=== PATIENT | male | born 1970 | race Asian ===

== ENCOUNTER 2016-10-12 21:04 | Inpatient (IN) | payer MEDICARE, BC ==
[~2016-10-12] VITALS: Ht 177.8 cm; Wt 80.0 kg
[2016-10-12 21:06] VITALS: BP 146/76; PULSE 99; RESP 16; TEMP 98; O2SAT 98
[2016-10-12] MEDS ORDERED: LANTUS2P SQ (22:17)
[2016-10-12] MEDS ORDERED: TACR1 PO (22:17)
[2016-10-12] MEDS ORDERED: NOVORP2 SQ (22:17)
[2016-10-12] MEDS ORDERED: MYCO250 PO (22:17)
[2016-10-12] MEDS ORDERED: PRED5TAB PO (22:18)
[2016-10-12] MEDS ORDERED: SIMV40TA PO (22:18)
[2016-10-12] MEDS ORDERED: ASPI-110 PO (22:18)
[2016-10-12] MEDS ORDERED: METO100T PO (22:18)
--- NOTE | 2016-10-12 22:39 | PD ---
HPI Chief Complaint: Injury Time Seen by Provider: 22:21 Travel History International Travel<30 days: No Contact w/Intl Traveler<30days: No Traveled to known affect area: No History of Present Illness HPI 46-year-old male complains of pain swelling and infection the right foot. Patient has history of diabetes. Patient status post kidney transplant in 1998 and pancreas transplant in 1999 and 2005. Patient is on immunosuppressive medications. Patient states that he had a small cut to the right foot several months ago. Patient states that he performed a callus at the area. Patient started having increasing redness swelling to right foot 3 days ago. Patient was seen at [facility] in [place] 2 days ago and had x-ray and was admitted for right foot cellulitis. A reinforced steel placing supervisor was consulted. Patient had debridement to right foot. Patient was put on IV and vancomycin and another IV antibiotic was edited yesterday. Patient states that the reinforced steel placing supervisor went out of town and other physician has been taking care of him at the hospital. Patient is unhappy with the situation and left the hospital today and came to [place]. Patient state that last IV vancomycin was this morning. Patient denies any fever chills. PFSH Past Medical History Diabetes: Yes (iddm) Patient Takes Glucophage: No Past Surgical History Other Surgery: Yes (kidney trans ; pancreatic trans 1999 & 2005; abd hernia ) Social History Alcohol Use: No Tobacco Use: No Substance Use: No Allergies-Medications (Allergen,Severity, Reaction): Coded Allergies: No Known Allergies (Unverified , 10/12/16) Reported Meds & Prescriptions Reported Meds & Active Scripts Active Reported Metoprolol Tartrate 100 Mg Tab 100 Mg PO DAILY Aspirin 81 (Aspirin) 81 Mg Tabdr 81 Mg PO DAILY Simvastatin 40 Mg Tab 40 Mg PO HS Prednisone 5 Mg Tab 5 Mg PO DAILY Prograf (Tacrolimus) 1 Mg Cap 2 Mg PO BID Cellcept (Mycophenolate Mofetil) 250 Mg Cap 500 Mg PO BID Novolin R Inj (Insulin Human Regular) 1,000 Unit/10 Ml Vial 0 SQ DIRECTED Sliding Scale As Directed. Lantus Inj (Insulin Glargine) 1,000 Unit/10 Ml Vial 50 Units SQ HS Review of Systems General / Constitutional: No: Fever Eyes: No: Visual changes HENT: No: Headaches Cardiovascular: No: Chest Pain or Discomfort Respiratory: No: Shortness of Breath Gastrointestinal: No: Abdominal Pain Genitourinary: No: Dysuria Musculoskeletal: Positive: Pain Skin: No Rash Neurologic: No: Weakness Psychiatric: No: Depression Endocrine: No: Polydipsia Hematologic/Lymphatic: No: Easy Bruising Physical Exam Narrative GENERAL: Well-nourished, well-developed patient. SKIN: Warm and dry. HEAD: Normocephalic. EYES: No scleral icterus. No injection or drainage. NECK: Supple, trachea midline. No JVD or lymphadenopathy. CARDIOVASCULAR: Regular rate and rhythm without murmurs, gallops, or rubs. RESPIRATORY: Breath sounds equal bilaterally. No accessory muscle use. GASTROINTESTINAL: Abdomen soft, non-tender, nondistended. MUSCULOSKELETAL: No cyanosis, or edema. BACK: Nontender without obvious deformity. No CVA tenderness. Examination the right foot shows redness swelling tenderness involving the right big toe, distal aspect of the right foot. No induration. Large ulcer lesion medial aspect of the right big toe. No discharge noted.. Data Data Last Documented VS Vital Signs Date Time Temp Pulse Resp B/P Pulse Ox O2 Delivery O2 Flow Rate FiO2 10/12/16 22:13 Room Air 10/12/16 21:06 98.0 99 16 146/76 98 Orders Complete Blood Count With Diff (10/12/16 22:29) Comprehensive Metabolic Panel (10/12/16 22:29) Prothrombin Time / Inr (Pt) (10/12/16 22:29) Act Partial Throm Time (Ptt) (10/12/16 22:29) Blood Culture (10/12/16 22:29) Iv Access Insert/Monitor (10/12/16 22:29) Ecg Monitoring (10/12/16 22:29) Oximetry (10/12/16 22:29) Foot, Complete ([id number]) (10/12/16 22:29) Piperacil-Tazo 3.375 Gm Premix (Zosyn 3. (10/13/16 00:00) Vancomycin Inj (Vancomycin Inj) (10/13/16 00:00) Sodium Chlor 0.9% 1000 Ml Inj (Ns 1000 M (10/13/16 00:00) Labs Laboratory Tests Test 10/12/16 22:45 White Blood Count 8.2 TH/MM3 Red Blood Count 4.90 MIL/MM3 Hemoglobin 14.2 GM/DL Hematocrit 42.0 % Mean Corpuscular Volume 85.7 FL Mean Corpuscular Hemoglobin 29.0 PG Mean Corpuscular Hemoglobin 33.9 % Concent Red Cell Distribution Width 12.9 % Platelet Count 277 TH/MM3 Mean Platelet Volume 7.6 FL Neutrophils (%) (Auto) 66.6 % Lymphocytes (%) (Auto) 24.3 % Monocytes (%) (Auto) 7.2 % Eosinophils (%) (Auto) 1.5 % Basophils (%) (Auto) 0.4 % Neutrophils # (Auto) 5.5 TH/MM3 Lymphocytes # (Auto) 2.0 TH/MM3 Monocytes # (Auto) 0.6 TH/MM3 Eosinophils # (Auto) 0.1 TH/MM3 Basophils # (Auto) 0.0 TH/MM3 CBC Comment DIFF FINAL Differential Comment Prothrombin Time 10.6 SEC Prothromb Time International 1.0 RATIO Ratio Activated Partial 24.9 SEC Thromboplast Time Sodium Level 137 MEQ/L Potassium Level 4.7 MEQ/L Chloride Level 101 MEQ/L Carbon Dioxide Level 29.8 MEQ/L Anion Gap 6 MEQ/L Blood Urea Nitrogen 19 MG/DL Creatinine 1.05 MG/DL Estimat Glomerular Filtration 75 ML/MIN Rate Random Glucose 231 MG/DL Calcium Level 9.5 MG/DL Total Bilirubin 0.3 MG/DL Aspartate Amino Transf 20 U/L (AST/SGOT) Alanine Aminotransferase 25 U/L (ALT/SGPT) Alkaline Phosphatase 118 U/L Total Protein 6.9 GM/DL Albumin 2.9 GM/DL MDM Medical Decision Making Medical Screen Exam Complete: Yes Emergency Medical Condition: Yes Interpretation(s) Last Impressions Foot X-Ray 10/12/16 9316 Signed Impressions: Service Date/Time: Wednesday, October 12, 2016 22:52 - CONCLUSION: Unremarkable examination of the right foot. Rasheed Fink Jr., MD 23:46 PM. CBC within normal limit. 23:55 PM. BUN 19. Creatinine 1.05. Glucose 231. Alkaline phosphatase 118. Differential Diagnosis Differential diagnosis including cellulitis, abscess, osteomyelitis. Narrative Course 46-year-old male with redness swelling tenderness right foot including right big toe and distal aspect the right foot. Normal saline solution 70 cc an hour. Vancomycin 1 g IV. Zosyn 3.375 g IV given. Diagnosis Primary Impression: Cellulitis of right foot Additional Impression: Diabetic ulcer of right foot Qualified Code: E13.621 - Diabetic ulcer of toe of right foot associated with diabetes mellitus of other type, with fat layer exposed Jerrod Mackenzie MD Oct 12, 2016 22:39
[2016-10-12 22:59] LABS: AUTOMATED NEUTROPHIL # 5.5 TH/MM3 (1.8-7.7); BASOPHIL % 0.4 % (0.0-2.0); EOSINOPHIL # 0.1 TH/MM3 (0-0.4); EOSINOPHIL % 1.5 % (0.0-4.0); HEMO FLAGS DIFF FINAL; LYMPH % 24.3 % (9.0-44.0); MEAN CELL VOLUME 85.7 FL (80.0-100.0); MEAN CORPUSCULAR HGB CONC 33.9 % (32.0-36.0); MONO % 7.2 % (0.0-8.0); NEUT % 66.6 % (16.0-70.0); PLATELET COUNT 277 TH/MM3 (150-450); RED CELL DISTRIBUTION WIDTH 12.9 % (11.6-17.2); WHITE BLOOD COUNT 8.2 TH/MM3 (4.0-11.0)
--- NOTE | 2016-10-12 23:08 | RADRPT ---
EXAM DATE/TIME: 10/12/2016 22:52 [facility] COMPARISON: No previous studies available for comparison. INDICATIONS : Infection MEDICAL HISTORY : Diabetes mellitus type II. SURGICAL HISTORY : None. ENCOUNTER: Initial ACUITY: 1 week PAIN SCORE: 2/10 LOCATION: Right Foot FINDINGS: Three view examination of the right foot demonstrates no soft tissue swelling, dislocation, or fractu re. The tarsal bones appear intact. The interphalangeal and metatarsophalangeal joints are intact. The calcaneus is intact. Bony mineralization is normal. CONCLUSION: Unremarkable examination of the right foot. Rasheed Fink Jr., MD on October 12, 2016 at 23:06 Board Certified Radiologist. This report was verified electronically.
[2016-10-12 23:11] LABS: APTT (PATIENT) 24.9 SEC (24.3-30.1); PROTHROMBIN TIME - PATIENT 10.6 SEC (9.8-11.6)
[2016-10-12 23:35] LABS: ALKALINE PHOSPHATASE 118 U/L (45-117); TOTAL BILIRUBIN ADULT 0.3 MG/DL (0.2-1.0)
[2016-10-12 23:47] LABS: ALT (GPT) 25 U/L (12-78); ANION GAP 6 MEQ/L (5-15); AST (GOT) 20 U/L (15-37); BICARBONATE 29.8 MEQ/L (21.0-32.0); BLOOD UREA NITROGEN 19 MG/DL (7-18); CHLORIDE 101 MEQ/L (98-107); GLOMERULAR FILTRATION RATE 75 ML/MIN (>89); SODIUM (NA) 137 MEQ/L (136-145)
[2016-10-12 23:50] LABS: POTASSIUM 4.7 MEQ/L (3.5-5.1)
[2016-10-13] VITALS (7 sets, daily range): BP systolic 108–147; BP diastolic 69–88; PULSE 81–95; RESP 16–20; TEMP 96–98; O2SAT 94–98
[2016-10-13] MEDS ORDERED: PIPERACIL-TAZO 3.375 GM PREMIX 50 ML IV ONE
[2016-10-13] MEDS ORDERED: VANCOMYCIN INJ 1,000 MG in SODIUM CHLOR 0.9% 250 ML INJ 250 ML IV ONE ×2
[2016-10-13] MEDS: SODIUM CHLOR 0.9% 1000 ML INJ 1,000 ML IV SCH ×2 (00:09→18:16)
[2016-10-13] MEDS ORDERED: ACETAMINOPHEN/HYDROcodone 325 MG/5 MG TAB PO PRN (00:15)
[2016-10-13] MEDS ORDERED: Vancomycin Consult Pharmacy 1 EA OTHER SCH (00:15)
[2016-10-13] MEDS ORDERED: MORPHINE SULFATE 4 MG/ML INJ IV PRN (00:15)
[2016-10-13] MEDS ORDERED: DEXTROSE 50% IN WATER 50 ML VIAL(D50) IV PUSH PRN (00:15)
[2016-10-13] MEDS ORDERED: ACETAMINOPHEN 325 MG TAB PO PRN ×2 (00:15)
[2016-10-13] MEDS ORDERED: GLUCAGON 1 MG/ML VIAL OTHER PRN (00:15)
[2016-10-13] MEDS ORDERED: NALOXONE HCL 0.4 MG/ML AMP IV PRN (00:15)
[2016-10-13] MEDS ORDERED: SENNOSIDES 8.6 MG TAB PO PRN (00:15)
[2016-10-13] MEDS ORDERED: SODIUM CHLORIDE 0.9% FLUSH 10 ML FLUSH IVF PRN (00:15)
[2016-10-13] MEDS ORDERED: ONDANSETRON HCL 4 MG/2 ML VIAL IV PRN (00:15)
[2016-10-13] MEDS ORDERED: ACETAMINOPHEN/HYDROcodone 325 MG/7.5 MG TAB PO PRN (00:15)
[2016-10-13] MEDS: INSULIN DETEMIR 100 UNITS/ML VIAL SQ SCH ×2 (00:30→21:08)
[2016-10-13] MEDS ORDERED: ENALAPRILAT 1.25 MG/ML VIAL IV PRN (01:00)
[2016-10-13] MEDS ORDERED: INSULIN DETEMIR 100 UNITS/ML VIAL SQ ONE (01:00)
[2016-10-13] MEDS ORDERED: cloNIDine HCL 0.1 MG TAB PO PRN (01:00)
--- NOTE | 2016-10-13 01:10 | HHI.HP ---
HPI Service [facility] Hospitalists Primary Care Physician No Primary Care Physician Admission Diagnosis right foot cellulitis. Diabetic foot ulcer Diagnoses: Chief Complaint: Right foot cellulitis Travel History International Travel<30 Days: No Contact w/Intl Traveler <30 Da: No Traveled to Known Affected Are: No History of Present Illness This is a 46-year-old male who complains of pain swelling and infection the right foot. Patient has history of diabetes, kidney and pancreatic transplant on immunosuppressive's, hypertension and hyperlipidemia. Patient states that he had a small cut to the right foot several months ago developed a callus at the area. Patient started having increasing redness swelling to right foot with slight pain 4 days ago. Patient was seen at [facility] in [place] 3 days ago and had x-ray and was admitted for right foot cellulitis. A [employer] senior specialist was consulted and underwent bedside debridement to right foot including scraping of the bone. No MRI was done. Patient was put on IV vancomycin and Zosyn. Patient states that the [employer] senior specialist went out of town today and another physician has been taking care of him at the hospital. Patient is unhappy with the situation and left the hospital today AGAINST MEDICAL ADVICE and came to [place]. Patient denies any fever chills. Review of Systems Constitutional: DENIES: Diaphoretic episodes, Fatigue, Fever, Weight gain, Weight loss, Chills, Dizziness, Change in appetite, Night Sweats Endocrine: DENIES: Heat/cold intolerance, Polydipsia, Polyuria, Polyphagia Eyes: DENIES: Blurred vision, Diplopia, Vision loss, Photosensitivity Ears, nose, mouth, throat: DENIES: Tinnitus, Vertigo, Throat pain, Hoarseness, Epistaxis, Odynophagia Respiratory: DENIES: Cough, Wheezing, Hemoptysis, Sputum production, Shortness of breath Cardiovascular: DENIES: Chest pain, Palpitations, Syncope, Dyspnea on Exertion , PND, Lower Extremity Edema, Orthopnea, Claudication Gastrointestinal: DENIES: Abdominal pain, Black stools, Bloody stools, Constipation, Diarrhea, Nausea, Vomiting, Difficulty Swallowing, Anorexia Genitourinary: DENIES: Urinary frequency, Urinary incontinence, Urgency, Hematuria, Dysuria, Nocturia, Penile Discharge Musculoskeletal: COMPLAINS OF: Joint pain Integumentary: DENIES: Rash Neurologic: DENIES: Headache, Localized weakness, Seizures, Tremor, Poor Balance Psychiatric: DENIES: Anxiety, Confusion, Depression, Hallucinations, Agitation , Suicidal Ideation, Homicidal Ideation, Delusions Past Family Social History Past Medical History As previously mentioned Past Surgical History As previously mentioned. Bedside debridement of right foot Reported Medications Metoprolol Tartrate 100 Mg Tab 100 Mg PO DAILY Aspirin 81 (Aspirin) 81 Mg Tabdr 81 Mg PO DAILY Simvastatin 40 Mg Tab 40 Mg PO HS Prednisone 5 Mg Tab 5 Mg PO DAILY Prograf (Tacrolimus) 1 Mg Cap 2 Mg PO BID Cellcept (Mycophenolate Mofetil) 250 Mg Cap 500 Mg PO BID Novolin R Inj (Insulin Human Regular) 1,000 Unit/10 Ml Vial 0 SQ DIRECTED Sliding Scale As Directed. Lantus Inj (Insulin Glargine) 1,000 Unit/10 Ml Vial 50 Units SQ HS Allergies: Coded Allergies: No Known Allergies (Unverified , 10/12/16) Family History Diabetes mellitus Social History Does not smoke or drink Physical Exam Vital Signs Vital Signs Date Time Temp Pulse Resp B/P Pulse Ox O2 Delivery O2 Flow Rate FiO2 10/13/16 00:43 98 Room Air 10/13/16 00:33 98 10/12/16 22:13 Room Air 10/12/16 21:06 98.0 99 16 146/76 98 Physical Exam GENERAL: This is a well-nourished, well-developed patient, in no apparent distress. SKIN: No rashes, ecchymoses or lesions. Cool and dry. HEAD: Atraumatic. Normocephalic. No temporal or scalp tenderness. EYES: Pupils equal round and reactive. Extraocular motions intact. No scleral icterus. No injection or drainage. ENT: Nose without bleeding, purulent drainage or septal hematoma. Throat without erythema, tonsillar hypertrophy or exudate. Uvula midline. Airway patent. NECK: Trachea midline. No JVD or lymphadenopathy. Supple, nontender, no meningeal signs. CARDIOVASCULAR: Regular rate and rhythm without murmurs, gallops, or rubs. RESPIRATORY: Clear to auscultation. Breath sounds equal bilaterally. No wheezes , rales, or rhonchi. GASTROINTESTINAL: Abdomen soft, non-tender, nondistended. Well healed scar from transplant. No guarding. MUSCULOSKELETAL: Extremities without clubbing, cyanosis, or edema. No joint tenderness, effusion, or edema noted. No calf tenderness. Negative Homans sign bilaterally. Right foot shows redness ,swelling and tenderness involving the right big toe, distal aspect of the right foot. No induration. Ulcer lesion medial aspect of the right big toe. No discharge noted. NEUROLOGICAL: Awake and alert. Cranial nerves II through XII intact. Motor and sensory grossly within normal limits. Five out of 5 muscle strength in all muscle groups. Normal speech. Laboratory Laboratory Tests Test 10/12/16 22:45 White Blood Count 8.2 Red Blood Count 4.90 Hemoglobin 14.2 Hematocrit 42.0 Mean Corpuscular Volume 85.7 Mean Corpuscular Hemoglobin 29.0 Mean Corpuscular Hemoglobin 33.9 Concent Red Cell Distribution Width 12.9 Platelet Count 277 Mean Platelet Volume 7.6 Neutrophils (%) (Auto) 66.6 Lymphocytes (%) (Auto) 24.3 Monocytes (%) (Auto) 7.2 Eosinophils (%) (Auto) 1.5 Basophils (%) (Auto) 0.4 Neutrophils # (Auto) 5.5 Lymphocytes # (Auto) 2.0 Monocytes # (Auto) 0.6 Eosinophils # (Auto) 0.1 Basophils # (Auto) 0.0 CBC Comment DIFF FINAL Differential Comment Prothrombin Time 10.6 Prothromb Time International 1.0 Ratio Activated Partial 24.9 Thromboplast Time Sodium Level 137 Potassium Level 4.7 Chloride Level 101 Carbon Dioxide Level 29.8 Anion Gap 6 Blood Urea Nitrogen 19 Creatinine 1.05 Estimat Glomerular Filtration 75 Rate Random Glucose 231 Calcium Level 9.5 Total Bilirubin 0.3 Aspartate Amino Transf 20 (AST/SGOT) Alanine Aminotransferase 25 (ALT/SGPT) Alkaline Phosphatase 118 Total Protein 6.9 Albumin 2.9 Date/Time Procedure Status Source Growth 10/12/16 22:45 Aerobic Blood Culture Received Blood Peripheral Pending 10/12/16 22:45 Anaerobic Blood Culture Received Blood Peripheral Pending Result Diagram: 10/12/16224410/12/162244 Imaging X-ray of the foot with out evidence of osteo-myelitis Last Impressions Foot X-Ray 10/12/162228 Signed Impressions: Service Date/Time: Wednesday, October 12, 2016 22:52 - CONCLUSION: Unremarkable examination of the right foot. Rasheed Fink Jr., MD Assessment and Plan Problem List: (1) Diabetic ulcer of right foot ICD Code: E11.621 Status: Acute (2) Cellulitis of right foot ICD Code: L03.115 Status: Acute Assessment and Plan This is a 46-year-old male who complains of pain swelling and infection the right foot. Patient has history of diabetes, kidney and pancreatic transplant on immunosuppressives, hypertension and hyperlipidemia. Patient states that he had a small cut to the right foot several months ago developed a callus at the area. Patient started having increasing redness swelling to right foot with slight pain 4 days ago. Patient was seen at [facility] in [place] 3 days ago and had x-ray and was admitted for right foot cellulitis. A [employer] senior specialist was consulted and underwent bedside debridement to right foot including scraping of the bone. Patient was put on IV vancomycin and Zosyn. Patient states that the [employer] senior specialist went out of town today and another physician has been taking care of him at the hospital. Patient is unhappy with the situation and left the hospital today AGAINST MEDICAL ADVICE and came to [place]. Patient denies any fever chills. Diabetic foot infection with cellulitis and ulcer of the right great toe medial aspect suspect osteomyelitis. X-ray of the foot unremarkable. Patient will be admitted for IV antibiotics we'll continue vancomycin and Zosyn. Obtain MRI of the foot and consult podiatry. Wound care. Pain management with Lortab and IV morphine. Obtain records from the [facility] Diabetes mellitus. A1c 3 months ago 12. Continue Lantus and sliding scale coverage. Diabetic education Chronic medical conditions of kidney and pancreatic transplant on immunosuppressives, hypertension and hyperlipidemia. Continue outpatient medications as appropriate. Consult nephrology DVT prophylaxis with SCD and heparin Code Status Full Discussed Condition With Patient Physician Certification 2 Midnight Certification Type: Admission for Inpatient Services Order for Inpatient Services The services are ordered in accordance with Medicare regulations or non- Medicare payer requirements, as applicable. In the case of services not specified as inpatient-only, they are appropriately provided as inpatient services in accordance with the 2-midnight benchmark. Estimated LOS (days): 2 days is the estimated time the patient will need to remain in the hospital, assuming treatment plan goals are met and no additional complications. Post-Hospital Plan: Not yet determined Problem Qualifiers (1) Diabetic ulcer of right foot: Qualified Code: E13.621 - Diabetic ulcer of toe of right foot associated with diabetes mellitus of other type, with fat layer exposed Basil Snyder MD Oct 13, 2016 01:10
[2016-10-13] MEDS: PIPERACIL-TAZO 3.375 GM PREMIX 50 ML IV SCH ×3 (06:00→17:58)
[2016-10-13] MEDS ORDERED: MYCOPHENOLATE MOFETIL 250 MG CAP PO SCH ×2 (06:00→09:00)
[2016-10-13] MEDS ORDERED: TACROLIMUS 1 MG CAP PO SCH (06:00)
[2016-10-13] MEDS: INSULIN ASPART SUPPLEMENTAL SCALE SQ SCH ×4 (07:00→21:05)
[2016-10-13] MEDS ORDERED: GADODIAMIDE PF 287 MG/ML 20 ML VIAL (for RAD MRI) IV ONE (08:37)
[2016-10-13] MEDS: SODIUM CHLORIDE 0.9% FLUSH 10 ML FLUSH IV FLUSH SCH ×2 (09:00→21:00)
[2016-10-13] MEDS: DOCUSATE SODIUM 100 MG CAP PO SCH ×2 (09:00→21:00)
[2016-10-13] MEDS: ASPIRIN EC 81 MG TABEC PO SCH (09:13)
[2016-10-13] MEDS: predniSONE 5 MG TAB PO SCH (09:13)
[2016-10-13] MEDS: METOPROLOL TARTRATE 100 MG TAB PO SCH (09:13)
--- NOTE | 2016-10-13 09:40 | RADRPT ---
EXAM DATE/TIME: 10/13/2016 08:11 [facility] COMPARISON: FOOT RIGHT COMPLETE ([id number]), October 12, 2016, 22:52. INDICATIONS : Abscess. Pain, redness, and swelling right great toe. CONTRAST: 14 cc Omniscan (gadodiamide) IV MEDICAL HISTORY : Diabetes mellitus type 1. Hypertension. Hypercholesterolemia. SURGICAL HISTORY : Kidney and pancreas transplant. ENCOUNTER: Subsequent ACUITY: 4-6 days PAIN SCORE: 0/10 LOCATION: Right lower extremity. TECHNIQUE: Multiplanar, multisequence MRI examination was performed without contrast and after the intravenous a dministration of gadolinium. FINDINGS: BONE/CARTILAGE: There is normal marrow signal identified on the T1 weighted sequences with mild increased T2 signal i dentified within the first digit distal phalanx. The cortex is intact. There is edema identified with in the adjacent soft tissues.. Articular cartilage signal is within normal limits. TENDONS: All of the visualized tendons are intact. MISCELLANEOUS: Plantar aponeurosis is intact. Sinus tarsi is within normal limits. POST-CONTRAST: There is enhancement of the soft tissues adjacent to the skin discontinuity adjacent to the distal ph alanx of the first digit. CONCLUSION: Soft tissue infection and reactive marrow edema identified within the distal phalanx of the first dig it. No evidence of osteomyelitis.. Kristi Childress MD on October 13, 2016 at 9:34 Board Certified Radiologist. This report was verified electronically.
[2016-10-13] MEDS: HEPARIN SODIUM - SQ 10,000 UNITS/ML VIAL SQ SCH ×2 (09:59→21:05)
--- NOTE | 2016-10-13 10:02 | PD.POD.CON ---
Patient Intake Chief Complaint Infected right hallux with ulceration and diabetes Consult Requested by Dr. Snyder Reason for Consult Evaluation and treatment of right hallux ulceration. Primary Care Physician No Primary Care Physician History of Present Illness Patient is a 46-year-old diabetic male with peripheral neuropathy and history of pancreatic and kidney transplant. States in July he cut his toes of his right foot with a piece of sheet metal. The area healed up but he developed a wound on the plantar aspect of the right hallux. It is now spread to the dorsal aspect of the right hallux. Patient was in [facility] he was seen by a manager actuarial there who did a bedside debridement. Results are not available at this time. Patient smokes. He has been showering. Coded Allergies: No Known Allergies (Unverified , 10/12/16) Preferred Language to Discuss: Kazakh Barriers to Learning: None Teaching Method: Discussion Vital Signs Date Time Temp Pulse Resp B/P Pulse Ox O2 Delivery O2 Flow Rate FiO2 10/13/16 08:52 98.0 92 20 147/88 96 10/13/16 00:43 98 Room Air 10/13/16 00:33 98 10/12/16 22:13 Room Air 10/12/16 21:06 98.0 99 16 146/76 98 Pain scale used: 0-10 numeric scale Pain score: 0 Medications Current Medications Piperacillin Sod/ Tazobactam Sod 50 ml @ 100 mls/hr ONCE ONCE IV Last administered on 10/13/16 00:10; Start 10/13/16 at 00:00; Stop 10/13/16 at 00:29 ; Status DC Vancomycin HCl 1000 mg/Sodium Chloride 250 ml @ 250 mls/hr ONCE ONCE IV Last administered on 10/13/16 00:36; Start 10/13/16 at 00:00; Stop 10/13/16 at 00:59 ; Status DC Sodium Chloride 1,000 ml @ 70 mls/hr [id number] IV Last administered on 00:09; Start 10/13/16 at 00:00 Pharmacy Profile Note 0 ml @ 0 mls/hr UNSCH OTHER ; Start 10/13/16 at 00:15 Piperacillin Sod/ Tazobactam Sod (Zosyn 3.375 Gm Premix) 50 ml @ 100 mls/hr Q6HR IV Last administered on 10/13/16 06:00; Start 10/13/16 at 06:00 Dextrose (D50w (Vial) Inj) 25 ml UNSCH PRN IV PUSH HYPOGLYCEMIA-SEE COMMENTS; Start 10/13/16 at 00:15 Glucagon (Glucagon Inj) 1 mg UNSCH PRN OTHER HYPOGLYCEMIA-SEE COMMENTS; Start 10/13/16 at 00:15 Insulin Aspart (NovoLOG SUPPLEMENTAL SCALE) 1 ACHS SLIDING SCALE SQ ; Start at 07:00 Ondansetron HCl (Zofran Inj) 4 mg Q6H PRN IV NAUSEA OR VOMITING; Start at 00:15 Acetaminophen (Tylenol) 650 mg Q4H PRN PO Temp>101F, Headache; Start 10/13/16 at 00:15 Sodium Chloride (NS Flush) 2 ml BID IV FLUSH Last administered on 10/13/16 09: 00; Start 10/13/16 at 09:00 Sodium Chloride (NS Flush) 2 ml UNSCH PRN IVF FLUSH AFTER USING IV ACCESS; Start 10/13/16 at 00:15 Aspirin (Ecotrin Ec) 81 mg DAILY PO Last administered on 10/13/16 09:13; Start 10/13/16 at 09:00 Insulin Detemir (Levemir Inj) 50 units HS SQ ; Start 10/13/16 at 00:30 Metoprolol Tartrate (Lopressor) 100 mg DAILY PO Last administered on 10/13/16 09:13; Start 10/13/16 at 09:00 Mycophenolate Mofetil (Cellcept) 500 mg BID PO ; Start 10/13/16 at 09:00; Stop 10/13/16 at 09:00; Status DC Prednisone (Deltasone) 5 mg DAILY PO Last administered on 10/13/16 09:13; Start 10/13/16 at 09:00 Tacrolimus (Prograf) 2 mg Q12H PO ; Start 10/13/16 at 06:00 Pravastatin Sodium (Pravachol) 80 mg HS PO ; Start 10/13/16 at 21:00 Docusate Sodium (Colace) 100 mg Q12HR PO ; Start 10/13/16 at 09:00 Sennosides (Senokot) 17.2 mg Q12H PRN PO CONSTIPATION; Start 10/13/16 at 00:15 Heparin Sodium (Porcine) (Heparin Inj) 5,000 units Q12HR SQ ; Start 10/13/16 at 09:00 Acetaminophen (Tylenol) 650 mg Q6H PRN PO PAIN SCALE 1 TO 2; Start 10/13/16 at 00:15 Acetaminophen/ Hydrocodone Bitart ([place] 5-325 Mg) 1 tab Q4H PRN PO PAIN SCALE 3 TO 5; Start 10/13/16 at 00:15 Acetaminophen/ Hydrocodone Bitart ([place] 7.5-325 Mg) 1 tab Q4H PRN PO PAIN SCALE 6 TO 10; Start 10/13/16 at 00:15 Morphine Sulfate (Morphine Inj) 1 mg Q3H PRN IV BREAKTHROUGH PAIN; Start at 00:15 Naloxone HCl (Narcan Inj) 0.4 mg UNSCH PRN IV SEE LABEL COMMENTS; Start at 00:15 Mycophenolate Mofetil (Cellcept) 500 mg Q12H PO ; Start 10/13/16 at 06:00 Insulin Detemir (Levemir Inj) 30 units NOW ONCE SQ Last administered on 01:26; Start 10/13/16 at 01:00; Stop 10/13/16 at 01:16; Status DC Enalaprilat (Vasotec Inj) 1.25 mg Q6H PRN IV SBP> OR = 180, DBP> OR = 100; Start 10/13/16 at 01:00 Clonidine (Catapres) 0.1 mg Q6H PRN PO SBP> OR = 180, DBP> OR = 100; Start at 01:00 Gadodiamide 14 ml 14 ml STK-MED ONCE IV Last administered on 10/13/16 08:37; Start 10/13/16 at 08:37; Stop 10/13/16 at 08:38; Status DC Vancomycin HCl/ Sodium Chloride (Vancomycin Inj/ NS 250 ml Inj) 250 ml @ 250 mls/hr Q12H IV ; Start 10/13/16 at 12:00 Miscellaneous Information SPECIFIC LAB TO BE ... ONCE ONCE XX ; Start at 11:45; Stop 10/14/16 at 11:46 Past, Family & Social History Past Medical History Endocrine: REPORTS HX OF: Diabetes mellitus, Other endocrine history Genitourinary: REPORTS HX OF: Kidney failure Neurologic: REPORTS HX OF: Peripheral neuropathy Past Surgical History Endocrine: REPORTS HX OF: Other endocrine surgery (pancreatitic transplant with failure) Genitourinary: REPORTS HX OF: Other surgery (to need transplant) Review of Systems Musculoskeletal: COMPLAINS OF: Deformaties Exam-Podiatry Constitutional General appearance: comfortable Nutritional status: normal Orientation: alert and oriented x3 Dermatological Exam Skin Temp - Right: Within Normal Limits Skin Texture - Right: Within Normal Limits Skin Elasticity - Right: Within Normal Limits Skin Tugor - Right: Within Normal Limits Hair Growth - Right: Within Normal Limits Pigmentation - Right: Within Normal Limits Skin Temp - Left: Within Normal Limits Skin Texture - Left: Within Normal Limits Skin Elasticity - Left: Within Normal Limits Skin Tugor - Left: Within Normal Limits Hair Growth - Left: Within Normal Limits Pigmentation - Left: Within Normal Limits Ulcers: Location/Measurements right hallux with dorsal and plantar ulceration. The plantar ulceration probes to bone. It measures approximately 0.8 cm x 0.8 cm. Dorsal ulceration is necrotic eschar. The right hallux is swollen and erythematous. Vascular/Lymphatic Exam R Dorsails Pedis: Palpable L Dorsails Pedis: Palpable R Posterior Tibial: Palpable L Posterior Tibial: Palpable Neurologic Exam Present on right: Tingling, Paraesthesia Present on left: Tingling, Paraesthesia Sensation: Light touch: Dimished Pinprick: Dimished Proprioception: Dimished Vibratory: Dimished Monofilament exam: 1st metatarsal head: diminished 5th metatarsal head: diminished Great toe: diminished Muscle Strength Dorsiflexion (Right): Normal Plantarflexion (Right): Normal Inversion (Right): Normal Eversion (Right): Normal Digital (Right): Normal Dorsiflexion (Left): Normal Plantarflexion (Left): Normal Inversion (Left): Normal Eversion (Left): Normal Digital (Left): Normal Foot Range of Motion Dorsiflexion (Right): Normal Plantarflexion (Right): Normal Inversion (Right): Normal Eversion (Right): Normal Digital (Right): Normal Dorsiflexion (Left): Normal Plantarflexion (Left): Normal Inversion (Left): Normal Eversion (Left): Normal Digital (Left): Normal Lab and Radiology Results Laboratory Laboratory Tests Test 10/12/16 22:45 White Blood Count 8.2 TH/MM3 Red Blood Count 4.90 MIL/MM3 Hemoglobin 14.2 GM/DL Hematocrit 42.0 % Mean Corpuscular Volume 85.7 FL Mean Corpuscular Hemoglobin 29.0 PG Mean Corpuscular Hemoglobin 33.9 % Concent Red Cell Distribution Width 12.9 % Platelet Count 277 TH/MM3 Mean Platelet Volume 7.6 FL Neutrophils (%) (Auto) 66.6 % Lymphocytes (%) (Auto) 24.3 % Monocytes (%) (Auto) 7.2 % Eosinophils (%) (Auto) 1.5 % Basophils (%) (Auto) 0.4 % Neutrophils # (Auto) 5.5 TH/MM3 Lymphocytes # (Auto) 2.0 TH/MM3 Monocytes # (Auto) 0.6 TH/MM3 Eosinophils # (Auto) 0.1 TH/MM3 Basophils # (Auto) 0.0 TH/MM3 CBC Comment DIFF FINAL Differential Comment Laboratory Tests Test 10/12/16 22:45 Sodium Level 137 MEQ/L Potassium Level 4.7 MEQ/L Chloride Level 101 MEQ/L Carbon Dioxide Level 29.8 MEQ/L Anion Gap 6 MEQ/L Blood Urea Nitrogen 19 MG/DL Creatinine 1.05 MG/DL Estimat Glomerular Filtration 75 ML/MIN Rate Random Glucose 231 MG/DL Calcium Level 9.5 MG/DL Total Bilirubin 0.3 MG/DL Aspartate Amino Transf 20 U/L (AST/SGOT) Alanine Aminotransferase 25 U/L (ALT/SGPT) Alkaline Phosphatase 118 U/L Total Protein 6.9 GM/DL Albumin 2.9 GM/DL Microbiology Date/Time Procedure Status Source Growth 10/12/16 22:45 Aerobic Blood Culture Received Blood Peripheral Pending 10/12/16 22:45 Anaerobic Blood Culture Received Blood Peripheral Pending 10/12/16 22:45 Aerobic Blood Culture Received Blood Peripheral Pending 10/12/16 22:45 Anaerobic Blood Culture Received Blood Peripheral Pending Radiology Last Impressions Foot MRI 10/13/16 0000 Signed Impressions: Service Date/Time: Thursday, October 13, 2016 08:11 - CONCLUSION: Soft tissue infection and reactive marrow edema identified within the distal phalanx of the first digit. No evidence of osteomyelitis.. Kristi Childress MD Foot X-Ray 10/12/16 2229 Signed Impressions: Service Date/Time: Wednesday, October 12, 2016 22:52 - CONCLUSION: Unremarkable examination of the right foot. Rasheed Fink Jr., MD Assessment/Plan Problem List: (1) Cellulitis of right foot Status: Acute (2) Diabetic ulcer of right foot Status: Acute Additional Plans & Procedures PLAN: Culture and sensitivity of the plantar wound. Pack the wound with Maxorb extra AG. Ordered Ceretec labeled white blood cell scan as MRI is inconclusive. We' ll follow during the course of this admission. No baths or showers. Sponge bathe only. Problem Qualifiers (1) Diabetic ulcer of right foot: Qualified Code: E13.621 - Diabetic ulcer of toe of right foot associated with diabetes mellitus of other type, with necrosis of muscle Patrick Nichols DPM Oct 13, 2016 10:02
[2016-10-13] MEDS ORDERED: VANCOMYCIN 1,000 MG/NS 250 ML IV SCH ×2 (12:00)
[2016-10-13] MEDS: MYCOPHENOLATE MOFETIL 250 MG CAP PO SCH (12:20)
[2016-10-13] MEDS: TACROLIMUS 1 MG CAP PO SCH (12:21)
[2016-10-13] MEDS: INSULIN ASPART 1,000 UNITS/10 ML VIAL SQ SCH ×2 (13:11→18:34)
--- NOTE | 2016-10-13 18:45 | PD.CONS ---
HPI Service Nephrology Consult Requested By Dr. Snyder Reason for Consult kidney transplant Primary Care Physician No Primary Care Physician History of Present Illness 46 year old male with Type 1 diabetes, s/p Living Kidney transplant from 18 years ago maintained on Prograf, CellCept and Prednisone who has right big toe ulcer and was admitted with possible infection, he also has discoloration on left toe, he states he has drop something on his left toe and it is bruised. , he is making urine Creatinine baseline is 0.9 today 1.05 he is on Vancomycin Review of Systems Constitutional: COMPLAINS OF: Fatigue Musculoskeletal: COMPLAINS OF: Joint pain Integumentary: COMPLAINS OF: Rash Past Family Social History Allergies: Coded Allergies: No Known Allergies (Unverified , 10/12/16) Past Medical History Diabetes Hypertension PVD Hx of kidney transplant Pancreas Transplant x 2 failed Toe infection Past Surgical History kidney transplant Pancreas Transplant Reported Medications Reported Meds & Active Scripts Active Reported Metoprolol Tartrate 100 Mg Tab 100 Mg PO DAILY Aspirin 81 (Aspirin) 81 Mg Tabdr 81 Mg PO DAILY Simvastatin 40 Mg Tab 40 Mg PO HS Prednisone 5 Mg Tab 5 Mg PO DAILY Prograf (Tacrolimus) 1 Mg Cap 2 Mg PO BID Cellcept (Mycophenolate Mofetil) 250 Mg Cap 500 Mg PO BID Novolin R Inj (Insulin Human Regular) 1,000 Unit/10 Ml Vial 0 SQ DIRECTED Sliding Scale As Directed. Lantus Inj (Insulin Glargine) 1,000 Unit/10 Ml Vial 50 Units SQ HS Active Ordered Medications Current Medications Medications (Trade) Dose Ordered Sig/Diana Route Start Time Stop Time Status Last Admin Sodium Chloride 1,000 ml @ 70 mls/hr [id number] IV 10/13/16 00:00 10/13/16 18:16 Pharmacy Profile Note 0 ml @ 0 mls/hr UNSCH OTHER 10/13/16 00:15 (Zosyn 3.375 Gm Premix) 50 ml @ 100 mls/hr Q6HR IV 10/13/16 06:00 10/13/16 17:58 (D50w (Vial) Inj) 25 ml UNSCH PRN IV PUSH 10/13/16 00:15 (Glucagon Inj) 1 mg UNSCH PRN OTHER 10/13/16 00:15 (Zofran Inj) 4 mg Q6H PRN IV 10/13/16 00:15 (Tylenol) 650 mg Q4H PRN PO 10/13/16 00:15 (NS Flush) 2 ml BID IV FLUSH 10/13/16 09:00 10/13/16 09:00 (NS Flush) 2 ml UNSCH PRN IVF 10/13/16 00:15 (Ecotrin Ec) 81 mg DAILY PO 10/13/16 09:00 10/13/16 09:13 (Levemir Inj) 50 units HS SQ 10/13/16 00:30 (Lopressor) 100 mg DAILY PO 10/13/16 09:00 10/13/16 09:13 (Deltasone) 5 mg DAILY PO 10/13/16 09:00 10/13/16 09:13 (Pravachol) 80 mg HS PO 10/13/16 21:00 (Colace) 100 mg Q12HR PO 10/13/16 09:00 (Senokot) 17.2 mg Q12H PRN PO 10/13/16 00:15 (Heparin Inj) 5,000 units Q12HR SQ 10/13/16 09:00 10/13/16 09:59 (Tylenol) 650 mg Q6H PRN PO 10/13/16 00:15 ([place] 5-325 Mg) 1 tab Q4H PRN PO 10/13/16 00:15 ([place] 7.5-325 Mg) 1 tab Q4H PRN PO 10/13/16 00:15 (Morphine Inj) 1 mg Q3H PRN IV 10/13/16 00:15 (Narcan Inj) 0.4 mg UNSCH PRN IV 10/13/16 00:15 (Vasotec Inj) 1.25 mg Q6H PRN IV 10/13/16 01:00 Clonidine 0.1 mg 0.1 mg Q6H PRN PO 10/13/16 01:00 (Vancomycin Inj/ NS 250 ml Inj) 250 ml @ 250 mls/hr Q12H IV 10/13/16 12:00 10/13/16 12:25 Miscellaneous Information SPECIFIC LAB TO BE COLLIN... ONCE ONCE XX 10/14/16 11:45 10/14/16 11:46 (NovoLOG INJ) 5 units TIDAC SQ 10/13/16 13:00 10/13/16 13:11 (Prograf) 2 mg Q12H PO 10/13/16 12:00 10/13/16 12:21 (Cellcept) 500 mg Q12H PO 10/13/16 12:00 10/13/16 12:20 Family History noncontributory Social History denies smoking or ETOH Physical Exam Vital Signs Vital Signs Date Time Temp Pulse Resp B/P Pulse Ox O2 Delivery O2 Flow Rate FiO2 10/13/16 16:25 96.0 86 20 121/72 94 10/13/16 12:03 96.2 84 20 122/80 96 10/13/16 08:52 98.0 92 20 147/88 96 10/13/16 00:43 98 Room Air 10/13/16 00:33 98 10/12/16 22:13 Room Air 10/12/16 21:06 98.0 99 16 146/76 98 Physical Exam GENERAL: Well-nourished, well-developed patient. SKIN: Warm and dry. HEAD: Normocephalic. EYES: No scleral icterus. No injection or drainage. NECK: Supple, trachea midline. No JVD or lymphadenopathy. CARDIOVASCULAR: Regular rate and rhythm without murmurs, gallops, or rubs. RESPIRATORY: Breath sounds equal bilaterally. No accessory muscle use. GASTROINTESTINAL: Abdomen soft, non-tender, nondistended. EXTREMITIES: No cyanosis, or edema. toe ulcer rt foot left 2nd toe bruised NEUROLOGICAL: Awake, alert, and oriented x 3. Non-focal. Laboratory Laboratory Tests Test 10/12/16 22:45 White Blood Count 8.2 Red Blood Count 4.90 Hemoglobin 14.2 Hematocrit 42.0 Mean Corpuscular Volume 85.7 Mean Corpuscular Hemoglobin 29.0 Mean Corpuscular Hemoglobin 33.9 Concent Red Cell Distribution Width 12.9 Platelet Count 277 Mean Platelet Volume 7.6 Neutrophils (%) (Auto) 66.6 Lymphocytes (%) (Auto) 24.3 Monocytes (%) (Auto) 7.2 Eosinophils (%) (Auto) 1.5 Basophils (%) (Auto) 0.4 Neutrophils # (Auto) 5.5 Lymphocytes # (Auto) 2.0 Monocytes # (Auto) 0.6 Eosinophils # (Auto) 0.1 Basophils # (Auto) 0.0 CBC Comment DIFF FINAL Differential Comment Prothrombin Time 10.6 Prothromb Time International 1.0 Ratio Activated Partial 24.9 Thromboplast Time Sodium Level 137 Potassium Level 4.7 Chloride Level 101 Carbon Dioxide Level 29.8 Anion Gap 6 Blood Urea Nitrogen 19 Creatinine 1.05 Estimat Glomerular Filtration 75 Rate Random Glucose 231 Calcium Level 9.5 Total Bilirubin 0.3 Aspartate Amino Transf 20 (AST/SGOT) Alanine Aminotransferase 25 (ALT/SGPT) Alkaline Phosphatase 118 Total Protein 6.9 Albumin 2.9 Date/Time Procedure Status Source Growth 10/13/16 00:00 Gram Stain - Final Resulted Wound Toe 10/13/16 00:00 Wound Culture Resulted Wound Toe Pending 10/12/16 22:45 Aerobic Blood Culture - Preliminary Resulted Blood Peripheral NO GROWTH IN 1 DAY 10/12/16 22:45 Anaerobic Blood Culture - Preliminary Resulted Blood Peripheral NO GROWTH IN 1 DAY Result Diagram: 10/12/16 2245 10/12/16 2245 Imaging Last Impressions Foot MRI 10/13/16 0000 Signed Impressions: Service Date/Time: Thursday, October 13, 2016 08:11 - CONCLUSION: Soft tissue infection and reactive marrow edema identified within the distal phalanx of the first digit. No evidence of osteomyelitis.. Kristi Childress MD Foot X-Ray 10/12/16 2229 Signed Impressions: Service Date/Time: Wednesday, October 12, 2016 22:52 - CONCLUSION: Unremarkable examination of the right foot. Rasheed Fink Jr., MD Assessment and Plan Problem List: (1) Living-donor kidney transplant recipient Plan: his creatinine slightly up then baseline, avoid nephrotoxic medications strongly recommend to stop Vancomycin as no evidence of MRSA i will lower the dose of Vanco to once daily continue Prograf , cellcept follow BMP (2) Diabetic ulcer of right foot Plan: Powertrain Engineer following (3) Cellulitis of right foot Plan: continue supportive care and antibiotics avoid nephrotoxins Problem Qualifiers (1) Diabetic ulcer of right foot: Qualified Code: E13.621 - Diabetic ulcer of toe of right foot associated with diabetes mellitus of other type, with necrosis of muscle Mathew Vega MD Oct 13, 2016 18:45
[2016-10-13] MEDS ORDERED: PRAVASTATIN SOD 80 MG TAB PO SCH (21:00)
[2016-10-13 21:37] LABS: BICARBONATE 27.4 MEQ/L (21.0-32.0); MAGNESIUM 1.6 MG/DL (1.5-2.5); POTASSIUM 4.3 MEQ/L (3.5-5.1)
[2016-10-14] MEDS: TACROLIMUS 1 MG CAP PO SCH ×2 (00:28→12:07)
[2016-10-14] MEDS: MYCOPHENOLATE MOFETIL 250 MG CAP PO SCH ×2 (00:28→12:00)
[2016-10-14] MEDS: PIPERACIL-TAZO 3.375 GM PREMIX 50 ML IV SCH ×3 (00:28→12:10)
[2016-10-14 00:52] LABS: BLOOD, URINE NEG (NEG); COMMENT (UR) CULT NOT INDICATED; CULTURE IF INDICATED CULT NOT INDICATED; GLUCOSE,URINE 1000 mg/dL (NEG); KETONE, URINE NEG (NEG); MUCUS URINE FEW /lpf (OCC); NITRITE,URINE NEG (NEG); PH, URINE 6.5 (5.0-8.5); URINE COLOR COLORLESS (YELLW/STRAW)
[2016-10-14 03:30] VITALS: BP 108/70; PULSE 81; RESP 16; TEMP 98; O2SAT 81
[2016-10-14 04:54] VITALS: BP 132/77; PULSE 80; RESP 20; TEMP 98.2; O2SAT 95
[2016-10-14 05:29] LABS: AUTOMATED NEUTROPHIL # 3.3 TH/MM3 (1.8-7.7); BASOPHIL # 0.1 TH/MM3 (0-0.2); EOSINOPHIL # 0.2 TH/MM3 (0-0.4); EOSINOPHIL % 2.4 % (0.0-4.0); HEMATOCRIT 40.3 % (39.0-51.0); HEMO FLAGS DIFF FINAL; LYMPH % 37.5 % (9.0-44.0); LYMPHOCYTE # 2.5 TH/MM3 (1.0-4.8); MEAN CORPUSCULAR HEMOGLOBIN 29.3 PG (27.0-34.0); MEAN CORPUSCULAR HGB CONC 34.5 % (32.0-36.0); MONO % 9.6 % (0.0-8.0); NEUT % 49.5 % (16.0-70.0); PLATELET COUNT 283 TH/MM3 (150-450); RED BLOOD COUNT 4.74 MIL/MM3 (4.50-5.90); RED CELL DISTRIBUTION WIDTH 12.9 % (11.6-17.2); WHITE BLOOD COUNT 6.6 TH/MM3 (4.0-11.0)
[2016-10-14] MEDS: SODIUM CHLOR 0.9% 1000 ML INJ 1,000 ML IV SCH (06:12)
[2016-10-14] MEDS: INSULIN ASPART SUPPLEMENTAL SCALE SQ SCH ×2 (07:00→13:18)
[2016-10-14 07:14] VITALS: BP 110/64; PULSE 88; RESP 22; TEMP 97.6; O2SAT 98
[2016-10-14] MEDS: INSULIN ASPART 1,000 UNITS/10 ML VIAL SQ SCH ×2 (08:00→13:18)
[2016-10-14] MEDS: SODIUM CHLORIDE 0.9% FLUSH 10 ML FLUSH IV FLUSH SCH (09:00)
[2016-10-14] MEDS: DOCUSATE SODIUM 100 MG CAP PO SCH (09:00)
[2016-10-14] MEDS: METOPROLOL TARTRATE 100 MG TAB PO SCH (09:10)
[2016-10-14] MEDS: ASPIRIN EC 81 MG TABEC PO SCH (09:10)
[2016-10-14] MEDS: predniSONE 5 MG TAB PO SCH (09:10)
[2016-10-14] MEDS: HEPARIN SODIUM - SQ 10,000 UNITS/ML VIAL SQ SCH (09:11)
[2016-10-14 09:20] VITALS: O2SAT 97
--- NOTE | 2016-10-14 11:08 | RADRPT ---
EXAM DATE/TIME: 10/13/2016 14:27 [facility] COMPARISON: MRI FOOT RIGHT W & W/O CONTRAST, October 13, 2016, 8:11. FOOT RIGHT COMPLETE ([id number]), October 12, 2016 , 22:52. INDICATIONS : Abcess on right foot since July. DOSE: 20.1 mCi Tc99m Ceretec labeled white blood cells IV SPECT IMAGIN hrs, 20 hrs IMAGNG: SPECT/CT imaging with fusion was performed. RADIATION DOSE: 5.31 CTDIvol (mGy) ; Multiple Day Study MEDICAL HISTORY : Diabetes mellitus type 2. Hypertension. SURGICAL HISTORY : Kidney and pancrease transplant. ENCOUNTER: Initial ACUITY: 2 months PAIN SCALE: 4/10 LOCATION: Right Foot. TECHNIQUE: Following the in vitro labeling of autologous white cells and reinjection, whole body scan was perfor med at the specified times. SPECT imaging was performed at the specified time in sagittal, axial and coronal planes. Attenuation correction was performed with the computed tomography and both the atten uation correction and non-attenuation corrected data sets were reviewed. FINDINGS: There is localization of radiotracer within the soft tissues along the medial aspect of the right clarisa t at the level of the DIP joint. The adjacent osseous structures demonstrate no evidence of osseous d estruction or demineralization. No evidence of osteomyelitis. CONCLUSION: Radiotracer uptake identified within the soft tissues along the medial aspect of the first digit at t he PIP joint. No evidence of abnormal activity within the osseous structures. Kristi Childress MD on October 14, 2016 at 11:01 Board Certified Radiologist. This report was verified electronically.
[2016-10-14 11:09] VITALS: BP 122/79; PULSE 83; RESP 20; TEMP 95; O2SAT 98
[2016-10-14] MEDS ORDERED: PHARMACY ORDERED LAB XX ONE (11:45)
--- NOTE | 2016-10-14 11:56 | PD.POD ---
Subjective Podiatric Problems Diabetic patient with ulceration of right plantar hallux and right dorsal hallux. 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 He was at [facility] and signed out AMA to come to [place]. Ceretec labeled white blood cell scan was negative for bone infection. Gram stain has no organisms. Final culture not back yet. Past Med/Surg/Social History Past Medical History Endocrine: REPORTS HX OF: Diabetes mellitus, Other endocrine history Genitourinary: REPORTS HX OF: Kidney failure Neurologic: REPORTS HX OF: Peripheral neuropathy Past Surgical History Endocrine: REPORTS HX OF: Other endocrine surgery (pancreatitic transplant with failure) Genitourinary: REPORTS HX OF: Other surgery (to need transplant) Social History Smoking Status: Current Some Day Smoker Review of Systems Notes no changes in his 14 point review of systems exam since yesterday Neurological: COMPLAINS OF: Numbness/tingling, Changes in sensation Objective Vital Signs Vital Signs Date Time Temp Pulse Resp B/P Pulse Ox O2 Delivery O2 Flow Rate FiO2 10/14/16 11:09 95.0 83 20 122/79 98 10/14/16 07:14 97.6 88 22 110/64 98 10/14/16 04:54 98.2 80 20 132/77 95 10/14/16 03:30 98.0 81 16 108/70 81 10/13/16 19:47 98.0 95 18 120/69 95 10/13/16 16:25 96.0 86 20 121/72 94 10/13/16 12:03 96.2 84 20 122/80 96 10/13/16 12:01 98.0 81 16 108/70 95 Coded Allergies: No Known Allergies (Unverified , 10/12/16) Medications and IVs Current Medications Piperacillin Sod/ Tazobactam Sod 50 ml @ 100 mls/hr ONCE ONCE IV Last administered on 10/13/16 00:10; Start 10/13/16 at 00:00; Stop 10/13/16 at 00:29 ; Status DC Vancomycin HCl 1000 mg/Sodium Chloride 250 ml @ 250 mls/hr ONCE ONCE IV Last administered on 10/13/16 00:36; Start 10/13/16 at 00:00; Stop 10/13/16 at 00:59 ; Status DC Sodium Chloride 1,000 ml @ 70 mls/hr [id number] IV Last administered on 06:12; Start 10/13/16 at 00:00 Pharmacy Profile Note 0 ml @ 0 mls/hr UNSCH OTHER ; Start 10/13/16 at 00:15; Stop 10/13/16 at 18:44; Status DC Piperacillin Sod/ Tazobactam Sod (Zosyn 3.375 Gm Premix) 50 ml @ 100 mls/hr Q6HR IV Last administered on 10/14/16 06:09; Start 10/13/16 at 06:00 Dextrose (D50w (Vial) Inj) 25 ml UNSCH PRN IV PUSH HYPOGLYCEMIA-SEE COMMENTS; Start 10/13/16 at 00:15 Glucagon (Glucagon Inj) 1 mg UNSCH PRN OTHER HYPOGLYCEMIA-SEE COMMENTS; Start 10/13/16 at 00:15 Insulin Aspart (NovoLOG SUPPLEMENTAL SCALE) 1 ACHS SLIDING SCALE SQ Last administered on 10/13/16 21:05; Start 10/13/16 at 07:00 Ondansetron HCl (Zofran Inj) 4 mg Q6H PRN IV NAUSEA OR VOMITING; Start at 00:15 Acetaminophen (Tylenol) 650 mg Q4H PRN PO Temp>101F, Headache; Start 10/13/16 at 00:15 Sodium Chloride (NS Flush) 2 ml BID IV FLUSH Last administered on 10/14/16 09: 00; Start 10/13/16 at 09:00 Sodium Chloride (NS Flush) 2 ml UNSCH PRN IVF FLUSH AFTER USING IV ACCESS; Start 10/13/16 at 00:15 Aspirin (Ecotrin Ec) 81 mg DAILY PO Last administered on 10/14/16 09:10; Start 10/13/16 at 09:00 Insulin Detemir (Levemir Inj) 50 units HS SQ Last administered on 10/13/16 21: 08; Start 10/13/16 at 00:30 Metoprolol Tartrate (Lopressor) 100 mg DAILY PO Last administered on 10/14/16 09:10; Start 10/13/16 at 09:00 Mycophenolate Mofetil (Cellcept) 500 mg BID PO ; Start 10/13/16 at 09:00; Stop 10/13/16 at 09:00; Status DC Prednisone (Deltasone) 5 mg DAILY PO Last administered on 10/14/16 09:10; Start 10/13/16 at 09:00 Tacrolimus (Prograf) 2 mg Q12H PO ; Start 10/13/16 at 06:00; Stop 10/13/16 at 12 :13; Status DC Pravastatin Sodium (Pravachol) 80 mg HS PO Last administered on 10/13/16 21:05 ; Start 10/13/16 at 21:00 Docusate Sodium (Colace) 100 mg Q12HR PO ; Start 10/13/16 at 09:00 Sennosides (Senokot) 17.2 mg Q12H PRN PO CONSTIPATION; Start 10/13/16 at 00:15 Heparin Sodium (Porcine) (Heparin Inj) 5,000 units Q12HR SQ Last administered on 10/14/16 09:11; Start 10/13/16 at 09:00 Acetaminophen (Tylenol) 650 mg Q6H PRN PO PAIN SCALE 1 TO 2; Start 10/13/16 at 00:15 Acetaminophen/ Hydrocodone Bitart ([place] 5-325 Mg) 1 tab Q4H PRN PO PAIN SCALE 3 TO 5; Start 10/13/16 at 00:15 Acetaminophen/ Hydrocodone Bitart ([place] 7.5-325 Mg) 1 tab Q4H PRN PO PAIN SCALE 6 TO 10; Start 10/13/16 at 00:15 Morphine Sulfate (Morphine Inj) 1 mg Q3H PRN IV BREAKTHROUGH PAIN; Start at 00:15 Naloxone HCl (Narcan Inj) 0.4 mg UNSCH PRN IV SEE LABEL COMMENTS; Start at 00:15 Mycophenolate Mofetil (Cellcept) 500 mg Q12H PO ; Start 10/13/16 at 06:00; Stop 10/13/16 at 12:13; Status DC Insulin Detemir (Levemir Inj) 30 units NOW ONCE SQ Last administered on 01:26; Start 10/13/16 at 01:00; Stop 10/13/16 at 01:16; Status DC Enalaprilat (Vasotec Inj) 1.25 mg Q6H PRN IV SBP> OR = 180, DBP> OR = 100; Start 10/13/16 at 01:00 Clonidine (Catapres) 0.1 mg Q6H PRN PO SBP> OR = 180, DBP> OR = 100; Start at 01:00 Gadodiamide 14 ml 14 ml STK-MED ONCE IV Last administered on 10/13/16 08:37; Start 10/13/16 at 08:37; Stop 10/13/16 at 08:38; Status DC Vancomycin HCl/ Sodium Chloride (Vancomycin Inj/ NS 250 ml Inj) 250 ml @ 250 mls/hr Q12H IV Last administered on 10/13/16 12:25; Start 10/13/16 at 12:00; Stop 10/13/16 at 18:31; Status DC Miscellaneous Information SPECIFIC LAB TO BE COLILN... ONCE ONCE XX ; Start at 11:45; Stop 10/14/16 at 11:45; Status DC Insulin Aspart (NovoLOG INJ) 5 units TIDAC SQ Last administered on 10/13/16 18 :34; Start 10/13/16 at 13:00 Tacrolimus (Prograf) 2 mg Q12H PO Last administered on 10/14/16 00:28; Start 10/13/16 at 12:00 Mycophenolate Mofetil 500 mg 500 mg Q12H PO Last administered on 10/14/16 00: 28; Start 10/13/16 at 12:00 Vancomycin HCl/ Sodium Chloride (Vancomycin Inj/ NS 250 ml Inj) 250 ml @ 250 mls/hr DAILY IV ; Start 10/15/16 at 09:00 Other Results Laboratory Tests Test 10/12/16 10/14/16 22:45 05:09 White Blood Count 8.2 TH/MM3 6.6 TH/MM3 Red Blood Count 4.90 MIL/MM3 4.74 MIL/MM3 Hemoglobin 14.2 GM/DL 13.9 GM/DL Hematocrit 42.0 % 40.3 % Mean Corpuscular Volume 85.7 FL 85.0 FL Mean Corpuscular Hemoglobin 29.0 PG 29.3 PG Mean Corpuscular Hemoglobin 33.9 % 34.5 % Concent Red Cell Distribution Width 12.9 % 12.9 % Platelet Count 277 TH/MM3 283 TH/MM3 Mean Platelet Volume 7.6 FL 6.8 FL Neutrophils (%) (Auto) 66.6 % 49.5 % Lymphocytes (%) (Auto) 24.3 % 37.5 % Monocytes (%) (Auto) 7.2 % 9.6 % Eosinophils (%) (Auto) 1.5 % 2.4 % Basophils (%) (Auto) 0.4 % 1.0 % Neutrophils # (Auto) 5.5 TH/MM3 3.3 TH/MM3 Lymphocytes # (Auto) 2.0 TH/MM3 2.5 TH/MM3 Monocytes # (Auto) 0.6 TH/MM3 0.6 TH/MM3 Eosinophils # (Auto) 0.1 TH/MM3 0.2 TH/MM3 Basophils # (Auto) 0.0 TH/MM3 0.1 TH/MM3 CBC Comment DIFF FINAL DIFF FINAL Differential Comment Laboratory Tests Test 10/12/16 10/13/16 22:45 20:24 Sodium Level 137 MEQ/L 135 MEQ/L Potassium Level 4.7 MEQ/L 4.3 MEQ/L Chloride Level 101 MEQ/L 98 MEQ/L Carbon Dioxide Level 29.8 MEQ/L 27.4 MEQ/L Anion Gap 6 MEQ/L 10 MEQ/L Blood Urea Nitrogen 19 MG/DL 15 MG/DL Creatinine 1.05 MG/DL 1.18 MG/DL Estimat Glomerular Filtration 75 ML/MIN 66 ML/MIN Rate Random Glucose 231 MG/DL 300 MG/DL Calcium Level 9.5 MG/DL 9.4 MG/DL Total Bilirubin 0.3 MG/DL Aspartate Amino Transf 20 U/L (AST/SGOT) Alanine Aminotransferase 25 U/L (ALT/SGPT) Alkaline Phosphatase 118 U/L Total Protein 6.9 GM/DL Albumin 2.9 GM/DL 2.5 GM/DL Phosphorus Level 3.0 MG/DL Magnesium Level 1.6 MG/DL Microbiology Date/Time Procedure Status Source Growth 10/12/16 22:45 Aerobic Blood Culture - Preliminary Resulted Blood Peripheral NO GROWTH IN 2 DAYS 10/12/16 22:45 Anaerobic Blood Culture - Preliminary Resulted Blood Peripheral NO GROWTH IN 2 DAYS 10/12/16 22:45 Aerobic Blood Culture - Preliminary Resulted Blood Peripheral NO GROWTH IN 2 DAYS 10/12/16 22:45 Anaerobic Blood Culture - Preliminary Resulted Blood Peripheral NO GROWTH IN 2 DAYS 10/13/16 00:00 Gram Stain - Final Resulted Wound Toe 10/13/16 00:00 Wound Culture Resulted Wound Toe Pending Exam-Podiatry Constitutional General appearance: comfortable Nutritional status: normal Orientation: alert and oriented x3 Dermatological Exam Skin Temp - Right: Within Normal Limits Skin Texture - Right: Within Normal Limits Skin Elasticity - Right: Within Normal Limits Skin Tugor - Right: Within Normal Limits Hair Growth - Right: Within Normal Limits Pigmentation - Right: Within Normal Limits Skin Temp - Left: Within Normal Limits Skin Texture - Left: Within Normal Limits Skin Elasticity - Left: Within Normal Limits Skin Tugor - Left: Within Normal Limits Hair Growth - Left: Within Normal Limits Pigmentation - Left: Within Normal Limits Ulcers: Location/Measurements right hallux has 2 ulcerations dorsally and plantar over the interphalangeal joint. Decreased erythema from yesterday. Vascular/Lymphatic Exam R Dorsails Pedis: Palpable L Dorsails Pedis: Palpable R Posterior Tibial: Palpable L Posterior Tibial: Palpable Neurologic Exam Present on right: Tingling, Paraesthesia Present on left: Tingling, Paraesthesia Sensation: Light touch: Dimished Pinprick: Dimished Proprioception: Dimished Vibratory: Dimished Monofilament exam: 1st metatarsal head: diminished 5th metatarsal head: diminished Great toe: diminished Muscle Strength Dorsiflexion (Right): Normal Plantarflexion (Right): Normal Inversion (Right): Normal Eversion (Right): Normal Digital (Right): Normal Dorsiflexion (Left): Normal Plantarflexion (Left): Normal Inversion (Left): Normal Eversion (Left): Normal Digital (Left): Normal Foot Range of Motion Dorsiflexion (Right): Normal Plantarflexion (Right): Normal Inversion (Right): Normal Eversion (Right): Normal Digital (Right): Normal Dorsiflexion (Left): Normal Plantarflexion (Left): Normal Inversion (Left): Normal Eversion (Left): Normal Digital (Left): Normal Assessment & Plan Diagnosis: (1) Cellulitis of right foot Status: Acute (2) Diabetic ulcer of right foot Status: Acute A/P PLAN: Ordered postop shoe for the patient to wear at all times. Most likely the patient can be discharged home today or tomorrow on oral antibiotics. We'll follow the patient in the wound center on Saturday or . Podiatry discharge instructions written. We'll follow as scheduled Problem Qualifiers (1) Diabetic ulcer of right foot: Qualified Code: E13.621 - Diabetic ulcer of toe of right foot associated with diabetes mellitus of other type, with necrosis of muscle Patrick Nichols DPM Oct 14, 2016 11:56
[2016-10-14] MEDS ORDERED: BACT800T5 PO (13:48)
[2016-10-14] MEDS ORDERED: CEPH-460 PO (13:48)
--- NOTE | 2016-10-14 23:15 | HHI.PR ---
Subjective Remarks Follow up for diabetic foot infection. Mr. Weaver reports much improved right foot. No fever, chills. Wants to go home. Podiatry recommends outpatient follow up and oral abx. Objective Vitals Vital Signs Date Time Temp Pulse Resp B/P Pulse Ox O2 Delivery O2 Flow Rate FiO2 10/14/16 11:09 95.0 83 20 122/79 98 10/14/16 09:20 97 21 10/14/16 07:14 97.6 88 22 110/64 98 10/14/16 04:54 98.2 80 20 132/77 95 10/14/16 03:30 98.0 81 16 108/70 81 I/O 10/13/16 10/13/16 10/13/16 10/14/16 10/14/16 10/14/16 07:00 15:00 23:00 07:00 15:00 23:00 Output Total 700 ml 620 ml Balance -700 ml -620 ml Output Urine Total 700 ml 620 ml # Voids 1 2 # Bowel Movements 1 1 Result Diagram: 10/14/16 0509 10/13/162023 Imaging Last Impressions Tumor Localization 10/13/16 0000 Signed Impressions: Service Date/Time: Thursday, October 13, 2016 14:27 - CONCLUSION: Radiotracer uptake identified within the soft tissues along the medial aspect of the first digit at the PIP joint. No evidence of abnormal activity within the osseous structures. Kristi Childress MD Foot MRI 10/13/16 0000 Signed Impressions: Service Date/Time: Thursday, October 13, 2016 08:11 - CONCLUSION: Soft tissue infection and reactive marrow edema identified within the distal phalanx of the first digit. No evidence of osteomyelitis.. Kristi Childress MD Foot X-Ray 10/12/169 Signed Impressions: Service Date/Time: Wednesday, October 12, 2016 22:52 - CONCLUSION: Unremarkable examination of the right foot. Rasheed Fink Jr., MD Objective Remarks GENERAL: AOX3, NAD. SKIN: Warm and dry. HEAD: Normocephalic. EYES: No scleral icterus. No injection or drainage. NECK: Supple, trachea midline. No JVD or lymphadenopathy. CARDIOVASCULAR: Regular rate and rhythm without murmurs, gallops, or rubs. RESPIRATORY: Breath sounds equal bilaterally. No accessory muscle use. GASTROINTESTINAL: Abdomen soft, non-tender, nondistended. MUSCULOSKELETAL: No cyanosis, or edema. Right great toe shows some edema and erythema but much improved. BACK: Nontender without obvious deformity. No CVA tenderness. A/P Problem List: (1) Diabetic ulcer of right foot ICD Code: E11.621 Status: Acute (2) Cellulitis of right foot ICD Code: L03.115 Status: Acute Assessment and Plan Mr. Weaver is a 46 year old male with a history of diabetes, kidney and pancreatic transplant who presented to the ED with right foot diabetic ulcer and right foot cellulitis. Podiatry was consulted. Patient underwent imaging studies which did not indicate any evidence of osteomyelitis. Patient was started on broad spectrum abx and improved well. Podiatry recommended outpatient follow up and oral abx. - Diabetic ulcer of right foot - Right foot cellulitis - Clinically improved. - Will discharge patient on Bactrim and Keflex for 2 weeks. - Outpatient follow up with Podiatry. - Diabetes mellitus - Hx of Kidney and Pancreatic transplant - Continue home medications. Full code. Discharge patient to home Condition on discharge: Improved Diabetic Diet as tolerated Ad Chetna activity Rx written: Bactrim DS 1 tab Q12hrs X 14 days Keflex 500mg Q6hrs X 14 days. Follow-up with Podiatry within one week Problem Qualifiers (1) Diabetic ulcer of right foot: Qualified Code: E13.621 - Diabetic ulcer of toe of right foot associated with diabetes mellitus of other type, with necrosis of muscle Angelita Cleaning DO Oct 14, 2016 23:15
[2016-10-15] MEDS ORDERED: VANCOMYCIN INJ 1,000 MG in SODIUM CHLOR 0.9% 250 ML INJ 250 ML IV SCH (09:00)
[2016-11-13] MEDS ORDERED: AUGM500T7 PO (12:16)
[2016-11-20] MEDS ORDERED: LEVA500T PO (16:07)
[2016-12-18] MEDS ORDERED: DICL500 PO (15:54)
[2017-01-08] MEDS ORDERED: LEVA500T20 PO (10:51)
[2017-01-15] MEDS ORDERED: LEVA500T20 PO (11:11)
== END 2016-10-14 17:29 | disposition home or self-care (01) | DRG 638 ==
LOC: NEPE 21:04 → NEDA 10-13 00:03 → NEDH 10-13 03:27 → NEPFCDU 10-13 05:10
PROVIDERS: ADMIT Hospitalist; ATTEND Hospitalist
DX: E10.621 Type 1 diabetes mellitus with foot ulcer (principal); Z94.0 Kidney transplant status; L97.513 Non-pressure chronic ulcer of other part of right foot with necrosis of muscle; Z94.83 Pancreas transplant status; L03.115 Cellulitis of right lower limb; L03.031 Cellulitis of right toe; I10 Essential (primary) hypertension; E78.5 Hyperlipidemia, unspecified; Z79.4 Long term (current) use of insulin
CPT/HCPCS: 73630; 73720; 78807; 78999; 80053; 80069; 80197; 80202; 81001; 82948; 83735; 85025; 85610; 85730; 87040; 87070; 87205; 99285; A9569; A9579; J1644; J1815; J2543; J3370; J7030; J7050; J7507; J7512; J7517; L3260

== ENCOUNTER 2017-01-13 14:20 | Emergency (ER) | payer MEDICARE, BC ==
[~2017-01-13 14:20] MED LIST: ASPI-110 PO; LANTUS2P SQ; LEVA500T20 PO; METO100T PO; MYCO250 PO; NOVORP2 SQ; PRED5TAB PO; SIMV40TA PO; TACR1 PO
[2017-01-13 14:22] VITALS: BP 156/85; PULSE 98; RESP 18; TEMP 98.2; O2SAT 98
--- NOTE | 2017-01-13 15:11 | PD ---
HPI Chief Complaint: Skin Problem Time Seen by Provider: 14:55 Travel History International Travel<30 days: No Contact w/Intl Traveler<30days: No Traveled to known affect area: No History of Present Illness HPI Patient is a 46-year-old male here with complaint of ulcer. Patient is a diabetic status post pancreatic and renal transplant here with a chronic diabetic ulcer on the right dorsal great toe. He is followed by Dr. Nichols of our wound care clinic. He had a culture recently positive for Klebsiella and Enterobacter and has been on Levaquin. Patient states that he has been noticing some discoloration around the periphery of the wound and is concern for gangrene. PFSH Past Medical History Cardiovascular Problems: No Diabetes: Yes Genitourinary: Yes Musculoskeletal: No Neurologic: Yes Reproductive: No Respiratory: No Seizures: No Past Surgical History Endocrine Surgery: Yes (pancreas) Genitourinary Surgery: No Gynecologic Surgery: No Thoracic Surgery: No Other Surgery: Yes (kidney trans 99 ; pancreatic trans 1999 & 2006; abd hernia ) Social History Alcohol Use: No Tobacco Use: No Substance Use: No Allergies-Medications (Allergen,Severity, Reaction): Coded Allergies: No Known Allergies (Unverified , 01/08/17) Reported Meds & Prescriptions Reported Meds & Active Scripts Active Levaquin (Levofloxacin) 500 Mg Tablet 500 Mg PO DAILY Reported Metoprolol Tartrate 100 Mg Tab 100 Mg PO DAILY Aspirin 81 (Aspirin) 81 Mg Tabdr 81 Mg PO DAILY Simvastatin 40 Mg Tab 40 Mg PO HS Prednisone 5 Mg Tab 5 Mg PO DAILY Prograf (Tacrolimus) 1 Mg Cap 2 Mg PO BID Cellcept (Mycophenolate Mofetil) 250 Mg Cap 500 Mg PO BID Novolin R Inj (Insulin Human Regular) 1,000 Unit/10 Ml Vial 0 SQ DIRECTED Sliding Scale As Directed. Lantus Inj (Insulin Glargine) 1,000 Unit/10 Ml Vial 50 Units SQ HS Review of Systems Except as stated in HPI: all other systems reviewed are Neg Physical Exam Narrative GENERAL: Well-appearing male in no acute distress SKIN: Focused skin assessment warm/dry. HEAD: Normocephalic. EYES: No scleral icterus. No injection or drainage. ENT: Mucous membranes pink and moist. CARDIOVASCULAR: Regular rate and rhythm. RESPIRATORY: No accessory muscle use. MUSCULOSKELETAL: Right great toe with a 1.7 x 1.0 cm ulcer. This is approximately 0.3 cm deep. There is no evidence of any purulent discharge, serous sanguinous discharge with good granulation tissue. The wound edges have some chronic appearing granulation tissue, but no evidence of necrosis. Excellent capillary refill and good distal pulses. No erythema, fluctuance or streaking erythema NEUROLOGICAL: Awake and alert.Normal speech. PSYCHIATRIC: Appropriate mood and affect; insight and judgment normal. Data Data Last Documented VS Vital Signs Date Time Temp Pulse Resp B/P Pulse Ox O2 Delivery O2 Flow Rate FiO2 01/13/17 14:22 98.2 98 18 156/85 98 Orders Wound Care (01/13/17 15:10) MDM Medical Decision Making Medical Screen Exam Complete: Yes Emergency Medical Condition: Yes Medical Record Reviewed: Yes Differential Diagnosis 46-year-old male here with complaint of diabetic ulcer. The ulcer is chronic in nature and appears well healing on examination. There is no evidence of gangrene, cellulitis, abscess or osteomyelitis Narrative Course Patient was reassured and will be discharged home Diagnosis Primary Impression: Diabetic ulcer of right foot Additional Instructions: Continue home antibiotics as prescribed and follow-up with Magdalena as scheduled Med/Other Pt SpecificInfo: No Change to Meds Disposition: 01 DISCHARGE HOME Condition: Stable Laureen Victor MD Jan 13, 2017 15:11
[2017-01-15] MEDS ORDERED: LEVA500T20 PO (11:11)
== END 2017-01-13 17:18 | disposition home or self-care (01) ==
LOC: NEPD 14:20
DX: E11.621 Type 2 diabetes mellitus with foot ulcer (principal); L97.519 Non-pressure chronic ulcer of other part of right foot with unspecified severity; Z79.4 Long term (current) use of insulin
CPT/HCPCS: 99281

== ENCOUNTER 2017-04-16 13:25 | Inpatient (IN) | payer MEDICARE, BC ==
[~2017-04-16] VITALS: Ht 177.8 cm; Wt 83.5 kg
[2017-04-16] VITALS (7 sets, daily range): BP systolic 101–140; BP diastolic 60–80; PULSE 82–105; RESP 15–19; TEMP 98.6–99.9; O2SAT 96–98
[~2017-04-16 13:25] MED LIST changes: -LEVA500T20 PO
[2017-04-16] MEDS ORDERED: SODIUM CHLOR 0.9% 1000 ML INJ 1,000 ML IV ONE ×2 (13:58→14:28)
[2017-04-16] MEDS ORDERED: CLINDAMYCIN INJ 900 MG in SODIUM CHLORIDE 0.9% INJ 100 ML IV ONE (14:00)
[2017-04-16] MEDS ORDERED: SODIUM CHLORIDE 0.9% FLUSH 10 ML FLUSH IVF PRN (14:00)
[2017-04-16 14:16] LABS: AUTOMATED NEUTROPHIL # 13.5 TH/MM3 (1.8-7.7); BASOPHIL # 0.1 TH/MM3 (0-0.2); BASOPHIL % 0.6 % (0.0-2.0); EOSINOPHIL % 0.1 % (0.0-4.0); HEMATOCRIT 40.8 % (39.0-51.0); HEMO FLAGS DIFF FINAL; LYMPH % 7.3 % (9.0-44.0); LYMPHOCYTE # 1.2 TH/MM3 (1.0-4.8); MEAN CELL VOLUME 85.8 FL (80.0-100.0); MEAN CORPUSCULAR HGB CONC 34.9 % (32.0-36.0); MONO % 12.6 % (0.0-8.0); NEUT % 79.4 % (16.0-70.0); PLATELET COUNT 276 TH/MM3 (150-450); RED BLOOD COUNT 4.76 MIL/MM3 (4.50-5.90); RED CELL DISTRIBUTION WIDTH 12.7 % (11.6-17.2)
--- NOTE | 2017-04-16 14:19 | PD ---
HPI Chief Complaint: Skin Problem Time Seen by Provider: 13:35 Travel History International Travel<30 days: No Contact w/Intl Traveler<30days: No Traveled to known affect area: No History of Present Illness HPI Mr. Weaver is a 46-year-old male with a past medical history of type 1 diabetes and neuropathy presenting today with a left foot wound. He states that on Saturday , 4 days ago, he started having fever and chills, sweats, and body aches. He had a Tmax of 100.1 yesterday, but has been continuously taking Tylenol since Saturday. Today he noticed that his left foot was erythematous and had swelling. He also knows what a wound on the bottom of his foot. He states that he is having some bloody discharge coming from the wound. 6 months ago he was admitted for a right foot wound. He states that "the doctor had scraped his right great toe to the bone" and gave him vancomycin. He usually checks his feet daily, but has not since Saturday due to being ill. He also states that his sugars have been running very high. He is on NovoLog sliding scale and states that his sugars have been uncontrollable. His also noticed that his breath has a fruity smell. He states that he also thinks he may be spilling ketones. Of note, he has also lost 14 pounds over the weekend. He had vomited on Saturday and Saturday, nonbilious and nonbloody. Once per day. PFSH Past Medical History Cardiovascular Problems: No Diabetes: Yes Patient Takes Glucophage: No Genitourinary: Yes Headaches: No Musculoskeletal: No Neurologic: Yes Reproductive: No Respiratory: No Seizures: No Past Surgical History Abdominal Surgery: Yes (kidney transplant) Endocrine Surgery: Yes (pancreas transplant x2) Genitourinary Surgery: No Gynecologic Surgery: No Thoracic Surgery: No Other Surgery: Yes (kidney pancreas transplant patient) Social History Alcohol Use: No Tobacco Use: Yes Substance Use: No Allergies-Medications (Allergen,Severity, Reaction): Coded Allergies: No Known Allergies (Unverified , 04/16/17) Reported Meds & Prescriptions Reported Meds & Active Scripts Active Reported Metoprolol Tartrate 100 Mg Tab 100 Mg PO DAILY Aspirin 81 (Aspirin) 81 Mg Tabdr 81 Mg PO DAILY Simvastatin 40 Mg Tab 40 Mg PO HS Prednisone 5 Mg Tab 5 Mg PO DAILY Prograf (Tacrolimus) 1 Mg Cap 2 Mg PO BID Cellcept (Mycophenolate Mofetil) 250 Mg Cap 500 Mg PO BID Novolin R Inj (Insulin Human Regular) 1,000 Unit/10 Ml Vial 0 SQ DIRECTED Sliding Scale As Directed. Lantus Inj (Insulin Glargine) 1,000 Unit/10 Ml Vial 50 Units SQ HS Review of Systems General / Constitutional: Positive: Fever, Chills, Weight Loss Gastrointestinal: Positive: Nausea, Vomiting Genitourinary: Positive: Frequency Physical Exam Narrative GENERAL: Well-nourished, well-developed patient sitting in chair comfortably. SKIN: Warm and dry. HEAD: Normocephalic. EYES: No scleral icterus. No injection or drainage. NECK: Supple, trachea midline. No JVD or lymphadenopathy. CARDIOVASCULAR: Regular rate and rhythm without murmurs, gallops, or rubs. RESPIRATORY: Breath sounds equal bilaterally. No accessory muscle use. GASTROINTESTINAL: Abdomen soft, non-tender, nondistended. EXTREMITIES: No cyanosis. Left foot: Warmth. Erythematous on dorsal lateral surface. 0.2vyt3me wound 1mm deep on plantar surface with bloody discharge. NEUROLOGICAL: Awake, alert, and oriented x 3. Non-focal. Data Data Last Documented VS Vital Signs Date Time Temp Pulse Resp B/P (MAP) Pulse Ox O2 Delivery O2 Flow Rate FiO2 04/16/17 13:36 19 04/16/17 13:27 98.7 102 101/62 (75) 96 Orders Orders Foot, Limited (2vws) (04/16/17 13:52) Complete Blood Count With Diff (04/16/17 13:58) Comprehensive Metabolic Panel (04/16/17 13:58) Magnesium (Mg) (04/16/17 13:58) Beta Hydroxybutyrate (Acetone) (04/16/17 13:58) Arterial Blood Gas (Abg) (04/16/17 13:58) Ecg Monitoring (04/16/17 13:58) Iv Access Insert/Monitor (04/16/17 13:58) Oximetry (04/16/17 13:58) NPO (04/16/17 13:58) Sodium Chlor 0.9% 1000 Ml Inj (Ns 1000 M (04/16/17 13:58) Sodium Chlor 0.9% 1000 Ml Inj (Ns 1000 M (04/16/17 14:28) Sodium Chloride 0.9% Flush (Ns Flush) (04/16/17 14:00) Clindamycin Inj (Cleocin Inj) (04/16/17 14:00) Labs Laboratory Tests Test 04/16/17 13:58 04/16/17 14:00 White Blood Count 17.0 TH/MM3 Red Blood Count 4.76 MIL/MM3 Hemoglobin 14.3 GM/DL Hematocrit 40.8 % Mean Corpuscular Volume 85.8 FL Mean Corpuscular Hemoglobin 30.0 PG Mean Corpuscular Hemoglobin Concent 34.9 % Red Cell Distribution Width 12.7 % Platelet Count 276 TH/MM3 Mean Platelet Volume 7.1 FL Neutrophils (%) (Auto) 79.4 % Lymphocytes (%) (Auto) 7.3 % Monocytes (%) (Auto) 12.6 % Eosinophils (%) (Auto) 0.1 % Basophils (%) (Auto) 0.6 % Neutrophils # (Auto) 13.5 TH/MM3 Lymphocytes # (Auto) 1.2 TH/MM3 Monocytes # (Auto) 2.1 TH/MM3 Eosinophils # (Auto) 0.0 TH/MM3 Basophils # (Auto) 0.1 TH/MM3 CBC Comment DIFF FINAL Differential Comment MDM Medical Decision Making Medical Screen Exam Complete: Yes Emergency Medical Condition: Yes Differential Diagnosis cellulitis vs osteomyelitis Narrative Course Patient admits to uncontrollable sugars at home. Possible DKA. -CBC -CMP -Beta-Hydroxybutyrate -ABG -IVF bolus x2 in ED Cellulitis- Pt with fever/chills, sweats, body aches x4 days. Leukocytosis to 17. -left foot XR to rule out osteo -wound culture signed out to Gabi Ghosh MD R1 Apr 16, 2017 14:19
--- NOTE | 2017-04-16 14:36 | RADRPT ---
EXAM DATE/TIME: 04/16/2017 14:23 [facility] COMPARISON: No previous studies available for comparison. INDICATIONS : Inflammation. Patient states ulcer started and redness to top of foot, no known trauma. Patient state s he has little feeling in his feet. MEDICAL HISTORY : Diabetes mellitus type I. Neuropathy. SURGICAL HISTORY : None. ENCOUNTER: Initial ACUITY: 3 days PAIN SCORE: 4/10 LOCATION: Left Foot. FINDINGS: Two view examination of the left foot demonstrates no soft tissue swelling, dislocation, or fracture. The calcaneus is intact. Bony mineralization is normal. CONCLUSION: No acute disease. Anshu Charles MD on April 16, 2017 at 14:35 Board Certified Radiologist. This report was verified electronically.
[2017-04-16 14:38] LABS: ALT (GPT) 19 U/L (12-78); ANION GAP 12 MEQ/L (5-15); AST (GOT) 17 U/L (15-37); BICARBONATE 23.8 MEQ/L (21.0-32.0); BLOOD UREA NITROGEN 17 MG/DL (7-18); CHLORIDE 92 MEQ/L (98-107); GLOMERULAR FILTRATION RATE 54 ML/MIN (>89); MAGNESIUM 1.6 MG/DL (1.5-2.5); SODIUM (NA) 128 MEQ/L (136-145)
[2017-04-16 14:40] LABS: ALKALINE PHOSPHATASE 136 U/L (45-117); BETA-HYDROXYBUTYRATE 2.62 MMOL/L (0.00-0.39); TOTAL BILIRUBIN ADULT 0.5 MG/DL (0.2-1.0)
[2017-04-16 14:42] LABS: BLOOD GAS BASE EXCESS -0.4 mmol/L (-2-2); BLOOD GAS CARBOXYHEMOGLOBIN 1.6 % (0-4); BLOOD GAS HCO3 23 mmol/L (22-26); BLOOD GAS METHEMOGLOBIN 0.6 % (0-2); BLOOD GAS O2 HGB SATURATION 91 % (90-100); BLOOD GAS OXYGEN CONTENT 22.5 Vol % (12.0-20.0); BLOOD GAS PCO2 34 mmHg (38-42); BLOOD GAS PO2 70 mmHG (61-120); BLOOD GAS TOTAL HGB 17.5 G/DL (12.0-16.0); CRITICAL VALUE NO; TEMP CORR TO 98.6
[2017-04-16 14:43] LABS: DRAW SITE LT BRACHIAL; FIO2 21 %; NUMBER OF ARTERIAL PUNCTURES 1; OXYGEN DEVICE ROOM AIR; STAT YES
[2017-04-16] MEDS ORDERED: SENNOSIDES 8.6 MG TAB PO PRN (16:00)
[2017-04-16] MEDS ORDERED: MAGNESIUM HYDROXIDE SUSP 30 ML CUP PO PRN (16:00)
[2017-04-16] MEDS ORDERED: ONDANSETRON HCL 4 MG/2 ML VIAL IVP PRN (16:00)
[2017-04-16] MEDS ORDERED: DEXTROSE 50% IN WATER 50 ML VIAL(D50) IV PUSH PRN (16:00)
[2017-04-16] MEDS ORDERED: ZOLPIDEM TARTRATE 5 MG TAB PO PRN (16:00)
[2017-04-16] MEDS ORDERED: ACETAMINOPHEN 325 MG TAB PO PRN (16:00)
[2017-04-16] MEDS ORDERED: LACTULOSE SYRUP 20 GM/30 ML CUP PO PRN (16:00)
[2017-04-16] MEDS ORDERED: PROCHLORPERAZINE 25 MG SUPP RECTAL PRN (16:00)
[2017-04-16] MEDS ORDERED: NALOXONE HCL 0.4 MG/ML AMP IV PUSH PRN (16:00)
[2017-04-16] MEDS ORDERED: Vancomycin Consult Pharmacy 1 EA OTHER SCH (16:00)
[2017-04-16] MEDS ORDERED: BISACODYL 10 MG SUPP RECTAL PRN (16:00)
[2017-04-16] MEDS ORDERED: GLUCAGON 1 MG/ML VIAL OTHER PRN (16:00)
[2017-04-16] MEDS ORDERED: MORPHINE SULFATE 4 MG/ML INJ IV PUSH PRN ×2 (16:00)
[2017-04-16] MEDS ORDERED: SODIUM CHLORIDE 0.9% FLUSH 10 ML FLUSH IV FLUSH PRN (16:00)
--- NOTE | 2017-04-16 16:13 | HHI.HP ---
[facility] [place] [facility] Primary Care Physician No Primary Care Physician Admission Diagnosis Hyperglycemia; Lymphangitis/Cellulitis L Foot Diagnoses: (1) Diabetic ulcer of left foot Diagnosis: Principal (2) Cellulitis of left foot Diagnosis: Principal (3) Diabetic foot ulcer associated with type 1 diabetes mellitus Diagnosis: Principal (4) Immunosuppressed status Diagnosis: Secondary (5) Kidney transplant status Diagnosis: Secondary (6) Diabetes Diagnosis: Principal Chief Complaint: Skin problem of left foot with uncontrolled diabetes Travel History International Travel<30 Days: No Contact w/Intl Traveler <30 Da: No Traveled to Known Affected Are: No History of Present Illness Mr. eWaver is a 46-year-old male with a past medical history of type 1 diabetes and neuropathy presenting today with a left foot wound. He states that on Saturday , 4 days ago, he started having fever and chills, sweats, and body aches. He had a Tmax of 100.1 yesterday, but has been continuously taking Tylenol since Saturday. Today he noticed that his left foot was erythematous and had swelling. He also knows a wound on the bottom of his foot. He states that he is having some bloody discharge coming from the wound. 6 months ago he was admitted for a right foot wound. He states that "the doctor had scraped his right great toe to the bone" and gave him vancomycin. He usually checks his feet daily, but has not since Saturday due to being ill. He also states that his sugars have been running very high. He is on NovoLog sliding scale and states that his sugars have been uncontrollable. His also noticed that his breath has a fruity smell. He states that he also thinks he may be spilling ketones. Of note, he has also lost 14 pounds over the weekend. He had vomited on Saturday and Saturday, nonbilious and nonbloody. Once per day. Review of Systems Constitutional: COMPLAINS OF: Fatigue, Fever, Weight loss, Chills, Change in appetite, DENIES: Diaphoretic episodes, Weight gain, Dizziness, Night Sweats Endocrine: DENIES: Heat/cold intolerance, Polydipsia, Polyuria, Polyphagia Eyes: DENIES: Blurred vision, Diplopia, Eye inflammation, Eye pain Ears, nose, mouth, throat: DENIES: Tinnitus, Hearing loss, Vertigo, Nasal discharge Respiratory: DENIES: Apneas, Cough, Snoring, Wheezing, Hemoptysis, Sputum production Cardiovascular: DENIES: Chest pain, Palpitations, Syncope, Dyspnea on Exertion , PND Gastrointestinal: DENIES: Abdominal pain, Black stools, Bloody stools, Constipation Genitourinary: DENIES: Sexual dysfunction, Urinary frequency Musculoskeletal: DENIES: Joint pain, Muscle aches, Stiffness, Joint Swelling Integumentary: COMPLAINS OF: Rash (left foot diabetic foot with a wound on plantar aspect with streaking going up the leg), DENIES: Abnormal pigmentation, Nail changes, Pruritus Hematologic/lymphatic: DENIES: Bruising, Lymphadenopathy Immunologic/allergic: DENIES: Eczema, Urticaria Neurologic: DENIES: Abnormal gait, Headache, Localized weakness, Paresthesias, Seizures, Speech Problems Psychiatric: DENIES: Anxiety, Confusion, Mood changes, Depression, Hallucinations Past Family Social History Past Medical History Diabetes mellitus type 1 History of diabetic foot wound right foot 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 Severe diabetic neuropathy Hyperlipidemia Hypertension Past Surgical History Debridement of right foot in the past by podiatry history of kidney transplant History of pancreatic transplant 2 Reported Medications Reported Meds & Active Scripts Active Reported Metoprolol Tartrate 100 Mg Tab 100 Mg PO DAILY Aspirin 81 (Aspirin) 81 Mg Tabdr 81 Mg PO DAILY Simvastatin 40 Mg Tab 40 Mg PO HS Prednisone 5 Mg Tab 5 Mg PO DAILY Prograf (Tacrolimus) 1 Mg Cap 2 Mg PO BID Cellcept (Mycophenolate Mofetil) 250 Mg Cap 500 Mg PO BID Novolin R Inj (Insulin Human Regular) 1,000 Unit/10 Ml Vial 0 SQ DIRECTED Sliding Scale As Directed. Lantus Inj (Insulin Glargine) 1,000 Unit/10 Ml Vial 50 Units SQ HS Allergies: Coded Allergies: No Known Allergies (Unverified , 04/16/17) Active Ordered Medications Current Medications Sodium Chloride 1,000 ml @ 2,000 mls/hr Q30M ONCE IV Last administered on 04/16t 14:49; Start 04/16/17 at 13:58; Stop 04/16/17 at 14:27; Status DC Sodium Chloride 1,000 ml @ 2,000 mls/hr Q30M ONCE IV Last administered on 04/16 14:50; Start 04/16/17 at 14:28; Stop 04/16/17 at 14:57; Status DC Sodium Chloride (NS Flush) 2 ml UNSCH PRN IVF FLUSH AFTER USING IV ACCESS; Start 04/16/17 at 14:00 Clindamycin Phosphate 900 mg/ Sodium Chloride 106 ml @ 212 mls/hr ONCE ONCE IV Last administered on 04/16/17 14:49; Start 04/16/17 at 14:00; Stop at 14:29; Status DC Dextrose (D50w (Vial) Inj) 50 ml UNSCH PRN IV PUSH HYPOGLYCEMIA-SEE COMMENTS; Start 04/16/17 at 16:00; Status UNV Glucagon (Glucagon Inj) 1 mg UNSCH PRN OTHER HYPOGLYCEMIA-SEE COMMENTS; Start 04/16/17 at 16:00; Status UNV Insulin Aspart (NovoLOG SUPPLEMENTAL SCALE) 1 ACHS SLIDING SCALE SQ ; Start at 17:00; Status UNV Vancomycin HCl 1000 mg/Sodium Chloride 250 ml @ 250 mls/hr Q12H IV ; Start at 16:00; Status UNV Pharmacy Profile Note 0 ml @ 0 mls/hr UNSCH XX ; Start 04/16/17 at 16:00; Status UNV Piperacillin Sod/ Tazobactam Sod 100 ml @ 200 mls/hr Q6H IV ; Start 04/16/17 at 16:00; Status UNV Sodium Chloride 1,000 ml @ 200 mls/hr Q5H IV ; Start 04/16/17 at 15:46; Status UNV Sodium Chloride (NS Flush) 2 ml UNSCH PRN IV FLUSH FLUSH AFTER USING IV ACCESS ; Start 04/16/17 at 16:00; Status UNV Sodium Chloride (NS Flush) 2 ml BID IV FLUSH ; Start 04/16/17 at 21:00; Status UNV Acetaminophen (Tylenol) 650 mg Q4H PRN PO TEMP > 100.4; Start 04/16/17 at 16:00 ; Status UNV Ondansetron HCl (Zofran Inj) 4 mg Q6H PRN IVP NAUSEA OR VOMITING; Start at 16:00; Status UNV Prochlorperazine (Compazine Supp) 25 mg Q12H PRN NM NAUSEA OR VOMITING; Start 04/16/17 at 16:00; Status UNV Zolpidem Tartrate (Ambien) 5 mg HS PRN PO INSOMNIA; Start 04/16/17 at 16:00; Status UNV Enoxaparin Sodium (Lovenox Inj) 40 mg Q24H SQ ; Start 04/16/17 at 16:00; Status UNV Acetaminophen (Tylenol) 650 mg Q6H PRN PO PAIN SCALE 1 TO 2; Start 04/16/17 at 16:00; Status UNV Oxycodone/ Acetaminophen (Percocet 5-325 Mg) 1 tab Q6H PRN PO PAIN SCALE 3 TO 5; Start 04/16/17 at 16:00; Status UNV Oxycodone/ Acetaminophen (Percocet 10-325 Mg) 1 tab Q6H PRN PO PAIN SCALE 6 TO 10; Start 04/16/17 at 16:00; Status UNV Morphine Sulfate (Morphine Inj) 2 mg Q3H PRN IV PUSH Pain 3-5; if unable to take PO; Start 04/16/17 at 16:00; Status UNV Morphine Sulfate (Morphine Inj) 4 mg Q3H PRN IV PUSH Pain 6-10;if unable to take PO; Start 04/16/17 at 16:00; Status UNV Naloxone HCl (Narcan Inj) 0.4 mg UNSCH PRN IV PUSH SEE LABEL COMMENTS; Start at 16:00; Status UNV Senna/Docusate Sodium (Nancy-Colace) 1 tab BID PO ; Start 04/16/17 at 21:00; Status UNV Magnesium Hydroxide (Milk Of Magnesia Liq) 30 ml Q12H PRN PO MILD - MODERATE CONSTIPATION; Start 04/16/17 at 16:00; Status UNV Sennosides (Senokot) 17.2 mg Q12H PRN PO MODERATE - SEVERE CONSTIPATION; Start 04/16/17 at 16:00; Status UNV Bisacodyl (Dulcolax Supp) 10 mg DAILY PRN RECTAL SEVERE CONSITIPATION; Start at 16:00; Status UNV Lactulose (Lactulose Liq) 30 ml DAILY PRN PO SEVERE CONSITIPATION; Start at 16:00; Status UNV Aspirin (Ecotrin Ec) 81 mg DAILY PO ; Start 04/17/17 at 09:00; Status UNV Insulin Glargine (Lantus Inj) 65 units HS SQ ; Start 04/16/17 at 21:00; Status UNV Metoprolol Tartrate (Lopressor) 100 mg DAILY PO ; Start 04/17/17 at 09:00; Status UNV Mycophenolate Mofetil (Cellcept) 500 mg BID PO ; Start 04/16/17 at 21:00; Status UNV Prednisone (Deltasone) 5 mg DAILY PO ; Start 04/17/17 at 09:00; Status UNV Tacrolimus (Prograf) 2 mg BID PO ; Start 04/16/17 at 21:00; Status UNV Non-Formulary Medication 40 mg HS PO ; Start 04/16/17 at 21:00; Status UNV Family History Hypertension diabetes Hyperlipidemia Social History Smoke cigarettes Denies any alcohol denies any illicit drugs Physical Exam Vital Signs Vital Signs Date Time Temp Pulse Resp B/P (MAP) Pulse Ox O2 Delivery O2 Flow Rate FiO2 04/16/17 15:26 98.6 95 17 140/66 (90) 98 Room Air 04/16/17 14:32 105 19 106/60 (75) 97 Room Air 04/16/17 13:36 19 04/16/17 13:27 98.7 102 15 101/62 (75) 96 Physical Exam GENERAL: This is a well-nourished, well-developed patient, in no apparent distress. SKIN: Cool and dry. Rash going up the left foot to the ankle with lymphangitic spread with a wound on the plantar aspect of the foot half a centimeter in diameter HEAD: Atraumatic. Normocephalic. No temporal or scalp tenderness. EYES: Pupils equal round and reactive. Extraocular motions intact. No scleral icterus. No injection or drainage. ENT: Nose without bleeding, purulent drainage or septal hematoma. Throat without erythema, tonsillar hypertrophy or exudate. Uvula midline. Airway patent. Tongue is midline NECK: Trachea midline. No JVD or lymphadenopathy. Supple, nontender, no meningeal signs. CARDIOVASCULAR: Regular rate and rhythm without murmurs, gallops, or rubs. S1 and S2 no S3 or S4 no heave or thrill or rub or gallop RESPIRATORY: Clear to auscultation. Breath sounds equal bilaterally. No wheezes , rales, or rhonchi. GASTROINTESTINAL: Abdomen soft, non-tender, nondistended. No hepato-splenomegaly , or palpable masses. No guarding. MUSCULOSKELETAL: Extremities without clubbing, cyanosis, or edema. No joint tenderness, effusion, or edema noted. No calf tenderness. Negative Homans sign bilaterally. Wound on left plantar aspect of foot NEUROLOGICAL: Awake and alert. Cranial nerves II through XII intact. Motor and sensory grossly within normal limits. Five out of 5 muscle strength in all muscle groups. Normal speech. Insight and judgment is good Mood and behaviors appropriate Laboratory Laboratory Tests Test 04/16/17 14:00 04/16/17 14:30 White Blood Count 17.0 Red Blood Count 4.76 Hemoglobin 14.3 Hematocrit 40.8 Mean Corpuscular Volume 85.8 Mean Corpuscular Hemoglobin 30.0 Mean Corpuscular Hemoglobin Concent 34.9 Red Cell Distribution Width 12.7 Platelet Count 276 Mean Platelet Volume 7.1 Neutrophils (%) (Auto) 79.4 Lymphocytes (%) (Auto) 7.3 Monocytes (%) (Auto) 12.6 Eosinophils (%) (Auto) 0.1 Basophils (%) (Auto) 0.6 Neutrophils # (Auto) 13.5 Lymphocytes # (Auto) 1.2 Monocytes # (Auto) 2.1 Eosinophils # (Auto) 0.0 Basophils # (Auto) 0.1 CBC Comment DIFF FINAL Differential Comment Blood Urea Nitrogen 17 Creatinine 1.41 Random Glucose 239 Total Protein 7.1 Albumin 2.7 Calcium Level 9.5 Magnesium Level 1.6 Alkaline Phosphatase 136 Aspartate Amino Transf (AST/SGOT) 17 Alanine Aminotransferase (ALT/SGPT) 19 Total Bilirubin 0.5 Sodium Level 128 Potassium Level 4.0 Chloride Level 92 Carbon Dioxide Level 23.8 Anion Gap 12 Estimat Glomerular Filtration Rate 54 B-Hydroxybutyrate 2.62 Blood Gas Puncture Site LT BRACHIAL Blood Gas Patient Temperature 98.6 Blood Gas HCO3 23 Blood Gas Base Excess -0.4 Blood Gas Oxygen Saturation 91 Arterial Blood pH 7.45 Arterial Blood Partial Pressure CO2 34 Arterial Blood Partial Pressure O2 70 Arterial Blood Oxygen Content 22.5 Arterial Blood Carboxyhemoglobin 1.6 Arterial Blood Methemoglobin 0.6 Blood Gas Hemoglobin 17.5 Oxygen Delivery Device ROOM AIR Blood Gas Inspired Oxygen 21 Date/Time Source Procedure Growth Status 04/16/17 14:39 Wound Foot Gram Stain Pending Received 04/16/17 14:39 Wound Foot Wound Culture Pending Received Result Diagram: 04/16/17 1400 04/16/17 1400 Imaging Last Impressions Foot X-Ray 04/16/17 1352 Signed Impressions: Service Date/Time: Sunday, April 16, 2017 14:23 - CONCLUSION: No acute disease. MD Christina Kumar VTE Risk Assessment Christina VTE Risk Assessment: Mod/High Risk (score >= 2) Caprini Risk Assessment Model Point Value = 1 Point Value = 2 Point Value = 3 Point Value = 5 Age 41-60 Minor surgery BMI > 25 kg/m2 Swollen legs Varicose veins or History of unexplained or recurrent spontaneous Oral contraceptives or hormone replacement Sepsis (< 1 month) Serious lung disease, including pneumonia (< 1 month) Abnormal pulmonary function Acute myocardial infarction Congestive heart failure (< 1 month) History of inflammatory bowel disease Medical patient at bed rest Age 61-74 Arthroscopic surgery Major open surgery (> 45 min) Laparoscopic surgery (> 45 min) Malignancy Confined to bed (> 72 hours) Immobilizing plaster cast Central venous access Age >= 75 History of VTE Family history of VTE Factor V Leiden Prothrombin [id number] Lupus anticoagulant Anticardiolipin antibodies Elevated serum homocysteine Heparin-induced thrombocytopenia Other congenital or acquired thrombophilia Stroke (< 1 month) Elective arthroplasty Hip, pelvis, or leg fracture Acute spinal cord injury (< 1 month) Prophylaxis Regimen Total Risk Factor Score Risk Level Prophylaxis Regimen 0-1 Low Early ambulation 2 Moderate Order ONE of the following: *Sequential Compression Device (SCD) *Heparin 5000 units SQ BID 3-4 Higher Order ONE of the following medications: *Heparin 5000 units SQ TID *Enoxaparin/Lovenox 40 mg SQ daily (WT < 150 kg, CrCl > 30 mL/min) *Enoxaparin/Lovenox 30 mg SQ daily (WT < 150 kg, CrCl > 10-29 mL/min) *Enoxaparin/Lovenox 30 mg SQ BID (WT < 150 kg, CrCl > 30 mL/min) AND/OR *Sequential Compression Device (SCD) 5 or more Highest Order ONE of the following medications: *Heparin 5000 units SQ TID (Preferred with Epidurals) *Enoxaparin/Lovenox 40 mg SQ daily (WT < 150 kg, CrCl > 30 mL/min) *Enoxaparin/Lovenox 30 mg SQ daily (WT < 150 kg, CrCl > 10-29 mL/min) *Enoxaparin/Lovenox 30 mg SQ BID (WT < 150 kg, CrCl > 30 mL/min) AND *Sequential Compression Device (SCD) Assessment and Plan Problem List: (1) Kidney transplant status ICD Code: Z94.0 - Kidney transplant status (2) Diabetic foot ulcer associated with type 1 diabetes mellitus ICD Code: E10.621 - Type 1 diabetes mellitus with foot ulcer; L97.509 - Non- pressure chronic ulcer of other part of unspecified foot with unspecified severity (3) Diabetic ulcer of left foot ICD Code: E11.621 - Type 2 diabetes mellitus with foot ulcer; L97.529 - Non- pressure chronic ulcer of other part of left foot with unspecified severity (4) Immunosuppressed status ICD Code: D89.9 - Disorder involving the immune mechanism, unspecified (5) Cellulitis of left foot ICD Code: L03.116 - Cellulitis of left lower limb (6) Diabetes ICD Code: E11.9 - Type 2 diabetes mellitus without complications Assessment and Plan Diabetic foot wound of the left foot with uncontrolled diabetes Increase his Lantus to [address] on sliding scale high- dose with Accu-Cheks before meals and at bedtime Continue on vancomycin and Zosyn consult pharmacy regarding the vancomycin Continue on his home medications. Including immunosuppression with Prograf and CellCept for his chronic renal transplant continue on the chronic prednisone Hyperlipidemia continue on the simvastatin High blood pressure continue on metoprolol Consult infectious disease as well as podiatry Sirs continue on fluids and aggressive antibiotics and consult infectious disease and podiatry Continue on normal saline fluids at 200 ML's per hour Continue on high-dose sliding scale coverage get a.m. labs Continue on DVT and GI prophylaxis Code Status Full code Discussed Condition With Discussed with emergency room physician RN patient and family Physician Certification 2 Midnight Certification Type: Admission for Inpatient Services Order for Inpatient Services The services are ordered in accordance with Medicare regulations or non- Medicare payer requirements, as applicable. In the case of services not specified as inpatient-only, they are appropriately provided as inpatient services in accordance with the 2-midnight benchmark. Estimated LOS (days): 4 4 days is the estimated time the patient will need to remain in the hospital, assuming treatment plan goals are met and no additional complications. Post-Hospital Plan: Not yet determined Problem Qualifiers (1) Diabetes: Valdemar Henry DO Apr 16, 2017 16:13
--- NOTE | 2017-04-16 16:29 | PD ---
HPI Chief Complaint: Skin Problem Time Seen by Provider: 13:33 Travel History International Travel<30 days: No Contact w/Intl Traveler<30days: No Traveled to known affect area: No History of Present Illness HPI 46 yo M with cellulitis about the L foot worsening over past few days, now with generalized weakness, nausea and vomiting. positive suggestive fever at home. hx diabetes with elevated blood sugars at home. pt believe he may have suffered a cut to the foot after cleaning up after hurriane jeremi. pt has hx pancreas and kidney transplant. PFSH Past Medical History Cardiovascular Problems: No Diabetes: Yes Patient Takes Glucophage: No Genitourinary: Yes Headaches: No Musculoskeletal: No Neurologic: Yes Reproductive: No Respiratory: No Seizures: No Past Surgical History Abdominal Surgery: Yes (kidney transplant) Endocrine Surgery: Yes (pancreas transplant x2) Genitourinary Surgery: No Gynecologic Surgery: No Thoracic Surgery: No Other Surgery: Yes (kidney pancreas transplant patient) Social History Alcohol Use: No Tobacco Use: Yes Substance Use: No Allergies-Medications (Allergen,Severity, Reaction): Coded Allergies: No Known Allergies (Unverified , 04/16/17) Reported Meds & Prescriptions Reported Meds & Active Scripts Active Reported Metoprolol Tartrate 100 Mg Tab 100 Mg PO DAILY Aspirin 81 (Aspirin) 81 Mg Tabdr 81 Mg PO DAILY Simvastatin 40 Mg Tab 40 Mg PO HS Prednisone 5 Mg Tab 5 Mg PO DAILY Prograf (Tacrolimus) 1 Mg Cap 2 Mg PO BID Cellcept (Mycophenolate Mofetil) 250 Mg Cap 500 Mg PO BID Novolin R Inj (Insulin Human Regular) 1,000 Unit/10 Ml Vial 0 SQ DIRECTED Sliding Scale As Directed. Lantus Inj (Insulin Glargine) 1,000 Unit/10 Ml Vial 50 Units SQ HS Review of Systems Except as stated in HPI: all other systems reviewed are Neg Physical Exam Narrative GENERAL: wnwd, 46 yo male, mild distress SKIN: Warm and dry. HEAD: Atraumatic. Normocephalic. EYES: Pupils equal and round. No scleral icterus. No injection or drainage. ENT: No nasal bleeding or discharge. Mucous membranes pink and moist. NECK: Trachea midline. No JVD. CARDIOVASCULAR: Regular rate and rhythm. RESPIRATORY: No accessory muscle use. Clear to auscultation. Breath sounds equal bilaterally. GASTROINTESTINAL: Abdomen soft, non-tender, nondistended. Hepatic and splenic margins not palpable. MUSCULOSKELETAL: Mild erythema, warmth, induration and swelling about dorsum of L foot toward metatarsal's 4 and 5 with approx 1cm open wound. lymphamgitic erythema extending to about mid anterior lower leg. no crepitus NEUROLOGICAL: Awake and alert. No obvious cranial nerve deficits. Motor grossly within normal limits. Five out of 5 muscle strength in the arms and legs. Normal speech. PSYCHIATRIC: Appropriate mood and affect; insight and judgment normal. Data Data Last Documented VS Vital Signs Date Time Temp Pulse Resp B/P (MAP) Pulse Ox O2 Delivery O2 Flow Rate FiO2 04/16/17 15:26 98.6 95 17 140/66 (90) 98 Room Air 04/16/17 14:15 21 vs reviewed Orders Orders Foot, Limited (2vws) (04/16/17 13:52) Complete Blood Count With Diff (04/16/17 13:58) Comprehensive Metabolic Panel (04/16/17 13:58) Magnesium (Mg) (04/16/17 13:58) Beta Hydroxybutyrate (Acetone) (04/16/17 13:58) Arterial Blood Gas (Abg) (04/16/17 13:58) Ecg Monitoring (04/16/17 13:58) Iv Access Insert/Monitor (04/16/17 13:58) Oximetry (04/16/17 13:58) NPO (04/16/17 13:58) Sodium Chlor 0.9% 1000 Ml Inj (Ns 1000 M (04/16/17 13:58) Sodium Chlor 0.9% 1000 Ml Inj (Ns 1000 M (04/16/17 14:28) Sodium Chloride 0.9% Flush (Ns Flush) (04/16/17 14:00) Clindamycin Inj (Cleocin Inj) (04/16/17 14:00) Wound Culture And Gram Stain (04/16/17 14:28) Admit Order (Ed Use Only) (04/16/17 15:28) Labs Laboratory Tests Test 04/16/17 14:00 04/16/17 14:30 White Blood Count 17.0 TH/MM3 Red Blood Count 4.76 MIL/MM3 Hemoglobin 14.3 GM/DL Hematocrit 40.8 % Mean Corpuscular Volume 85.8 FL Mean Corpuscular Hemoglobin 30.0 PG Mean Corpuscular Hemoglobin Concent 34.9 % Red Cell Distribution Width 12.7 % Platelet Count 276 TH/MM3 Mean Platelet Volume 7.1 FL Neutrophils (%) (Auto) 79.4 % Lymphocytes (%) (Auto) 7.3 % Monocytes (%) (Auto) 12.6 % Eosinophils (%) (Auto) 0.1 % Basophils (%) (Auto) 0.6 % Neutrophils # (Auto) 13.5 TH/MM3 Lymphocytes # (Auto) 1.2 TH/MM3 Monocytes # (Auto) 2.1 TH/MM3 Eosinophils # (Auto) 0.0 TH/MM3 Basophils # (Auto) 0.1 TH/MM3 CBC Comment DIFF FINAL Differential Comment Erythrocyte Sedimentation Rate 76 mm/hr Blood Urea Nitrogen 17 MG/DL Creatinine 1.41 MG/DL Random Glucose 239 MG/DL Total Protein 7.1 GM/DL Albumin 2.7 GM/DL Calcium Level 9.5 MG/DL Magnesium Level 1.6 MG/DL Alkaline Phosphatase 136 U/L Aspartate Amino Transf (AST/SGOT) 17 U/L Alanine Aminotransferase (ALT/SGPT) 19 U/L Total Bilirubin 0.5 MG/DL Sodium Level 128 MEQ/L Potassium Level 4.0 MEQ/L Chloride Level 92 MEQ/L Carbon Dioxide Level 23.8 MEQ/L Anion Gap 12 MEQ/L Estimat Glomerular Filtration Rate 54 ML/MIN Total Creatine Kinase 47 U/L Troponin I LESS THAN 0.02 NG/ML B-Hydroxybutyrate 2.62 MMOL/L Blood Gas Puncture Site LT BRACHIAL Blood Gas Patient Temperature 98.6 Blood Gas HCO3 23 mmol/L Blood Gas Base Excess -0.4 mmol/L Blood Gas Oxygen Saturation 91 % Arterial Blood pH 7.45 Arterial Blood Partial Pressure CO2 34 mmHg Arterial Blood Partial Pressure O2 70 mmHG Arterial Blood Oxygen Content 22.5 Vol % Arterial Blood Carboxyhemoglobin 1.6 % Arterial Blood Methemoglobin 0.6 % Blood Gas Hemoglobin 17.5 G/DL Oxygen Delivery Device ROOM AIR Blood Gas Inspired Oxygen 21 % [facility] Medical Decision Making Medical Screen Exam Complete: Yes Emergency Medical Condition: Yes Medical Record Reviewed: Yes Differential Diagnosis dka, hyperglyemcia, cellulits Narrative Course CBC & BMP Diagram 04/16/17 14:00 Total Protein 7.1, Albumin 2.7 L, Calcium Level 9.5, Magnesium Level 1.6, Alkaline Phosphatase 136 H, Aspartate Amino Transf (AST/SGOT) 17, Alanine Aminotransferase (ALT/SGPT) 19, Total Bilirubin 0.5 beta hydoxybutyrate slightly elevated no dka admission for ivf, abx, antiemtics d/w dr estevez Diagnosis Primary Impression: Diabetic ulcer of right foot Additional Impression: Immunosuppressed status Paul Simms MD Apr 16, 2017 16:29
[2017-04-16] MEDS: INSULIN ASPART SUPPLEMENTAL SCALE SQ SCH ×2 (17:00→21:00)
[2017-04-16 17:31] LABS: CREATINE KINASE 47 U/L (39-308)
[2017-04-16] MEDS ORDERED: MYCOPHENOLATE MOFETIL 250 MG CAP PO SCH (18:00)
[2017-04-16] MEDS ORDERED: PIPERACIL-TAZO 4.5 GM PREMIX 100 ML IV SCH (18:00)
[2017-04-16] MEDS: VANCOMYCIN INJ 1,000 MG in SODIUM CHLOR 0.9% 250 ML INJ 250 ML IV SCH (18:17)
[2017-04-16] MEDS: SODIUM CHLOR 0.9% 1000 ML INJ 1,000 ML IV SCH ×2 (18:17→20:16)
[2017-04-16] MEDS: ENOXAPARIN SODIUM 40 MG/0.4 ML SYRINGE SQ SCH (18:27)
[2017-04-16] MEDS: PANTOPRAZOLE SOD 40 MG DELAYED RELEASE TAB PO SCH (20:13)
[2017-04-16] MEDS: ACETAMINOPHEN 325 MG TAB PO PRN (20:13)
[2017-04-16] MEDS: PRAVASTATIN SOD 80 MG TAB PO SCH (20:14)
[2017-04-16] MEDS: SODIUM CHLORIDE 0.9% FLUSH 10 ML FLUSH IV FLUSH SCH (20:15)
[2017-04-16] MEDS: DOCUSATE SODIUM 50 MG/SENNA 8.6 MG TAB PO SCH (20:15)
[2017-04-16] MEDS ORDERED: INSULIN DETEMIR 100 UNITS/ML VIAL SQ SCH (21:00)
[2017-04-16 22:13] LABS: CREATINE KINASE 30 U/L (39-308)
[2017-04-16] MEDS: MYCOPHENOLATE MOFETIL 500 MG TAB PO SCH (23:39)
[2017-04-16] MEDS: TACROLIMUS 1 MG CAP PO SCH (23:40)
[2017-04-17] VITALS (9 sets, daily range): BP systolic 97–133; BP diastolic 56–72; PULSE 64–93; RESP 16–18; TEMP 95.7–98.7; O2SAT 95–97
[2017-04-17] MEDS: SODIUM CHLOR 0.9% 1000 ML INJ 1,000 ML IV SCH ×4 (03:16→16:09)
[2017-04-17] MEDS: PIPERACIL-TAZO 4.5 GM PREMIX 100 ML IV SCH ×4 (04:00→20:55)
[2017-04-17] MEDS: VANCOMYCIN INJ 1,000 MG in SODIUM CHLOR 0.9% 250 ML INJ 250 ML IV SCH ×2 (05:11→16:50)
[2017-04-17] MEDS: TACROLIMUS 1 MG CAP PO SCH ×2 (05:11→13:36)
[2017-04-17 07:37] LABS: AUTOMATED NEUTROPHIL # 9.3 TH/MM3 (1.8-7.7); BASOPHIL # 0.1 TH/MM3 (0-0.2); BASOPHIL % 0.8 % (0.0-2.0); EOSINOPHIL % 0.3 % (0.0-4.0); HEMATOCRIT 39.2 % (39.0-51.0); LYMPH % 13.5 % (9.0-44.0); LYMPHOCYTE # 1.7 TH/MM3 (1.0-4.8); MEAN CELL VOLUME 86.7 FL (80.0-100.0); MEAN CORPUSCULAR HEMOGLOBIN 29.2 PG (27.0-34.0); MEAN CORPUSCULAR HGB CONC 33.7 % (32.0-36.0); MONO % 11.1 % (0.0-8.0); NEUT % 74.3 % (16.0-70.0); PLATELET COUNT 276 TH/MM3 (150-450); RED BLOOD COUNT 4.52 MIL/MM3 (4.50-5.90); RED CELL DISTRIBUTION WIDTH 12.7 % (11.6-17.2); WHITE BLOOD COUNT 12.5 TH/MM3 (4.0-11.0)
[2017-04-17 07:47] LABS: HEMO FLAGS DIFF FINAL
[2017-04-17] MEDS: INSULIN ASPART SUPPLEMENTAL SCALE SQ SCH ×4 (08:00→21:06)
[2017-04-17 08:18] LABS: ALKALINE PHOSPHATASE 117 U/L (45-117); ALT (GPT) 16 U/L (12-78); ANION GAP 7 MEQ/L (5-15); AST (GOT) 18 U/L (15-37); BICARBONATE 25.2 MEQ/L (21.0-32.0); CHLORIDE 101 MEQ/L (98-107); FREE T4 1.23 NG/DL (0.76-1.46); GLOMERULAR FILTRATION RATE 76 ML/MIN (>89); MAGNESIUM 1.6 MG/DL (1.5-2.5); POTASSIUM 4.4 MEQ/L (3.5-5.1); SODIUM (NA) 133 MEQ/L (136-145); TOTAL BILIRUBIN ADULT 0.6 MG/DL (0.2-1.0)
[2017-04-17 08:23] LABS: BLOOD UREA NITROGEN 13 MG/DL (7-18)
[2017-04-17] MEDS: DOCUSATE SODIUM 50 MG/SENNA 8.6 MG TAB PO SCH ×2 (09:00→20:53)
[2017-04-17] MEDS: SODIUM CHLORIDE 0.9% FLUSH 10 ML FLUSH IV FLUSH SCH ×2 (09:00→19:53)
[2017-04-17] MEDS: predniSONE 5 MG TAB PO SCH (09:09)
[2017-04-17] MEDS: ASPIRIN EC 81 MG TABEC PO SCH (09:09)
[2017-04-17] MEDS: METOPROLOL TARTRATE 100 MG TAB PO SCH (09:09)
[2017-04-17] MEDS: PANTOPRAZOLE SOD 40 MG DELAYED RELEASE TAB PO SCH ×2 (09:09→20:54)
[2017-04-17 09:25] LABS: HEMOGLOBIN A1a 1.3 %; HEMOGLOBIN A1b 1.1 %; HEMOGLOBIN Ao 75.4 %; HEMOGLOBIN F 2.1 %; HEMOGLOBIN LA1C 2.2 %; HEMOGLOBIN P3 5.2 %
--- NOTE | 2017-04-17 10:03 | HHI.PR ---
Subjective Remarks Mr. Weaver is a 46-year-old male with a past medical history of type 1 diabetes and neuropathy presenting today with a left foot wound. He states that on Saturday , 4 days ago, he started having fever and chills, sweats, and body aches. He had a Tmax of 100.1 yesterday, but has been continuously taking Tylenol since Saturday. Today he noticed that his left foot was erythematous and had swelling. He also knows a wound on the bottom of his foot. He states that he is having some bloody discharge coming from the wound. 6 months ago he was admitted for a right foot wound. He states that "the doctor had scraped his right great toe to the bone" and gave him vancomycin. He usually checks his feet daily, but has not since Saturday due to being ill. He also states that his sugars have been running very high. He is on NovoLog sliding scale and states that his sugars have been uncontrollable. His also noticed that his breath has a fruity smell. He states that he also thinks he may be spilling ketones. Of note, he has also lost 14 pounds over the weekend. He had vomited on Saturday and Saturday, nonbilious and nonbloody. Once per day. 04-17 BLOOD SUGARS BETTER WITH FLUIDS AND ANTIBIOTICS DW RN AND PT AM LABS AWAIT PODIATRY, ID AND FRAME BENDER CONTINUE ANTIBIOTICS Objective Vitals Vital Signs Date Time Temp Pulse Resp B/P (MAP) Pulse Ox O2 Delivery O2 Flow Rate FiO2 04/17/17 09:09 96 04/17/17 08:00 97.3 83 16 127/72 (90) 96 04/17/17 06:20 18 04/17/17 04:53 98.1 82 18 97/56 (70) 96 04/17/17 00:27 96.8 64 18 117/65 (82) 96 04/16/17 21:13 18 04/16/17 20:09 99.9 82 18 138/72 (94) 97 04/16/17 17:20 98.7 100 18 128/72 (90) 97 04/16/17 16:59 94 18 129/80 (96) 96 04/16/17 15:26 98.6 95 17 140/66 (90) 98 Room Air 04/16/17 14:32 105 19 106/60 (75) 97 Room Air 04/16/17 14:15 96 21 04/16/17 13:36 19 04/16/17 13:27 98.7 102 15 101/62 (75) 96 I/O 04/16/17 04/16/17 04/16/17 04/17/17 04/17/17 04/17/17 07:00 15:00 23:00 07:00 15:00 23:00 Intake Total 2100 ml 680 ml Output Total 1200 ml Balance 2100 ml -520 ml Intake Oral 680 ml IV Total 2100 ml Output Urine Total 1200 ml # Bowel Movements 0 Result Diagram: 04/17/17 0713 04/17/17 0713 Other Results Laboratory Tests Test 04/16/17 14:00 04/16/17 14:30 04/16/17 21:12 04/17/17 07:13 White Blood Count 17.0 TH/MM3 12.5 TH/MM3 Red Blood Count 4.76 MIL/MM3 4.52 MIL/MM3 Hemoglobin 14.3 GM/DL 13.2 GM/DL Hematocrit 40.8 % 39.2 % Mean Corpuscular Volume 85.8 FL 86.7 FL Mean Corpuscular Hemoglobin 30.0 PG 29.2 PG Mean Corpuscular Hemoglobin Concent 34.9 % 33.7 % Red Cell Distribution Width 12.7 % 12.7 % Platelet Count 276 TH/MM3 276 TH/MM3 Mean Platelet Volume 7.1 FL 7.0 FL Neutrophils (%) (Auto) 79.4 % 74.3 % Lymphocytes (%) (Auto) 7.3 % 13.5 % Monocytes (%) (Auto) 12.6 % 11.1 % Eosinophils (%) (Auto) 0.1 % 0.3 % Basophils (%) (Auto) 0.6 % 0.8 % Neutrophils # (Auto) 13.5 TH/MM3 9.3 TH/MM3 Lymphocytes # (Auto) 1.2 TH/MM3 1.7 TH/MM3 Monocytes # (Auto) 2.1 TH/MM3 1.4 TH/MM3 Eosinophils # (Auto) 0.0 TH/MM3 0.0 TH/MM3 Basophils # (Auto) 0.1 TH/MM3 0.1 TH/MM3 CBC Comment DIFF FINAL DIFF FINAL Differential Comment Erythrocyte Sedimentation Rate 76 mm/hr Blood Urea Nitrogen 17 MG/DL 13 MG/DL Creatinine 1.41 MG/DL 1.04 MG/DL Random Glucose 239 MG/DL 57 MG/DL Total Protein 7.1 GM/DL 6.6 GM/DL Albumin 2.7 GM/DL 2.2 GM/DL Calcium Level 9.5 MG/DL 8.9 MG/DL Magnesium Level 1.6 MG/DL 1.6 MG/DL Alkaline Phosphatase 136 U/L 117 U/L Aspartate Amino Transf (AST/SGOT) 17 U/L 18 U/L Alanine Aminotransferase (ALT/SGPT) 19 U/L 16 U/L Total Bilirubin 0.5 MG/DL 0.6 MG/DL Sodium Level 128 MEQ/L 133 MEQ/L Potassium Level 4.0 MEQ/L 4.4 MEQ/L Chloride Level 92 MEQ/L 101 MEQ/L Carbon Dioxide Level 23.8 MEQ/L 25.2 MEQ/L Anion Gap 12 MEQ/L 7 MEQ/L Estimat Glomerular Filtration Rate 54 ML/MIN 76 ML/MIN Total Creatine Kinase 47 U/L 30 U/L Troponin I LESS THAN 0.02 NG/ML LESS THAN 0.02 NG/ML B-Hydroxybutyrate 2.62 MMOL/L Blood Gas Puncture Site LT BRACHIAL Blood Gas Patient Temperature 98.6 Blood Gas HCO3 23 mmol/L Blood Gas Base Excess -0.4 mmol/L Blood Gas Oxygen Saturation 91 % Arterial Blood pH 7.45 Arterial Blood Partial Pressure CO2 34 mmHg Arterial Blood Partial Pressure O2 70 mmHG Arterial Blood Oxygen Content 22.5 Vol % Arterial Blood Carboxyhemoglobin 1.6 % Arterial Blood Methemoglobin 0.6 % Blood Gas Hemoglobin 17.5 G/DL Oxygen Delivery Device ROOM AIR Blood Gas Inspired Oxygen 21 % C-Reactive Protein 19.00 MG/DL Phosphorus Level 2.2 MG/DL Free Thyroxine 1.23 NG/DL Thyroid Stimulating Hormone 3rd Gen 0.616 uIU/ML Imaging Last Impressions Foot X-Ray 04/16/17 1352 Signed Impressions: Service Date/Time: Sunday, April 16, 2017 14:23 - CONCLUSION: No acute disease. Anshu Charles MD Objective Remarks GENERAL: This is a well-nourished, well-developed patient, in no apparent distress. SKIN: Cool and dry. Rash going up the left foot to the ankle with lymphangitic spread with a wound on the plantar aspect of the foot half a centimeter in diameter HEAD: Atraumatic. Normocephalic. No temporal or scalp tenderness. EYES: Pupils equal round and reactive. Extraocular motions intact. No scleral icterus. No injection or drainage. ENT: Nose without bleeding, purulent drainage or septal hematoma. Throat without erythema, tonsillar hypertrophy or exudate. Uvula midline. Airway patent. Tongue is midline NECK: Trachea midline. No JVD or lymphadenopathy. Supple, nontender, no meningeal signs. CARDIOVASCULAR: Regular rate and rhythm without murmurs, gallops, or rubs. S1 and S2 no S3 or S4 no heave or thrill or rub or gallop RESPIRATORY: Clear to auscultation. Breath sounds equal bilaterally. No wheezes , rales, or rhonchi. GASTROINTESTINAL: Abdomen soft, non-tender, nondistended. No hepato-splenomegaly , or palpable masses. No guarding. MUSCULOSKELETAL: Extremities without clubbing, cyanosis, or edema. No joint tenderness, effusion, or edema noted. No calf tenderness. Negative Homans sign bilaterally. Wound on left plantar aspect of foot NEUROLOGICAL: Awake and alert. Cranial nerves II through XII intact. Motor and sensory grossly within normal limits. Five out of 5 muscle strength in all muscle groups. Normal speech. Insight and judgment is good Mood and behaviors appropriate Medications and IVs Current Medications Sodium Chloride 1,000 ml @ 2,000 mls/hr Q30M ONCE IV Last administered on 04/16 14:49; Start 04/16/17 at 13:58; Stop 04/16/17 at 14:27; Status DC Sodium Chloride 1,000 ml @ 2,000 mls/hr Q30M ONCE IV Last administered on 04/16 14:50; Start 04/16/17 at 14:28; Stop 04/16/17 at 14:57; Status DC Sodium Chloride (NS Flush) 2 ml UNSCH PRN IVF FLUSH AFTER USING IV ACCESS; Start 04/16/17 at 14:00; Stop 04/16/17 at 16:39; Status DC Clindamycin Phosphate 900 mg/ Sodium Chloride 106 ml @ 212 mls/hr ONCE ONCE IV Last administered on 04/16/17 14:49; Start 04/16/17 at 14:00; Stop at 14:29; Status DC Dextrose (D50w (Vial) Inj) 50 ml UNSCH PRN IV PUSH HYPOGLYCEMIA-SEE COMMENTS; Start 04/16/17 at 16:00 Glucagon (Glucagon Inj) 1 mg UNSCH PRN OTHER HYPOGLYCEMIA-SEE COMMENTS; Start 04/16/17 at 16:00 Insulin Aspart (NovoLOG SUPPLEMENTAL SCALE) 1 ACHS SLIDING SCALE SQ Last administered on 04/16/17 21:00; Start 04/16/17 at 17:00 Vancomycin HCl 1000 mg/Sodium Chloride 250 ml @ 250 mls/hr Q12H IV Last administered on 04/17/17 05:11; Start 04/16/17 at 17:00 Pharmacy Profile Note 0 ml @ 0 mls/hr UNSCH OTHER ; Start 04/16/17 at 16:00 Piperacillin Sod/ Tazobactam Sod 100 ml @ 200 mls/hr Q6H IV Last administered on 04/16/17 22:04; Start 04/16/17 at 18:00; Stop 04/16/17 at 22:36; Status DC Sodium Chloride 1,000 ml @ 200 mls/hr Q5H IV Last administered on 04/17/17 03 :16; Start 04/16/17 at 15:46 Sodium Chloride (NS Flush) 2 ml UNSCH PRN IV FLUSH FLUSH AFTER USING IV ACCESS ; Start 04/16/17 at 16:00 Sodium Chloride (NS Flush) 2 ml BID IV FLUSH ; Start 04/16/17 at 21:00 Acetaminophen (Tylenol) 650 mg Q4H PRN PO TEMP > 100.4 Last administered on 20:13; Start 04/16/17 at 16:00 Ondansetron HCl (Zofran Inj) 4 mg Q6H PRN IVP NAUSEA OR VOMITING; Start at 16:00 Prochlorperazine (Compazine Supp) 25 mg Q12H PRN RECTAL NAUSEA OR VOMITING; Start 04/16/17 at 16:00 Zolpidem Tartrate (Ambien) 5 mg HS PRN PO INSOMNIA; Start 04/16/17 at 16:00 Enoxaparin Sodium (Lovenox Inj) 40 mg Q24H SQ Last administered on 04/16/17 18 :27; Start 04/16/17 at 18:00 Acetaminophen (Tylenol) 650 mg Q6H PRN PO PAIN SCALE 1 TO 2 Last administered on 04/17/17 05:16; Start 04/16/17 at 16:00 Oxycodone/ Acetaminophen (Percocet 5-325 Mg) 1 tab Q6H PRN PO PAIN SCALE 3 TO 5; Start 04/16/17 at 16:00 Oxycodone/ Acetaminophen (Percocet 10-325 Mg) 1 tab Q6H PRN PO PAIN SCALE 6 TO 10; Start 04/16/17 at 16:00 Morphine Sulfate (Morphine Inj) 2 mg Q3H PRN IV PUSH Pain 3-5; if unable to take PO; Start 04/16/17 at 16:00 Morphine Sulfate (Morphine Inj) 4 mg Q3H PRN IV PUSH Pain 6-10;if unable to take PO; Start 04/16/17 at 16:00 Naloxone HCl (Narcan Inj) 0.4 mg UNSCH PRN IV PUSH SEE LABEL COMMENTS; Start at 16:00 Senna/Docusate Sodium (Nancy-Colace) 1 tab BID PO ; Start 04/16/17 at 21:00 Magnesium Hydroxide (Milk Of Magnesia Liq) 30 ml Q12H PRN PO MILD - MODERATE CONSTIPATION; Start 04/16/17 at 16:00 Sennosides (Senokot) 17.2 mg Q12H PRN PO MODERATE - SEVERE CONSTIPATION; Start 04/16/17 at 16:00 Bisacodyl (Dulcolax Supp) 10 mg DAILY PRN RECTAL SEVERE CONSITIPATION; Start at 16:00 Lactulose (Lactulose Liq) 30 ml DAILY PRN PO SEVERE CONSITIPATION; Start at 16:00 Aspirin (Ecotrin Ec) 81 mg DAILY PO Last administered on 04/17/17 09:09; Start 04/17/17 at 09:00 Insulin Detemir (Levemir Inj) 65 units HS SQ Last administered on 04/16/17 21: 00; Start 04/16/17 at 21:00 Metoprolol Tartrate (Lopressor) 100 mg DAILY PO Last administered on 04/17/17 09:09; Start 04/17/17 at 09:00 Mycophenolate Mofetil (Cellcept) 500 mg BID@0600,1800 PO ; Start 04/16/17 at 18: 00; Stop 04/16/17 at 20:56; Status DC Prednisone (Deltasone) 5 mg DAILY PO Last administered on 04/17/17 09:09; Start 04/17/17 at 09:00 Tacrolimus (Prograf) 2 mg BID@0600,1800 PO Last administered on 04/16/17 23:40 ; Start 04/16/17 at 18:00 Pravastatin Sodium (Pravachol) 80 mg HS PO Last administered on 04/16/17 20:14 ; Start 04/16/17 at 21:00 Miscellaneous Information SPECIFIC LAB TO BE DRAWN:VANCOMYCIN TROUGH DATE TO... ONCE ONCE .XX ; Start 04/18/17 at 04:45; Stop 04/18/17 at 04:46 Pantoprazole Sodium (Protonix) 40 mg Q12HR PO Last administered on 04/17/17 09 :09; Start 04/16/17 at 21:00 Mycophenolate Mofetil (Cellcept) 500 mg BID@0000,1200 PO Last administered on 23:39; Start 04/17/17 at 00:00 Piperacillin Sod/ Tazobactam Sod 100 ml @ 200 mls/hr Q6H IV Last administered on 04/17/17 09:19; Start 04/17/17 at 04:00 Urinary Catheter: No Vascular Central Line Catheter: No A/P Problem List: (1) Kidney transplant status ICD Code: Z94.0 - Kidney transplant status (2) Diabetic foot ulcer associated with type 1 diabetes mellitus ICD Code: E10.621 - Type 1 diabetes mellitus with foot ulcer; L97.509 - Non- pressure chronic ulcer of other part of unspecified foot with unspecified severity (3) Diabetic ulcer of left foot ICD Code: E11.621 - Type 2 diabetes mellitus with foot ulcer; L97.529 - Non- pressure chronic ulcer of other part of left foot with unspecified severity (4) Immunosuppressed status ICD Code: D89.9 - Disorder involving the immune mechanism, unspecified (5) Cellulitis of left foot ICD Code: L03.116 - Cellulitis of left lower limb (6) Diabetes ICD Code: E11.9 - Type 2 diabetes mellitus without complications Assessment and Plan Diabetic foot wound of the left foot with uncontrolled diabetes Increase his Lantus to [address] on sliding scale high- dose with Accu-Cheks before meals and at bedtime Continue on vancomycin and Zosyn consult pharmacy regarding the vancomycin Continue on his home medications. Including immunosuppression with Prograf and CellCept for his chronic renal transplant continue on the chronic prednisone Hyperlipidemia continue on the simvastatin High blood pressure continue on metoprolol Consult infectious disease as well as podiatry Sirs continue on fluids and aggressive antibiotics and consult infectious disease and podiatry Continue on normal saline fluids at 200 ML's per hour Continue on high-dose sliding scale coverage get a.m. labs Continue on DVT and GI prophylaxis AWAIT ID, PODIATRY AND WOUND CARE AM LABS CONTINUE ANTIBIOTICS AND FLUIDS Problem Qualifiers (1) Diabetes: Valdemar Henry DO Apr 17, 2017 10:03
[2017-04-17] MEDS: ACETAMINOPHEN 325 MG TAB PO PRN (13:25)
[2017-04-17] MEDS: MYCOPHENOLATE MOFETIL 500 MG TAB PO SCH (13:36)
--- NOTE | 2017-04-17 13:51 | PD.WCN.NOT ---
Wound Consult Description: Consult received for wound management of left foot per Dr Henry. However, Podiatry was also consulted. Recommendation: Wound care will defer to Dr Burdick for dressing changes. Ashleigh Blanca [facility] Apr 17, 2017 13:51
--- NOTE | 2017-04-17 14:00 | PD.ID.CON ---
History of Present Illness Service ID Consult Requested By Reason for Consult Evaluation and mment of left foot osteomyelitis Primary Care Physician No Primary Care Physician Diagnoses: History of Present Illness Mr. Weaver is a 46 y/o CM with PMHx significant for DM with neuropathy, nephropathy s/p renal transplant who is on immune suppressant medications such as cellcept, tacrolimus and prednisone. He reports feeling of unwellness for last 1 week. He reports no symptoms in his foot. He did not examine his feet in last 1 week. He reports that when he was wearing his socks to come to hospital is when he noticed the foot findings. He had started having fever and chills, sweats, and body aches. He had a Tmax of 100.1 yesterday, but has been continuously taking Tylenol for a week. Today he noticed that his left foot was erythematous and had swelling. He also knows a wound on the bottom of his foot. He states that he is having some bloody discharge coming from the wound. 6 months ago he was admitted for a right foot wound. He states that "the doctor had scraped his right great toe to the bone" and gave him vancomycin in hospital and discharged him on oral antibiotics. He usually checks his feet daily, but has not since Saturday due to being ill. Sepsis workup initiated on admission. ID consulted for evaluation and mment of Sepsis, Left foot cellulitis possible osteomyelitis. Review of Systems Constitutional: COMPLAINS OF: Diaphoretic episodes, Fever, Chills, Night Sweats , DENIES: Fatigue, Weight gain, Weight loss, Dizziness, Change in appetite Endocrine: DENIES: Heat/cold intolerance, Polydipsia, Polyuria, Polyphagia Eyes: DENIES: Blurred vision, Diplopia, Eye inflammation, Eye pain, Vision loss , Photosensitivity, Double Vision Ears, nose, mouth, throat: DENIES: Tinnitus, Hearing loss, Vertigo, Nasal discharge, Oral lesions, Throat pain, Hoarseness, Ear Pain, Running Nose, Epistaxis, Sinus Pain, Toothache, Odynophagia Respiratory: DENIES: Apneas, Cough, Snoring, Wheezing, Hemoptysis, Sputum production, Shortness of breath Cardiovascular: DENIES: Chest pain, Palpitations, Syncope, Dyspnea on Exertion , PND, Lower Extremity Edema, Orthopnea, Claudication Gastrointestinal: COMPLAINS OF: Nausea, Vomiting, DENIES: Abdominal pain, Black stools, Bloody stools, Constipation, Diarrhea, Difficulty Swallowing, Anorexia Genitourinary: DENIES: Sexual dysfunction, Urinary frequency, Urinary incontinence, Urgency, Hematuria, Dysuria, Nocturia, Penile Discharge, Testicular Pain, Testicular Swelling Musculoskeletal: DENIES: Joint pain, Muscle aches, Stiffness, Joint Swelling, Back pain, Neck pain Integumentary: COMPLAINS OF: Abnormal pigmentation, DENIES: Nail changes, Pruritus, Rash Hematologic/lymphatic: DENIES: Bruising, Lymphadenopathy Immunologic/allergic: DENIES: Eczema, Urticaria Neurologic: DENIES: Abnormal gait, Headache, Localized weakness, Paresthesias, Seizures, Speech Problems, Tremor, Poor Balance Psychiatric: DENIES: Anxiety, Confusion, Mood changes, Depression, Hallucinations, Agitation, Suicidal Ideation, Homicidal Ideation, Delusions Except as stated in HPI: all other systems reviewed are Neg Past Family Social History Allergies: Coded Allergies: No Known Allergies (Unverified , 04/16/17) Past Medical History Diabetes mellitus type 1 History of diabetic foot wound right foot 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 Severe diabetic neuropathy Hyperlipidemia Hypertension Past Surgical History Debridement of right foot in the past by podiatry history of kidney transplant History of pancreatic transplant 2 Reported Medications Reported Meds & Active Scripts Active Reported Metoprolol Tartrate 100 Mg Tab 100 Mg PO DAILY Aspirin 81 (Aspirin) 81 Mg Tabdr 81 Mg PO DAILY Simvastatin 40 Mg Tab 40 Mg PO HS Prednisone 5 Mg Tab 5 Mg PO DAILY Prograf (Tacrolimus) 1 Mg Cap 2 Mg PO BID Cellcept (Mycophenolate Mofetil) 250 Mg Cap 500 Mg PO BID Novolin R Inj (Insulin Human Regular) 1,000 Unit/10 Ml Vial 0 SQ DIRECTED Sliding Scale As Directed. Lantus Inj (Insulin Glargine) 1,000 Unit/10 Ml Vial 50 Units SQ HS Active Ordered Medications Current Medications Medications (Trade) Dose Ordered Sig/Diana Route Start Time Stop Time Status Last Admin (D50w (Vial) Inj) 50 ml UNSCH PRN IV PUSH 04/16/17 16:00 (Glucagon Inj) 1 mg UNSCH PRN OTHER 04/16/17 16:00 (NovoLOG SUPPLEMENTAL SCALE) 1 ACHS SLIDING SCALE SQ 04/16/17 17:00 04/17/17 21:06 Vancomycin HCl 1000 mg/Sodium Chloride 250 ml @ 250 mls/hr Q12H IV 04/16/17 17:00 04/17/17 16:50 Pharmacy Profile Note 0 ml @ 0 mls/hr UNSCH OTHER 04/16/17 16:00 Sodium Chloride 1,000 ml @ 200 mls/hr Q5H IV 04/16/17 15:46 04/17/17 16:09 (NS Flush) 2 ml UNSCH PRN IV FLUSH 04/16/17 16:00 (NS Flush) 2 ml BID IV FLUSH 04/16/17 21:00 (Tylenol) 650 mg Q4H PRN PO 04/16/17 16:00 04/17/17 13:25 (Zofran Inj) 4 mg Q6H PRN IVP 04/16/17 16:00 (Compazine Supp) 25 mg Q12H PRN RECTAL 04/16/17 16:00 (Ambien) 5 mg HS PRN PO 04/16/17 16:00 (Lovenox Inj) 40 mg Q24H SQ 04/16/17 18:00 04/17/17 20:54 (Tylenol) 650 mg Q6H PRN PO 04/16/17 16:00 04/17/17 05:16 (Percocet 5-325 Mg) 1 tab Q6H PRN PO 04/16/17 16:00 (Percocet 10-325 Mg) 1 tab Q6H PRN PO 04/16/17 16:00 (Morphine Inj) 2 mg Q3H PRN IV PUSH 04/16/17 16:00 (Morphine Inj) 4 mg Q3H PRN IV PUSH 04/16/17 16:00 (Narcan Inj) 0.4 mg UNSCH PRN IV PUSH 04/16/17 16:00 (Nancy-Colace) 1 tab BID PO 04/16/17 21:00 (Milk Of Magnesia Liq) 30 ml Q12H PRN PO 04/16/17 16:00 (Senokot) 17.2 mg Q12H PRN PO 04/16/17 16:00 (Dulcolax Supp) 10 mg DAILY PRN RECTAL 04/16/17 16:00 (Lactulose Liq) 30 ml DAILY PRN PO 04/16/17 16:00 (Ecotrin Ec) 81 mg DAILY PO 9/27/17 09:00 04/17/17 09:09 (Lopressor) 100 mg DAILY PO 04/17/17 09:00 04/17/17 09:09 (Deltasone) 5 mg DAILY PO 04/17/17 09:00 04/17/17 09:09 (Prograf) 2 mg BID@0600,1800 PO 04/16/17 18:00 04/17/17 13:36 (Pravachol) 80 mg HS PO 04/16/17 21:00 04/17/17 20:54 Miscellaneous Information SPECIFIC LAB TO BE DRAWN:VANCOMYCIN TROUGH DATE TO... ONCE ONCE .XX 04/18/17 04:45 04/18/17 04:46 (Protonix) 40 mg Q12HR PO 04/16/17 21:00 04/17/17 20:54 (Cellcept) 500 mg BID@0000,1200 PO 04/17/17 00:00 04/17/17 13:36 Piperacillin Sod/ Tazobactam Sod 100 ml @ 200 mls/hr Q6H IV 04/17/17 04:00 04/17/17 20:55 (Levemir Inj) 50 units HS SQ 04/17/17 21:00 04/17/17 20:54 Family History reviewed and NC to current ID problem Social History Smokes cigarettes Denies any alcohol denies any illicit drugs Physical Exam Vital Signs Vital Signs Date Time Temp Pulse Resp B/P (MAP) Pulse Ox O2 Delivery O2 Flow Rate FiO2 04/17/17 12:00 95.7 93 17 133/67 (89) 95 04/17/17 09:09 96 04/17/17 08:00 97.3 83 16 127/72 (90) 96 04/17/17 06:20 18 04/17/17 04:53 98.1 82 18 97/56 (70) 96 04/17/17 00:27 96.8 64 18 117/65 (82) 96 04/16/17 21:13 18 04/16/17 20:09 99.9 82 18 138/72 (94) 97 04/16/17 17:20 98.7 100 18 128/72 (90) 97 04/16/17 16:59 94 18 129/80 (96) 96 04/16/17 15:26 98.6 95 17 140/66 (90) 98 Room Air 04/16/17 14:32 105 19 106/60 (75) 97 Room Air 04/16/17 14:15 96 21 Physical Exam GENERAL: This is a well-nourished, well-developed patient, in no apparent distress. SKIN: No rashes, ecchymoses or lesions. Cool and dry. HEAD: Atraumatic. Normocephalic. No temporal or scalp tenderness. EYES: Pupils equal round and reactive. Extraocular motions intact. No scleral icterus. No injection or drainage. ENT: Nose without bleeding, purulent drainage or septal hematoma. Throat without erythema, tonsillar hypertrophy or exudate. Uvula midline. Airway patent. NECK: Trachea midline. Supple, nontender, no meningeal signs. CARDIOVASCULAR: Regular rate and rhythm without murmurs, gallops, or rubs. RESPIRATORY: Clear to auscultation. Breath sounds equal bilaterally. No wheezes , rales, or rhonchi. GASTROINTESTINAL: Abdomen soft, non-tender, nondistended. MUSCULOSKELETAL: Left foot plantar aspect a black dime shaped area with tenderness and induration noted. Erythema from this area extends through the web space to the dorsal aspect of foot. There is a dusky skin change in the web space as well. NEUROLOGICAL: Awake and alert. Grossly nonfocal Psych cooperative IV line sites with no e.o infection Laboratory Laboratory Tests Test 04/16/17 14:30 04/16/17 21:12 04/17/17 07:13 Blood Gas Puncture Site LT BRACHIAL Blood Gas Patient Temperature 98.6 Blood Gas HCO3 23 Blood Gas Base Excess -0.4 Blood Gas Oxygen Saturation 91 Arterial Blood pH 7.45 Arterial Blood Partial Pressure CO2 34 Arterial Blood Partial Pressure O2 70 Arterial Blood Oxygen Content 22.5 Arterial Blood Carboxyhemoglobin 1.6 Arterial Blood Methemoglobin 0.6 Blood Gas Hemoglobin 17.5 Oxygen Delivery Device ROOM AIR Blood Gas Inspired Oxygen 21 Total Creatine Kinase 30 Troponin I LESS THAN 0.02 C-Reactive Protein 19.00 White Blood Count 12.5 Red Blood Count 4.52 Hemoglobin 13.2 Hematocrit 39.2 Mean Corpuscular Volume 86.7 Mean Corpuscular Hemoglobin 29.2 Mean Corpuscular Hemoglobin Concent 33.7 Red Cell Distribution Width 12.7 Platelet Count 276 Mean Platelet Volume 7.0 Neutrophils (%) (Auto) 74.3 Lymphocytes (%) (Auto) 13.5 Monocytes (%) (Auto) 11.1 Eosinophils (%) (Auto) 0.3 Basophils (%) (Auto) 0.8 Neutrophils # (Auto) 9.3 Lymphocytes # (Auto) 1.7 Monocytes # (Auto) 1.4 Eosinophils # (Auto) 0.0 Basophils # (Auto) 0.1 CBC Comment DIFF FINAL Differential Comment Blood Urea Nitrogen 13 Creatinine 1.04 Random Glucose 57 Total Protein 6.6 Albumin 2.2 Calcium Level 8.9 Phosphorus Level 2.2 Magnesium Level 1.6 Alkaline Phosphatase 117 Aspartate Amino Transf (AST/SGOT) 18 Alanine Aminotransferase (ALT/SGPT) 16 Total Bilirubin 0.6 Sodium Level 133 Potassium Level 4.4 Chloride Level 101 Carbon Dioxide Level 25.2 Anion Gap 7 Estimat Glomerular Filtration Rate 76 Hemoglobin A1c 12.5 Free Thyroxine 1.23 Thyroid Stimulating Hormone 3rd Gen 0.616 Date/Time Source Procedure Growth Status 04/16/17 16:50 Blood Peripheral Aerobic Blood Culture - Preliminary NO GROWTH IN 1 DAY Resulted 04/16/17 16:50 Blood Peripheral Anaerobic Blood Culture - Preliminary NO GROWTH IN 1 DAY Resulted 04/16/17 14:39 Wound Foot Gram Stain - Final Resulted 04/16/17 14:39 Wound Foot Wound Culture Pending Resulted Result Diagram: 04/17/17 0713 04/17/17 0713 Imaging Last Impressions Foot X-Ray 04/16/17 1352 Signed Impressions: Service Date/Time: Sunday, April 16, 2017 14:23 - CONCLUSION: No acute disease. Anshu Charles MD Assessment and Plan Assessment and Plan Sepsis present on admission (tachycardia, leucocytosis and source: left foot infection, possible bacteremia) Gram positive bacteremia (at time of dictation of note) Left foot cellulitis Left foot possible osteomyelitis of toe. DM with neuropathy DM nephropathy s/p transplant Immune compromised Recs Continue Zosyn IV Continue vanco IV (target 15-20) follow cultures Repeat blood cultures Follow clinically. MRI foot if ok with nephrology WBC scan to look for bone involvement in terms of infection: osteomyelitis. d/w about imaging plan d.w pt and mother in room dDaiana Garcia RN, MD Apr 17, 2017 14:00
[2017-04-17] MEDS: PRAVASTATIN SOD 80 MG TAB PO SCH (20:54)
[2017-04-17] MEDS: INSULIN DETEMIR 100 UNITS/ML VIAL SQ SCH (20:54)
[2017-04-17] MEDS: ENOXAPARIN SODIUM 40 MG/0.4 ML SYRINGE SQ SCH (20:54)
--- NOTE | 2017-04-17 22:34 | MB ---
cc: KIM BURDICK DPM DATE OF CONSULTATION 04/17/2017 TIME OF CONSULTATION 1900 hours DATE OF 1970 HISTORY OF PRESENT ILLNESS The patient is a 46-year-old male with type 1 history of diabetes neuropathy presented with a left foot wound that he noticed about 5-6 days ago. No history of injury. spiking fever, is seen at bedside with no nausea, vomiting, fever, diarrhea, chills. REVIEW OF SYSTEMS Six point review of systems unremarkable. PAST MEDICAL HISTORY 1. DM type 1 failed pancreatic transplant x2. 2. ESRD with kidney transplant. 3. Neuropathy. 4. Hypertension. 5. Hyperlipidemia. PAST SURGICAL HISTORY 1. Right foot incision and drainage. 2. Kidney transplant. 3. Pancreatic transplant x2. MEDICATIONS Per HPI. SOCIAL HISTORY Positive smoking. Denies alcohol or illicit drugs. PHYSICAL EXAMINATION EXTREMITIES: Left foot with dorsal midfoot erythema. There is no streaking. There is no active drainage. There is maceration within the fourth interspace. There is a plantar ulcer that contains a dried, hemorrhagic type tissue. There is some edema. DP and PT palpable. Protective sensation grossly absent. No crepitus with range of motion at the left fifth MP joint. Muscle strength intact. IMAGING Left foot x-rays completed 04/16/2017 within normal limits. LABORATORY DATA WBC 04/17/2017 of 12.5, RBC of 4.52. H&H 13.2 and 39.2. ASSESSMENT/PLAN 1. DM with neuropathy 2. Left foot cellulitis. 3. Left foot ulcer. PLAN This patient is to get a white blood cell labeled Ceretec scan as well as a left foot MRI with and without contrast. We will continue local wound care with Betadine. We will continue to follow the patient regarding his erythema and left foot presentation. Thank you for the kind consult. Kim Burdick DPM SR/JESSICA /9:00 PM /10:23 PM
[2017-04-18] MEDS: MYCOPHENOLATE MOFETIL 500 MG TAB PO SCH ×3 (00:06→23:56)
[2017-04-18] MEDS: SODIUM CHLOR 0.9% 1000 ML INJ 1,000 ML IV SCH ×3 (00:06→09:14)
[2017-04-18] MEDS: TACROLIMUS 1 MG CAP PO SCH ×3 (00:10→23:56)
[2017-04-18 00:44] VITALS: BP 128/70; PULSE 79; RESP 18; TEMP 98.5; O2SAT 97
[2017-04-18 04:00] VITALS: BP 160/70; PULSE 72; RESP 18; TEMP 99.9; O2SAT 96
[2017-04-18] MEDS: PIPERACIL-TAZO 4.5 GM PREMIX 100 ML IV SCH ×5 (04:21→21:16)
[2017-04-18] MEDS ORDERED: PHARMACY ORDERED LAB ONE (04:45)
[2017-04-18] MEDS: VANCOMYCIN INJ 1,000 MG in SODIUM CHLOR 0.9% 250 ML INJ 250 ML IV SCH (06:00)
[2017-04-18 08:00] VITALS: BP 140/76; PULSE 95; RESP 18; TEMP 98.5; O2SAT 95
[2017-04-18] MEDS: INSULIN ASPART SUPPLEMENTAL SCALE SQ SCH ×4 (08:00→21:00)
[2017-04-18] MEDS: DOCUSATE SODIUM 50 MG/SENNA 8.6 MG TAB PO SCH ×2 (09:00→21:00)
[2017-04-18] MEDS: SODIUM CHLORIDE 0.9% FLUSH 10 ML FLUSH IV FLUSH SCH ×2 (09:13→21:00)
[2017-04-18] MEDS: PANTOPRAZOLE SOD 40 MG DELAYED RELEASE TAB PO SCH ×2 (09:15→21:14)
[2017-04-18] MEDS: predniSONE 5 MG TAB PO SCH (09:15)
[2017-04-18] MEDS: ASPIRIN EC 81 MG TABEC PO SCH (09:15)
[2017-04-18] MEDS: oxyCODONE/ACETAMINOPHEN 5 MG/325 MG TAB PO PRN (09:16)
[2017-04-18] MEDS: METOPROLOL TARTRATE 100 MG TAB PO SCH (09:16)
--- NOTE | 2017-04-18 10:10 | HHI.PR ---
Subjective Remarks Mr. Weaver is a 46-year-old male with a past medical history of type 1 diabetes and neuropathy presenting today with a left foot wound. He states that on Saturday , 4 days ago, he started having fever and chills, sweats, and body aches. He had a Tmax of 100.1 yesterday, but has been continuously taking Tylenol since Saturday. Today he noticed that his left foot was erythematous and had swelling. He also knows a wound on the bottom of his foot. He states that he is having some bloody discharge coming from the wound. 6 months ago he was admitted for a right foot wound. He states that "the doctor had scraped his right great toe to the bone" and gave him vancomycin. He usually checks his feet daily, but has not since Saturday due to being ill. He also states that his sugars have been running very high. He is on NovoLog sliding scale and states that his sugars have been uncontrollable. His also noticed that his breath has a fruity smell. He states that he also thinks he may be spilling ketones. Of note, he has also lost 14 pounds over the weekend. He had vomited on Saturday and Saturday, nonbilious and nonbloody. Once per day. 04-17 BLOOD SUGARS BETTER WITH FLUIDS AND ANTIBIOTICS DW RN AND PT AM LABS AWAIT PODIATRY, ID AND AUTO TUNE UP MECHANIC CONTINUE ANTIBIOTICS 04-18 patient has been seen by podiatry as well as infectious disease Left foot MRI has been ordered as well as a Ceretec scan We'll consult nephrology due to chronic renal failure status post transplant Continue a.m. labs continue antibiotics with vancomycin and Zosyn Have discussed with patient and RN WANTS IV FLUIDS OFF AND WANTS TELE OFF WILL STOP BOTH AM LABS Objective Vitals Vital Signs Date Time Temp Pulse Resp B/P (MAP) Pulse Ox O2 Delivery O2 Flow Rate FiO2 04/18/17 08:00 98.5 95 18 140/76 (97) 95 04/18/17 04:00 99.9 72 18 160/70 (100) 96 04/18/17 00:44 98.5 79 18 128/70 (89) 97 04/17/17 20:00 97.8 79 18 121/64 (83) 97 04/17/17 18:52 97 04/17/17 16:00 98.7 92 16 127/67 (87) 97 04/17/17 12:00 95.7 93 17 133/67 (89) 95 I/O 04/17/17 04/17/17 04/17/17 04/18/17 04/18/17 04/18/17 07:00 15:00 23:00 07:00 15:00 23:00 Intake Total 680 ml 600 ml 2930 ml Output Total 1200 ml 750 ml Balance -520 ml -150 ml 2930 ml Intake Oral 680 ml 500 ml 580 ml IV Total 100 ml 2350 ml Output Urine Total 1200 ml 750 ml # Voids 1 3 # Bowel Movements 0 1 0 Result Diagram: 04/17/17 0713 04/17/17 0713 Other Results Laboratory Tests Test 04/16/17 14:00 04/16/17 14:30 04/16/17 21:12 04/17/17 07:13 White Blood Count 17.0 TH/MM3 12.5 TH/MM3 Red Blood Count 4.76 MIL/MM3 4.52 MIL/MM3 Hemoglobin 14.3 GM/DL 13.2 GM/DL Hematocrit 40.8 % 39.2 % Mean Corpuscular Volume 85.8 FL 86.7 FL Mean Corpuscular Hemoglobin 30.0 PG 29.2 PG Mean Corpuscular Hemoglobin Concent 34.9 % 33.7 % Red Cell Distribution Width 12.7 % 12.7 % Platelet Count 276 TH/MM3 276 TH/MM3 Mean Platelet Volume 7.1 FL 7.0 FL Neutrophils (%) (Auto) 79.4 % 74.3 % Lymphocytes (%) (Auto) 7.3 % 13.5 % Monocytes (%) (Auto) 12.6 % 11.1 % Eosinophils (%) (Auto) 0.1 % 0.3 % Basophils (%) (Auto) 0.6 % 0.8 % Neutrophils # (Auto) 13.5 TH/MM3 9.3 TH/MM3 Lymphocytes # (Auto) 1.2 TH/MM3 1.7 TH/MM3 Monocytes # (Auto) 2.1 TH/MM3 1.4 TH/MM3 Eosinophils # (Auto) 0.0 TH/MM3 0.0 TH/MM3 Basophils # (Auto) 0.1 TH/MM3 0.1 TH/MM3 CBC Comment DIFF FINAL DIFF FINAL Differential Comment Erythrocyte Sedimentation Rate 76 mm/hr Blood Urea Nitrogen 17 MG/DL 13 MG/DL Creatinine 1.41 MG/DL 1.04 MG/DL Random Glucose 239 MG/DL 57 MG/DL Total Protein 7.1 GM/DL 6.6 GM/DL Albumin 2.7 GM/DL 2.2 GM/DL Calcium Level 9.5 MG/DL 8.9 MG/DL Magnesium Level 1.6 MG/DL 1.6 MG/DL Alkaline Phosphatase 136 U/L 117 U/L Aspartate Amino Transf (AST/SGOT) 17 U/L 18 U/L Alanine Aminotransferase (ALT/SGPT) 19 U/L 16 U/L Total Bilirubin 0.5 MG/DL 0.6 MG/DL Sodium Level 128 MEQ/L 133 MEQ/L Potassium Level 4.0 MEQ/L 4.4 MEQ/L Chloride Level 92 MEQ/L 101 MEQ/L Carbon Dioxide Level 23.8 MEQ/L 25.2 MEQ/L Anion Gap 12 MEQ/L 7 MEQ/L Estimat Glomerular Filtration Rate 54 ML/MIN 76 ML/MIN Total Creatine Kinase 47 U/L 30 U/L Troponin I LESS THAN 0.02 NG/ML LESS THAN 0.02 NG/ML B-Hydroxybutyrate 2.62 MMOL/L Blood Gas Puncture Site LT BRACHIAL Blood Gas Patient Temperature 98.6 Blood Gas HCO3 23 mmol/L Blood Gas Base Excess -0.4 mmol/L Blood Gas Oxygen Saturation 91 % Arterial Blood pH 7.45 Arterial Blood Partial Pressure CO2 34 mmHg Arterial Blood Partial Pressure O2 70 mmHG Arterial Blood Oxygen Content 22.5 Vol % Arterial Blood Carboxyhemoglobin 1.6 % Arterial Blood Methemoglobin 0.6 % Blood Gas Hemoglobin 17.5 G/DL Oxygen Delivery Device ROOM AIR Blood Gas Inspired Oxygen 21 % C-Reactive Protein 19.00 MG/DL Phosphorus Level 2.2 MG/DL Hemoglobin A1c 12.5 % Free Thyroxine 1.23 NG/DL Thyroid Stimulating Hormone 3rd Gen 0.616 uIU/ML Test 04/18/17 04:28 Vancomycin Level Trough 12.0 MCG/ML Imaging Last Impressions Foot X-Ray 04/16/17 1352 Signed Impressions: Service Date/Time: Sunday, April 16, 2017 14:23 - CONCLUSION: No acute disease. Anshu Charles MD Objective Remarks GENERAL: This is a well-nourished, well-developed patient, in no apparent distress. SKIN: Cool and dry. Rash going up the left foot to the ankle with lymphangitic spread with a wound on the plantar aspect of the foot half a centimeter in diameter HEAD: Atraumatic. Normocephalic. No temporal or scalp tenderness. EYES: Pupils equal round and reactive. Extraocular motions intact. No scleral icterus. No injection or drainage. ENT: Nose without bleeding, purulent drainage or septal hematoma. Throat without erythema, tonsillar hypertrophy or exudate. Uvula midline. Airway patent. Tongue is midline NECK: Trachea midline. No JVD or lymphadenopathy. Supple, nontender, no meningeal signs. CARDIOVASCULAR: Regular rate and rhythm without murmurs, gallops, or rubs. S1 and S2 no S3 or S4 no heave or thrill or rub or gallop RESPIRATORY: Clear to auscultation. Breath sounds equal bilaterally. No wheezes , rales, or rhonchi. GASTROINTESTINAL: Abdomen soft, non-tender, nondistended. No hepato-splenomegaly , or palpable masses. No guarding. MUSCULOSKELETAL: Extremities without clubbing, cyanosis, or edema. No joint tenderness, effusion, or edema noted. No calf tenderness. Negative Homans sign bilaterally. Wound on left plantar aspect of foot NEUROLOGICAL: Awake and alert. Cranial nerves II through XII intact. Motor and sensory grossly within normal limits. Five out of 5 muscle strength in all muscle groups. Normal speech. Insight and judgment is good Mood and behaviors appropriate Medications and IVs Current Medications Sodium Chloride 1,000 ml @ 2,000 mls/hr Q30M ONCE IV Last administered on 04/16 14:49; Start 04/16/17 at 13:58; Stop 04/16/17 at 14:27; Status DC Sodium Chloride 1,000 ml @ 2,000 mls/hr Q30M ONCE IV Last administered on 04/16 14:50; Start 04/16/17 at 14:28; Stop 04/16/17 at 14:57; Status DC Sodium Chloride (NS Flush) 2 ml UNSCH PRN IVF FLUSH AFTER USING IV ACCESS; Start 04/16/17 at 14:00; Stop 04/16/17 at 16:39; Status DC Clindamycin Phosphate 900 mg/ Sodium Chloride 106 ml @ 212 mls/hr ONCE ONCE IV Last administered on 04/16/17 14:49; Start 04/16/17 at 14:00; Stop at 14:29; Status DC Dextrose (D50w (Vial) Inj) 50 ml UNSCH PRN IV PUSH HYPOGLYCEMIA-SEE COMMENTS; Start 04/16/17 at 16:00 Glucagon (Glucagon Inj) 1 mg UNSCH PRN OTHER HYPOGLYCEMIA-SEE COMMENTS; Start 04/16/17 at 16:00 Insulin Aspart (NovoLOG SUPPLEMENTAL SCALE) 1 ACHS SLIDING SCALE SQ Last administered on 04/17/17 21:06; Start 04/16/17 at 17:00 Vancomycin HCl 1000 mg/Sodium Chloride 250 ml @ 250 mls/hr Q12H IV Last administered on 04/18/17 06:00; Start 04/16/17 at 17:00; Stop 04/18/17 at 09:40 ; Status DC Pharmacy Profile Note 0 ml @ 0 mls/hr UNSCH OTHER ; Start 04/16/17 at 16:00 Piperacillin Sod/ Tazobactam Sod 100 ml @ 200 mls/hr Q6H IV Last administered on 04/16/17 22:04; Start 04/16/17 at 18:00; Stop 04/16/17 at 22:36; Status DC Sodium Chloride 1,000 ml @ 200 mls/hr Q5H IV Last administered on 04/18/17 09 :14; Start 04/16/17 at 15:46 Sodium Chloride (NS Flush) 2 ml UNSCH PRN IV FLUSH FLUSH AFTER USING IV ACCESS ; Start 04/16/17 at 16:00 Sodium Chloride (NS Flush) 2 ml BID IV FLUSH Last administered on 04/18/17 09: 13; Start 04/16/17 at 21:00 Acetaminophen (Tylenol) 650 mg Q4H PRN PO TEMP > 100.4 Last administered on 13:25; Start 04/16/17 at 16:00 Ondansetron HCl (Zofran Inj) 4 mg Q6H PRN IVP NAUSEA OR VOMITING; Start at 16:00 Prochlorperazine (Compazine Supp) 25 mg Q12H PRN RECTAL NAUSEA OR VOMITING; Start 04/16/17 at 16:00 Zolpidem Tartrate (Ambien) 5 mg HS PRN PO INSOMNIA; Start 04/16/17 at 16:00 Enoxaparin Sodium (Lovenox Inj) 40 mg Q24H SQ Last administered on 04/17/17 20 :54; Start 04/16/17 at 18:00 Acetaminophen (Tylenol) 650 mg Q6H PRN PO PAIN SCALE 1 TO 2 Last administered on 04/17/17 05:16; Start 04/16/17 at 16:00 Oxycodone/ Acetaminophen (Percocet 5-325 Mg) 1 tab Q6H PRN PO PAIN SCALE 3 TO 5 Last administered on 04/18/17 09:16; Start 04/16/17 at 16:00 Oxycodone/ Acetaminophen (Percocet 10-325 Mg) 1 tab Q6H PRN PO PAIN SCALE 6 TO 10; Start 04/16/17 at 16:00 Morphine Sulfate (Morphine Inj) 2 mg Q3H PRN IV PUSH Pain 3-5; if unable to take PO; Start 04/16/17 at 16:00 Morphine Sulfate (Morphine Inj) 4 mg Q3H PRN IV PUSH Pain 6-10;if unable to take PO; Start 04/16/17 at 16:00 Naloxone HCl (Narcan Inj) 0.4 mg UNSCH PRN IV PUSH SEE LABEL COMMENTS; Start at 16:00 Senna/Docusate Sodium (Nancy-Colace) 1 tab BID PO ; Start 04/16/17 at 21:00 Magnesium Hydroxide (Milk Of Magnesia Liq) 30 ml Q12H PRN PO MILD - MODERATE CONSTIPATION; Start 04/16/17 at 16:00 Sennosides (Senokot) 17.2 mg Q12H PRN PO MODERATE - SEVERE CONSTIPATION; Start 04/16/17 at 16:00 Bisacodyl (Dulcolax Supp) 10 mg DAILY PRN RECTAL SEVERE CONSITIPATION; Start at 16:00 Lactulose (Lactulose Liq) 30 ml DAILY PRN PO SEVERE CONSITIPATION; Start at 16:00 Aspirin (Ecotrin Ec) 81 mg DAILY PO Last administered on 04/18/17 09:15; Start 04/17/17 at 09:00 Insulin Detemir (Levemir Inj) 65 units HS SQ Last administered on 04/16/17 21: 00; Start 04/16/17 at 21:00; Stop 04/17/17 at 09:42; Status DC Metoprolol Tartrate (Lopressor) 100 mg DAILY PO Last administered on 04/18/17 09:16; Start 04/17/17 at 09:00 Mycophenolate Mofetil (Cellcept) 500 mg BID@0600,1800 PO ; Start 04/16/17 at 18: 00; Stop 04/16/17 at 20:56; Status DC Prednisone (Deltasone) 5 mg DAILY PO Last administered on 04/18/17 09:15; Start 04/17/17 at 09:00 Tacrolimus (Prograf) 2 mg BID@0600,1800 PO Last administered on 04/18/17 00:10 ; Start 04/16/17 at 18:00 Pravastatin Sodium (Pravachol) 80 mg HS PO Last administered on 04/17/17 20:54 ; Start 04/16/17 at 21:00 Miscellaneous Information SPECIFIC LAB TO BE DRAWN:VANCOMYCIN TROUGH DATE TO... ONCE ONCE .XX Last administered on 04/18/17 04:22; Start 04/18/17 at 04:45; Stop 04/18/17 at 04:46; Status DC Pantoprazole Sodium (Protonix) 40 mg Q12HR PO Last administered on 04/18/17 09 :15; Start 04/16/17 at 21:00 Mycophenolate Mofetil (Cellcept) 500 mg BID@0000,1200 PO Last administered on 00:06; Start 04/17/17 at 00:00 Piperacillin Sod/ Tazobactam Sod 100 ml @ 200 mls/hr Q6H IV Last administered on 04/18/17 04:21; Start 04/17/17 at 04:00 Insulin Detemir (Levemir Inj) 50 units HS SQ Last administered on 04/17/17 20: 54; Start 04/17/17 at 21:00 Vancomycin HCl 1250 mg/Sodium Chloride 262.5 ml @ 250 mls/hr Q12H IV ; Start at 17:00 Miscellaneous Information SPECIFIC LAB TO BE COLLIN... ONCE ONCE .XX ; Start 04/20 at 04:45; Stop 04/20/17 at 04:46 Urinary Catheter: No Vascular Central Line Catheter: No A/P Problem List: (1) Kidney transplant status ICD Code: Z94.0 - Kidney transplant status (2) Diabetic foot ulcer associated with type 1 diabetes mellitus ICD Code: E10.621 - Type 1 diabetes mellitus with foot ulcer; L97.509 - Non- pressure chronic ulcer of other part of unspecified foot with unspecified severity (3) Diabetic ulcer of left foot ICD Code: E11.621 - Type 2 diabetes mellitus with foot ulcer; L97.529 - Non- pressure chronic ulcer of other part of left foot with unspecified severity (4) Immunosuppressed status ICD Code: D89.9 - Disorder involving the immune mechanism, unspecified (5) Cellulitis of left foot ICD Code: L03.116 - Cellulitis of left lower limb (6) Diabetes ICD Code: E11.9 - Type 2 diabetes mellitus without complications Assessment and Plan Diabetic foot wound of the left foot with uncontrolled diabetes Lantus to [address] on sliding scale high-dose with Accu-Cheks before meals and at bedtime Continue on vancomycin and Zosyn consult pharmacy regarding the vancomycin Continue on his home medications. Including immunosuppression with Prograf and CellCept for his chronic renal transplant continue on the chronic prednisone Hyperlipidemia continue on the simvastatin High blood pressure continue on metoprolol Consult infectious disease as well as podiatry Sirs continue on fluids and aggressive antibiotics and consult infectious disease and podiatry Continue on normal saline fluids at 200 ML's per hour Continue on high-dose sliding scale coverage get a.m. labs Continue on DVT and GI prophylaxis AWAIT ID, PODIATRY AND WOUND CARE AM LABS CONTINUE ANTIBIOTICS DC TELE, DC FLUIDS AM LABS NEPHROLOGY CONSULT Problem Qualifiers (1) Diabetes: Valdemar Henry DO Apr 18, 2017 10:10
[2017-04-18] MEDS ORDERED: WALKER WHEELS/F1 MIS (10:38)
[2017-04-18 12:00] VITALS: BP 106/67; PULSE 83; RESP 18; TEMP 96; O2SAT 97
--- NOTE | 2017-04-18 16:55 | RADRPT ---
EXAM DATE/TIME: 04/18/2017 16:07 [facility] COMPARISON: No previous studies available for comparison. INDICATIONS : Osteomyelitis. Wound on plantar aspect of left forefoot. MEDICAL HISTORY : None. SURGICAL HISTORY : Pancreas and kidney transplant. ENCOUNTER: Initial ACUITY: 1 day PAIN SCORE: 0/10 LOCATION: Left foot. TECHNIQUE: Multiplanar, multisequence MRI examination was performed without contrast. FINDINGS: Focal cutaneous ulceration on plantar aspect of forefoot overlying the fourth metatarsophalangeal bell nt. Ill-defined bony edema is seen in the fourth toe phalanges and plantar aspect of the fourth toe m etatarsal head. No corresponding abnormality on the T1-weighted images. Ill-defined bony edema is als o seen in the phalanges of the fifth toe on the STIR images with no correlate on the T1-weighted imag es. Prominent diffuse dorsal superficial soft tissue edema. Diffuse fatty atrophy of the intrinsic foot m uscles. Ill-defined fluid signal surrounds the distal fourth and fifth extensor digitorum tendons C-s haped area of fluid signal is also seen at the plantar aspect of the fifth toe. All of the visualized tendons are intact. Plantar neurosis is intact. Sinus Tarsi unremarkable. CONCLUSION: Extensive soft tissue edema of the left foot. Cutaneous ulceration at the plantar aspect of the foref oot adjacent to the fourth MTP joint. Mild bony edema in the fourth and fifth toes indicating reactiv e change from adjacent soft tissue infection versus early osteomyelitis. No T1-weighted bony signal a bnormality to confirm osteomyelitis. Several elongated areas of fluid signal adjacent to the fourth a nd fifth extensor tendons and plantar aspect of fifth toe indicating possible early abscess formation . Contrast-enhanced study would be helpful for further evaluation of these areas. Behzad Metzger MD on April 18, 2017 at 16:47 Board Certified Radiologist. This report was verified electronically.
[2017-04-18 17:02] VITALS: BP 131/78; PULSE 99; RESP 18; TEMP 97.4; O2SAT 97
[2017-04-18] MEDS: ENOXAPARIN SODIUM 40 MG/0.4 ML SYRINGE SQ SCH (17:28)
[2017-04-18] MEDS: VANCOMYCIN INJ 1,250 MG in SODIUM CHLOR 0.9% 250 ML INJ 250 ML IV SCH (19:02)
[2017-04-18 20:00] VITALS: BP 130/70; PULSE 107; RESP 17; TEMP 99.6; O2SAT 95
--- NOTE | 2017-04-18 20:30 | HHI.IDPN ---
Subjective Subjective Remarks Mr. Weaver is a 46 y/o CM with PMHx significant for DM with neuropathy, nephropathy s/p renal transplant who is on immune suppressant medications such as cellcept, tacrolimus and prednisone. He reports feeling of unwellness for last 1 week. He reports no symptoms in his foot. He did not examine his feet in last 1 week. He reports that when he was wearing his socks to come to hospital is when he noticed the foot findings. He had started having fever and chills, sweats, and body aches. He had a Tmax of 100.1 yesterday, but has been continuously taking Tylenol for a week. Today he noticed that his left foot was erythematous and had swelling. He also knows a wound on the bottom of his foot. He states that he is having some bloody discharge coming from the wound. 6 months ago he was admitted for a right foot wound. He states that "the doctor had scraped his right great toe to the bone" and gave him vancomycin in hospital and discharged him on oral antibiotics. He usually checks his feet daily, but has not since Saturday due to being ill. Sepsis workup initiated on admission. ID consulted for evaluation and mment of Sepsis, Left foot cellulitis possible osteomyelitis. Overnight events reviewed Complains of chills and night sweats No rash No diarrhea Antibiotics Zosyn IV Vanco IV Lines Line sites with no e.o infection Past Medical History Diabetes mellitus type 1 History of diabetic foot wound right foot 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 Severe diabetic neuropathy Hyperlipidemia Hypertension Debridement of right foot in the past by podiatry history of kidney transplant History of pancreatic transplant 2 Allergies: Coded Allergies: No Known Allergies (Unverified , 04/16/17) Objective . Vital Signs Date Time Temp Pulse Resp B/P (MAP) Pulse Ox O2 Delivery O2 Flow Rate FiO2 04/18/17 17:02 97.4 99 18 131/78 (95) 97 04/18/17 12:00 96.0 83 18 106/67 (80) 97 04/18/17 08:00 98.5 95 18 140/76 (97) 95 04/18/17 04:00 99.9 72 18 160/70 (100) 96 04/18/17 00:44 98.5 79 18 128/70 (89) 97 04/18/17 04/18/1704/19/17 15:00 23:00 07:00 Intake Total 100 ml Balance 100 ml IV Total 100 ml . Laboratory Tests Test 04/17/17 07:13 White Blood Count 12.5 TH/MM3 Red Blood Count 4.52 MIL/MM3 Hemoglobin 13.2 GM/DL Hematocrit 39.2 % Mean Corpuscular Volume 86.7 FL Mean Corpuscular Hemoglobin 29.2 PG Mean Corpuscular Hemoglobin Concent 33.7 % Red Cell Distribution Width 12.7 % Platelet Count 276 TH/MM3 Mean Platelet Volume 7.0 FL Neutrophils (%) (Auto) 74.3 % Lymphocytes (%) (Auto) 13.5 % Monocytes (%) (Auto) 11.1 % Eosinophils (%) (Auto) 0.3 % Basophils (%) (Auto) 0.8 % Neutrophils # (Auto) 9.3 TH/MM3 Lymphocytes # (Auto) 1.7 TH/MM3 Monocytes # (Auto) 1.4 TH/MM3 Eosinophils # (Auto) 0.0 TH/MM3 Basophils # (Auto) 0.1 TH/MM3 CBC Comment DIFF FINAL Differential Comment Laboratory Tests Test 04/16/17 21:12 04/17/17 07:13 Total Creatine Kinase 30 U/L Troponin I LESS THAN 0.02 NG/ML C-Reactive Protein 19.00 MG/DL Blood Urea Nitrogen 13 MG/DL Creatinine 1.04 MG/DL Random Glucose 57 MG/DL Total Protein 6.6 GM/DL Albumin 2.2 GM/DL Calcium Level 8.9 MG/DL Phosphorus Level 2.2 MG/DL Magnesium Level 1.6 MG/DL Alkaline Phosphatase 117 U/L Aspartate Amino Transf (AST/SGOT) 18 U/L Alanine Aminotransferase (ALT/SGPT) 16 U/L Total Bilirubin 0.6 MG/DL Sodium Level 133 MEQ/L Potassium Level 4.4 MEQ/L Chloride Level 101 MEQ/L Carbon Dioxide Level 25.2 MEQ/L Anion Gap 7 MEQ/L Estimat Glomerular Filtration Rate 76 ML/MIN Hemoglobin A1c 12.5 % Free Thyroxine 1.23 NG/DL Thyroid Stimulating Hormone 3rd Gen 0.616 uIU/ML Microbiology Date/Time Source Procedure Growth Status 04/18/17 12:45 Blood Peripheral Aerobic Blood Culture Pending Received 04/18/17 12:45 Blood Peripheral Anaerobic Blood Culture Pending Received 04/18/17 12:40 Blood Peripheral Aerobic Blood Culture Pending Received 04/18/17 12:40 Blood Peripheral Anaerobic Blood Culture Pending Received 04/16/17 16:50 Blood Peripheral Aerobic Blood Culture - Preliminary NO GROWTH IN 2 DAYS Resulted 04/16/17 16:50 Blood Peripheral Anaerobic Blood Culture - Preliminary NO GROWTH IN 2 DAYS Resulted 04/16/17 16:45 Blood Peripheral Aerobic Blood Culture - Preliminary NO GROWTH IN 2 DAYS Resulted 04/16/17 16:45 Anaerobic Blood Culture - Preliminary Staphylococcus Aureus Resulted 04/16/17 14:39 Wound Foot Gram Stain - Final Resulted 04/16/17 14:39 Wound Culture - Preliminary Staphylococcus Aureus Group D Enterococcus Staph Sp Coagulase Positive Resulted Imaging Last Impressions Foot MRI 04/18/17 0000 Signed Impressions: Service Date/Time: March 16:07 - CONCLUSION: Extensive soft tissue edema of the left foot. Cutaneous ulceration at the plantar aspect of the forefoot adjacent to the fourth MTP joint. Mild bony edema in the fourth and fifth toes indicating reactive change from adjacent soft tissue infection versus early osteomyelitis. No T1-weighted bony signal abnormality to confirm osteomyelitis. Several elongated areas of fluid signal adjacent to the fourth and fifth extensor tendons and plantar aspect of fifth toe indicating possible early abscess formation. Contrast-enhanced study would be helpful for further evaluation of these areas. Behzad Metzger MD Foot X-Ray 04/16/17 1352 Signed Impressions: Service Date/Time: Sunday, April 16, 2017 14:23 - CONCLUSION: No acute disease. Anshu Charles MD Physical Exam GENERAL: This is a well-nourished, well-developed patient, in no apparent distress. SKIN: No rashes, ecchymoses or lesions. Cool and dry. HEAD: Atraumatic. Normocephalic. No temporal or scalp tenderness. EYES: Pupils equal round and reactive. Extraocular motions intact. No scleral icterus. No injection or drainage. ENT: Nose without bleeding, purulent drainage or septal hematoma. Throat without erythema, tonsillar hypertrophy or exudate. Uvula midline. Airway patent. NECK: Trachea midline. Supple, nontender, no meningeal signs. CARDIOVASCULAR: Regular rate and rhythm without murmurs, gallops, or rubs. RESPIRATORY: Clear to auscultation. Breath sounds equal bilaterally. No wheezes , rales, or rhonchi. GASTROINTESTINAL: Abdomen soft, non-tender, nondistended. MUSCULOSKELETAL: Left foot plantar aspect a black dime shaped area with tenderness and induration noted. Erythema from this area extends through the web space to the dorsal aspect of foot. There is a dusky skin change in the web space as well. Slight worsening in erythema and induration compared to yday. NEUROLOGICAL: Awake and alert. Grossly nonfocal Psych cooperative IV line sites with no e.o infection Assessment & Plan Remarks Assessment and Plan Sepsis present on admission (tachycardia, leucocytosis and source: left foot infection, possible bacteremia) Gram positive bacteremia (at time of dictation of note) Left foot cellulitis Left foot possible osteomyelitis of toe. DM with neuropathy DM nephropathy s/p transplant Immune compromised Recs Continue Zosyn IV Continue vanco IV (target 15-20) follow cultures Follow clinically. MRI foot changed to non contrast. WBC scan to look for bone involvement in terms of infection: osteomyelitis. d/w about clinical picture today and slight worsening compared to yday. He will see pt later today and consider bedside debridement. He also would like to wait for Imaging studies before taking him for definitive surgery in OR. d.w pt informed him about my conversation with and also ID update. Daiana Donis RN, MD Apr 18, 2017 20:30
[2017-04-18] MEDS: PRAVASTATIN SOD 80 MG TAB PO SCH (21:14)
[2017-04-18] MEDS: INSULIN DETEMIR 100 UNITS/ML VIAL SQ SCH (21:15)
--- NOTE | 2017-04-18 23:01 | PD.POD ---
Subjective Podiatric Problems Left foot DM ulcer, with cellulitis. Pain scale used: 0-10 numeric scale Pain score: 0 Past Med/Surg/Social History Past Medical History Endocrine: REPORTS HX OF: Diabetes mellitus, Other endocrine history Genitourinary: REPORTS HX OF: Kidney failure Neurologic: REPORTS HX OF: Peripheral neuropathy Past Surgical History Endocrine: REPORTS HX OF: Other endocrine surgery (pancreatitic transplant with failure) Genitourinary: REPORTS HX OF: Other surgery (to need transplant) Social History Smoking Status: Never Smoker Objective Vital Signs Vital Signs Date Time Temp Pulse Resp B/P (MAP) Pulse Ox O2 Delivery O2 Flow Rate FiO2 04/18/17 20:00 99.6 107 17 130/70 (90) 95 04/18/17 17:02 97.4 99 18 131/78 (95) 97 04/18/17 12:00 96.0 83 18 106/67 (80) 97 04/18/17 08:00 98.5 95 18 140/76 (97) 95 04/18/17 04:00 99.9 72 18 160/70 (100) 96 04/18/17 00:44 98.5 79 18 128/70 (89) 97 Coded Allergies: No Known Allergies (Unverified , 04/16/17) Other Results Last Impressions Foot MRI 04/18/17 0000 Signed Impressions: Service Date/Time: March 16:07 - CONCLUSION: Extensive soft tissue edema of the left foot. Cutaneous ulceration at the plantar aspect of the forefoot adjacent to the fourth MTP joint. Mild bony edema in the fourth and fifth toes indicating reactive change from adjacent soft tissue infection versus early osteomyelitis. No T1-weighted bony signal abnormality to confirm osteomyelitis. Several elongated areas of fluid signal adjacent to the fourth and fifth extensor tendons and plantar aspect of fifth toe indicating possible early abscess formation. Contrast-enhanced study would be helpful for further evaluation of these areas. Behzad Metzger MD Foot X-Ray 04/16/17 1352 Signed Impressions: Service Date/Time: Sunday, April 16, 2017 14:23 - CONCLUSION: No acute disease. Anshu Charles MD Laboratory Tests Test 04/17/17 07:13 04/18/17 04:28 White Blood Count 12.5 TH/MM3 Red Blood Count 4.52 MIL/MM3 Hemoglobin 13.2 GM/DL Hematocrit 39.2 % Mean Corpuscular Volume 86.7 FL Mean Corpuscular Hemoglobin 29.2 PG Mean Corpuscular Hemoglobin Concent 33.7 % Red Cell Distribution Width 12.7 % Platelet Count 276 TH/MM3 Mean Platelet Volume 7.0 FL Neutrophils (%) (Auto) 74.3 % Lymphocytes (%) (Auto) 13.5 % Monocytes (%) (Auto) 11.1 % Eosinophils (%) (Auto) 0.3 % Basophils (%) (Auto) 0.8 % Neutrophils # (Auto) 9.3 TH/MM3 Lymphocytes # (Auto) 1.7 TH/MM3 Monocytes # (Auto) 1.4 TH/MM3 Eosinophils # (Auto) 0.0 TH/MM3 Basophils # (Auto) 0.1 TH/MM3 CBC Comment DIFF FINAL Differential Comment Blood Urea Nitrogen 13 MG/DL Creatinine 1.04 MG/DL Random Glucose 57 MG/DL Total Protein 6.6 GM/DL Albumin 2.2 GM/DL Calcium Level 8.9 MG/DL Phosphorus Level 2.2 MG/DL Magnesium Level 1.6 MG/DL Alkaline Phosphatase 117 U/L Aspartate Amino Transf (AST/SGOT) 18 U/L Alanine Aminotransferase (ALT/SGPT) 16 U/L Total Bilirubin 0.6 MG/DL Sodium Level 133 MEQ/L Potassium Level 4.4 MEQ/L Chloride Level 101 MEQ/L Carbon Dioxide Level 25.2 MEQ/L Anion Gap 7 MEQ/L Estimat Glomerular Filtration Rate 76 ML/MIN Hemoglobin A1c 12.5 % Free Thyroxine 1.23 NG/DL Thyroid Stimulating Hormone 3rd Gen 0.616 uIU/ML Vancomycin Level Trough 12.0 MCG/ML Exam-Podiatry Dermatological Exam Ulcers: Location/Measurements LLE Left foot dorsal swelling, + erythema, no streaking, + necrotic ulcer plantar sub 5th and 4th IS with macerated ulceration. NVS unchanged. Assessment & Plan Diagnosis: (1) Cellulitis of right foot ICD Codes: L03.115 - Cellulitis of right lower limb; L97.519 - Non-pressure chronic ulcer of other part of right foot with unspecified severity Status: Acute (2) Non-compliance ICD Codes: Z91.19 - Patient's noncompliance with other medical treatment and regimen Status: Acute (3) Diabetic ulcer of right foot ICD Codes: E11.621 - Type 2 diabetes mellitus with foot ulcer; L97.519 - Non- pressure chronic ulcer of other part of right foot with unspecified severity Status: Acute A/P pending ceretec MRI completed and reviewed with patient. Will continue to f/u erythema and edema daily. Procedures Bedside I and D left foot on 04/18/17 Consent signed and in the chart. Nursing staff assisting. Prep and with # 15 blade I and D at the 4th IS and plantar sub 4th metatarsal. C and D at the 4th IS. Excisional debridement with # 15 blade of necrotic and non viable tissue. Betadine dressing applied Kmi Burdick DPM Apr 18, 2017 23:01
[2017-04-19] VITALS: PULSE 86; RESP 17; TEMP 98.7; O2SAT 95
[2017-04-19] MEDS: oxyCODONE/ACETAMINOPHEN 5 MG/325 MG TAB PO PRN ×3 (00:06→23:53)
[2017-04-19] MEDS: PIPERACIL-TAZO 4.5 GM PREMIX 100 ML IV SCH ×4 (03:44→22:10)
[2017-04-19] MEDS: TACROLIMUS 1 MG CAP PO SCH ×3 (05:36→23:52)
[2017-04-19] MEDS: VANCOMYCIN INJ 1,250 MG in SODIUM CHLOR 0.9% 250 ML INJ 250 ML IV SCH ×2 (05:36→17:25)
[2017-04-19 06:10] LABS: AUTOMATED NEUTROPHIL # 8.1 TH/MM3 (1.8-7.7); BASOPHIL % 0.5 % (0.0-2.0); EOSINOPHIL # 0.1 TH/MM3 (0-0.4); EOSINOPHIL % 0.7 % (0.0-4.0); HEMATOCRIT 34.8 % (39.0-51.0); HEMO FLAGS DIFF FINAL; LYMPH % 14.1 % (9.0-44.0); LYMPHOCYTE # 1.5 TH/MM3 (1.0-4.8); MEAN CELL VOLUME 86.3 FL (80.0-100.0); MEAN CORPUSCULAR HEMOGLOBIN 29.4 PG (27.0-34.0); MEAN CORPUSCULAR HGB CONC 34.1 % (32.0-36.0); MONO % 7.7 % (0.0-8.0); PLATELET COUNT 287 TH/MM3 (150-450); RED BLOOD COUNT 4.03 MIL/MM3 (4.50-5.90); WHITE BLOOD COUNT 10.5 TH/MM3 (4.0-11.0)
[2017-04-19 06:49] LABS: ALKALINE PHOSPHATASE 109 U/L (45-117); ALT (GPT) 11 U/L (12-78); ANION GAP 6 MEQ/L (5-15); AST (GOT) 10 U/L (15-37); BLOOD UREA NITROGEN 8 MG/DL (7-18); CHLORIDE 101 MEQ/L (98-107); GLOMERULAR FILTRATION RATE 102 ML/MIN (>89); MAGNESIUM 1.3 MG/DL (1.5-2.5); SODIUM (NA) 137 MEQ/L (136-145); TOTAL BILIRUBIN ADULT 0.3 MG/DL (0.2-1.0)
[2017-04-19 08:00] VITALS: BP 129/74; PULSE 106; RESP 16; TEMP 98; O2SAT 94
[2017-04-19] MEDS: INSULIN ASPART SUPPLEMENTAL SCALE SQ SCH ×4 (08:00→21:00)
[2017-04-19] MEDS: DOCUSATE SODIUM 50 MG/SENNA 8.6 MG TAB PO SCH ×2 (09:00→21:00)
[2017-04-19] MEDS ORDERED: POTASSIUM PHOSPHATE INJ 30 MMOL in SODIUM CHLOR 0.9% 250 ML INJ 250 ML IV ONE (09:30)
[2017-04-19] MEDS: SODIUM CHLORIDE 0.9% FLUSH 10 ML FLUSH IV FLUSH SCH ×2 (09:57→22:09)
[2017-04-19] MEDS: predniSONE 5 MG TAB PO SCH (09:58)
[2017-04-19] MEDS: METOPROLOL TARTRATE 100 MG TAB PO SCH (09:59)
[2017-04-19] MEDS: ASPIRIN EC 81 MG TABEC PO SCH (09:59)
[2017-04-19] MEDS: PANTOPRAZOLE SOD 40 MG DELAYED RELEASE TAB PO SCH ×2 (10:00→22:09)
[2017-04-19] MEDS ORDERED: POTASSIUM CHLORIDE 20 MEQ CONTROLLED RELEASE TAB PO ONE ×2 (10:15→11:30)
--- NOTE | 2017-04-19 10:34 | RADRPT ---
EXAM DATE/TIME: 04/18/2017 11:57 [facility] COMPARISON: WBC SPECT CERETEC, October 13, 2016, 14:27. INDICATIONS : Left foot abscess. DOSE: 20.2 mCi Tc99m Ceretec labeled white blood cells IV SPECT IMAGIN hrs, 20 hrs IMAGNG: SPECT/CT imaging with fusion was performed. RADIATION DOSE: 5.95 CTDIvol (mGy) MEDICAL HISTORY : Diabetes mellitus type 2. SURGICAL HISTORY : Pancreas and kidney transplant. ENCOUNTER: Initial ACUITY: 1 week PAIN SCALE: 3/10 LOCATION: Left Foot. TECHNIQUE: Following the in vitro labeling of autologous white cells and reinjection, whole body scan was perfor med at the specified times. SPECT imaging was performed at the specified time in sagittal, axial and coronal planes. Attenuation correction was performed with the computed tomography and both the atten uation correction and non-attenuation corrected data sets were reviewed. FINDINGS: There is increased activity corresponding to the soft tissues at the plantar aspect of the foot at th e level of the fourth and fifth web space and the fourth metatarsal head on the left. There is no loc alization to the bone. CONCLUSION: 1. Cellulitis without evidence of osteomyelitis. Keny Chaney MD on April 19, 2017 at 10:29 Board Certified Radiologist. This report was verified electronically.
--- NOTE | 2017-04-19 10:35 | HHI.PR ---
Subjective Remarks Mr. Weaver is a 46-year-old male with a past medical history of type 1 diabetes and neuropathy presenting today with a left foot wound. He states that on Saturday , 4 days ago, he started having fever and chills, sweats, and body aches. He had a Tmax of 100.1 yesterday, but has been continuously taking Tylenol since Saturday. Today he noticed that his left foot was erythematous and had swelling. He also knows a wound on the bottom of his foot. He states that he is having some bloody discharge coming from the wound. 6 months ago he was admitted for a right foot wound. He states that "the doctor had scraped his right great toe to the bone" and gave him vancomycin. He usually checks his feet daily, but has not since Saturday due to being ill. He also states that his sugars have been running very high. He is on NovoLog sliding scale and states that his sugars have been uncontrollable. His also noticed that his breath has a fruity smell. He states that he also thinks he may be spilling ketones. Of note, he has also lost 14 pounds over the weekend. He had vomited on Saturday and Saturday, nonbilious and nonbloody. Once per day. 04-17 BLOOD SUGARS BETTER WITH FLUIDS AND ANTIBIOTICS DW RN AND PT AM LABS AWAIT PODIATRY, ID AND WELDING MANAGER CONTINUE ANTIBIOTICS 04-18 patient has been seen by podiatry as well as infectious disease Left foot MRI has been ordered as well as a Ceretec scan We'll consult nephrology due to chronic renal failure status post transplant Continue a.m. labs continue antibiotics with vancomycin and Zosyn Have discussed with patient and RN WANTS IV FLUIDS OFF AND WANTS TELE OFF WILL STOP BOTH AM LABS 04-19 had MRI OF LEFT FOOT HAVING CERTEC SCAN TODAY SUSPECTED OSTEOMYELITIS OF LEFT FOOT DW RN AND PT AM LABS Objective Vitals Vital Signs Date Time Temp Pulse Resp B/P (MAP) Pulse Ox O2 Delivery O2 Flow Rate FiO2 04/19/17 08:00 98.0 106 16 129/74 (92) 94 04/19/17 00:00 98.7 86 17 95 04/18/17 20:00 99.6 107 17 130/70 (90) 95 04/18/17 17:02 97.4 99 18 131/78 (95) 97 04/18/17 12:00 96.0 83 18 106/67 (80) 97 I/O 04/18/17 04/18/17 04/18/17 04/19/17 04/19/17 04/19/17 07:00 15:00 23:00 07:00 15:00 23:00 Intake Total 2930 ml 200 ml 2099 ml Balance 2930 ml 200 ml 2099 ml Intake Oral 580 ml 240 ml IV Total 2350 ml 200 ml 1859 ml # Voids 3 3 # Bowel Movements 0 Result Diagram: 04/19/17 0535 04/19/17 0535 Other Results Laboratory Tests Test 04/16/17 14:00 04/16/17 14:30 04/16/17 21:12 04/17/17 07:13 White Blood Count 17.0 TH/MM3 12.5 TH/MM3 Red Blood Count 4.76 MIL/MM3 4.52 MIL/MM3 Hemoglobin 14.3 GM/DL 13.2 GM/DL Hematocrit 40.8 % 39.2 % Mean Corpuscular Volume 85.8 FL 86.7 FL Mean Corpuscular Hemoglobin 30.0 PG 29.2 PG Mean Corpuscular Hemoglobin Concent 34.9 % 33.7 % Red Cell Distribution Width 12.7 % 12.7 % Platelet Count 276 TH/MM3 276 TH/MM3 Mean Platelet Volume 7.1 FL 7.0 FL Neutrophils (%) (Auto) 79.4 % 74.3 % Lymphocytes (%) (Auto) 7.3 % 13.5 % Monocytes (%) (Auto) 12.6 % 11.1 % Eosinophils (%) (Auto) 0.1 % 0.3 % Basophils (%) (Auto) 0.6 % 0.8 % Neutrophils # (Auto) 13.5 TH/MM3 9.3 TH/MM3 Lymphocytes # (Auto) 1.2 TH/MM3 1.7 TH/MM3 Monocytes # (Auto) 2.1 TH/MM3 1.4 TH/MM3 Eosinophils # (Auto) 0.0 TH/MM3 0.0 TH/MM3 Basophils # (Auto) 0.1 TH/MM3 0.1 TH/MM3 CBC Comment DIFF FINAL DIFF FINAL Differential Comment Erythrocyte Sedimentation Rate 76 mm/hr Blood Urea Nitrogen 17 MG/DL 13 MG/DL Creatinine 1.41 MG/DL 1.04 MG/DL Random Glucose 239 MG/DL 57 MG/DL Total Protein 7.1 GM/DL 6.6 GM/DL Albumin 2.7 GM/DL 2.2 GM/DL Calcium Level 9.5 MG/DL 8.9 MG/DL Magnesium Level 1.6 MG/DL 1.6 MG/DL Alkaline Phosphatase 136 U/L 117 U/L Aspartate Amino Transf (AST/SGOT) 17 U/L 18 U/L Alanine Aminotransferase (ALT/SGPT) 19 U/L 16 U/L Total Bilirubin 0.5 MG/DL 0.6 MG/DL Sodium Level 128 MEQ/L 133 MEQ/L Potassium Level 4.0 MEQ/L 4.4 MEQ/L Chloride Level 92 MEQ/L 101 MEQ/L Carbon Dioxide Level 23.8 MEQ/L 25.2 MEQ/L Anion Gap 12 MEQ/L 7 MEQ/L Estimat Glomerular Filtration Rate 54 ML/MIN 76 ML/MIN Total Creatine Kinase 47 U/L 30 U/L Troponin I LESS THAN 0.02 NG/ML LESS THAN 0.02 NG/ML B-Hydroxybutyrate 2.62 MMOL/L Blood Gas Puncture Site LT BRACHIAL Blood Gas Patient Temperature 98.6 Blood Gas HCO3 23 mmol/L Blood Gas Base Excess -0.4 mmol/L Blood Gas Oxygen Saturation 91 % Arterial Blood pH 7.45 Arterial Blood Partial Pressure CO2 34 mmHg Arterial Blood Partial Pressure O2 70 mmHG Arterial Blood Oxygen Content 22.5 Vol % Arterial Blood Carboxyhemoglobin 1.6 % Arterial Blood Methemoglobin 0.6 % Blood Gas Hemoglobin 17.5 G/DL Oxygen Delivery Device ROOM AIR Blood Gas Inspired Oxygen 21 % C-Reactive Protein 19.00 MG/DL Phosphorus Level 2.2 MG/DL Hemoglobin A1c 12.5 % Free Thyroxine 1.23 NG/DL Thyroid Stimulating Hormone 3rd Gen 0.616 uIU/ML Test 04/18/17 04:28 04/19/17 05:35 Vancomycin Level Trough 12.0 MCG/ML White Blood Count 10.5 TH/MM3 Red Blood Count 4.03 MIL/MM3 Hemoglobin 11.8 GM/DL Hematocrit 34.8 % Mean Corpuscular Volume 86.3 FL Mean Corpuscular Hemoglobin 29.4 PG Mean Corpuscular Hemoglobin Concent 34.1 % Red Cell Distribution Width 13.0 % Platelet Count 287 TH/MM3 Mean Platelet Volume 6.6 FL Neutrophils (%) (Auto) 77.0 % Lymphocytes (%) (Auto) 14.1 % Monocytes (%) (Auto) 7.7 % Eosinophils (%) (Auto) 0.7 % Basophils (%) (Auto) 0.5 % Neutrophils # (Auto) 8.1 TH/MM3 Lymphocytes # (Auto) 1.5 TH/MM3 Monocytes # (Auto) 0.8 TH/MM3 Eosinophils # (Auto) 0.1 TH/MM3 Basophils # (Auto) 0.0 TH/MM3 CBC Comment DIFF FINAL Differential Comment Blood Urea Nitrogen 8 MG/DL Creatinine 0.81 MG/DL Random Glucose 83 MG/DL Total Protein 5.9 GM/DL Albumin 1.9 GM/DL Calcium Level 8.7 MG/DL Phosphorus Level 2.4 MG/DL Magnesium Level 1.3 MG/DL Alkaline Phosphatase 109 U/L Aspartate Amino Transf (AST/SGOT) 10 U/L Alanine Aminotransferase (ALT/SGPT) 11 U/L Total Bilirubin 0.3 MG/DL Sodium Level 137 MEQ/L Potassium Level 3.0 MEQ/L Chloride Level 101 MEQ/L Carbon Dioxide Level 30.0 MEQ/L Anion Gap 6 MEQ/L Estimat Glomerular Filtration Rate 102 ML/MIN Imaging Last Impressions Foot MRI 04/18/17 0000 Signed Impressions: Service Date/Time: March 16:07 - CONCLUSION: Extensive soft tissue edema of the left foot. Cutaneous ulceration at the plantar aspect of the forefoot adjacent to the fourth MTP joint. Mild bony edema in the fourth and fifth toes indicating reactive change from adjacent soft tissue infection versus early osteomyelitis. No T1-weighted bony signal abnormality to confirm osteomyelitis. Several elongated areas of fluid signal adjacent to the fourth and fifth extensor tendons and plantar aspect of fifth toe indicating possible early abscess formation. Contrast-enhanced study would be helpful for further evaluation of these areas. Behzad Metzger MD Foot X-Ray 04/16/17 1352 Signed Impressions: Service Date/Time: Sunday, April 16, 2017 14:23 - CONCLUSION: No acute disease. Anshu Charles MD Objective Remarks GENERAL: This is a well-nourished, well-developed patient, in no apparent distress. SKIN: Cool and dry. Rash going up the left foot to the ankle with lymphangitic spread with a wound on the plantar aspect of the foot half a centimeter in diameter HEAD: Atraumatic. Normocephalic. No temporal or scalp tenderness. EYES: Pupils equal round and reactive. Extraocular motions intact. No scleral icterus. No injection or drainage. ENT: Nose without bleeding, purulent drainage or septal hematoma. Throat without erythema, tonsillar hypertrophy or exudate. Uvula midline. Airway patent. Tongue is midline NECK: Trachea midline. No JVD or lymphadenopathy. Supple, nontender, no meningeal signs. CARDIOVASCULAR: Regular rate and rhythm without murmurs, gallops, or rubs. S1 and S2 no S3 or S4 no heave or thrill or rub or gallop RESPIRATORY: Clear to auscultation. Breath sounds equal bilaterally. No wheezes , rales, or rhonchi. GASTROINTESTINAL: Abdomen soft, non-tender, nondistended. No hepato-splenomegaly , or palpable masses. No guarding. MUSCULOSKELETAL: Extremities without clubbing, cyanosis, or edema. No joint tenderness, effusion, or edema noted. No calf tenderness. Negative Homans sign bilaterally. Wound on left plantar aspect of foot NEUROLOGICAL: Awake and alert. Cranial nerves II through XII intact. Motor and sensory grossly within normal limits. Five out of 5 muscle strength in all muscle groups. Normal speech. Insight and judgment is good Mood and behaviors appropriate Procedures Bedside I and D left foot on 04/18/17 Consent signed and in the chart. Nursing staff assisting. Prep and with # 15 blade I and D at the 4th IS and plantar sub 4th metatarsal. C and D at the 4th IS. Excisional debridement with # 15 blade of necrotic and non viable tissue. Betadine dressing applied Kim Burdick DPYovanny Medications and IVs Current Medications Sodium Chloride 1,000 ml @ 2,000 mls/hr Q30M ONCE IV Last administered on 04/16 14:49; Start 04/16/17 at 13:58; Stop 04/16/17 at 14:27; Status DC Sodium Chloride 1,000 ml @ 2,000 mls/hr Q30M ONCE IV Last administered on 04/16t 14:50; Start 04/16/17 at 14:28; Stop 04/16/17 at 14:57; Status DC Sodium Chloride (NS Flush) 2 ml UNSCH PRN IVF FLUSH AFTER USING IV ACCESS; Start 04/16/17 at 14:00; Stop 04/16/17 at 16:39; Status DC Clindamycin Phosphate 900 mg/ Sodium Chloride 106 ml @ 212 mls/hr ONCE ONCE IV Last administered on 04/16/17 14:49; Start 04/16/17 at 14:00; Stop at 14:29; Status DC Dextrose (D50w (Vial) Inj) 50 ml UNSCH PRN IV PUSH HYPOGLYCEMIA-SEE COMMENTS; Start 04/16/17 at 16:00 Glucagon (Glucagon Inj) 1 mg UNSCH PRN OTHER HYPOGLYCEMIA-SEE COMMENTS; Start 04/16/17 at 16:00 Insulin Aspart (NovoLOG SUPPLEMENTAL SCALE) 1 ACHS SLIDING SCALE SQ Last administered on 04/18/17 17:28; Start 04/16/17 at 17:00 Vancomycin HCl 1000 mg/Sodium Chloride 250 ml @ 250 mls/hr Q12H IV Last administered on 04/18/17 06:00; Start 04/16/17 at 17:00; Stop 04/18/17 at 09:40 ; Status DC Pharmacy Profile Note 0 ml @ 0 mls/hr UNSCH OTHER ; Start 04/16/17 at 16:00 Piperacillin Sod/ Tazobactam Sod 100 ml @ 200 mls/hr Q6H IV Last administered on 04/16/17 22:04; Start 04/16/17 at 18:00; Stop 04/16/17 at 22:36; Status DC Sodium Chloride 1,000 ml @ 200 mls/hr Q5H IV Last administered on 04/18/17 09 :14; Start 04/16/17 at 15:46; Status Future Hold Sodium Chloride (NS Flush) 2 ml UNSCH PRN IV FLUSH FLUSH AFTER USING IV ACCESS ; Start 04/16/17 at 16:00 Sodium Chloride (NS Flush) 2 ml BID IV FLUSH Last administered on 04/19/17 09: 57; Start 04/16/17 at 21:00 Acetaminophen (Tylenol) 650 mg Q4H PRN PO TEMP > 100.4 Last administered on 13:25; Start 04/16/17 at 16:00 Ondansetron HCl (Zofran Inj) 4 mg Q6H PRN IVP NAUSEA OR VOMITING; Start at 16:00 Prochlorperazine (Compazine Supp) 25 mg Q12H PRN RECTAL NAUSEA OR VOMITING; Start 04/16/17 at 16:00 Zolpidem Tartrate (Ambien) 5 mg HS PRN PO INSOMNIA; Start 04/16/17 at 16:00 Enoxaparin Sodium (Lovenox Inj) 40 mg Q24H SQ Last administered on 04/18/17 17 :28; Start 04/16/17 at 18:00 Acetaminophen (Tylenol) 650 mg Q6H PRN PO PAIN SCALE 1 TO 2 Last administered on 04/17/17 05:16; Start 04/16/17 at 16:00 Oxycodone/ Acetaminophen (Percocet 5-325 Mg) 1 tab Q6H PRN PO PAIN SCALE 3 TO 5 Last administered on 04/19/17 00:06; Start 04/16/17 at 16:00 Oxycodone/ Acetaminophen (Percocet 10-325 Mg) 1 tab Q6H PRN PO PAIN SCALE 6 TO 10; Start 04/16/17 at 16:00 Morphine Sulfate (Morphine Inj) 2 mg Q3H PRN IV PUSH Pain 3-5; if unable to take PO; Start 04/16/17 at 16:00 Morphine Sulfate (Morphine Inj) 4 mg Q3H PRN IV PUSH Pain 6-10;if unable to take PO; Start 04/16/17 at 16:00 Naloxone HCl (Narcan Inj) 0.4 mg UNSCH PRN IV PUSH SEE LABEL COMMENTS; Start at 16:00 Senna/Docusate Sodium (Nancy-Colace) 1 tab BID PO ; Start 04/16/17 at 21:00 Magnesium Hydroxide (Milk Of Magnesia Liq) 30 ml Q12H PRN PO MILD - MODERATE CONSTIPATION; Start 04/16/17 at 16:00 Sennosides (Senokot) 17.2 mg Q12H PRN PO MODERATE - SEVERE CONSTIPATION; Start 04/16/17 at 16:00 Bisacodyl (Dulcolax Supp) 10 mg DAILY PRN RECTAL SEVERE CONSITIPATION; Start at 16:00 Lactulose (Lactulose Liq) 30 ml DAILY PRN PO SEVERE CONSITIPATION; Start at 16:00 Aspirin (Ecotrin Ec) 81 mg DAILY PO Last administered on 04/19/17 09:59; Start 04/17/17 at 09:00 Insulin Detemir (Levemir Inj) 65 units HS SQ Last administered on 04/16/17 21: 00; Start 04/16/17 at 21:00; Stop 04/17/17 at 09:42; Status DC Metoprolol Tartrate (Lopressor) 100 mg DAILY PO Last administered on 04/19/17 09:59; Start 04/17/17 at 09:00 Mycophenolate Mofetil (Cellcept) 500 mg BID@0600,1800 PO ; Start 04/16/17 at 18: 00; Stop 04/16/17 at 20:56; Status DC Prednisone (Deltasone) 5 mg DAILY PO Last administered on 04/19/17 09:58; Start 04/17/17 at 09:00 Tacrolimus (Prograf) 2 mg BID@0600,1800 PO Last administered on 04/18/17 23:56 ; Start 04/16/17 at 18:00 Pravastatin Sodium (Pravachol) 80 mg HS PO Last administered on 04/18/17 21:14 ; Start 04/16/17 at 21:00 Miscellaneous Information SPECIFIC LAB TO BE DRAWN:VANCOMYCIN TROUGH DATE TO... ONCE ONCE .XX Last administered on 04/18/17 04:22; Start 04/18/17 at 04:45; Stop 04/18/17 at 04:46; Status DC Pantoprazole Sodium (Protonix) 40 mg Q12HR PO Last administered on 04/19/17 10 :00; Start 04/16/17 at 21:00 Mycophenolate Mofetil (Cellcept) 500 mg BID@0000,1200 PO Last administered on 23:56; Start 04/17/17 at 00:00 Piperacillin Sod/ Tazobactam Sod 100 ml @ 200 mls/hr Q6H IV Last administered on 04/19/17 09:57; Start 04/17/17 at 04:00 Insulin Detemir (Levemir Inj) 50 units HS SQ Last administered on 04/18/17 21: 15; Start 04/17/17 at 21:00 Vancomycin HCl 1250 mg/Sodium Chloride 262.5 ml @ 250 mls/hr Q12H IV Last administered on 9/29/17at 05:36; Start 04/18/17 at 17:00 Miscellaneous Information SPECIFIC LAB TO BE ... ONCE ONCE .XX ; Start 04/20 at 04:45; Stop 04/20/17 at 04:46 Potassium Chloride (KCl) 40 meq ONCE ONCE PO ; Start 04/19/17 at 10:15; Stop at 10:16; Status DC Potassium Chloride (KCl) 40 meq ONCE ONCE PO ; Start 04/19/17 at 11:30; Stop at 11:31 Magnesium Sulfate/ Dextrose 100 ml @ 100 mls/hr Q1H IV ; Start 04/19/17 at 10: 00; Stop 04/19/17 at 11:59 Potassium Phosphate 30 mmol/ Sodium Chloride 260 ml @ 43.333 mls/ hr ONCE ONCE IV ; Start 04/19/17 at 09:30; Stop 04/19/17 at 15:29 Urinary Catheter: No Vascular Central Line Catheter: No A/P Problem List: (1) Kidney transplant status ICD Code: Z94.0 - Kidney transplant status (2) Diabetic foot ulcer associated with type 1 diabetes mellitus ICD Code: E10.621 - Type 1 diabetes mellitus with foot ulcer; L97.509 - Non- pressure chronic ulcer of other part of unspecified foot with unspecified severity (3) Diabetic ulcer of left foot ICD Code: E11.621 - Type 2 diabetes mellitus with foot ulcer; L97.529 - Non- pressure chronic ulcer of other part of left foot with unspecified severity (4) Immunosuppressed status ICD Code: D89.9 - Disorder involving the immune mechanism, unspecified (5) Cellulitis of left foot ICD Code: L03.116 - Cellulitis of left lower limb (6) Diabetes ICD Code: E11.9 - Type 2 diabetes mellitus without complications Assessment and Plan Diabetic foot wound of the left foot with uncontrolled diabetes Lantus to [address] on sliding scale high-dose with Accu-Cheks before meals and at bedtime Continue on vancomycin and Zosyn consult pharmacy regarding the vancomycin Continue on his home medications. Including immunosuppression with Prograf and CellCept for his chronic renal transplant continue on the chronic prednisone Hyperlipidemia continue on the simvastatin High blood pressure continue on metoprolol Consult infectious disease as well as podiatry Sirs RESOLVED Continue on high-dose sliding scale coverage get a.m. labs Continue on DVT and GI prophylaxis AWAIT ID, PODIATRY AND WOUND CARE AM LABS CONTINUE ANTIBIOTICS DC TELE, DC FLUIDS AM LABS NEPHROLOGY CONSULT DW RN AND PT Discharge Planning NEEDS ID AND PODIATRY CLEARANCE Problem Qualifiers (1) Diabetic foot ulcer associated with type 1 diabetes mellitus: Qualified Codes: E10.621 - Type 1 diabetes mellitus with foot ulcer; L97.529 - Non-pressure chronic ulcer of other part of left foot with unspecified severity (2) Diabetes: Valdemar Henry DO Apr 19, 2017 10:35
[2017-04-19] MEDS: MAGNESIUM SULFATE 1 GM PREMIX 100 ML IV SCH ×3 (11:09→13:29)
[2017-04-19] MEDS: MYCOPHENOLATE MOFETIL 500 MG TAB PO SCH ×2 (11:47→23:52)
[2017-04-19 12:00] VITALS: BP 154/84; PULSE 106; RESP 18; TEMP 98.3; O2SAT 95
[2017-04-19 16:00] VITALS: BP 131/75; PULSE 91; RESP 18; TEMP 98.8; O2SAT 93
--- NOTE | 2017-04-19 17:10 | PD.POD ---
Subjective Podiatric Problems Left foot DM ulcer, with cellulitis. s/p left foot I and D at bedside on 04/18/17 Pain scale used: 0-10 numeric scale Pain score: 3 Past Med/Surg/Social History Past Medical History Endocrine: REPORTS HX OF: Diabetes mellitus, Other endocrine history Genitourinary: REPORTS HX OF: Kidney failure Neurologic: REPORTS HX OF: Peripheral neuropathy Past Surgical History Endocrine: REPORTS HX OF: Other endocrine surgery (pancreatitic transplant with failure) Genitourinary: REPORTS HX OF: Other surgery (to need transplant) Social History Smoking Status: Never Smoker Objective Vital Signs Vital Signs Date Time Temp Pulse Resp B/P (MAP) Pulse Ox O2 Delivery O2 Flow Rate FiO2 04/19/17 12:00 98.3 106 18 154/84 (107) 95 04/19/17 08:00 98.0 106 16 129/74 (92) 94 04/19/17 00:00 98.7 86 17 95 04/18/17 20:00 99.6 107 17 130/70 (90) 95 Coded Allergies: No Known Allergies (Unverified , 04/16/17) Medications and IVs Laboratory Tests Test 04/18/17 04:28 04/19/17 05:35 Vancomycin Level Trough 12.0 MCG/ML White Blood Count 10.5 TH/MM3 Red Blood Count 4.03 MIL/MM3 Hemoglobin 11.8 GM/DL Hematocrit 34.8 % Mean Corpuscular Volume 86.3 FL Mean Corpuscular Hemoglobin 29.4 PG Mean Corpuscular Hemoglobin Concent 34.1 % Red Cell Distribution Width 13.0 % Platelet Count 287 TH/MM3 Mean Platelet Volume 6.6 FL Neutrophils (%) (Auto) 77.0 % Lymphocytes (%) (Auto) 14.1 % Monocytes (%) (Auto) 7.7 % Eosinophils (%) (Auto) 0.7 % Basophils (%) (Auto) 0.5 % Neutrophils # (Auto) 8.1 TH/MM3 Lymphocytes # (Auto) 1.5 TH/MM3 Monocytes # (Auto) 0.8 TH/MM3 Eosinophils # (Auto) 0.1 TH/MM3 Basophils # (Auto) 0.0 TH/MM3 CBC Comment DIFF FINAL Differential Comment Blood Urea Nitrogen 8 MG/DL Creatinine 0.81 MG/DL Random Glucose 83 MG/DL Total Protein 5.9 GM/DL Albumin 1.9 GM/DL Calcium Level 8.7 MG/DL Phosphorus Level 2.4 MG/DL Magnesium Level 1.3 MG/DL Alkaline Phosphatase 109 U/L Aspartate Amino Transf (AST/SGOT) 10 U/L Alanine Aminotransferase (ALT/SGPT) 11 U/L Total Bilirubin 0.3 MG/DL Sodium Level 137 MEQ/L Potassium Level 3.0 MEQ/L Chloride Level 101 MEQ/L Carbon Dioxide Level 30.0 MEQ/L Anion Gap 6 MEQ/L Estimat Glomerular Filtration Rate 102 ML/MIN Exam-Podiatry Dermatological Exam Ulcers: Location/Measurements Left foot opening x 2 from I and D. No active drainage. Still red and swollen. Protective sensation is absent. Assessment & Plan Diagnosis: (1) Cellulitis of right foot ICD Codes: L03.115 - Cellulitis of right lower limb; L97.519 - Non-pressure chronic ulcer of other part of right foot with unspecified severity Status: Acute (2) Non-compliance ICD Codes: Z91.19 - Patient's noncompliance with other medical treatment and regimen Status: Acute (3) Diabetic ulcer of right foot ICD Codes: E11.621 - Type 2 diabetes mellitus with foot ulcer; L97.519 - Non- pressure chronic ulcer of other part of right foot with unspecified severity Status: Acute A/P Ceretec: with cellulitis and no OM MRI completed and reviewed with patient. WBC is trending down, but still red and swollen. Plan to OR on 04/21/17 if no significant changes on 04/20/17 Discussed with ID. Procedures Bedside I and D left foot on 04/18/17 Consent signed and in the chart. Nursing staff assisting. Prep and with # 15 blade I and D at the 4th IS and plantar sub 4th metatarsal. C and D at the 4th IS. Excisional debridement with # 15 blade of necrotic and non viable tissue. Betadine dressing applied Kim Burdick DPM Apr 19, 2017 17:10
[2017-04-19] MEDS: ENOXAPARIN SODIUM 40 MG/0.4 ML SYRINGE SQ SCH (17:25)
[2017-04-19 20:00] VITALS: BP 115/68; PULSE 87; RESP 18; TEMP 97.9; O2SAT 97
--- NOTE | 2017-04-19 20:37 | HHI.IDPN ---
Subjective Subjective Remarks Mr. Weaver is a 46 y/o CM with PMHx significant for DM with neuropathy, nephropathy s/p renal transplant who is on immune suppressant medications such as cellcept, tacrolimus and prednisone. He reports feeling of unwellness for last 1 week. He reports no symptoms in his foot. He did not examine his feet in last 1 week. He reports that when he was wearing his socks to come to hospital is when he noticed the foot findings. He had started having fever and chills, sweats, and body aches. He had a Tmax of 100.1 yesterday, but has been continuously taking Tylenol for a week. Today he noticed that his left foot was erythematous and had swelling. He also knows a wound on the bottom of his foot. He states that he is having some bloody discharge coming from the wound. 6 months ago he was admitted for a right foot wound. He states that "the doctor had scraped his right great toe to the bone" and gave him vancomycin in hospital and discharged him on oral antibiotics. He usually checks his feet daily, but has not since Saturday due to being ill. Sepsis workup initiated on admission. ID consulted for evaluation and mment of Sepsis, Left foot cellulitis possible osteomyelitis. Overnight events reviewed Complains of chills and night sweats No rash No diarrhea Antibiotics Zosyn IV Vanco IV Lines Line sites with no e.o infection Past Medical History Diabetes mellitus type 1 History of diabetic foot wound right foot 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 Severe diabetic neuropathy Hyperlipidemia Hypertension Debridement of right foot in the past by podiatry history of kidney transplant History of pancreatic transplant 2 Allergies: Coded Allergies: No Known Allergies (Unverified , 04/16/17) Objective . Vital Signs Date Time Temp Pulse Resp B/P (MAP) Pulse Ox O2 Delivery O2 Flow Rate FiO2 04/19/17 16:00 98.8 91 18 131/75 (93) 93 04/19/17 12:00 98.3 106 18 154/84 (107) 95 04/19/17 08:00 98.0 106 16 129/74 (92) 94 04/19/17 00:00 98.7 86 17 95 04/19/17 04/19/17 04/20/17 15:00 23:00 07:00 Intake Total 200 ml 1160 ml Balance 200 ml 1160 ml Intake Oral 960 ml IV Total 200 ml 200 ml # Voids 3 # Bowel Movements 1 . Laboratory Tests Test 04/19/17 05:35 White Blood Count 10.5 TH/MM3 Red Blood Count 4.03 MIL/MM3 Hemoglobin 11.8 GM/DL Hematocrit 34.8 % Mean Corpuscular Volume 86.3 FL Mean Corpuscular Hemoglobin 29.4 PG Mean Corpuscular Hemoglobin Concent 34.1 % Red Cell Distribution Width 13.0 % Platelet Count 287 TH/MM3 Mean Platelet Volume 6.6 FL Neutrophils (%) (Auto) 77.0 % Lymphocytes (%) (Auto) 14.1 % Monocytes (%) (Auto) 7.7 % Eosinophils (%) (Auto) 0.7 % Basophils (%) (Auto) 0.5 % Neutrophils # (Auto) 8.1 TH/MM3 Lymphocytes # (Auto) 1.5 TH/MM3 Monocytes # (Auto) 0.8 TH/MM3 Eosinophils # (Auto) 0.1 TH/MM3 Basophils # (Auto) 0.0 TH/MM3 CBC Comment DIFF FINAL Differential Comment Laboratory Tests Test 04/19/17 05:35 Blood Urea Nitrogen 8 MG/DL Creatinine 0.81 MG/DL Random Glucose 83 MG/DL Total Protein 5.9 GM/DL Albumin 1.9 GM/DL Calcium Level 8.7 MG/DL Phosphorus Level 2.4 MG/DL Magnesium Level 1.3 MG/DL Alkaline Phosphatase 109 U/L Aspartate Amino Transf (AST/SGOT) 10 U/L Alanine Aminotransferase (ALT/SGPT) 11 U/L Total Bilirubin 0.3 MG/DL Sodium Level 137 MEQ/L Potassium Level 3.0 MEQ/L Chloride Level 101 MEQ/L Carbon Dioxide Level 30.0 MEQ/L Anion Gap 6 MEQ/L Estimat Glomerular Filtration Rate 102 ML/MIN Microbiology Date/Time Source Procedure Growth Status 04/18/17 12:45 Blood Peripheral Aerobic Blood Culture - Preliminary NO GROWTH IN 1 DAY Resulted 04/18/17 12:45 Blood Peripheral Anaerobic Blood Culture - Preliminary NO GROWTH IN 1 DAY Resulted 04/18/17 12:40 Blood Peripheral Aerobic Blood Culture - Preliminary NO GROWTH IN 1 DAY Resulted 04/18/17 12:40 Blood Peripheral Anaerobic Blood Culture - Preliminary NO GROWTH IN 1 DAY Resulted 04/18/17 19:30 Wound Foot Gram Stain Pending Received 04/18/17 19:30 Wound Foot Wound Culture Pending Received Imaging Last Impressions Foot MRI 04/18/17 0000 Signed Impressions: Service Date/Time: March 16:07 - CONCLUSION: Extensive soft tissue edema of the left foot. Cutaneous ulceration at the plantar aspect of the forefoot adjacent to the fourth MTP joint. Mild bony edema in the fourth and fifth toes indicating reactive change from adjacent soft tissue infection versus early osteomyelitis. No T1-weighted bony signal abnormality to confirm osteomyelitis. Several elongated areas of fluid signal adjacent to the fourth and fifth extensor tendons and plantar aspect of fifth toe indicating possible early abscess formation. Contrast-enhanced study would be helpful for further evaluation of these areas. Behzad Metzger MD Foot X-Ray 04/16/17 1352 Signed Impressions: Service Date/Time: Sunday, April 16, 2017 14:23 - CONCLUSION: No acute disease. Anshu Charles MD Physical Exam GENERAL: This is a well-nourished, well-developed patient, in no apparent distress. SKIN: No rashes, ecchymoses or lesions. Cool and dry. HEAD: Atraumatic. Normocephalic. No temporal or scalp tenderness. EYES: Pupils equal round and reactive. Extraocular motions intact. No scleral icterus. No injection or drainage. ENT: Nose without bleeding, purulent drainage or septal hematoma. Throat without erythema, tonsillar hypertrophy or exudate. Uvula midline. Airway patent. NECK: Trachea midline. Supple, nontender, no meningeal signs. CARDIOVASCULAR: Regular rate and rhythm without murmurs, gallops, or rubs. RESPIRATORY: Clear to auscultation. Breath sounds equal bilaterally. No wheezes , rales, or rhonchi. GASTROINTESTINAL: Abdomen soft, non-tender, nondistended. MUSCULOSKELETAL: Left foot plantar aspect a black dime shaped area with tenderness and induration noted. Erythema from this area extends through the web space to the dorsal aspect of foot. There is a dusky skin change in the web space as well. Slight worsening in erythema and induration compared to yday. NEUROLOGICAL: Awake and alert. Grossly nonfocal Psych cooperative IV line sites with no e.o infection Assessment & Plan Remarks Assessment and Plan Sepsis present on admission (tachycardia, leucocytosis and source: left foot infection, possible bacteremia) MSSA bacteremia (at time of dictation of note) Left foot cellulitis/abscess Left foot possible osteomyelitis of toe. MSSA and E.faecalis from foot wound. DM with neuropathy DM nephropathy s/p transplant Immune compromised Recs Continue Zosyn IV Continue vanco IV (target 15-20) follow intra op cultures. Plan for surgery this weekend. Follow clinically. d/w : discussed findings of MRI. covering for me this weekend. Daiana Morales MD Apr 19, 2017 20:37
[2017-04-19] MEDS: PRAVASTATIN SOD 80 MG TAB PO SCH (22:09)
[2017-04-19] MEDS: INSULIN DETEMIR 100 UNITS/ML VIAL SQ SCH (22:15)
[2017-04-20] VITALS: BP 164/92; PULSE 85; RESP 17; TEMP 97.6; O2SAT 95
[2017-04-20] MEDS ORDERED: PHARMACY ORDERED LAB ONE (04:45)
[2017-04-20] MEDS: PIPERACIL-TAZO 4.5 GM PREMIX 100 ML IV SCH ×4 (04:48→22:38)
[2017-04-20] MEDS: VANCOMYCIN INJ 1,250 MG in SODIUM CHLOR 0.9% 250 ML INJ 250 ML IV SCH (04:49)
[2017-04-20 07:59] LABS: AUTOMATED NEUTROPHIL # 8.1 TH/MM3 (1.8-7.7); BASOPHIL # 0.1 TH/MM3 (0-0.2); BASOPHIL % 0.7 % (0.0-2.0); EOSINOPHIL # 0.1 TH/MM3 (0-0.4); EOSINOPHIL % 1.4 % (0.0-4.0); HEMATOCRIT 36.7 % (39.0-51.0); HEMO FLAGS DIFF FINAL; LYMPH % 12.2 % (9.0-44.0); LYMPHOCYTE # 1.2 TH/MM3 (1.0-4.8); MEAN CELL VOLUME 88.1 FL (80.0-100.0); MONO % 7.2 % (0.0-8.0); NEUT % 78.5 % (16.0-70.0); PLATELET COUNT 326 TH/MM3 (150-450); RED BLOOD COUNT 4.16 MIL/MM3 (4.50-5.90); RED CELL DISTRIBUTION WIDTH 12.9 % (11.6-17.2); WHITE BLOOD COUNT 10.3 TH/MM3 (4.0-11.0)
[2017-04-20 08:00] VITALS: BP 115/73; PULSE 100; RESP 17; TEMP 98.1; O2SAT 94
[2017-04-20] MEDS: INSULIN ASPART SUPPLEMENTAL SCALE SQ SCH ×4 (08:00→21:00)
[2017-04-20] MEDS: ASPIRIN EC 81 MG TABEC PO SCH (08:14)
[2017-04-20] MEDS: SODIUM CHLORIDE 0.9% FLUSH 10 ML FLUSH IV FLUSH SCH ×2 (08:15→22:37)
[2017-04-20] MEDS: predniSONE 5 MG TAB PO SCH (08:15)
[2017-04-20] MEDS: PANTOPRAZOLE SOD 40 MG DELAYED RELEASE TAB PO SCH ×2 (08:15→22:35)
[2017-04-20] MEDS: METOPROLOL TARTRATE 100 MG TAB PO SCH (08:15)
[2017-04-20] MEDS: DOCUSATE SODIUM 50 MG/SENNA 8.6 MG TAB PO SCH ×2 (08:15→21:00)
[2017-04-20 08:30] LABS: ALKALINE PHOSPHATASE 140 U/L (45-117); ALT (GPT) 17 U/L (12-78); ANION GAP 8 MEQ/L (5-15); AST (GOT) 19 U/L (15-37); BICARBONATE 28.8 MEQ/L (21.0-32.0); BLOOD UREA NITROGEN 9 MG/DL (7-18); CHLORIDE 96 MEQ/L (98-107); GLOMERULAR FILTRATION RATE 84 ML/MIN (>89); MAGNESIUM 1.5 MG/DL (1.5-2.5); POTASSIUM 4.1 MEQ/L (3.5-5.1); SODIUM (NA) 133 MEQ/L (136-145); TOTAL BILIRUBIN ADULT 0.4 MG/DL (0.2-1.0)
--- NOTE | 2017-04-20 09:38 | HHI.PR ---
Subjective Remarks Patient seen this morning around 10 AM. Says that left foot does not appear to be getting better. Reports pain is under control. Denies any chest pain or shortness of breath. Patient denies any history of NC. Denies any history of exertional chest pain. Says he can go up 2 flights of stairs, walk 4 blocks without difficulty. Objective Vital Signs Date Time Temp Pulse Resp B/P (MAP) Pulse Ox O2 Delivery O2 Flow Rate FiO2 04/20/17 08:00 98.1 100 17 115/73 (87) 94 04/20/17 00:00 97.6 85 17 164/92 (116) 95 04/19/17 20:00 97.9 87 18 115/68 (84) 97 04/19/17 16:00 98.8 91 18 131/75 (93) 93 04/19/17 12:00 98.3 106 18 154/84 (107) 95 I/O 04/19/17 04/19/17 04/19/17 04/20/17 04/20/17 04/20/17 07:00 15:00 23:00 07:00 15:00 23:00 Intake Total 2099 ml 200 ml 1160 ml 200 ml 500 ml Balance 2099 ml 200 ml 1160 ml 200 ml 500 ml Intake Oral 240 ml 960 ml IV Total 1859 ml 200 ml 200 ml 200 ml 500 ml # Voids 3 3 2 # Bowel Movements 1 Result Diagram: 04/20/17 0741 04/20/17 0741 Objective Remarks GENERAL: patient sitting up in bed. Appears comfortable. Alert and oriented 3. SKIN: Warm and dry. HEAD: Normocephalic. EYES: No scleral icterus. No injection or drainage. NECK: Supple, trachea midline. No JVD. CARDIOVASCULAR: Regular rate and rhythm without murmurs, gallops, or rubs. RESPIRATORY: Breath sounds equal bilaterally. No accessory muscle use. GASTROINTESTINAL: Abdomen soft, non-tender, nondistended. MUSCULOSKELETAL: No cyanosis, or edema. BACK: Nontender without obvious deformity. No CVA tenderness. A/P Assessment and Plan ==== 04/20/17 Vitals, labs reviewed and acceptable. Await surgery on 04/21. -Glucose reviewed and acceptable. Patient has not been getting mealtime coverage due to glucose less than 150. Decrease nighttime Levemir to 40 units at night. Continue insulin sliding scale, diabetic diet. -Planned surgery 04/21 by podiatry. Patient is medically optimized for surgery. //Diabetic foot wound of the left foot with uncontrolled type 1 diabetes -Staph aureus on I and D cultures from admission. -Plan for surgery on 04/21 by podiatry. Infectious disease following. Appreciate assistance. Continue broad-spectrum IV antibiotics. -Planned surgery 04/21 by podiatry. Patient is medically optimized for surgery. //ESRD status post kidney transplant Continue on his home medications. Including immunosuppression with Prograf and CellCept for his chronic renal transplant continue on the chronic prednisone //Hyperlipidemia- continue on the simvastatin //High blood pressure -Pressure acceptable -continue on metoprolol /Status post kidney transplant Nephrology consult pending. //Type 1 diabetes mellitus -04/20-Glucose reviewed and acceptable. Patient has not been getting mealtime coverage due to glucose less than 150. Decrease nighttime Levemir to 40 units at night. Continue insulin sliding scale, diabetic diet. //Sirs RESOLVED // Prophylaxis. Continue Lovenox daily. Otherwise As per surgical service. Discharge Planning plan surgical intervention by podiatry. Giovany Cruz MD Apr 20, 2017 09:38
[2017-04-20] MEDS: MYCOPHENOLATE MOFETIL 500 MG TAB PO SCH ×2 (11:58→22:53)
[2017-04-20] MEDS: TACROLIMUS 1 MG CAP PO SCH ×2 (11:58→22:53)
[2017-04-20 12:00] VITALS: BP 115/71; PULSE 93; RESP 17; TEMP 97.6; O2SAT 94
--- NOTE | 2017-04-20 14:17 | PD.POD ---
Subjective Podiatric Problems Left foot DM ulcer, with cellulitis. s/p left foot I and D at bedside on 04/18/17 Pain scale used: 0-10 numeric scale Pain score: 3 Past Med/Surg/Social History Past Medical History Endocrine: REPORTS HX OF: Diabetes mellitus, Other endocrine history Genitourinary: REPORTS HX OF: Kidney failure Neurologic: REPORTS HX OF: Peripheral neuropathy Past Surgical History Endocrine: REPORTS HX OF: Other endocrine surgery (pancreatitic transplant with failure) Genitourinary: REPORTS HX OF: Other surgery (to need transplant) Social History Smoking Status: Never Smoker Objective Vital Signs Vital Signs Date Time Temp Pulse Resp B/P (MAP) Pulse Ox O2 Delivery O2 Flow Rate FiO2 04/20/17 12:00 97.6 93 17 115/71 (86) 94 04/20/17 08:00 98.1 100 17 115/73 (87) 94 04/20/17 00:00 97.6 85 17 164/92 (116) 95 04/19/17 20:00 97.9 87 18 115/68 (84) 97 04/19/17 16:00 98.8 91 18 131/75 (93) 93 Coded Allergies: No Known Allergies (Unverified , 04/16/17) Other Results Last Impressions Tumor Localization 04/18/17 0000 Signed Impressions: Service Date/Time: March 11:57 - CONCLUSION: 1. Cellulitis without evidence of osteomyelitis. Keny Chaney MD Foot MRI 04/18/17 0000 Signed Impressions: Service Date/Time: March 16:07 - CONCLUSION: Extensive soft tissue edema of the left foot. Cutaneous ulceration at the plantar aspect of the forefoot adjacent to the fourth MTP joint. Mild bony edema in the fourth and fifth toes indicating reactive change from adjacent soft tissue infection versus early osteomyelitis. No T1-weighted bony signal abnormality to confirm osteomyelitis. Several elongated areas of fluid signal adjacent to the fourth and fifth extensor tendons and plantar aspect of fifth toe indicating possible early abscess formation. Contrast-enhanced study would be helpful for further evaluation of these areas. Behzad Metzger MD Foot X-Ray 04/16/17 1352 Signed Impressions: Service Date/Time: Sunday, April 16, 2017 14:23 - CONCLUSION: No acute disease. Anshu Charles MD Laboratory Tests Test 04/19/17 05:35 04/20/17 05:00 04/20/17 07:41 White Blood Count 10.5 TH/MM3 10.3 TH/MM3 Red Blood Count 4.03 MIL/MM3 4.16 MIL/MM3 Hemoglobin 11.8 GM/DL 12.5 GM/DL Hematocrit 34.8 % 36.7 % Mean Corpuscular Volume 86.3 FL 88.1 FL Mean Corpuscular Hemoglobin 29.4 PG 30.0 PG Mean Corpuscular Hemoglobin Concent 34.1 % 34.0 % Red Cell Distribution Width 13.0 % 12.9 % Platelet Count 287 TH/MM3 326 TH/MM3 Mean Platelet Volume 6.6 FL 6.6 FL Neutrophils (%) (Auto) 77.0 % 78.5 % Lymphocytes (%) (Auto) 14.1 % 12.2 % Monocytes (%) (Auto) 7.7 % 7.2 % Eosinophils (%) (Auto) 0.7 % 1.4 % Basophils (%) (Auto) 0.5 % 0.7 % Neutrophils # (Auto) 8.1 TH/MM3 8.1 TH/MM3 Lymphocytes # (Auto) 1.5 TH/MM3 1.2 TH/MM3 Monocytes # (Auto) 0.8 TH/MM3 0.7 TH/MM3 Eosinophils # (Auto) 0.1 TH/MM3 0.1 TH/MM3 Basophils # (Auto) 0.0 TH/MM3 0.1 TH/MM3 CBC Comment DIFF FINAL DIFF FINAL Differential Comment Blood Urea Nitrogen 8 MG/DL 9 MG/DL Creatinine 0.81 MG/DL 0.96 MG/DL Random Glucose 83 MG/DL 172 MG/DL Total Protein 5.9 GM/DL 6.8 GM/DL Albumin 1.9 GM/DL 2.1 GM/DL Calcium Level 8.7 MG/DL 9.6 MG/DL Phosphorus Level 2.4 MG/DL 2.4 MG/DL Magnesium Level 1.3 MG/DL 1.5 MG/DL Alkaline Phosphatase 109 U/L 140 U/L Aspartate Amino Transf (AST/SGOT) 10 U/L 19 U/L Alanine Aminotransferase (ALT/SGPT) 11 U/L 17 U/L Total Bilirubin 0.3 MG/DL 0.4 MG/DL Sodium Level 137 MEQ/L 133 MEQ/L Potassium Level 3.0 MEQ/L 4.1 MEQ/L Chloride Level 101 MEQ/L 96 MEQ/L Carbon Dioxide Level 30.0 MEQ/L 28.8 MEQ/L Anion Gap 6 MEQ/L 8 MEQ/L Estimat Glomerular Filtration Rate 102 ML/MIN 84 ML/MIN Vancomycin Level Trough 12.5 MCG/ML Tacrolimus (Prograf) Level 12.6 NG/ML Exam-Podiatry Dermatological Exam Ulcers: Location/Measurements LLE Worsening erythema and edema. No streaking. NVS unchanged. Assessment & Plan Diagnosis: (1) Cellulitis of right foot ICD Codes: L03.115 - Cellulitis of right lower limb; L97.519 - Non-pressure chronic ulcer of other part of right foot with unspecified severity Status: Acute (2) Non-compliance ICD Codes: Z91.19 - Patient's noncompliance with other medical treatment and regimen Status: Acute (3) Diabetic ulcer of right foot ICD Codes: E11.621 - Type 2 diabetes mellitus with foot ulcer; L97.519 - Non- pressure chronic ulcer of other part of right foot with unspecified severity Status: Acute A/P Ceretec: with cellulitis and no OM MRI completed and reviewed with patient. WBC is trending down, but still red and swollen. Plan to OR on 04/21/17 for left foot I and D at 0900 Discussed with Kim Bejarano DPM Apr 20, 2017 14:17
[2017-04-20] MEDS ORDERED: POVIDONE IODINE 5% (ANTISEPSIS KIT) 4 APPLICATIONS EACH NARE PRN (15:00)
[2017-04-20] MEDS ORDERED: LACTATED RINGER'S 1000 ML IV PRN (15:00)
[2017-04-20] MEDS ORDERED: SODIUM CHLORID 0.9% 500 ML IV PRN (15:00)
[2017-04-20] MEDS ORDERED: METOPROLOL TARTRATE 25 MG TAB PO PRN (15:00)
[2017-04-20] MEDS ORDERED: INSULIN HUMAN REGULAR 1,000 UNITS/10 ML VIAL SQ PRN (15:00)
[2017-04-20] MEDS ORDERED: CHLORHEXIDINE GLUCONATE 2 % 1 PACK (2 CLOTHS) TOPICAL PRN (15:00)
[2017-04-20] MEDS: oxyCODONE/ACETAMINOPHEN 5 MG/325 MG TAB PO PRN (15:03)
[2017-04-20 16:00] VITALS: BP 110/64; PULSE 85; RESP 17; TEMP 97.4; O2SAT 93
[2017-04-20] MEDS: VANCOMYCIN INJ 1,500 MG in SODIUM CHLORID 0.9% 500 ML INJ 500 ML IV SCH (16:22)
[2017-04-20] MEDS: ENOXAPARIN SODIUM 40 MG/0.4 ML SYRINGE SQ SCH (17:23)
[2017-04-20 20:00] VITALS: BP 116/71; PULSE 88; RESP 20; TEMP 96.3; O2SAT 95
[2017-04-20] MEDS: PRAVASTATIN SOD 80 MG TAB PO SCH (22:34)
[2017-04-20] MEDS: INSULIN DETEMIR 100 UNITS/ML VIAL SQ SCH (22:51)
[2017-04-21] VITALS: BP 147/86; PULSE 94; RESP 18; TEMP 97.7; O2SAT 94
--- NOTE | 2017-04-21 01:19 | EKG ---
Date Performed: 04/20/2017 Time Performed: 16:12:05 PTAGE: 46 years EKG: Sinus rhythm POSSIBLE LEFT ATRIAL ENLARGEMENT BORDERLINE ECG NO PREVIOUS TRACING DOCTOR: Cristiano Max Interpretating Date/Time 04/21/2017 01:17:54
[2017-04-21 04:00] VITALS: BP 131/82; PULSE 91; RESP 18; TEMP 96.5; O2SAT 95
[2017-04-21] MEDS: VANCOMYCIN INJ 1,500 MG in SODIUM CHLORID 0.9% 500 ML INJ 500 ML IV SCH ×2 (05:38→16:35)
[2017-04-21] MEDS: PIPERACIL-TAZO 4.5 GM PREMIX 100 ML IV SCH ×4 (05:38→20:42)
[2017-04-21 08:00] VITALS: BP 136/82; PULSE 93; RESP 17; TEMP 97.6; O2SAT 93
[2017-04-21] MEDS: INSULIN ASPART SUPPLEMENTAL SCALE SQ SCH ×4 (08:00→19:00)
[2017-04-21] MEDS: DOCUSATE SODIUM 50 MG/SENNA 8.6 MG TAB PO SCH ×2 (09:00→20:35)
[2017-04-21] MEDS: PANTOPRAZOLE SOD 40 MG DELAYED RELEASE TAB PO SCH ×2 (09:35→20:35)
[2017-04-21] MEDS: predniSONE 5 MG TAB PO SCH (09:35)
[2017-04-21] MEDS: ASPIRIN EC 81 MG TABEC PO SCH (09:35)
[2017-04-21] MEDS: SODIUM CHLORIDE 0.9% FLUSH 10 ML FLUSH IV FLUSH SCH ×2 (09:36→20:42)
[2017-04-21] MEDS: METOPROLOL TARTRATE 100 MG TAB PO SCH (09:41)
[2017-04-21] MEDS: oxyCODONE/ACETAMINOPHEN 10 MG/325 MG TAB PO PRN ×2 (09:46→23:14)
[2017-04-21 12:00] VITALS: BP 96/56; PULSE 84; RESP 17; TEMP 97.3; O2SAT 98
[2017-04-21] MEDS ORDERED: ONDANSETRON HCL 4 MG/2 ML VIAL IV PUSH ONE (12:00)
[2017-04-21] MEDS ORDERED: PROPOFOL 200 MG/20 ML AMP IV ONE (12:00)
[2017-04-21] MEDS ORDERED: NEOMYCIN/POLYMYXIN 1 ML G.U. IRRIGANT IRRIGATION ONE (12:00)
[2017-04-21] MEDS ORDERED: LIDOCAINE HCL 1% PF 5 ML AMPULE OTHER ONE (12:00)
[2017-04-21] MEDS ORDERED: MIDAZOLAM HCL 2 MG/2 ML VIAL IV ONE (12:00)
[2017-04-21] MEDS: TACROLIMUS 1 MG CAP PO SCH ×2 (13:03→23:13)
[2017-04-21] MEDS: MYCOPHENOLATE MOFETIL 500 MG TAB PO SCH ×2 (13:03→23:13)
[2017-04-21] MEDS ORDERED: LIDOCAINE HCL 2% 50 ML VIAL ONE (14:27)
[2017-04-21] MEDS ORDERED: BUPIVACAINE HCL PF 0.5% 30 ML VIAL ONE (14:27)
[2017-04-21] MEDS ORDERED: GENTAMICIN SULFATE 80 MG/2 ML VIAL ONE (14:27)
--- NOTE | 2017-04-21 15:28 | HHI.PR ---
Subjective Remarks Patient seen this morning around 11 AM. Says he is feeling all right. Denies any chest pain or shortness of breath. He does report loose bowel movements since starting antibiotics. Denies any abdominal pain. Denies nausea or vomiting. Objective Vital Signs Date Time Temp Pulse Resp B/P (MAP) Pulse Ox O2 Delivery O2 Flow Rate FiO2 04/21/17 12:00 97.3 84 17 96/56 (69) 98 04/21/17 08:00 97.6 93 17 136/82 (100) 93 04/21/17 04:00 96.5 91 18 131/82 (98) 95 04/21/17 00:00 97.7 94 18 147/86 (106) 94 04/20/17 20:00 96.3 88 20 116/71 (86) 95 04/20/17 16:00 97.4 85 17 110/64 (79) 93 I/O 04/20/17 04/20/17 04/20/17 04/21/17 04/21/17 04/21/17 07:00 15:00 23:00 07:00 15:00 23:00 Intake Total 200 ml 500 ml 1660 ml 240 ml 615 ml Output Total 600 ml 1300 ml 2000 ml Balance 200 ml -100 ml 360 ml -1760 ml 615 ml Intake Oral 1560 ml 240 ml IV Total 200 ml 500 ml 100 ml 615 ml Output Urine Total 600 ml 1300 ml 2000 ml # Voids 2 # Bowel Movements 1 1 Result Diagram: 04/20/17 0741 04/20/17 0741 Objective Remarks GENERAL: patient sitting up in bed. Appears comfortable. Alert and oriented 3. no change on exam SKIN: Warm and dry. HEAD: Normocephalic. EYES: No scleral icterus. No injection or drainage. NECK: Supple, trachea midline. No JVD. CARDIOVASCULAR: Regular rate and rhythm without murmurs, gallops, or rubs. RESPIRATORY: Breath sounds equal bilaterally. No accessory muscle use. GASTROINTESTINAL: Abdomen soft, non-tender, nondistended. MUSCULOSKELETAL: No cyanosis, or edema. BACK: Nontender without obvious deformity. No CVA tenderness. A/P Assessment and Plan ==== 04/21/17 Vitals, labs reviewed again and acceptable. Await surgery on 04/21. -Glucose reviewed and acceptable when awake 108 morning. -Planned surgery today by podiatry. -Continue IV antibiotics for osteomyelitis. Follow-up cultures Diarrhea. Likely antibiotic associated. Monitor. //Diabetic foot wound of the left foot with uncontrolled type 1 diabetes -Staph aureus on I and D cultures from admission. -Plan for surgery on 04/21 by podiatry. Infectious disease following. Appreciate assistance. Continue broad-spectrum IV antibiotics. -Planned surgery 04/21 by podiatry. Patient is medically optimized for surgery. //ESRD status post kidney transplant Continue on his home medications. Including immunosuppression with Prograf and CellCept for his chronic renal transplant continue on the chronic prednisone //Hyperlipidemia- continue on the simvastatin //High blood pressure -Pressure acceptable -continue on metoprolol /Status post kidney transplant Nephrology consult pending. //Type 1 diabetes mellitus -04/20-Glucose reviewed and acceptable. Patient has not been getting mealtime coverage due to glucose less than 150. Decrease nighttime Levemir to 40 units at night. Continue insulin sliding scale, diabetic diet. //Sirs RESOLVED // Prophylaxis. Continue Lovenox daily. Otherwise As per surgical service. Discharge Planning plan surgical intervention by podiatry today. cont on iv abx. Giovany Cruz MD Apr 21, 2017 15:28
[2017-04-21] MEDS ORDERED: DO NOT ADM ANY ANTICOAGULANT DRUGS PRN (15:35)
[2017-04-21 16:00] VITALS: BP 137/83; PULSE 80; RESP 17; TEMP 96.8; O2SAT 90
[2017-04-21] MEDS: ENOXAPARIN SODIUM 40 MG/0.4 ML SYRINGE SQ SCH (16:35)
[2017-04-21 20:00] VITALS: BP 132/78; PULSE 87; RESP 20; TEMP 96.1; O2SAT 95
[2017-04-21] MEDS: PRAVASTATIN SOD 80 MG TAB PO SCH (20:35)
[2017-04-21] MEDS: INSULIN DETEMIR 100 UNITS/ML VIAL SQ SCH (20:40)
--- NOTE | 2017-04-21 21:19 | MP ---
cc: GABY BURDICK DPM DATE OF SURGERY 04/21/2017 DATE OF 1970 PREOPERATIVE DIAGNOSIS Left foot abscess, left foot cellulitis, left foot infection. POSTOPERATIVE DIAGNOSIS Left foot abscess, left foot cellulitis, left foot infection. PROCEDURE Left foot I&D ANESTHESIOLOGIST Dr. Mckeon ANESTHESIA General HEMOSTASIS Left ankle tourniquet at 250 mmHg for 29 minutes. ESTIMATED BLOOD LOSS Less than 2 cc. MATERIALS Nylon. INJECTABLES Postoperatively 10 mL 0.5% Marcaine plain. BRIEF HISTORY The patient is a 46-year-old male with a longstanding history of diabetes with pancreatic transplant x2. He presented to the ED with left foot red, hot and swollen. A ceretec bone scan was completed without any osteomyelitis. Left foot MRI completed without contrast given his kidney limitations. Risks, benefits, pros and cons were discussed with the patient and he freely consents to surgical intervention. No guarantees were given or implied. PROCEDURE IN DETAIL The patient is brought into the operating room and placed on the operating table in supine position. After general anesthesia was administered the left foot was prepped, scrubbed and draped in the usual sterile aseptic manner. Left ankle block was carried out prior to prep with 10 mL of a 1:1 mixture of 2% lidocaine plain along with 0.5% Marcaine plain. The foot was exsanguinated, tourniquet inflated up to 2500 mmHg on the left ankle. Attention was then directed to the left foot where incision was made dorsal fourth interspace and carried into the plantar aspect. There was significant purulent drainage on the dorsal aspect of the left foot onto the fourth and fifth rays. The incision was carried and extended proximally along the left fifth ray almost to the base of the fifth metatarsal. Culture was taken of the dorsal purulent drainage of the fourth interspace as well as the plantar fourth interspace. This was sent off for both aerobic, anaerobic Gram stain culture and sensitivity. All necrotic nonviable tissue was excisionally debrided with a #15 blade. Attention was then directed to the left fourth interspace where the incision was flushed copiously with normal sterile saline impregnated with 2 units of . The fourth interspace was then packed with 1/4 inch Iodoform soaked with Betadine. The incision was then closed with retention sutures from 3-0 nylon. Dry sterile dressings were applied using Adaptic, 4x4s, Davida and a light Deon wrap. The patient tolerated the procedure to completion. The patient will be transferred to the PACU for brief period of postop monitoring after which he will be discharged to the floor per PACU protocol. Tourniquet was deflated in the OR with a prompt hyperemic response to digits 1-5 on the left. The patient will be non-weightbearing on the left side and assistive devices dispensed. A consult for physical therapy was placed to assist with these recommendations. Gaby Burdick DPM SR/JESSICA /3:48 PM /8:59 PM ZACHARY
[2017-04-22] VITALS: BP 128/78; PULSE 84; RESP 20; TEMP 98.9; O2SAT 94
[2017-04-22 04:00] VITALS: BP 132/72; PULSE 89; RESP 20; TEMP 98.8; O2SAT 94
[2017-04-22] MEDS ORDERED: PHARMACY ORDERED LAB ONE (04:45)
[2017-04-22] MEDS: PIPERACIL-TAZO 4.5 GM PREMIX 100 ML IV SCH ×3 (05:22→15:36)
[2017-04-22] MEDS: VANCOMYCIN INJ 1,500 MG in SODIUM CHLORID 0.9% 500 ML INJ 500 ML IV SCH (05:22)
[2017-04-22 06:14] LABS: VANCOMYCIN TROUGH 21.5 MCG/ML (5.0-10.0)
[2017-04-22 06:25] LABS: C. DIFF EPI 027 PRESUMPTIVE NEGATIVE (NEGATIVE)
[2017-04-22 08:00] VITALS: BP 140/79; PULSE 90; RESP 18; TEMP 97.8; O2SAT 93
[2017-04-22] MEDS: INSULIN ASPART SUPPLEMENTAL SCALE SQ SCH ×4 (08:00→21:00)
[2017-04-22] MEDS: predniSONE 5 MG TAB PO SCH (08:40)
[2017-04-22] MEDS: oxyCODONE/ACETAMINOPHEN 10 MG/325 MG TAB PO PRN ×2 (08:40→19:54)
[2017-04-22] MEDS: PANTOPRAZOLE SOD 40 MG DELAYED RELEASE TAB PO SCH ×2 (08:40→19:53)
[2017-04-22] MEDS: METOPROLOL TARTRATE 100 MG TAB PO SCH (08:40)
[2017-04-22] MEDS: ASPIRIN EC 81 MG TABEC PO SCH (08:41)
[2017-04-22] MEDS: SODIUM CHLORIDE 0.9% FLUSH 10 ML FLUSH IV FLUSH SCH ×2 (08:42→21:35)
[2017-04-22] MEDS: DOCUSATE SODIUM 50 MG/SENNA 8.6 MG TAB PO SCH ×2 (08:42→19:54)
--- NOTE | 2017-04-22 09:40 | HHI.IDPN ---
Subjective Subjective Remarks Mr. Weaver is a 46 y/o CM with PMHx significant for DM with neuropathy, nephropathy s/p renal transplant who is on immune suppressant medications such as cellcept, tacrolimus and prednisone. He reports feeling of unwellness for last 1 week. He reports no symptoms in his foot. He did not examine his feet in last 1 week. He reports that when he was wearing his socks to come to hospital is when he noticed the foot findings. He had started having fever and chills, sweats, and body aches. He had a Tmax of 100.1 yesterday, but has been continuously taking Tylenol for a week. Today he noticed that his left foot was erythematous and had swelling. He also knows a wound on the bottom of his foot. He states that he is having some bloody discharge coming from the wound. 6 months ago he was admitted for a right foot wound. He states that "the doctor had scraped his right great toe to the bone" and gave him vancomycin in hospital and discharged him on oral antibiotics. He usually checks his feet daily, but has not since Saturday due to being ill. Sepsis workup initiated on admission. ID consulted for evaluation and mment of Sepsis, Left foot cellulitis possible osteomyelitis. Overnight events reviewed POD1 s/p I&D of abscess. No chills and night sweats No rash No diarrhea Antibiotics Zosyn IV Vanco IV Lines Line sites with no e.o infection Past Medical History Diabetes mellitus type 1 History of diabetic foot wound right foot 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 Severe diabetic neuropathy Hyperlipidemia Hypertension Debridement of right foot in the past by podiatry history of kidney transplant History of pancreatic transplant 2 Allergies: Coded Allergies: No Known Allergies (Unverified , 04/16/17) Objective . Vital Signs Date Time Temp Pulse Resp B/P (MAP) Pulse Ox O2 Delivery O2 Flow Rate FiO2 04/22/17 08:00 97.8 90 18 140/79 (99) 93 04/22/17 04:00 98.8 89 20 132/72 (92) 94 04/22/17 00:00 98.9 84 20 128/78 (95) 94 04/21/17 20:00 96.1 87 20 132/78 (96) 95 04/21/17 16:00 79 12 135/79 (97) 97 Room Air 04/21/17 16:00 96.8 80 17 137/83 (101) 90 04/21/17 15:45 78 14 121/75 (90) 94 Room Air 04/21/17 15:36 98.1 79 16 123/77 (92) 96 Nasal Cannula 4 04/21/17 12:00 97.3 84 17 96/56 (69) 98 04/22/17 04/22/17 04/23/17 15:00 23:00 07:00 Intake Total 515 ml Balance 515 ml IV Total 515 ml . Laboratory Tests Test 04/22/17 05:30 Creatinine 1.01 MG/DL Estimat Glomerular Filtration Rate 79 ML/MIN Microbiology Date/Time Source Procedure Growth Status 04/21/17 15:20 Wound Foot Fungal Smear Pending Received 04/21/17 15:20 Wound Foot Fungal Culture Pending Received 04/21/17 15:20 Wound Foot Acid Fast Stain Pending Received 04/21/17 15:20 Wound Foot Mycobacterial Culture Pending Received 04/21/17 15:20 Wound Foot Gram Stain Pending Received 04/21/17 15:20 Wound Foot Wound Culture Pending Received 04/21/17 15:00 Wound Foot Fungal Smear Pending Received 04/21/17 15:00 Wound Foot Fungal Culture Pending Received 04/21/17 15:00 Wound Foot Acid Fast Stain Pending Received 04/21/17 15:00 Wound Foot Mycobacterial Culture Pending Received 04/21/17 15:00 Wound Foot Gram Stain Pending Received 04/21/17 15:00 Wound Foot Wound Culture Pending Received Imaging Last Impressions Foot MRI 04/18/17 0000 Signed Impressions: Service Date/Time: March 16:07 - CONCLUSION: Extensive soft tissue edema of the left foot. Cutaneous ulceration at the plantar aspect of the forefoot adjacent to the fourth MTP joint. Mild bony edema in the fourth and fifth toes indicating reactive change from adjacent soft tissue infection versus early osteomyelitis. No T1-weighted bony signal abnormality to confirm osteomyelitis. Several elongated areas of fluid signal adjacent to the fourth and fifth extensor tendons and plantar aspect of fifth toe indicating possible early abscess formation. Contrast-enhanced study would be helpful for further evaluation of these areas. Behzad Metzger MD Foot X-Ray 04/16/17 1352 Signed Impressions: Service Date/Time: Sunday, April 16, 2017 14:23 - CONCLUSION: No acute disease. Anshu Charles MD Physical Exam GENERAL: This is a well-nourished, well-developed patient, in no apparent distress. SKIN: No rashes, ecchymoses or lesions. Cool and dry. HEAD: Atraumatic. Normocephalic. No temporal or scalp tenderness. EYES: Pupils equal round and reactive. Extraocular motions intact. No scleral icterus. No injection or drainage. ENT: Nose without bleeding, purulent drainage or septal hematoma. Throat without erythema, tonsillar hypertrophy or exudate. Uvula midline. Airway patent. NECK: Trachea midline. Supple, nontender, no meningeal signs. CARDIOVASCULAR: Regular rate and rhythm without murmurs, gallops, or rubs. RESPIRATORY: Clear to auscultation. Breath sounds equal bilaterally. No wheezes , rales, or rhonchi. GASTROINTESTINAL: Abdomen soft, non-tender, nondistended. MUSCULOSKELETAL: Left foot plantar aspect a black dime shaped area with tenderness and induration noted. Erythema from this area extends through the web space to the dorsal aspect of foot. There is a dusky skin change in the web space as well. Slight worsening in erythema and induration compared to . NEUROLOGICAL: Awake and alert. Grossly nonfocal Psych cooperative IV line sites with no e.o infection Assessment & Plan Remarks Assessment and Plan Sepsis present on admission (tachycardia, leucocytosis and source: left foot infection, possible bacteremia) MSSA bacteremia (at time of dictation of note) Left foot cellulitis/abscess Left foot possible osteomyelitis of toe. MSSA and E.faecalis from foot wound. DM with neuropathy DM nephropathy s/p transplant Immune compromised Recs Continue Zosyn IV Continue vanco IV (target 15-20) follow intra op cultures. Plan for surgery repeat I&D of abscess this Saturday per d/w . will take over care. MRI with abscess and marrow edema. WBC scan with no e.o osteomyelitis. Follow clinically. Will follow clinically, discuss intraop findings with after 2nd surgery to formulate a discharge plan. For now continue IV antibiotics. Addendum cultures reviewed at 8:53 pm. DC Zosyn IV DC Vanco IV Start Ancef IV (for MSSA bacteremia and MSSA foot infection). Will follow intraop cultures further. Daiana Morales MD Apr 22, 2017 09:40
[2017-04-22 12:00] VITALS: BP 128/81; PULSE 83; RESP 20; TEMP 96.6; O2SAT 94
[2017-04-22] MEDS: TACROLIMUS 1 MG CAP PO SCH (12:35)
[2017-04-22] MEDS: MYCOPHENOLATE MOFETIL 500 MG TAB PO SCH (12:35)
[2017-04-22 16:00] VITALS: BP 130/76; PULSE 84; RESP 18; TEMP 97.4; O2SAT 95
[2017-04-22] MEDS ORDERED: VANCOMYCIN INJ 1,250 MG in SODIUM CHLOR 0.9% 250 ML INJ 250 ML IV SCH (17:00)
--- NOTE | 2017-04-22 17:49 | HHI.PR ---
Subjective Remarks Patient seen today around noon. Says he is feeling all right. Denies any chest pain or shortness breath. Denies any pain. Objective Vital Signs Date Time Temp Pulse Resp B/P (MAP) Pulse Ox O2 Delivery O2 Flow Rate FiO2 04/22/17 16:00 97.4 84 18 130/76 (94) 95 04/22/17 12:00 96.6 83 20 128/81 (97) 94 04/22/17 08:00 97.8 90 18 140/79 (99) 93 04/22/17 04:00 98.8 89 20 132/72 (92) 94 04/22/17 00:00 98.9 84 20 128/78 (95) 94 04/21/17 20:00 96.1 87 20 132/78 (96) 95 I/O 04/21/17 04/21/17 04/21/17 04/22/17 04/22/17 04/22/17 07:00 15:00 23:00 07:00 15:00 23:00 Intake Total 240 ml 615 ml 1085 ml 340 ml 615 ml 100 ml Output Total 2000 ml 5 ml Balance -1760 ml 615 ml 1080 ml 340 ml 615 ml 100 ml Intake Oral 240 ml 120 ml 240 ml IV Total 615 ml 665 ml 100 ml 615 ml 100 ml Other 300 ml Output Urine Total 2000 ml Estimated Blood Loss 5 ml # Voids 1 1 # Bowel Movements 1 1 1 Result Diagram: 04/20/17 0741 04/22/17 0530 Objective Remarks GENERAL: patient sitting up in bed. Appears comfortable. Alert and oriented 3. no change on exam SKIN: Warm and dry. HEAD: Normocephalic. EYES: No scleral icterus. No injection or drainage. NECK: Supple, trachea midline. No JVD. CARDIOVASCULAR: Regular rate and rhythm without murmurs, gallops, or rubs. RESPIRATORY: Breath sounds equal bilaterally. No accessory muscle use. GASTROINTESTINAL: Abdomen soft, non-tender, nondistended. MUSCULOSKELETAL: No cyanosis, or edema. postoperative left foot BACK: Nontender without obvious deformity. No CVA tenderness. A/P Assessment and Plan ==== 04/22/17 //Hypoglycemia. Nursing reports glucose level in the 60s this morning likely secondary to nighttime insulin. Switch to moderate sliding scale. //Continue IV antibiotics for osteomyelitis. Follow-up cultures //Diarrhea. Likely antibiotic associated. Negative C. difficile. Monitor. //Diabetic foot wound of the left foot with uncontrolled type 1 diabetes -Staph aureus on I and D cultures from admission. -Plan for surgery on 04/21 by podiatry. Infectious disease following. Appreciate assistance. Continue broad-spectrum IV antibiotics. -Planned surgery 04/21 by podiatry. Patient is medically optimized for surgery. //ESRD status post kidney transplant Continue on his home medications. Including immunosuppression with Prograf and CellCept for his chronic renal transplant continue on the chronic prednisone //Hyperlipidemia- continue on the simvastatin //High blood pressure -Pressure acceptable -continue on metoprolol /Status post kidney transplant Nephrology consult pending. //Type 1 diabetes mellitus -04/20-Glucose reviewed and acceptable. Patient has not been getting mealtime coverage due to glucose less than 150. Decrease nighttime Levemir to 40 units at night. Continue insulin sliding scale, diabetic diet. //Sirs RESOLVED // Prophylaxis. Continue Lovenox daily. Otherwise As per surgical service. Discharge Planning cont on iv abx. Giovany Cruz MD Apr 22, 2017 17:49
[2017-04-22] MEDS: ENOXAPARIN SODIUM 40 MG/0.4 ML SYRINGE SQ SCH (17:52)
[2017-04-22] MEDS: PRAVASTATIN SOD 80 MG TAB PO SCH (19:53)
[2017-04-22 20:00] VITALS: BP 150/85; PULSE 97; RESP 20; TEMP 97.2; O2SAT 95
[2017-04-22] MEDS: INSULIN DETEMIR 100 UNITS/ML VIAL SQ SCH ×2 (21:00→21:34)
[2017-04-22] MEDS: ceFAZolin 2 GM PREMIX 50 ML IV SCH (21:34)
[2017-04-23] VITALS: BP 130/80; PULSE 88; RESP 18; TEMP 97; O2SAT 95
[2017-04-23] MEDS: MYCOPHENOLATE MOFETIL 500 MG TAB PO SCH ×3 (00:08→23:12)
[2017-04-23] MEDS: TACROLIMUS 1 MG CAP PO SCH ×3 (00:08→23:12)
[2017-04-23] MEDS: ceFAZolin 2 GM PREMIX 50 ML IV SCH ×3 (05:07→20:27)
[2017-04-23 08:00] VITALS: BP 123/70; PULSE 99; RESP 16; TEMP 98.9; O2SAT 93
[2017-04-23] MEDS: METOPROLOL TARTRATE 100 MG TAB PO SCH (08:12)
[2017-04-23] MEDS: INSULIN ASPART SUPPLEMENTAL SCALE SQ SCH ×4 (08:12→21:12)
[2017-04-23] MEDS: predniSONE 5 MG TAB PO SCH (08:12)
[2017-04-23] MEDS: PANTOPRAZOLE SOD 40 MG DELAYED RELEASE TAB PO SCH ×2 (08:12→20:27)
[2017-04-23] MEDS: SODIUM CHLORIDE 0.9% FLUSH 10 ML FLUSH IV FLUSH SCH ×2 (08:13→20:27)
[2017-04-23] MEDS: ASPIRIN EC 81 MG TABEC PO SCH (08:13)
[2017-04-23 08:15] LABS: INTERNATIONAL NORMALIZED RATIO 1.1 RATIO
[2017-04-23] MEDS: DOCUSATE SODIUM 50 MG/SENNA 8.6 MG TAB PO SCH ×2 (08:19→20:27)
[2017-04-23 12:00] VITALS: BP 117/65; PULSE 87; RESP 14; TEMP 98.6; O2SAT 95
[2017-04-23] MEDS ORDERED: ePHEDrine/NS 25 MG/5 ML SYR IV ONE (12:00)
[2017-04-23] MEDS ORDERED: LIDOCAINE HCL 1% PF 5 ML AMPULE OTHER ONE (12:00)
[2017-04-23] MEDS ORDERED: NEOMYCIN/POLYMYXIN 1 ML G.U. IRRIGANT IRRIGATION ONE ×2 (12:00→19:00)
[2017-04-23] MEDS ORDERED: MIDAZOLAM HCL 2 MG/2 ML VIAL IV ONE (12:00)
[2017-04-23] MEDS ORDERED: PROPOFOL 200 MG/20 ML AMP IV ONE (12:00)
[2017-04-23] MEDS ORDERED: PHENYLEPH/NS 1000 MCG/10 ML SYR IV ONE (12:00)
[2017-04-23] MEDS ORDERED: ONDANSETRON HCL 4 MG/2 ML VIAL IV PUSH ONE (12:00)
[2017-04-23] MEDS ORDERED: ROCURONIUM INJ 50 MG/5 ML SYRINGE IV PUSH ONE (12:00)
[2017-04-23 16:00] VITALS: BP 127/80; PULSE 86; RESP 16; TEMP 99.1; O2SAT 96
[2017-04-23] MEDS ORDERED: BUPIVACAINE HCL PF 0.5% 30 ML VIAL ONE (16:38)
[2017-04-23] MEDS: ENOXAPARIN SODIUM 40 MG/0.4 ML SYRINGE SQ SCH (17:45)
--- NOTE | 2017-04-23 18:05 | HHI.IDPN ---
Subjective Subjective Remarks Mr. Weaver is a 46 y/o CM with PMHx significant for DM with neuropathy, nephropathy s/p renal transplant who is on immune suppressant medications such as cellcept, tacrolimus and prednisone. He reports feeling of unwellness for last 1 week. He reports no symptoms in his foot. He did not examine his feet in last 1 week. He reports that when he was wearing his socks to come to hospital is when he noticed the foot findings. He had started having fever and chills, sweats, and body aches. He had a Tmax of 100.1 yesterday, but has been continuously taking Tylenol for a week. Today he noticed that his left foot was erythematous and had swelling. He also knows a wound on the bottom of his foot. He states that he is having some bloody discharge coming from the wound. 6 months ago he was admitted for a right foot wound. He states that "the doctor had scraped his right great toe to the bone" and gave him vancomycin in hospital and discharged him on oral antibiotics. He usually checks his feet daily, but has not since Saturday due to being ill. Sepsis workup initiated on admission. ID consulted for evaluation and mment of Sepsis, Left foot cellulitis possible osteomyelitis. Overnight events reviewed POD1 s/p I&D of abscess. No chills and night sweats No rash No diarrhea Antibiotics Zosyn IV Vanco IV Lines Line sites with no e.o infection Past Medical History Diabetes mellitus type 1 History of diabetic foot wound right foot 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 Severe diabetic neuropathy Hyperlipidemia Hypertension Debridement of right foot in the past by podiatry history of kidney transplant History of pancreatic transplant 2 Allergies: Coded Allergies: No Known Allergies (Unverified , 04/16/17) Objective . Vital Signs Date Time Temp Pulse Resp B/P (MAP) Pulse Ox O2 Delivery O2 Flow Rate FiO2 04/23/17 16:00 99.1 86 16 127/80 (96) 96 04/23/17 12:00 98.6 87 14 117/65 (82) 95 04/23/17 08:00 98.9 99 16 123/70 (87) 93 04/23/17 00:00 97.0 88 18 130/80 (97) 95 04/22/17 20:00 97.2 97 20 150/85 (106) 95 04/23/17 04/23/17 04/24/17 15:00 23:00 07:00 Intake Total 480 ml Balance 480 ml Intake Oral 480 ml # Voids 2 # Bowel Movements 1 . Laboratory Tests Test 04/22/17 05:30 Creatinine 1.01 MG/DL Estimat Glomerular Filtration Rate 79 ML/MIN Microbiology Date/Time Source Procedure Growth Status 04/21/17 15:20 Wound Foot Fungal Smear - Final NO FUNGAL ELEMENTS SEEN. Resulted 04/21/17 15:20 Wound Foot Fungal Culture Pending Resulted 04/21/17 15:20 Wound Foot Acid Fast Stain - Final NO ACID FAST BACILLI SEEN Resulted 04/21/17 15:20 Wound Foot Mycobacterial Culture Pending Resulted 04/21/17 15:20 Wound Foot Gram Stain - Final Complete 04/21/17 15:20 Wound Culture - Final Staphylococcus Aureus Complete 04/21/17 15:00 Wound Foot Fungal Smear - Final NO FUNGAL ELEMENTS SEEN. Resulted 04/21/17 15:00 Wound Foot Fungal Culture Pending Resulted 04/21/17 15:00 Wound Foot Acid Fast Stain - Final NO ACID FAST BACILLI SEEN Resulted 04/21/17 15:00 Wound Foot Mycobacterial Culture Pending Resulted 04/21/17 15:00 Wound Foot Gram Stain - Final Complete 04/21/17 15:00 Wound Culture - Final Staphylococcus Aureus Complete Imaging Last Impressions Foot MRI 04/18/17 0000 Signed Impressions: Service Date/Time: March 16:07 - CONCLUSION: Extensive soft tissue edema of the left foot. Cutaneous ulceration at the plantar aspect of the forefoot adjacent to the fourth MTP joint. Mild bony edema in the fourth and fifth toes indicating reactive change from adjacent soft tissue infection versus early osteomyelitis. No T1-weighted bony signal abnormality to confirm osteomyelitis. Several elongated areas of fluid signal adjacent to the fourth and fifth extensor tendons and plantar aspect of fifth toe indicating possible early abscess formation. Contrast-enhanced study would be helpful for further evaluation of these areas. Behzad Metzger MD Foot X-Ray 04/16/17 1352 Signed Impressions: Service Date/Time: Sunday, April 16, 2017 14:23 - CONCLUSION: No acute disease. Anshu Charles MD Physical Exam GENERAL: This is a well-nourished, well-developed patient, in no apparent distress. SKIN: No rashes, ecchymoses or lesions. Cool and dry. HEAD: Atraumatic. Normocephalic. No temporal or scalp tenderness. EYES: Pupils equal round and reactive. Extraocular motions intact. No scleral icterus. No injection or drainage. ENT: Nose without bleeding, purulent drainage or septal hematoma. Throat without erythema, tonsillar hypertrophy or exudate. Uvula midline. Airway patent. NECK: Trachea midline. Supple, nontender, no meningeal signs. CARDIOVASCULAR: Regular rate and rhythm without murmurs, gallops, or rubs. RESPIRATORY: Clear to auscultation. Breath sounds equal bilaterally. No wheezes , rales, or rhonchi. GASTROINTESTINAL: Abdomen soft, non-tender, nondistended. MUSCULOSKELETAL: Left foot plantar aspect a black dime shaped area with tenderness and induration noted. Erythema from this area extends through the web space to the dorsal aspect of foot. There is a dusky skin change in the web space as well. Slight worsening in erythema and induration compared to yday. NEUROLOGICAL: Awake and alert. Grossly nonfocal Psych cooperative IV line sites with no e.o infection Assessment & Plan Remarks Assessment and Plan Sepsis present on admission (tachycardia, leucocytosis and source: left foot infection, possible bacteremia) MSSA bacteremia Left foot cellulitis/abscess: MSSA Left foot possible osteomyelitis of toe. MSSA and E.faecalis from foot wound from intial preop culture. E.faecalis likely contaminant. DM with neuropathy DM nephropathy s/p transplant Immune compromised Recs DC Zosyn IV DC vanco IV (target 15-20) Start Ancef IV (MSSA bacteremia, MSSA foot abscess) for repeat I&D today. MRI with abscess and ? reactive marrow edema. WBC scan with no e.o osteomyelitis. Follow clinically. d/w and pt, Mom in room. Will follow clinically, discuss intraop findings with after 2nd surgery to formulate a discharge plan. For now continue IV antibiotics. Addendum cultures reviewed at 8:53 pm. DC Zosyn IV DC Vanco IV Start Ancef IV (for MSSA bacteremia and MSSA foot infection). Will follow intraop cultures further. Daiana Morales MD Apr 23, 2017 18:05
[2017-04-23] MEDS ORDERED: DO NOT ADM ANY ANTICOAGULANT DRUGS PRN (18:43)
--- NOTE | 2017-04-23 19:14 | HHI.PR ---
Subjective Remarks Patient seen this morning. Says he is feeling all right. Reports pain is controlled. Denies any chest pain or shortness of breath. Denies any nausea or vomiting. Objective Vital Signs Date Time Temp Pulse Resp B/P (MAP) Pulse Ox O2 Delivery O2 Flow Rate FiO2 04/23/17 16:00 99.1 86 16 127/80 (96) 96 04/23/17 12:00 98.6 87 14 117/65 (82) 95 04/23/17 08:00 98.9 99 16 123/70 (87) 93 04/23/17 00:00 97.0 88 18 130/80 (97) 95 04/22/17 20:00 97.2 97 20 150/85 (106) 95 I/O 04/22/17 04/22/17 04/22/17 04/23/17 04/23/17 04/23/17 07:00 15:00 23:00 07:00 15:00 23:00 Intake Total 340 ml 615 ml 2150 ml 50 ml 1080 ml Output Total 400 ml 800 ml 10 ml Balance 340 ml 615 ml 1750 ml -750 ml 1070 ml Intake Oral 240 ml 2000 ml 480 ml IV Total 100 ml 615 ml 150 ml 50 ml Other 600 ml Output Urine Total 400 ml 800 ml Estimated Blood Loss 10 ml # Voids 1 5 2 # Bowel Movements 1 0 1 Result Diagram: 04/20/17 0741 04/22/17 0530 Objective Remarks GENERAL: patient sitting up in bed. Appears comfortable. Alert and oriented 3. again,no change on exam SKIN: Warm and dry. HEAD: Normocephalic. EYES: No scleral icterus. No injection or drainage. NECK: Supple, trachea midline. No JVD. CARDIOVASCULAR: Regular rate and rhythm without murmurs, gallops, or rubs. RESPIRATORY: Breath sounds equal bilaterally. No accessory muscle use. GASTROINTESTINAL: Abdomen soft, non-tender, nondistended. MUSCULOSKELETAL: No cyanosis, or edema. postoperative left foot BACK: Nontender without obvious deformity. No CVA tenderness. A/P Assessment and Plan ==== 04/23/17 //Diabetes mellitus. Blood sugars controlled this morning in the 100s. Currently nothing by mouth. Continue to monitor. //Continue IV antibiotics for osteomyelitis. Discussed with Dr. Morales. Podiatry to reexamine wound intraoperatively today. Follow-up cultures //Diabetic foot wound of the left foot with uncontrolled type 1 diabetes -Staph aureus on I and D cultures from admission. -Plan for surgery on 04/21 by podiatry. Infectious disease following. Appreciate assistance. Continue broad-spectrum IV antibiotics. -Planned surgery 04/21 by podiatry. Patient is medically optimized for surgery. //ESRD status post kidney transplant Continue on his home medications. Including immunosuppression with Prograf and CellCept for his chronic renal transplant continue on the chronic prednisone //Hyperlipidemia- continue on the simvastatin //High blood pressure -Pressure acceptable -continue on metoprolol /Status post kidney transplant Nephrology consult pending. //Type 1 diabetes mellitus -04/20-Glucose reviewed and acceptable. Patient has not been getting mealtime coverage due to glucose less than 150. Decrease nighttime Levemir to 40 units at night. Continue insulin sliding scale, diabetic diet. //Diarrhea. With loose bowel movements. C. difficile negative. //Sirs RESOLVED // Prophylaxis. Continue Lovenox daily. Otherwise As per surgical service. Discharge Planning cont on iv abx. Giovany Cruz MD Apr 23, 2017 19:13
--- NOTE | 2017-04-23 19:39 | HHI.PR ---
Immediate Post Op Note Procedure Date: Apr 23, 2017 Pre Op Diagnosis: Infection L foot Post Op Diagnosis: Infection L foot Surgeon: Magalys Rg DPM Director Of Maternity Services(s): Staff Procedure: I&D L foot with delayed primary closure Findings: Consistent with diagnosis. L foot with previous incision made between 4th/5th toes extending dorsally to proximal 4th/5th metatarsal base area and in interspace, and extending plantarly to metatarsal head area between 4th/5th. L 5th toe with dark red color and questionable viability, but still warm to touch. Irrigation with 6L NS + gu irrigant, followed by delayed primary closure with 2-0 nylon. Dressing with xeroform, 4x4, abd, cast padding, balbir Additional Information: n/a Complications: none Specimen(s) removed: culture L foot Estimated blood loss: minimal Anesthesia: General Drains: None IVF Tourniquet time (min at mmHg) n/a Patient to: PACU Patient Condition: Good Date/Time of Procedure: SEE SURGICAL CARE RECORD Magalys Rg DPM Apr 23, 2017 19:39
[2017-04-23 20:00] VITALS: BP 129/81; PULSE 80; RESP 16; TEMP 97.6; O2SAT 95
[2017-04-23] MEDS: PRAVASTATIN SOD 80 MG TAB PO SCH (20:27)
[2017-04-23] MEDS: KETOCONAZOLE 2% CREAM 15 GM TOPICAL SCH (20:27)
[2017-04-23] MEDS ORDERED: TOLNAFTATE 1% CREAM 15 GM TOPICAL SCH (21:00)
[2017-04-23] MEDS: INSULIN DETEMIR 100 UNITS/ML VIAL SQ SCH (21:12)
[2017-04-23] MEDS ORDERED: INSULIN ASPART 1,000 UNITS/10 ML VIAL SQ ONE (23:00)
[2017-04-24] VITALS: BP 110/63; PULSE 79; RESP 18; TEMP 97.1; O2SAT 94
[2017-04-24 04:00] VITALS: BP 99/63; PULSE 85; RESP 18; TEMP 96.8; O2SAT 95
[2017-04-24] MEDS: oxyCODONE/ACETAMINOPHEN 5 MG/325 MG TAB PO PRN (04:12)
[2017-04-24] MEDS: ceFAZolin 2 GM PREMIX 50 ML IV SCH ×3 (04:12→20:11)
[2017-04-24] MEDS ORDERED: PHARMACY ORDERED LAB ONE (04:45)
[2017-04-24 08:00] VITALS: BP 96/59; PULSE 74; RESP 16; TEMP 97.4; O2SAT 95
[2017-04-24] MEDS: INSULIN ASPART SUPPLEMENTAL SCALE SQ SCH ×4 (08:00→20:10)
[2017-04-24] MEDS: DOCUSATE SODIUM 50 MG/SENNA 8.6 MG TAB PO SCH ×2 (09:00→20:16)
[2017-04-24] MEDS: SODIUM CHLORIDE 0.9% FLUSH 10 ML FLUSH IV FLUSH SCH ×2 (09:00→20:17)
[2017-04-24] MEDS: METOPROLOL TARTRATE 100 MG TAB PO SCH (09:00)
[2017-04-24] MEDS: PANTOPRAZOLE SOD 40 MG DELAYED RELEASE TAB PO SCH ×2 (09:13→20:11)
[2017-04-24] MEDS: ASPIRIN EC 81 MG TABEC PO SCH (09:13)
[2017-04-24] MEDS: predniSONE 5 MG TAB PO SCH (09:13)
[2017-04-24] MEDS: KETOCONAZOLE 2% CREAM 15 GM TOPICAL SCH ×2 (09:16→20:18)
--- NOTE | 2017-04-24 09:32 | HHI.FF ---
Face to Face Verification Diagnosis: (1) Diabetic ulcer of right foot (2) Diabetic foot ulcer associated with type 1 diabetes mellitus (3) Cellulitis of right foot Physical Therapy Order: Evaluate and Treat Home Health Nursing Order: Diabetic education Wound care and dressing changes Nursing assessment with vital signs IV medication administration Instructions: patient may need Iv antibiotics for osteomyelitis I have seen patient Shaka Weaver on 04/24/17. My clinical findings support the need for the requested home health care services because: Deconditioned w/ increased weakness I certify that my clinical findings support that this patient is homebound because: Unsafe to leave home unassisted Giovany Cruz MD Apr 24, 2017 09:32
[2017-04-24 12:00] VITALS: BP 106/61; PULSE 80; RESP 17; TEMP 96.8; O2SAT 95
[2017-04-24] MEDS: TACROLIMUS 1 MG CAP PO SCH (12:36)
[2017-04-24] MEDS: MYCOPHENOLATE MOFETIL 500 MG TAB PO SCH (12:36)
--- NOTE | 2017-04-24 15:55 | PD.POD ---
Subjective Podiatric Problems s/p I&D L foot with delayed primary closure, Dr Rg 04/23/17 Discussed viability of L 5th toe is no longer questionable and toe will need amputation in near future. Ordered vascular consultation prior to any more foot surgery. Pain scale used: 0-10 numeric scale Pain score: 3 Past Med/Surg/Social History Past Medical History Endocrine: REPORTS HX OF: Diabetes mellitus, Other endocrine history Genitourinary: REPORTS HX OF: Kidney failure Neurologic: REPORTS HX OF: Peripheral neuropathy Past Surgical History Endocrine: REPORTS HX OF: Other endocrine surgery (pancreatitic transplant with failure) Genitourinary: REPORTS HX OF: Other surgery (to need transplant) Social History Smoking Status: Never Smoker Objective Vital Signs Vital Signs Date Time Temp Pulse Resp B/P (MAP) Pulse Ox O2 Delivery O2 Flow Rate FiO2 04/24/17 12:00 96.8 80 17 106/61 (76) 95 04/24/17 08:00 97.4 74 16 96/59 (71) 95 04/24/17 04:00 96.8 85 18 99/63 (75) 95 04/24/17 00:00 97.1 79 18 110/63 (79) 94 04/23/17 20:00 97.6 80 16 129/81 (97) 95 04/23/17 19:15 80 15 124/79 (94) 93 Room Air 04/23/17 19:00 83 10 121/78 (92) 93 Room Air 04/23/17 18:45 98.0 86 10 135/87 (103) 95 Nasal Cannula 2 04/23/17 16:00 99.1 86 16 127/80 (96) 96 Coded Allergies: No Known Allergies (Unverified , 04/16/17) Physical Exam Remarks bandage clean, dry, intact L foot. L 5th toe black now. Magalys Rg DPM Apr 24, 2017 15:55
[2017-04-24 16:00] VITALS: BP 129/75; PULSE 86; RESP 17; TEMP 98.8; O2SAT 96
--- NOTE | 2017-04-24 17:24 | HHI.PR ---
Subjective Remarks pt seen this morning around 11 AM. Says he is feeling all right. Denies any chest pain or shortness of breath. Reports pain is controlled. Objective Vital Signs Date Time Temp Pulse Resp B/P (MAP) Pulse Ox O2 Delivery O2 Flow Rate FiO2 04/24/17 16:00 98.8 86 17 129/75 (93) 96 04/24/17 12:00 96.8 80 17 106/61 (76) 95 04/24/17 08:00 97.4 74 16 96/59 (71) 95 04/24/17 04:00 96.8 85 18 99/63 (75) 95 04/24/17 00:00 97.1 79 18 110/63 (79) 94 04/23/17 20:00 97.6 80 16 129/81 (97) 95 04/23/17 19:15 80 15 124/79 (94) 93 Room Air 04/23/17 19:00 83 10 121/78 (92) 93 Room Air 04/23/17 18:45 98.0 86 10 135/87 (103) 95 Nasal Cannula 2 I/O 04/23/17 04/23/17 04/23/17 04/24/17 04/24/17 04/24/17 07:00 15:00 23:00 07:00 15:00 23:00 Intake Total 50 ml 1130 ml 50 ml Output Total 800 ml 10 ml Balance -750 ml 1120 ml 50 ml Intake Oral 480 ml IV Total 50 ml 50 ml 50 ml Other 600 ml Output Urine Total 800 ml Estimated Blood Loss 10 ml # Voids 2 1 # Bowel Movements 1 Result Diagram: 04/20/17 0741 04/22/17 0530 Objective Remarks GENERAL: patient sitting up in recliner. Appears comfortable. Alert and oriented 3. no change on exam SKIN: Warm and dry. HEAD: Normocephalic. EYES: No scleral icterus. No injection or drainage. NECK: Supple, trachea midline. No JVD. CARDIOVASCULAR: Regular rate and rhythm without murmurs, gallops, or rubs. RESPIRATORY: Breath sounds equal bilaterally. No accessory muscle use. GASTROINTESTINAL: Abdomen soft, non-tender, nondistended. MUSCULOSKELETAL: No cyanosis, or edema. postoperative left foot BACK: Nontender without obvious deformity. No CVA tenderness. A/P Assessment and Plan ==== 04/24/17 //Diabetes mellitus. Blood sugars low this morning in the 80s. Did not receive coverage. Later called by nurse report glucoses in the 200s. Patient has been hyperglycemic in the afternoon, likely secondary to not receiving coverage with breakfast. Will add NovoLog 2 units with every meal in addition to sliding scale. //Continue IV antibiotics for osteomyelitis. Repeat culture 04/23 with no growth in 24 hours. Appreciate infectious disease assistance. //Diabetic foot wound of the left foot with uncontrolled type 1 diabetes -Staph aureus on I and D cultures from admission. -Plan for surgery on 04/21 by podiatry. Infectious disease following. Appreciate assistance. Continue broad-spectrum IV antibiotics. -Planned surgery 04/21 by podiatry. Patient is medically optimized for surgery. //ESRD status post kidney transplant Continue on his home medications. Including immunosuppression with Prograf and CellCept for his chronic renal transplant continue on the chronic prednisone //Hyperlipidemia- continue on the simvastatin //High blood pressure -Pressure acceptable -continue on metoprolol /Status post kidney transplant Nephrology consult pending. //Type 1 diabetes mellitus -04/20-Glucose reviewed and acceptable. Patient has not been getting mealtime coverage due to glucose less than 150. Decrease nighttime Levemir to 40 units at night. Continue insulin sliding scale, diabetic diet. //Diarrhea. With loose bowel movements. C. difficile negative. //Sirs RESOLVED // Prophylaxis. Continue Lovenox daily. Otherwise As per surgical service. Discharge Planning infectious disease, podiatry, vascular surgery following. cont on iv abx. Giovany Cruz MD Apr 24, 2017 17:24
[2017-04-24] MEDS: ENOXAPARIN SODIUM 40 MG/0.4 ML SYRINGE SQ SCH (17:46)
[2017-04-24] MEDS: INSULIN ASPART 1,000 UNITS/10 ML VIAL SQ SCH (18:02)
[2017-04-24] MEDS: PRAVASTATIN SOD 80 MG TAB PO SCH (20:18)
[2017-04-24 20:28] VITALS: BP 117/69; PULSE 91; RESP 18; TEMP 97.2; O2SAT 95
--- NOTE | 2017-04-24 21:11 | MB ---
cc: BOBO GIL DATE OF CONSULTATION: 04/24/2017 REASON FOR CONSULTATION: Abscess of the left foot. Diabetes mellitus. Question about peripheral vascular disease and hypoperfusion. HISTORY OF PRESENT DISEASE: This 46 year-old male with type 1 diabetes mellitus presents with left foot abscess cellulitis and gangrene of the toe. The patient underwent drainage of the abscess and resection of the tissue. There was not much bleeding noted. Question arises about his blood supply. PAST MEDICAL HISTORY: 1. Type 1 diabetes mellitus. 2. Neuropathy. 3. Hypertension. PAST SURGICAL HISTORY: 1. Successful renal transplant in 1998. 2. Unsuccessful pancreatic transplant x2. SOCIAL HISTORY: The patient smokes about a pack per day, sometimes more. PHYSICAL EXAMINATION: The physical examination reveals a pleasant 46 year-old male in no acute distress. HEENT: Normocephalic. No trauma to head. Pupils equally reactive. Extraocular muscles intact. Neck: Neck is supple, bilateral carotid pulses. No bruits. Chest: Chest is clear, bilateral breath sounds. Heart: Regular rhythm. Abdomen: Soft. Active bowel sounds. Incisions noted from previous surgery including left groin incision from the renal transplant. Extremities: The patient has bilateral brachial, radial, ulnar pulses. The patient has bilateral palpable femoral, popliteal, pulses, on the right side he has palpable dorsalis pedis, posterior tibial. On the left side, the patient has his foot wrapped up since he had recent podiatric surgery, however, capillary refill appears to be normal. IMPRESSION AND RECOMMENDATION: I reviewed the laboratory and diagnostic procedures. The gentleman has excellent palpable pulses in both legs. Doppler done at the bedside reveals brisk pulses in both legs. The gentleman does not have any appreciable inflow disease that would be flow limiting. In the face of his renal failure and renal transplant, at this point, I do not believe that CTA with a runoff or angiogram is indicated because of the risk/benefit ratio. Based on the clinical exam, the patient does not have significant peripheral vascular disease and with palpable pulses, we cannot make this better, so CTA will be a futile study and would only potentially endanger the transplanted kidney by administering the dye. As far as the natural history of the patient's disease is concerned, he has typical pattern of diabetic disease which starts in the small vessel of the feet and progressive neuropathy and then progresses proximally rather than the classic pattern of arteriosclerotic disease that is proximal with progressing distally. In addition, the patient is a lifetime smoker which is not helping the issue. At this point, there is no appreciable disease that would require further workup with intervention. Nonetheless, obviously with small vessel disease of the feet, this patient is at high-risk of losing part of the foot or even may need below-knee amputation in the future. I have discussed this with the patient and his family in very detail, and repeated at least 3-4 times to make sure they understand that peripheral vascular disease in diabetics looks different and on one hand he should stop smoking, and on the other hand it puts him at high-risk to high level amputation in the future. I thank you very much for the referral. Bobo VARGAS /6:26 PM /8:53 PM
[2017-04-24] MEDS: INSULIN DETEMIR 100 UNITS/ML VIAL SQ SCH (21:34)
[2017-04-25] MEDS: MYCOPHENOLATE MOFETIL 500 MG TAB PO SCH ×3 (00:17→23:45)
[2017-04-25] MEDS: TACROLIMUS 1 MG CAP PO SCH ×3 (00:17→23:45)
[2017-04-25 00:43] VITALS: BP 134/77; PULSE 93; RESP 20; TEMP 98.2; O2SAT 95
[2017-04-25] MEDS: ceFAZolin 2 GM PREMIX 50 ML IV SCH ×3 (04:55→20:12)
--- NOTE | 2017-04-25 06:10 | MP ---
cc: MAGALYS CASTANEDA DPM DATE OF 1970 DATE OF SURGERY April 23, 2017 HISTORY OF PRESENT ILLNESS The patient presented to the emergency department with infection to the left foot. He stated that it was of insidious onset. He did not know he had a wound secondary to neuropathy due to uncontrolled diabetes. He had a wound to the left plantar lateral foot that began communicating, turning red and having increased swelling to the area. He was found to have an abscess between fourth and fifth toes in the fourth interspace. He underwent an aggressive incision and drainage of the left foot and it was packed open by Dr. Burdick. He was then evaluated and found to have continue purulent drainage in the area and was consented for I&D left foot with attempt at delayed primary closure. At the time of the procedure the patient was noted to have some beginning color change to the left fifth toe. I discussed with him that there is a chance that the toe will not survive, that it appears as though there is extensive necrotic tissue and the infection has destroyed the medial blood vessels and possibly the dorsal and lateral blood vessel that goes to the toe to supply it with blood. I discussed with him that we will await and see what happens with the toe and will attempt an I&D with delayed primary closure of the current soft tissue defect at this time and then monitor the toe for further procedures. The patient consented to I&D left foot with delayed primary closure. OPERATIVE PROCEDURE He was seen in preop holding by myself, nursing staff and Anesthesia where the correct patient, side and site were all confirmed be correct to be the left foot. He was taken to the surgical suite, placed in supine position and the left foot was prepped and draped in normal sterile fashion. After timeouts were performed as per hospital protocol, attention was directed to the left foot. The previous incision was opened that had been made between the fourth and fifth toes that extended dorsally to the proximal fourth and fifth metatarsal base area as well as into the interspace and extending plantarly to the metatarsal head area between the fourth and fifth metatarsal heads. The left fifth toe was dark red in color and has questionable viability but was still warm to the touch at that time. The area was debrided excisionally of all necrotic tissue and all purulent material using rongeur, a #15 blade and curettes, followed by irrigation with 6 liters normal sterile saline plus irrigant, followed by delayed primary closure with 2-0 nylon to the area dorsally and plantarly. Culture was taken of the wound prior to closure of the left foot, followed by dressing consisting of Xeroform, 4x4s, ABD, cast padding and Deon bandage to the left lower extremity. He tolerated the procedure and anesthesia well without complications and was taken to PACU with vital signs stable and vascular status intact to the remainder of the left foot with a questionable viability of the fifth toe which I discussed with the patient postoperatively as well. SHORT OPERATIVE NOTE SURGEON Magalys Castaneda DPM NURSES ASSISTANT Staff. PREOPERATIVE DIAGNOSIS Infection left foot. POSTOPERATIVE DIAGNOSIS Infection left foot. PROCEDURE I&D left foot with delayed primary closure. ANESTHESIA General endotracheal anesthesia. ESTIMATED BLOOD LOSS Minimal and I discussed with the patient he has minimal bleeding intraoperatively as well. PATHOLOGY Culture left foot. COMPLICATIONS None. TOURNIQUET TIME Tourniquet not utilized. CONDITION Stable to PACU. DISPOSITION Non-weightbearing left foot and will monitor left fifth toe to determine if the toe will be viable. Vascular consult will be put in due to minimal bleeding intraoperatively as well as decreased viability of left fifth toe and will evaluate in the coming days for further surgery. Magalys WOODARD /5:59 PM /5:52 AM
[2017-04-25] MEDS: INSULIN ASPART 1,000 UNITS/10 ML VIAL SQ SCH ×3 (07:46→17:54)
[2017-04-25] MEDS: INSULIN ASPART SUPPLEMENTAL SCALE SQ SCH ×4 (07:46→21:00)
[2017-04-25 08:00] VITALS: BP 134/80; PULSE 88; RESP 18; TEMP 97.2; O2SAT 94
[2017-04-25 08:07] LABS: AUTOMATED NEUTROPHIL # 5.9 TH/MM3 (1.8-7.7); BASOPHIL # 0.1 TH/MM3 (0-0.2); BASOPHIL % 0.7 % (0.0-2.0); EOSINOPHIL # 0.1 TH/MM3 (0-0.4); HEMATOCRIT 36.2 % (39.0-51.0); HEMO FLAGS DIFF FINAL; LYMPH % 19.1 % (9.0-44.0); LYMPHOCYTE # 1.7 TH/MM3 (1.0-4.8); MEAN CELL VOLUME 86.8 FL (80.0-100.0); MEAN CORPUSCULAR HGB CONC 34.5 % (32.0-36.0); MONO % 11.7 % (0.0-8.0); NEUT % 67.5 % (16.0-70.0); PLATELET COUNT 446 TH/MM3 (150-450); RED BLOOD COUNT 4.17 MIL/MM3 (4.50-5.90); RED CELL DISTRIBUTION WIDTH 12.7 % (11.6-17.2); WHITE BLOOD COUNT 8.8 TH/MM3 (4.0-11.0)
[2017-04-25 08:30] LABS: BICARBONATE 27.3 MEQ/L (21.0-32.0); MAGNESIUM 1.8 MG/DL (1.5-2.5); POTASSIUM 3.9 MEQ/L (3.5-5.1)
[2017-04-25] MEDS: METOPROLOL TARTRATE 100 MG TAB PO SCH (08:41)
[2017-04-25] MEDS: predniSONE 5 MG TAB PO SCH (08:41)
[2017-04-25] MEDS: ASPIRIN EC 81 MG TABEC PO SCH (08:41)
[2017-04-25] MEDS: PANTOPRAZOLE SOD 40 MG DELAYED RELEASE TAB PO SCH ×2 (08:42→20:12)
[2017-04-25] MEDS: SODIUM CHLORIDE 0.9% FLUSH 10 ML FLUSH IV FLUSH SCH ×2 (08:48→20:12)
[2017-04-25] MEDS: DOCUSATE SODIUM 50 MG/SENNA 8.6 MG TAB PO SCH ×2 (08:48→20:12)
[2017-04-25] MEDS: KETOCONAZOLE 2% CREAM 15 GM TOPICAL SCH ×2 (08:50→20:13)
[2017-04-25 12:00] VITALS: BP 129/77; PULSE 84; RESP 18; TEMP 96.4; O2SAT 99
[2017-04-25 14:00] VITALS: BP 112/73; PULSE 83; RESP 18; TEMP 96.7; O2SAT 95
[2017-04-25 16:00] VITALS: BP 112/73; PULSE 83; RESP 18; TEMP 96.7; O2SAT 95
[2017-04-25] MEDS: ENOXAPARIN SODIUM 40 MG/0.4 ML SYRINGE SQ SCH (17:54)
--- NOTE | 2017-04-25 19:57 | PD.POD ---
Subjective Podiatric Problems s/p I&D L foot with delayed primary closure, Dr Rg 04/23/17 Pain scale used: 0-10 numeric scale Pain score: 3 Past Med/Surg/Social History Past Medical History Endocrine: REPORTS HX OF: Diabetes mellitus, Other endocrine history Genitourinary: REPORTS HX OF: Kidney failure Neurologic: REPORTS HX OF: Peripheral neuropathy Past Surgical History Endocrine: REPORTS HX OF: Other endocrine surgery (pancreatitic transplant with failure) Genitourinary: REPORTS HX OF: Other surgery (to need transplant) Social History Smoking Status: Never Smoker Objective Vital Signs Vital Signs Date Time Temp Pulse Resp B/P (MAP) Pulse Ox O2 Delivery O2 Flow Rate FiO2 04/25/17 16:00 96.7 83 18 112/73 (86) 95 04/25/17 14:00 96.7 83 18 112/73 (86) 95 04/25/17 12:00 96.4 84 18 129/77 (94) 99 04/25/17 08:00 97.2 88 18 134/80 (98) 94 04/25/17 00:43 98.2 93 20 134/77 (96) 95 04/24/17 20:28 97.2 91 18 117/69 (85) 95 Coded Allergies: No Known Allergies (Unverified , 04/16/17) Assessment & Plan A/P s/p I&D L foot with delayed primary closure, Dr Rg 04/23/17 Discussed with patient he still has infection and his blood sugars have been very out of control and his body is not fighting it very efficiently and he may still need further surgery after tomorrow's surgery if tissue continues to demarcate and infection is not resolving quickly. I discussed that I do not feel that he had any delay in care that led to this issue requiring further surgery, and that this predicament he is in is a combination of lack of blood sugar control, noncompliance, neglect, and not taking proper precautions as a diabetic transplant patient, as well as history of smoking all contributing to these problems today. I explained that it certainly pays more dividends for him to be more proactive than reactive in the future and take control of his own body and health. Discussed L 5th toe is no longer viable and toe will need amputation. Discussed I may have to take bone of 5th metatarsal to have enough tissue to close over. Discussed I will have to remove tissue until it appears viable and the current dorsal incision line is necrotic, as well at 5th toe and some tissue at MTP joint level. Plan for L partial 5th ray amputation with wound vac L foot tomorrow 4pm NPO after breakfast Magalys Rg DPM Apr 25, 2017 19:57
[2017-04-25] MEDS: SODIUM CHLOR 0.9% 1000 ML INJ 1,000 ML IV SCH (20:12)
[2017-04-25] MEDS: PRAVASTATIN SOD 80 MG TAB PO SCH (20:12)
[2017-04-25 20:18] VITALS: BP 123/70; PULSE 72; RESP 18; TEMP 97.3; O2SAT 98
[2017-04-25] MEDS: INSULIN DETEMIR 100 UNITS/ML VIAL SQ SCH (21:00)
--- NOTE | 2017-04-25 23:50 | HHI.PR ---
Subjective Remarks Patient seen around 1:30 PM today. Patient says he is feeling all right. Family at bedside. 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 Have discussed with nurse, who will contact. Family brought in lunch today Objective Vital Signs Date Time Temp Pulse Resp B/P (MAP) Pulse Ox O2 Delivery O2 Flow Rate FiO2 04/25/17 20:18 97.3 72 18 123/70 (87) 98 04/25/17 16:00 96.7 83 18 112/73 (86) 95 04/25/17 14:00 96.7 83 18 112/73 (86) 95 04/25/17 12:00 96.4 84 18 129/77 (94) 99 04/25/17 08:00 97.2 88 18 134/80 (98) 94 04/25/17 00:43 98.2 93 20 134/77 (96) 95 I/O 04/25/17 04/25/17 04/25/17 04/26/17 04/26/17 04/26/17 07:00 15:00 23:00 07:00 15:00 23:00 Intake Total 580 ml 100 ml 920 ml Balance 580 ml 100 ml 920 ml Intake Oral 580 ml 920 ml IV Total 100 ml # Voids 3 4 Result Diagram: 04/25/1762904/25/17 0630 Objective Remarks GENERAL: patient sitting up in recliner. Appears comfortable. Alert and oriented 3. SKIN: Warm and dry. HEAD: Normocephalic. EYES: No scleral icterus. No injection or drainage. NECK: Supple, trachea midline. No JVD. CARDIOVASCULAR: Regular rate and rhythm without murmurs, gallops, or rubs. RESPIRATORY: Breath sounds equal bilaterally. No accessory muscle use. GASTROINTESTINAL: Abdomen soft, non-tender, nondistended. MUSCULOSKELETAL: No cyanosis, or edema. necrotic left fifth toe BACK: Nontender without obvious deformity. No CVA tenderness. A/P Assessment and Plan ==== 04/25/17 //Diabetes mellitus. -Blood sugar was in 80s this morning, and scheduled to units of insulin was held prior to breakfast. Discussed with nurse. Adjusted parameters. //Continue IV antibiotics for osteomyelitis. Repeat culture 04/23 with no growth. Appreciate infectious disease assistance. Podiatry to plan for fifth toe resection tomorrow //Diabetic foot wound of the left foot with uncontrolled type 1 diabetes -Staph aureus on I and D cultures from admission. -Plan for surgery on 04/21 by podiatry. Infectious disease following. Appreciate assistance. Continue broad-spectrum IV antibiotics. -Planned surgery 04/21 by podiatry. Patient is medically optimized for surgery. //ESRD status post kidney transplant Continue on his home medications. Including immunosuppression with Prograf and CellCept for his chronic renal transplant continue on the chronic prednisone //Hyperlipidemia- continue on the simvastatin //High blood pressure -Pressure acceptable -continue on metoprolol /Status post kidney transplant Nephrology consult pending. //Type 1 diabetes mellitus -04/20-Glucose reviewed and acceptable. Patient has not been getting mealtime coverage due to glucose less than 150. Decrease nighttime Levemir to 40 units at night. Continue insulin sliding scale, diabetic diet. //Diarrhea. With loose bowel movements. C. difficile negative. //Sirs RESOLVED // Prophylaxis. Continue Lovenox daily. Otherwise As per surgical service. Discharge Planning infectious disease, podiatry, vascular surgery following. cont on iv abx. Giovany Cruz MD Apr 25, 2017 23:50
[2017-04-26 00:21] VITALS: BP 141/82; PULSE 74; RESP 20; TEMP 97.5; O2SAT 94
[2017-04-26] MEDS: ceFAZolin 2 GM PREMIX 50 ML IV SCH ×3 (04:49→20:44)
[2017-04-26] MEDS: INSULIN ASPART 1,000 UNITS/10 ML VIAL SQ SCH ×4 (07:27→16:30)
[2017-04-26] MEDS: INSULIN ASPART SUPPLEMENTAL SCALE SQ SCH ×5 (07:28→20:50)
[2017-04-26 08:00] VITALS: BP 126/74; PULSE 95; RESP 17; TEMP 96.8; O2SAT 96
[2017-04-26] MEDS: predniSONE 5 MG TAB PO SCH (08:08)
[2017-04-26] MEDS: PANTOPRAZOLE SOD 40 MG DELAYED RELEASE TAB PO SCH ×2 (08:08→20:43)
[2017-04-26] MEDS: METOPROLOL TARTRATE 100 MG TAB PO SCH (08:08)
[2017-04-26] MEDS: ASPIRIN EC 81 MG TABEC PO SCH (08:12)
[2017-04-26] MEDS: SODIUM CHLORIDE 0.9% FLUSH 10 ML FLUSH IV FLUSH SCH ×2 (08:16→20:44)
[2017-04-26] MEDS: KETOCONAZOLE 2% CREAM 15 GM TOPICAL SCH ×2 (08:18→20:44)
[2017-04-26] MEDS: DOCUSATE SODIUM 50 MG/SENNA 8.6 MG TAB PO SCH ×2 (08:19→20:44)
[2017-04-26 11:18] LABS: BICARBONATE 25.3 MEQ/L (21.0-32.0); POTASSIUM 4.2 MEQ/L (3.5-5.1)
[2017-04-26] MEDS ORDERED: INSULIN DETEMIR 100 UNITS/ML VIAL SQ SCH (11:45)
[2017-04-26 12:00] VITALS: BP 128/79; PULSE 83; RESP 17; TEMP 97.4; O2SAT 94
[2017-04-26] MEDS ORDERED: ONDANSETRON HCL 4 MG/2 ML VIAL IV PUSH ONE (12:00)
[2017-04-26] MEDS ORDERED: PROPOFOL 200 MG/20 ML AMP IV ONE (12:00)
[2017-04-26] MEDS ORDERED: SODIUM CHLOR 0.9% 1000 ML INJ 1,000 ML IV ONE (12:00)
[2017-04-26] MEDS ORDERED: ePHEDrine/NS 25 MG/5 ML SYR IV ONE (12:00)
[2017-04-26] MEDS ORDERED: PHENYLEPH/NS 1000 MCG/10 ML SYR IV ONE (12:00)
[2017-04-26] MEDS ORDERED: LIDOCAINE HCL 1% PF 5 ML AMPULE OTHER ONE (12:00)
[2017-04-26] MEDS: MYCOPHENOLATE MOFETIL 500 MG TAB PO SCH ×2 (13:03→23:22)
[2017-04-26] MEDS: TACROLIMUS 1 MG CAP PO SCH ×2 (13:04→23:22)
[2017-04-26] MEDS: SODIUM CHLOR 0.9% 1000 ML INJ 1,000 ML IV SCH (13:05)
--- NOTE | 2017-04-26 13:05 | HHI.IDPN ---
Subjective Subjective Remarks Mr. Weaver is a 46 y/o CM with PMHx significant for DM with neuropathy, nephropathy s/p renal transplant who is on immune suppressant medications such as cellcept, tacrolimus and prednisone. He reports feeling of unwellness for last 1 week. He reports no symptoms in his foot. He did not examine his feet in last 1 week. He reports that when he was wearing his socks to come to hospital is when he noticed the foot findings. He had started having fever and chills, sweats, and body aches. He had a Tmax of 100.1 yesterday, but has been continuously taking Tylenol for a week. Today he noticed that his left foot was erythematous and had swelling. He also knows a wound on the bottom of his foot. He states that he is having some bloody discharge coming from the wound. 6 months ago he was admitted for a right foot wound. He states that "the doctor had scraped his right great toe to the bone" and gave him vancomycin in hospital and discharged him on oral antibiotics. He usually checks his feet daily, but has not since Saturday due to being ill. Sepsis workup initiated on admission. ID consulted for evaluation and mment of Sepsis, Left foot cellulitis possible osteomyelitis. Overnight events reviewed Blood sugar in 400s this am. Most recent one in 200s. Plan for repeat I&D and amputation of 5th digit per podiatry notes. No chills and night sweats No rash No diarrhea Antibiotics Ancef IV Lines Line sites with no e.o infection Past Medical History Diabetes mellitus type 1 History of diabetic foot wound right foot 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 Severe diabetic neuropathy Hyperlipidemia Hypertension Debridement of right foot in the past by podiatry history of kidney transplant History of pancreatic transplant 2 Allergies: Coded Allergies: No Known Allergies (Unverified , 04/16/17) Objective . Vital Signs Date Time Temp Pulse Resp B/P (MAP) Pulse Ox O2 Delivery O2 Flow Rate FiO2 04/26/17 08:00 96.8 95 17 126/74 (91) 96 04/26/17 00:21 97.5 74 20 141/82 (101) 94 04/25/17 20:18 97.3 72 18 123/70 (87) 98 04/25/17 16:00 96.7 83 18 112/73 (86) 95 04/25/17 14:00 96.7 83 18 112/73 (86) 95 . Laboratory Tests Test 04/25/17 06:30 White Blood Count 8.8 TH/MM3 Red Blood Count 4.17 MIL/MM3 Hemoglobin 12.5 GM/DL Hematocrit 36.2 % Mean Corpuscular Volume 86.8 FL Mean Corpuscular Hemoglobin 30.0 PG Mean Corpuscular Hemoglobin Concent 34.5 % Red Cell Distribution Width 12.7 % Platelet Count 446 TH/MM3 Mean Platelet Volume 6.3 FL Neutrophils (%) (Auto) 67.5 % Lymphocytes (%) (Auto) 19.1 % Monocytes (%) (Auto) 11.7 % Eosinophils (%) (Auto) 1.0 % Basophils (%) (Auto) 0.7 % Neutrophils # (Auto) 5.9 TH/MM3 Lymphocytes # (Auto) 1.7 TH/MM3 Monocytes # (Auto) 1.0 TH/MM3 Eosinophils # (Auto) 0.1 TH/MM3 Basophils # (Auto) 0.1 TH/MM3 CBC Comment DIFF FINAL Differential Comment Laboratory Tests Test 04/25/17 06:30 04/26/17 10:40 Blood Urea Nitrogen 23 MG/DL 32 MG/DL Creatinine 1.16 MG/DL 1.11 MG/DL Random Glucose 85 MG/DL 336 MG/DL Albumin 2.1 GM/DL Calcium Level 9.7 MG/DL 9.4 MG/DL Phosphorus Level 2.6 MG/DL Magnesium Level 1.8 MG/DL Sodium Level 136 MEQ/L 131 MEQ/L Potassium Level 3.9 MEQ/L 4.2 MEQ/L Chloride Level 100 MEQ/L 98 MEQ/L Carbon Dioxide Level 27.3 MEQ/L 25.3 MEQ/L Anion Gap 9 MEQ/L 8 MEQ/L Estimat Glomerular Filtration Rate 67 ML/MIN 71 ML/MIN Microbiology Date/Time Source Procedure Growth Status 04/23/17 17:47 Wound Foot Fungal Smear - Final NO FUNGAL ELEMENTS SEEN. Resulted 04/23/17 17:47 Wound Foot Fungal Culture Pending Resulted 04/23/17 17:47 Wound Foot Acid Fast Stain - Final NO ACID FAST BACILLI SEEN Resulted 04/23/17 17:47 Wound Foot Mycobacterial Culture Pending Resulted 04/23/17 17:47 Wound Foot Gram Stain - Final Complete 04/23/17 17:47 Wound Foot Wound Culture - Final NO GROWTH IN 72 HRS.--AEROBICALLY OR ... Complete Imaging Last Impressions Foot MRI 04/18/17 0000 Signed Impressions: Service Date/Time: March 16:07 - CONCLUSION: Extensive soft tissue edema of the left foot. Cutaneous ulceration at the plantar aspect of the forefoot adjacent to the fourth MTP joint. Mild bony edema in the fourth and fifth toes indicating reactive change from adjacent soft tissue infection versus early osteomyelitis. No T1-weighted bony signal abnormality to confirm osteomyelitis. Several elongated areas of fluid signal adjacent to the fourth and fifth extensor tendons and plantar aspect of fifth toe indicating possible early abscess formation. Contrast-enhanced study would be helpful for further evaluation of these areas. Behzad Metzger MD Foot X-Ray 04/16/17 1352 Signed Impressions: Service Date/Time: Sunday, April 16, 2017 14:23 - CONCLUSION: No acute disease. Anshu Charles MD Physical Exam GENERAL: This is a well-nourished, well-developed patient, in no apparent distress. SKIN: No rashes, ecchymoses or lesions. Cool and dry. HEAD: Atraumatic. Normocephalic. No temporal or scalp tenderness. EYES: Pupils equal round and reactive. Extraocular motions intact. No scleral icterus. No injection or drainage. ENT: Nose without bleeding, purulent drainage or septal hematoma. Throat without erythema, tonsillar hypertrophy or exudate. Uvula midline. Airway patent. NECK: Trachea midline. Supple, nontender, no meningeal signs. CARDIOVASCULAR: Regular rate and rhythm without murmurs, gallops, or rubs. RESPIRATORY: Clear to auscultation. Breath sounds equal bilaterally. No wheezes , rales, or rhonchi. GASTROINTESTINAL: Abdomen soft, non-tender, nondistended. MUSCULOSKELETAL: Left foot in dressing. Pt headed to OR. NEUROLOGICAL: Awake and alert. Grossly nonfocal Psych cooperative IV line sites with no e.o infection Assessment & Plan Remarks Assessment and Plan Sepsis present on admission (tachycardia, leucocytosis and source: left foot infection, possible bacteremia) MSSA bacteremia Left foot cellulitis/abscess: MSSA Left foot possible osteomyelitis of toe. MSSA and E.faecalis from foot wound from intial preop culture. E.faecalis likely contaminant. DM with neuropathy DM nephropathy s/p transplant Immune compromised Recs Continue Ancef IV (MSSA bacteremia, MSSA foot abscess) To OR today. MRI with abscess and ? marrow edema. WBC scan with no e.o osteomyelitis. Follow clinically. d/w and pt, Mom in room. Will follow clinically, discuss intraop findings with after repeat surgery to formulate a discharge plan. For now continue IV antibiotics. Daiana Morales MD Apr 26, 2017 13:05
[2017-04-26] MEDS ORDERED: BUPIVACAINE HCL PF 0.5% 30 ML VIAL ONE (15:54)
[2017-04-26 16:00] VITALS: BP 119/78; PULSE 79; RESP 17; TEMP 97.8; O2SAT 95
[2017-04-26] MEDS ORDERED: GENTAMICIN SULFATE 80 MG/2 ML VIAL ONE (16:09)
--- NOTE | 2017-04-26 16:12 | HHI.PR ---
Immediate Post Op Note Procedure Date: Apr 26, 2017 Pre Op Diagnosis: Infection L lateral foot with gangrene L 5th digit Post Op Diagnosis: same Surgeon: Magalys Rg DPM Clinical Lab Clerk(s): Staff Procedure: L partial 5th ray amputation Findings: Consistent with diagnosis. L 5th digit and some of soft tissue to dorsal and lateral 5th MTP joint area necrotic with mild serous drainage coming from previous attempt at delayed primary closure. Incision line necrotic, as well. 5th digit amputated at MTP joint and necrotic soft tissue debrided excisionally with #15 and rongeur. 5th metatarsal transected at proximal/mid 1/3 juncture and sent with 5th toe as partial 5th ray. Another small amount of residual 5th metatarsal removed with saw and sent for bone biopsy to guide further treatment. Wound able to be primarily closed after irrigation with 3L NS with gentamicin. More bleeding tissue noted intraoperatively this time. No necrotic tissue remains after irrigation and examination of wound bed. Dry sterile dressing applied. NWB LLE. Additional Information: n/a Complications: none Specimen(s) removed: 1. Left partial 5th ray 2. L residual 5th metatarsal bone biopsy 3. culture L foot Estimated blood loss: 10mL Anesthesia: General Drains: None Tourniquet time (min at mmHg) no tourniquet utilized Patient to: PACU Patient Condition: Good Date/Time of Procedure: SEE SURGICAL CARE RECORD Magalys Rg DPM Apr 26, 2017 16:12
--- NOTE | 2017-04-26 17:12 | HHI.PR ---
Subjective Remarks seen today around noon. Says he is feeling all right. His nothing by mouth for left fifth toe resection by podiatry today. Objective Vital Signs Date Time Temp Pulse Resp B/P (MAP) Pulse Ox O2 Delivery O2 Flow Rate FiO2 04/26/17 16:00 97.8 79 17 119/78 (92) 95 04/26/17 12:00 97.4 83 17 128/79 (95) 94 04/26/17 08:00 96.8 95 17 126/74 (91) 96 04/26/17 00:21 97.5 74 20 141/82 (101) 94 04/25/17 20:18 97.3 72 18 123/70 (87) 98 I/O 04/25/17 04/25/17 04/25/17 04/26/17 04/26/17 04/26/17 07:00 15:00 23:00 07:00 15:00 23:00 Intake Total 580 ml 100 ml 920 ml 580 ml Balance 580 ml 100 ml 920 ml 580 ml Intake Oral 580 ml 920 ml 580 ml IV Total 100 ml # Voids 3 4 3 Result Diagram: 04/25/17 0630 04/26/17 1040 Objective Remarks GENERAL: patient sitting up in recliner. Appears comfortable. Alert and oriented 3. exam again unchanged. SKIN: Warm and dry. HEAD: Normocephalic. EYES: No scleral icterus. No injection or drainage. NECK: Supple, trachea midline. No JVD. CARDIOVASCULAR: Regular rate and rhythm without murmurs, gallops, or rubs. RESPIRATORY: Breath sounds equal bilaterally. No accessory muscle use. GASTROINTESTINAL: Abdomen soft, non-tender, nondistended. MUSCULOSKELETAL: No cyanosis, or edema. necrotic left fifth toe BACK: Nontender without obvious deformity. No CVA tenderness. A/P Assessment and Plan 46-year-old male with uncontrolled type 1 diabetes mellitus who presented with left lower extremity cellulitis found to be osteomyelitis. Growing only staph aureus. On antibiotics as per infectious disease. Status post wound biopsy, subsequently referred subsequent resection of left fifth necrotic toe on 04/26. ==== 04/26/17 //Diabetes mellitus. Patient's blood sugar was in the 400s this morning. Nurse last night held basal insulin due to blood sugar in the 70s. Does not appear to have called hospitalist service. Discussed with the nurse. We'll give 40 units Levemir this morning, 15 tonight, and resume 40 units at bedtime tomorrow. Have filed an incident report. //Continue IV antibiotics for osteomyelitis. Repeat culture 04/23 with no growth. Left fifth toe resection again 04/26. Appreciate infectious disease assistance. //Diabetic foot wound of the left foot with uncontrolled type 1 diabetes -Staph aureus on I and D cultures from admission. -Plan for surgery on 04/21 by podiatry. Infectious disease following. Appreciate assistance. Continue broad-spectrum IV antibiotics. -Planned surgery 04/21 by podiatry. Patient is medically optimized for surgery. //ESRD status post kidney transplant Continue on his home medications. Including immunosuppression with Prograf and CellCept for his chronic renal transplant continue on the chronic prednisone //Hyperlipidemia- continue on the simvastatin //High blood pressure -Pressure acceptable -continue on metoprolol /Status post kidney transplant Tacrolimus therapeutic 12.6 on 04/20. //Type 1 diabetes mellitus -Management as above. Continue on diabetic diet, insulin sliding scale. //Diarrhea. With loose bowel movements. C. difficile negative. //Sirs RESOLVED // Prophylaxis. Continue Lovenox daily. Otherwise As per surgical service. Discharge Planning infectious disease, podiatry, vascular surgery following. cont on iv abx. Giovany Cruz MD Apr 26, 2017 17:12
--- NOTE | 2017-04-26 18:34 | RADRPT ---
EXAM DATE/TIME: 04/26/2017 18:04 [facility] COMPARISON: No previous studies available for comparison. INDICATIONS : Post op left foot surgery. MEDICAL HISTORY : None. SURGICAL HISTORY : Pancreas and kidney transplant. ENCOUNTER: Initial ACUITY: 1 day PAIN SCORE: 0/10 LOCATION: Left Foot. FINDINGS: There are postoperative changes of resection of the fifth digit and most of the fifth metatarsal. No complications identified. Vascular calcifications noted. There is air in the soft tissues. CONCLUSION: 1. Postoperative resection of the fifth toe and distal metatarsal. Deepak Muñoz MD on April 26, 2017 at 18:28 Board Certified Radiologist. This report was verified electronically.
[2017-04-26 20:05] VITALS: BP 120/70; PULSE 72; RESP 18; TEMP 96.4; O2SAT 98
[2017-04-26] MEDS: PRAVASTATIN SOD 80 MG TAB PO SCH (20:43)
[2017-04-26] MEDS ORDERED: INSULIN DETEMIR 100 UNITS/ML VIAL SQ ONE (21:00)
[2017-04-27 00:37] VITALS: BP_SYST 121; BP_SYST 138; BP_DIAS 75; BP_DIAS 84; PULSE 76; RESP 18; TEMP 96.4; O2SAT 98
[2017-04-27] MEDS: ceFAZolin 2 GM PREMIX 50 ML IV SCH ×3 (06:11→20:54)
[2017-04-27 08:00] VITALS: BP 133/75; PULSE 82; RESP 14; TEMP 97.1; O2SAT 97
[2017-04-27] MEDS: DOCUSATE SODIUM 50 MG/SENNA 8.6 MG TAB PO SCH ×2 (09:00→20:54)
[2017-04-27 10:05] VITALS: O2SAT 93
[2017-04-27] MEDS: ASPIRIN EC 81 MG TABEC PO SCH (10:18)
[2017-04-27] MEDS: INSULIN ASPART 1,000 UNITS/10 ML VIAL SQ SCH ×3 (10:19→18:38)
[2017-04-27] MEDS: INSULIN ASPART SUPPLEMENTAL SCALE SQ SCH ×4 (10:20→21:00)
[2017-04-27] MEDS: PANTOPRAZOLE SOD 40 MG DELAYED RELEASE TAB PO SCH ×2 (10:20→20:53)
[2017-04-27] MEDS: predniSONE 5 MG TAB PO SCH (10:20)
[2017-04-27] MEDS: METOPROLOL TARTRATE 100 MG TAB PO SCH (10:20)
[2017-04-27] MEDS: SODIUM CHLORIDE 0.9% FLUSH 10 ML FLUSH IV FLUSH SCH ×2 (10:21→20:54)
[2017-04-27] MEDS: KETOCONAZOLE 2% CREAM 15 GM TOPICAL SCH ×2 (11:18→20:57)
[2017-04-27] MEDS: SODIUM CHLOR 0.9% 1000 ML INJ 1,000 ML IV SCH (11:45)
[2017-04-27 12:00] VITALS: BP 104/67; PULSE 76; RESP 16; TEMP 97.6; O2SAT 95
[2017-04-27] MEDS: TACROLIMUS 1 MG CAP PO SCH ×2 (12:09→23:50)
[2017-04-27] MEDS: MYCOPHENOLATE MOFETIL 500 MG TAB PO SCH ×2 (12:10→23:50)
--- NOTE | 2017-04-27 14:29 | HHI.PR ---
Subjective Remarks Follow-up for diabetic foot Status post partial amputation yesterday, pain is controlled, no nausea or vomiting, good oral intake. Afebrile. Objective Vitals Vital Signs Date Time Temp Pulse Resp B/P (MAP) Pulse Ox O2 Delivery O2 Flow Rate FiO2 04/27/17 12:00 97.6 76 16 104/67 (79) 95 04/27/17 10:05 93 21 04/27/17 08:00 97.1 82 14 133/75 (94) 97 04/27/17 00:37 96.4 76 18 121/84 (96) 98 04/26/17 20:05 96.4 72 18 120/70 (87) 98 04/26/17 18:24 74 17 122/68 (86) 99 Nasal Cannula 2 04/26/17 18:15 79 17 136/81 (99) 99 Nasal Cannula 2 04/26/17 18:00 81 17 134/79 (97) 99 Nasal Cannula 2 04/26/17 17:55 97.9 79 17 152/87 (108) 99 Nasal Cannula 2 04/26/17 16:00 97.8 79 17 119/78 (92) 95 I/O 04/26/17 04/26/17 04/26/17 04/27/17 04/27/17 04/27/17 06:59 14:59 22:59 06:59 14:59 22:59 Intake Total 580 ml 250 ml 1123 ml 50 ml Output Total 320 ml Balance 580 ml -70 ml 1123 ml 50 ml Intake Oral 580 ml 0 ml 680 ml IV Total 50 ml 443 ml 50 ml Other 200 ml Output Urine Total 300 ml Estimated Blood Loss 20 ml # Voids 3 2 3 # Bowel Movements 1 Result Diagram: 04/25/17 0630 04/26/17 1040 Objective Remarks GENERAL: Not in distress CARDIOVASCULAR: Regular rate and rhythm without murmurs, gallops, or rubs. RESPIRATORY: Breath sounds equal bilaterally. No accessory muscle use. GASTROINTESTINAL: Abdomen soft, non-tender, nondistended. MUSCULOSKELETAL: No cyanosis, or edema. Left dressings in place Alert awake and oriented, no focal deficits. Procedures Bedside I and D left foot on 04/18/17 Consent signed and in the chart. Nursing staff assisting. Prep and with # 15 blade I and D at the 4th IS and plantar sub 4th metatarsal. C and D at the 4th IS. Excisional debridement with # 15 blade of necrotic and non viable tissue. Betadine dressing applied Kim Burdick DPM A/P Problem List: (1) Kidney transplant status ICD Code: Z94.0 - Kidney transplant status (2) Diabetic foot ulcer associated with type 1 diabetes mellitus ICD Code: E10.621 - Type 1 diabetes mellitus with foot ulcer; L97.509 - Non- pressure chronic ulcer of other part of unspecified foot with unspecified severity (3) Diabetic ulcer of left foot ICD Code: E11.621 - Type 2 diabetes mellitus with foot ulcer; L97.529 - Non- pressure chronic ulcer of other part of left foot with unspecified severity (4) Immunosuppressed status ICD Code: D89.9 - Disorder involving the immune mechanism, unspecified (5) Cellulitis of left foot ICD Code: L03.116 - Cellulitis of left lower limb (6) Diabetes ICD Code: E11.9 - Type 2 diabetes mellitus without complications Assessment and Plan 46-year-old male with uncontrolled type 1 diabetes mellitus who presented with left lower extremity cellulitis found to be osteomyelitis. Growing only staph aureus. On antibiotics as per infectious disease. Status post wound biopsy, subsequently referred subsequent resection of left fifth necrotic toe on 04/26. Left foot osteomyelitis-status post partial section 04/26/17, infectious disease following, continue Ancef per infectious disease. Follow-up biopsy results. Initial cultures grew Staphylococcus aureus. Podiatry following. ESRD status post kidney transplant - Continue on home medications Including immunosuppression with Prograf, prednisone and CellCept , monitor kidney function. Tacrolimus levels 12.6 on 04/20. Hyperlipidemia- continue simvastatin High blood pressure --continue on metoprolol Type 1 diabetes mellitus-continue basal insulin per home dose with sliding scale insulin. Diarrhea. With loose bowel movements. C. difficile negative. Likely antibiotic related Mild hyponatremia-recheck BMP tomorrow Prophylaxis. Continue Lovenox daily. Otherwise As per surgical service. Discharge Planning Discharge once cleared by infectious disease and podiatry Problem Qualifiers (1) Diabetic foot ulcer associated with type 1 diabetes mellitus: Qualified Codes: E10.621 - Type 1 diabetes mellitus with foot ulcer; L97.529 - Non-pressure chronic ulcer of other part of left foot with unspecified severity (2) Diabetes: Sofie Mcfarland MD Apr 27, 2017 14:29
[2017-04-27 16:00] VITALS: BP 104/62; PULSE 87; RESP 18; TEMP 97.9; O2SAT 95
--- NOTE | 2017-04-27 17:58 | PD.POD ---
Subjective Podiatric Problems s/p I&D L foot with delayed primary closure, Dr Rg 04/23/17 s/p partial L 5th ray amputation Dr Rg 04/26/17 Pain scale used: 0-10 numeric scale Pain score: 3 Past Med/Surg/Social History Past Medical History Endocrine: REPORTS HX OF: Diabetes mellitus, Other endocrine history Genitourinary: REPORTS HX OF: Kidney failure Neurologic: REPORTS HX OF: Peripheral neuropathy Past Surgical History Endocrine: REPORTS HX OF: Other endocrine surgery (pancreatitic transplant with failure) Genitourinary: REPORTS HX OF: Other surgery (to need transplant) Social History Smoking Status: Never Smoker Objective Vital Signs Vital Signs Date Time Temp Pulse Resp B/P (MAP) Pulse Ox O2 Delivery O2 Flow Rate FiO2 04/27/17 16:00 97.9 87 18 104/62 (76) 95 04/27/17 12:00 97.6 76 16 104/67 (79) 95 04/27/17 10:05 93 21 04/27/17 08:00 97.1 82 14 133/75 (94) 97 04/27/17 00:37 96.4 76 18 121/84 (96) 98 04/26/17 20:05 96.4 72 18 120/70 (87) 98 04/26/17 18:24 74 17 122/68 (86) 99 Nasal Cannula 2 04/26/17 18:15 79 17 136/81 (99) 99 Nasal Cannula 2 04/26/17 18:00 81 17 134/79 (97) 99 Nasal Cannula 2 Coded Allergies: No Known Allergies (Unverified , 04/16/17) Physical Exam Remarks L foot bandage clean, dry, intact. L 4th digit appears viable. Assessment & Plan A/P s/p I&D L foot with delayed primary closure, Dr Rg 04/23/17 s/p partial L 5th ray amputation Dr Rg 04/26/17 Keep bandage clean, dry, intact Plan to change bandage tomorrow NWB L foot Magalys Rg DPM Apr 27, 2017 17:58
[2017-04-27 20:00] VITALS: BP 119/79; PULSE 86; RESP 18; TEMP 97.7; O2SAT 95
[2017-04-27] MEDS: PRAVASTATIN SOD 80 MG TAB PO SCH (20:54)
[2017-04-27] MEDS ORDERED: INSULIN DETEMIR 100 UNITS/ML VIAL SQ SCH (21:00)
[2017-04-28] VITALS: BP 136/84; PULSE 85; RESP 18; TEMP 97; O2SAT 95
[2017-04-28] MEDS: ceFAZolin 2 GM PREMIX 50 ML IV SCH ×3 (05:20→20:54)
[2017-04-28 05:59] LABS: BICARBONATE 26.2 MEQ/L (21.0-32.0)
[2017-04-28] MEDS: INSULIN ASPART SUPPLEMENTAL SCALE SQ SCH ×4 (07:38→20:59)
[2017-04-28 08:00] VITALS: BP 114/67; PULSE 87; RESP 18; TEMP 97.4; O2SAT 95
[2017-04-28] MEDS: predniSONE 5 MG TAB PO SCH (08:42)
[2017-04-28] MEDS: ASPIRIN EC 81 MG TABEC PO SCH (08:42)
[2017-04-28] MEDS: INSULIN ASPART 1,000 UNITS/10 ML VIAL SQ SCH ×3 (08:43→17:00)
[2017-04-28] MEDS: PANTOPRAZOLE SOD 40 MG DELAYED RELEASE TAB PO SCH ×2 (08:43→20:54)
[2017-04-28] MEDS: METOPROLOL TARTRATE 100 MG TAB PO SCH (08:43)
[2017-04-28] MEDS: DOCUSATE SODIUM 50 MG/SENNA 8.6 MG TAB PO SCH ×2 (08:44→20:55)
[2017-04-28] MEDS: SODIUM CHLORIDE 0.9% FLUSH 10 ML FLUSH IV FLUSH SCH ×2 (08:45→20:55)
[2017-04-28] MEDS: KETOCONAZOLE 2% CREAM 15 GM TOPICAL SCH ×2 (08:46→21:00)
[2017-04-28] MEDS: SODIUM CHLOR 0.9% 1000 ML INJ 1,000 ML IV SCH (10:02)
[2017-04-28 12:00] VITALS: BP 119/73; PULSE 81; RESP 16; TEMP 97.2; O2SAT 97
[2017-04-28] MEDS: TACROLIMUS 1 MG CAP PO SCH (12:08)
[2017-04-28] MEDS: MYCOPHENOLATE MOFETIL 500 MG TAB PO SCH (12:08)
--- NOTE | 2017-04-28 12:48 | HHI.PR ---
Subjective Remarks Follow-up for osteomyelitis next No overnight events, no fever or chills. Pain is controlled. Patient however is concerned about his blood sugar and insulin dosing. Objective Vitals Vital Signs Date Time Temp Pulse Resp B/P (MAP) Pulse Ox O2 Delivery O2 Flow Rate FiO2 04/28/17 12:00 97.2 81 16 119/73 (88) 97 04/28/17 08:00 97.4 87 18 114/67 (83) 95 04/28/17 00:00 97.0 85 18 136/84 (101) 95 04/27/17 20:00 97.7 86 18 119/79 (92) 95 04/27/17 16:00 97.9 87 18 104/62 (76) 95 I/O 04/27/17 04/27/17 04/27/17 04/28/17 04/28/17 04/28/17 07:00 15:00 23:00 07:00 15:00 23:00 Intake Total 1123 ml 50 ml 2796 ml 860 ml Output Total 1100 ml Balance 1123 ml 50 ml 2796 ml -240 ml Intake Oral 680 ml 2200 ml IV Total 443 ml 50 ml 596 ml 860 ml Output Urine Total 1100 ml # Voids 3 4 # Bowel Movements 0 1 Result Diagram: 04/25/17 0630 04/28/17 0515 Objective Remarks GENERAL: Not in distress CARDIOVASCULAR: Regular rate and rhythm without murmurs, gallops, or rubs. RESPIRATORY: Breath sounds equal bilaterally. No accessory muscle use. GASTROINTESTINAL: Abdomen soft, non-tender, nondistended. MUSCULOSKELETAL: No cyanosis, or edema. Left foot dressings in place Alert awake and oriented, no focal deficits. Procedures Bedside I and D left foot on 04/18/17 Consent signed and in the chart. Nursing staff assisting. Prep and with # 15 blade I and D at the 4th IS and plantar sub 4th metatarsal. C and D at the 4th IS. Excisional debridement with # 15 blade of necrotic and non viable tissue. Betadine dressing applied Kim Burdick DPM A/P Problem List: (1) Kidney transplant status ICD Code: Z94.0 - Kidney transplant status (2) Diabetic foot ulcer associated with type 1 diabetes mellitus ICD Code: E10.621 - Type 1 diabetes mellitus with foot ulcer; L97.509 - Non- pressure chronic ulcer of other part of unspecified foot with unspecified severity (3) Diabetic ulcer of left foot ICD Code: E11.621 - Type 2 diabetes mellitus with foot ulcer; L97.529 - Non- pressure chronic ulcer of other part of left foot with unspecified severity (4) Immunosuppressed status ICD Code: D89.9 - Disorder involving the immune mechanism, unspecified (5) Cellulitis of left foot ICD Code: L03.116 - Cellulitis of left lower limb (6) Diabetes ICD Code: E11.9 - Type 2 diabetes mellitus without complications Assessment and Plan 46-year-old male with uncontrolled type 1 diabetes mellitus who presented with left lower extremity cellulitis found to be osteomyelitis. Growing only staph aureus. On antibiotics as per infectious disease. Status post wound biopsy, subsequently referred subsequent resection of left fifth necrotic toe on 04/26. Left foot osteomyelitis-status post partial section 04/26/17, infectious disease following, continue Ancef per infectious disease. Follow-up biopsy results. Initial cultures grew Staphylococcus aureus. Podiatry following. ESRD status post kidney transplant - Continue on home medications Including immunosuppression with Prograf, prednisone and CellCept , monitor kidney function. Tacrolimus levels 12.6 on 04/20. Hyperlipidemia- continue simvastatin High blood pressure --continue on metoprolol Type 1 diabetes mellitus- adjust basal insulin to home dose, 50 units of Levemir , continue medium dose sliding scale insulin. Diarrhea. With loose bowel movements. C. difficile negative. Likely antibiotic related Mild hyponatremia- sodium is stable. Prophylaxis. Continue Lovenox daily. Otherwise As per surgical service. Discharge Planning Discharge once cleared by infectious disease and podiatry Problem Qualifiers (1) Diabetic foot ulcer associated with type 1 diabetes mellitus: Qualified Codes: E10.621 - Type 1 diabetes mellitus with foot ulcer; L97.529 - Non-pressure chronic ulcer of other part of left foot with unspecified severity (2) Diabetes: Sofie Mcfarland MD Apr 28, 2017 12:48
[2017-04-28 16:00] VITALS: BP 115/73; PULSE 82; RESP 16; TEMP 98.3; O2SAT 96
--- NOTE | 2017-04-28 17:31 | PD.POD ---
Subjective Podiatric Problems s/p I&D L foot with delayed primary closure, Dr Rg 04/23/17 s/p partial L 5th ray amputation Dr Rg 04/26/17 Pain scale used: 0-10 numeric scale Pain score: 3 Past Med/Surg/Social History Past Medical History Endocrine: REPORTS HX OF: Diabetes mellitus, Other endocrine history Genitourinary: REPORTS HX OF: Kidney failure Neurologic: REPORTS HX OF: Peripheral neuropathy Past Surgical History Endocrine: REPORTS HX OF: Other endocrine surgery (pancreatitic transplant with failure) Genitourinary: REPORTS HX OF: Other surgery (to need transplant) Social History Smoking Status: Never Smoker Objective Vital Signs Vital Signs Date Time Temp Pulse Resp B/P (MAP) Pulse Ox O2 Delivery O2 Flow Rate FiO2 04/28/17 16:00 98.3 82 16 115/73 (87) 96 04/28/17 12:00 97.2 81 16 119/73 (88) 97 04/28/17 08:00 97.4 87 18 114/67 (83) 95 04/28/17 00:00 97.0 85 18 136/84 (101) 95 04/27/17 20:00 97.7 86 18 119/79 (92) 95 Coded Allergies: No Known Allergies (Unverified , 04/16/17) Physical Exam Remarks L foot incision line approximated with mild bloody drainage from incision area plantarly. Dry dorsally. There is reduced erythema to L lateral foot. No foul odor. No purulence noted. Assessment & Plan A/P s/p I&D L foot with delayed primary closure, Dr Rg 04/23/17 s/p partial L 5th ray amputation Dr Rg 04/26/17 Keep bandage clean, dry, intact Changed bandage and ordered dressing change Saturday and prior to d/c home. Discussed that if wound deteriorates, he will need wound vac applied to help heal the area. NWB L foot Magalys Rg DPM Apr 28, 2017 17:31
[2017-04-28 20:00] VITALS: BP 112/71; PULSE 84; RESP 16; TEMP 97.6; O2SAT 96
[2017-04-28] MEDS: PRAVASTATIN SOD 80 MG TAB PO SCH (20:54)
[2017-04-28] MEDS ORDERED: INSULIN DETEMIR 100 UNITS/ML VIAL SQ SCH (21:00)
[2017-04-29] MEDS: MYCOPHENOLATE MOFETIL 500 MG TAB PO SCH ×3 (00:09→23:28)
[2017-04-29] MEDS: TACROLIMUS 1 MG CAP PO SCH ×3 (00:09→23:28)
[2017-04-29 00:34] VITALS: BP 104/58; PULSE 81; RESP 16; TEMP 96.2; O2SAT 96
[2017-04-29] MEDS: ceFAZolin 2 GM PREMIX 50 ML IV SCH ×3 (05:46→22:38)
[2017-04-29] MEDS: ASPIRIN EC 81 MG TABEC PO SCH (07:56)
[2017-04-29] MEDS: METOPROLOL TARTRATE 100 MG TAB PO SCH (07:56)
[2017-04-29] MEDS: PANTOPRAZOLE SOD 40 MG DELAYED RELEASE TAB PO SCH ×2 (07:57→22:49)
[2017-04-29] MEDS: predniSONE 5 MG TAB PO SCH (07:57)
[2017-04-29] MEDS: INSULIN ASPART SUPPLEMENTAL SCALE SQ SCH ×4 (07:57→22:48)
[2017-04-29] MEDS: INSULIN ASPART 1,000 UNITS/10 ML VIAL SQ SCH ×3 (07:59→16:57)
[2017-04-29] MEDS: SODIUM CHLORIDE 0.9% FLUSH 10 ML FLUSH IV FLUSH SCH ×2 (07:59→22:39)
[2017-04-29] MEDS: DOCUSATE SODIUM 50 MG/SENNA 8.6 MG TAB PO SCH ×2 (07:59→21:00)
[2017-04-29] MEDS: KETOCONAZOLE 2% CREAM 15 GM TOPICAL SCH ×2 (07:59→21:00)
[2017-04-29 08:00] VITALS: BP 164/89; PULSE 86; RESP 16; TEMP 96.4; O2SAT 97
--- NOTE | 2017-04-29 10:33 | HHI.IDPN ---
Subjective Subjective Remarks Mr. Weaver is a 46 y/o CM with PMHx significant for DM with neuropathy, nephropathy s/p renal transplant who is on immune suppressant medications such as cellcept, tacrolimus and prednisone. He reports feeling of unwellness for last 1 week. He reports no symptoms in his foot. He did not examine his feet in last 1 week. He reports that when he was wearing his socks to come to hospital is when he noticed the foot findings. He had started having fever and chills, sweats, and body aches. He had a Tmax of 100.1 yesterday, but has been continuously taking Tylenol for a week. Today he noticed that his left foot was erythematous and had swelling. He also knows a wound on the bottom of his foot. He states that he is having some bloody discharge coming from the wound. 6 months ago he was admitted for a right foot wound. He states that "the doctor had scraped his right great toe to the bone" and gave him vancomycin in hospital and discharged him on oral antibiotics. He usually checks his feet daily, but has not since Saturday due to being ill. Sepsis workup initiated on admission. ID consulted for evaluation and mment of Sepsis, Left foot cellulitis possible osteomyelitis. Overnight events reviewed s/p I&D L foot with delayed primary closure, Dr Rg 04/23/17 s/p partial L 5th ray amputation Dr Rg 04/26/17 No fevers, chills and night sweats No rash No diarrhea Antibiotics Ancef IV Lines Line sites with no e.o infection Past Medical History Diabetes mellitus type 1 History of diabetic foot wound right foot 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 Severe diabetic neuropathy Hyperlipidemia Hypertension Debridement of right foot in the past by podiatry history of kidney transplant History of pancreatic transplant 2 Allergies: Coded Allergies: No Known Allergies (Unverified , 04/16/17) Objective . Vital Signs Date Time Temp Pulse Resp B/P (MAP) Pulse Ox O2 Delivery O2 Flow Rate FiO2 04/29/17 08:00 96.4 86 16 164/89 (114) 97 04/29/17 00:34 96.2 81 16 104/58 (73) 96 04/28/17 20:00 97.6 84 16 112/71 (85) 96 04/28/17 16:00 98.3 82 16 115/73 (87) 96 04/28/17 12:00 97.2 81 16 119/73 (88) 97 . Laboratory Tests Test 04/28/17 05:15 Blood Urea Nitrogen 20 MG/DL Creatinine 1.10 MG/DL Random Glucose 137 MG/DL Calcium Level 9.2 MG/DL Sodium Level 136 MEQ/L Potassium Level 4.0 MEQ/L Chloride Level 103 MEQ/L Carbon Dioxide Level 26.2 MEQ/L Anion Gap 7 MEQ/L Estimat Glomerular Filtration Rate 71 ML/MIN Microbiology Date/Time Source Procedure Growth Status 04/26/17 17:45 Wound Foot Fungal Smear - Final NO FUNGAL ELEMENTS SEEN. Resulted 04/26/17 17:45 Wound Foot Fungal Culture Pending Resulted 04/26/17 17:45 Wound Foot Acid Fast Stain - Final NO ACID FAST BACILLI SEEN Resulted 04/26/17 17:45 Wound Foot Mycobacterial Culture Pending Resulted 04/26/17 17:45 Wound Foot Gram Stain - Final Complete 04/26/17 17:45 Wound Foot Wound Culture - Final NO GROWTH IN 72 HRS.--AEROBICALLY OR ... Complete Imaging Last Impressions Foot MRI 04/18/17 0000 Signed Impressions: Service Date/Time: March 16:07 - CONCLUSION: Extensive soft tissue edema of the left foot. Cutaneous ulceration at the plantar aspect of the forefoot adjacent to the fourth MTP joint. Mild bony edema in the fourth and fifth toes indicating reactive change from adjacent soft tissue infection versus early osteomyelitis. No T1-weighted bony signal abnormality to confirm osteomyelitis. Several elongated areas of fluid signal adjacent to the fourth and fifth extensor tendons and plantar aspect of fifth toe indicating possible early abscess formation. Contrast-enhanced study would be helpful for further evaluation of these areas. Behzad Metzger MD Foot X-Ray 04/16/17 1352 Signed Impressions: Service Date/Time: Sunday, April 16, 2017 14:23 - CONCLUSION: No acute disease. Anshu Charles MD Physical Exam GENERAL: This is a well-nourished, well-developed patient, in no apparent distress. SKIN: No rashes, ecchymoses or lesions. Cool and dry. HEAD: Atraumatic. Normocephalic. No temporal or scalp tenderness. EYES: Pupils equal round and reactive. Extraocular motions intact. No scleral icterus. No injection or drainage. ENT: Nose without bleeding, purulent drainage or septal hematoma. Throat without erythema, tonsillar hypertrophy or exudate. Uvula midline. Airway patent. NECK: Trachea midline. Supple, nontender, no meningeal signs. CARDIOVASCULAR: Regular rate and rhythm without murmurs, gallops, or rubs. RESPIRATORY: Clear to auscultation. Breath sounds equal bilaterally. No wheezes , rales, or rhonchi. GASTROINTESTINAL: Abdomen soft, non-tender, nondistended. MUSCULOSKELETAL: Left foot in dressing. Pt headed to OR. NEUROLOGICAL: Awake and alert. Grossly nonfocal Psych cooperative IV line sites with no e.o infection Assessment & Plan Remarks Assessment and Plan Sepsis present on admission (tachycardia, leucocytosis and source: left foot infection, possible bacteremia) MSSA bacteremia transient Left foot cellulitis/abscess: MSSA Left foot possible osteomyelitis of toe. s/p I&D L foot with delayed primary closure, Dr Rg 04/23/17 s/p partial L 5th ray amputation Dr Rg 04/26/17 MSSA and E.faecalis from foot wound from intial preop culture. E.faecalis likely contaminant. DM with neuropathy DM nephropathy s/p transplant Immune compromised Recs Continue Ancef IV (MSSA bacteremia, MSSA foot abscess) MSSA bacteremia 2 weeks IV will be completed tomorrow but foot path will help decide final regimen (IV vs oral) await final micro results, pathology results and d.w to provide final recs. Called pathology (specimen will be processed today as a priority for discharge) . Likely path results will be available on 04/30/17. Follow clinically. d/w pt above plan. Daiana Morales MD Apr 29, 2017 10:33
[2017-04-29 12:00] VITALS: BP 126/71; PULSE 80; RESP 17; TEMP 95.2; O2SAT 97
--- NOTE | 2017-04-29 14:41 | HHI.PR ---
Subjective Remarks Follow-up for osteomyelitis Pain is controlled, no overnight events other than mild hypoglycemia this morning. No fever, no nausea or vomiting. Objective Vitals Vital Signs Date Time Temp Pulse Resp B/P (MAP) Pulse Ox O2 Delivery O2 Flow Rate FiO2 04/29/17 12:00 95.2 80 17 126/71 (89) 97 04/29/17 08:00 96.4 86 16 164/89 (114) 97 04/29/17 00:34 96.2 81 16 104/58 (73) 96 04/28/17 20:00 97.6 84 16 112/71 (85) 96 04/28/17 16:00 98.3 82 16 115/73 (87) 96 I/O 04/28/17 04/28/17 04/28/17 04/29/17 04/29/17 04/29/17 06:59 14:59 22:59 06:59 14:59 22:59 Intake Total 860 ml 1700 ml 50 ml Output Total 1100 ml Balance -240 ml 1700 ml 50 ml Intake Oral 1600 ml IV Total 860 ml 100 ml 50 ml Output Urine Total 1100 ml # Voids 5 3 # Bowel Movements 1 1 Result Diagram: 04/25/17 0630 04/28/17 0515 Objective Remarks GENERAL: Not in distress CARDIOVASCULAR: Regular rate and rhythm without murmurs, gallops, or rubs. RESPIRATORY: Breath sounds equal bilaterally. No accessory muscle use. GASTROINTESTINAL: Abdomen soft, non-tender, nondistended. MUSCULOSKELETAL: No cyanosis, or edema. Left foot dressings in place Alert awake and oriented, no focal deficits. Procedures Bedside I and D left foot on 04/18/17 Consent signed and in the chart. Nursing staff assisting. Prep and with # 15 blade I and D at the 4th IS and plantar sub 4th metatarsal. C and D at the 4th IS. Excisional debridement with # 15 blade of necrotic and non viable tissue. Betadine dressing applied Kim Burdick DPM A/P Problem List: (1) Kidney transplant status ICD Code: Z94.0 - Kidney transplant status (2) Diabetic foot ulcer associated with type 1 diabetes mellitus ICD Code: E10.621 - Type 1 diabetes mellitus with foot ulcer; L97.509 - Non- pressure chronic ulcer of other part of unspecified foot with unspecified severity (3) Diabetic ulcer of left foot ICD Code: E11.621 - Type 2 diabetes mellitus with foot ulcer; L97.529 - Non- pressure chronic ulcer of other part of left foot with unspecified severity (4) Immunosuppressed status ICD Code: D89.9 - Disorder involving the immune mechanism, unspecified (5) Cellulitis of left foot ICD Code: L03.116 - Cellulitis of left lower limb (6) Diabetes ICD Code: E11.9 - Type 2 diabetes mellitus without complications Assessment and Plan 46-year-old male with uncontrolled type 1 diabetes mellitus who presented with left lower extremity cellulitis found to be osteomyelitis. Growing only staph aureus. On antibiotics as per infectious disease. Status post wound biopsy, subsequently referred subsequent resection of left fifth necrotic toe on 04/26. Left foot osteomyelitis-status post partial section 04/26/17, infectious disease following, continue Ancef per infectious disease. Follow-up biopsy results, should be out tomorrow 04/30/17. Cultures grew Staphylococcus aureus, MSSA. Discussed with podiatry today, cleared from podiatry standpoint. Discharge dependent on biopsy results and final ID recommendations. ESRD status post kidney transplant - Continue on home medications Including immunosuppression with Prograf, prednisone and CellCept , monitor kidney function. Tacrolimus levels 12.6 on 04/20. Hyperlipidemia- continue simvastatin High blood pressure --continue on metoprolol Type 1 diabetes mellitus- adjust basal insulin to home dose, had hypoglycemia this morning, decrease Levemir to 40 units with sliding scale insulin medium dose. Diarrhea. With loose bowel movements. C. difficile negative. Likely antibiotic related Mild hyponatremia- sodium is stable. Prophylaxis. Continue Lovenox daily. Otherwise As per surgical service. Discharge Planning Cleared by podiatry. Discharge once final recommendations for antibiotics are in, this is contingent on bone biopsy results that will be out 04/30/17. Problem Qualifiers (1) Diabetic foot ulcer associated with type 1 diabetes mellitus: Qualified Codes: E10.621 - Type 1 diabetes mellitus with foot ulcer; L97.529 - Non-pressure chronic ulcer of other part of left foot with unspecified severity (2) Diabetes: Sofie Mcfarland MD Apr 29, 2017 14:41
[2017-04-29 16:00] VITALS: BP 143/81; PULSE 84; RESP 16; TEMP 97; O2SAT 97
[2017-04-29 20:28] VITALS: BP 124/68; PULSE 82; RESP 20; TEMP 97.5; O2SAT 97
[2017-04-29] MEDS ORDERED: INSULIN DETEMIR 100 UNITS/ML VIAL SQ SCH (21:00)
[2017-04-29] MEDS: PRAVASTATIN SOD 80 MG TAB PO SCH (22:49)
[2017-04-30 00:37] VITALS: BP 116/63; PULSE 84; RESP 20; TEMP 97.5; O2SAT 97
[2017-04-30] MEDS: ceFAZolin 2 GM PREMIX 50 ML IV SCH ×3 (04:50→21:00)
[2017-04-30] MEDS: INSULIN ASPART SUPPLEMENTAL SCALE SQ SCH ×4 (07:51→21:00)
[2017-04-30] MEDS: INSULIN ASPART 1,000 UNITS/10 ML VIAL SQ SCH ×3 (07:51→16:31)
[2017-04-30 08:00] VITALS: BP 123/72; PULSE 78; RESP 18; TEMP 96.4; O2SAT 95
[2017-04-30] MEDS: KETOCONAZOLE 2% CREAM 15 GM TOPICAL SCH ×2 (09:00→21:00)
[2017-04-30] MEDS: DOCUSATE SODIUM 50 MG/SENNA 8.6 MG TAB PO SCH ×2 (09:00→21:00)
[2017-04-30] MEDS: predniSONE 5 MG TAB PO SCH (09:14)
[2017-04-30] MEDS: PANTOPRAZOLE SOD 40 MG DELAYED RELEASE TAB PO SCH ×2 (09:14→20:57)
[2017-04-30] MEDS: METOPROLOL TARTRATE 100 MG TAB PO SCH (09:14)
[2017-04-30] MEDS: ASPIRIN EC 81 MG TABEC PO SCH (09:14)
[2017-04-30] MEDS: SODIUM CHLORIDE 0.9% FLUSH 10 ML FLUSH IV FLUSH SCH ×2 (09:16→21:05)
--- NOTE | 2017-04-30 11:46 | HHI.PR ---
Subjective Remarks The patient was upset that his biopsy results would not be ready today. He said that he might be going AMA. He said that he wants to take his own pills. Discussed with nurse and his mother. Objective Vitals Vital Signs Date Time Temp Pulse Resp B/P (MAP) Pulse Ox O2 Delivery O2 Flow Rate FiO2 04/30/17 08:00 96.4 78 18 123/72 (89) 95 04/30/17 00:37 97.5 84 20 116/63 (80) 97 04/29/17 20:28 97.5 82 20 124/68 (86) 97 04/29/17 16:00 97.0 84 16 143/81 (101) 97 04/29/17 12:00 95.2 80 17 126/71 (89) 97 I/O 04/29/17 04/29/17 04/29/17 04/30/17 04/30/17 04/30/17 07:00 15:00 23:00 07:00 15:00 23:00 Intake Total 50 ml 2050 ml 880 ml Balance 50 ml 2050 ml 880 ml Intake Oral 2000 ml 780 ml IV Total 50 ml 50 ml 100 ml # Voids 3 3 3 # Bowel Movements 3 Result Diagram: 04/28/17 0515 Imaging Last Impressions Foot X-Ray 04/26/17 0000 Signed Impressions: Service Date/Time: Wednesday, April 26, 2017 18:04 - CONCLUSION: 1. Postoperative resection of the fifth toe and distal metatarsal. Deepak Muñoz MD Tumor Localization 04/18/17 0000 Signed Impressions: Service Date/Time: March 11:57 - CONCLUSION: 1. Cellulitis without evidence of osteomyelitis. Keny Chaney MD Foot MRI 04/18/17 0000 Signed Impressions: Service Date/Time: March 16:07 - CONCLUSION: Extensive soft tissue edema of the left foot. Cutaneous ulceration at the plantar aspect of the forefoot adjacent to the fourth MTP joint. Mild bony edema in the fourth and fifth toes indicating reactive change from adjacent soft tissue infection versus early osteomyelitis. No T1-weighted bony signal abnormality to confirm osteomyelitis. Several elongated areas of fluid signal adjacent to the fourth and fifth extensor tendons and plantar aspect of fifth toe indicating possible early abscess formation. Contrast-enhanced study would be helpful for further evaluation of these areas. Behzad Metzger MD Objective Remarks GENERAL: Not in distress, impatient. HEENT: NC, AT. CARDIOVASCULAR: Regular rate and rhythm without murmurs, gallops, or rubs. RESPIRATORY: Breath sounds equal bilaterally. No accessory muscle use. GASTROINTESTINAL: Abdomen soft, non-tender. MUSCULOSKELETAL: No cyanosis, or edema. Left foot dressings in place. NEURO: Alert awake and oriented, no focal deficits. Procedures Bedside I and D left foot on 04/18/17 Consent signed and in the chart. Nursing staff assisting. Prep and with # 15 blade I and D at the 4th IS and plantar sub 4th metatarsal. C and D at the 4th IS. Excisional debridement with # 15 blade of necrotic and non viable tissue. Betadine dressing applied Medications and IVs Current Medications Medications (Trade) Dose Ordered Sig/Diana Route Start Time Stop Time Status Last Admin (D50w (Vial) Inj) 50 ml UNSCH PRN IV PUSH 04/16/17 16:00 (Glucagon Inj) 1 mg UNSCH PRN OTHER 04/16/17 16:00 (NS Flush) 2 ml UNSCH PRN IV FLUSH 04/16/17 16:00 (NS Flush) 2 ml BID IV FLUSH 04/16/17 21:00 04/30/17 09:16 (Tylenol) 650 mg Q4H PRN PO 04/16/17 16:00 04/17/17 13:25 (Zofran Inj) 4 mg Q6H PRN IVP 04/16/17 16:00 (Compazine Supp) 25 mg Q12H PRN RECTAL 04/16/17 16:00 (Ambien) 5 mg HS PRN PO 04/16/17 16:00 04/26/17 23:24 (Tylenol) 650 mg Q6H PRN PO 04/16/17 16:00 04/17/17 05:16 (Percocet 5-325 Mg) 1 tab Q6H PRN PO 04/16/17 16:00 04/24/17 04:12 (Percocet 10-325 Mg) 1 tab Q6H PRN PO 04/16/17 16:00 04/22/17 19:54 (Morphine Inj) 2 mg Q3H PRN IV PUSH 04/16/17 16:00 (Morphine Inj) 4 mg Q3H PRN IV PUSH 04/16/17 16:00 (Narcan Inj) 0.4 mg UNSCH PRN IV PUSH 04/16/17 16:00 (Nancy-Colace) 1 tab BID PO 04/16/17 21:00 (Milk Of Magnesia Liq) 30 ml Q12H PRN PO 04/16/17 16:00 (Senokot) 17.2 mg Q12H PRN PO 04/16/17 16:00 (Dulcolax Supp) 10 mg DAILY PRN RECTAL 04/16/17 16:00 (Lactulose Liq) 30 ml DAILY PRN PO 04/16/17 16:00 (Ecotrin Ec) 81 mg DAILY PO 04/17/17 09:00 04/30/17 09:14 (Lopressor) 100 mg DAILY PO 04/17/17 09:00 04/30/17 09:14 (Deltasone) 5 mg DAILY PO 04/17/17 09:00 04/30/17 09:14 (Pravachol) 80 mg HS PO 04/16/17 21:00 04/29/17 22:49 (Protonix) 40 mg Q12HR PO 04/16/17 21:00 04/30/17 09:14 (Cellcept) 500 mg BID@0000,1200 PO 04/17/17 00:00 04/29/17 23:28 (Prograf) 2 mg BID@0000,1200 PO 04/19/17 12:00 04/29/17 23:28 (NovoLOG SUPPLEMENTAL SCALE) 1 ACHS SLIDING SCALE SQ 04/22/17 21:00 04/29/17 22:48 Cefazolin Sodium/ Dextrose 50 ml @ 100 mls/hr Q8H IV 04/22/17 21:00 04/30/17 04:50 (Nizoral 2% Cream) 1 applic Q12HR TOPICAL 04/23/17 21:00 04/30/17 09:00 (NovoLOG INJ) 2 units TIDAC SQ 04/24/17 17:30 04/29/17 16:57 (Levemir Inj) 40 units HS SQ 04/29/17 21:00 04/29/17 22:49 A/P Problem List: (1) Kidney transplant status ICD Code: Z94.0 - Kidney transplant status (2) Diabetic foot ulcer associated with type 1 diabetes mellitus ICD Code: E10.621 - Type 1 diabetes mellitus with foot ulcer; L97.509 - Non- pressure chronic ulcer of other part of unspecified foot with unspecified severity (3) Diabetic ulcer of left foot ICD Code: E11.621 - Type 2 diabetes mellitus with foot ulcer; L97.529 - Non- pressure chronic ulcer of other part of left foot with unspecified severity (4) Immunosuppressed status ICD Code: D89.9 - Disorder involving the immune mechanism, unspecified (5) Cellulitis of left foot ICD Code: L03.116 - Cellulitis of left lower limb (6) Diabetes ICD Code: E11.9 - Type 2 diabetes mellitus without complications Assessment and Plan 46-year-old male with uncontrolled type 1 diabetes mellitus who presented with left lower extremity cellulitis found to be osteomyelitis. Growing only staph aureus. On antibiotics as per infectious disease. Status post wound biopsy, subsequently referred subsequent resection of left fifth necrotic toe on 04/26. Left foot osteomyelitis-status post partial section 04/26/17, infectious disease following, continue Ancef per infectious disease. Follow-up biopsy results, should be out tomorrow 04/30/17. Cultures grew Staphylococcus aureus, MSSA. Discussed with podiatry today, cleared from podiatry standpoint. Discharge dependent on biopsy results and final ID recommendations. Follow with podiatry as an outpt. ESRD status post kidney transplant - Continue on home medications Including immunosuppression with Prograf, prednisone and CellCept , monitor kidney function. Tacrolimus levels 12.6 on 04/20. Hyperlipidemia- continue simvastatin High blood pressure --continue on metoprolol Type 1 diabetes mellitus- adjust basal insulin to home dose, had hypoglycemia this morning, decrease Levemir to 30 units with sliding scale insulin medium dose. Diarrhea. With loose bowel movements. C. difficile negative. Likely antibiotic related Mild hyponatremia- sodium is stable. Prophylaxis. Continue Lovenox daily. Otherwise As per surgical service. Discharge Planning Cleared by podiatry. Discharge once final recommendations for antibiotics are in, this is contingent on bone biopsy results that will be out 05/01/17. Problem Qualifiers (1) Diabetic foot ulcer associated with type 1 diabetes mellitus: Qualified Codes: E10.621 - Type 1 diabetes mellitus with foot ulcer; L97.529 - Non-pressure chronic ulcer of other part of left foot with unspecified severity (2) Diabetes: Corby Roy DO Apr 30, 2017 11:46
[2017-04-30 12:00] VITALS: BP 114/71; PULSE 83; RESP 16; TEMP 96.7; O2SAT 96
[2017-04-30] MEDS: TACROLIMUS 1 MG CAP PO SCH ×2 (12:00→23:30)
[2017-04-30] MEDS: MYCOPHENOLATE MOFETIL 500 MG TAB PO SCH ×2 (12:25→23:30)
[2017-04-30 16:00] VITALS: BP 117/76; PULSE 80; RESP 17; TEMP 97.2; O2SAT 97
--- NOTE | 2017-04-30 17:26 | PD.POD ---
Subjective Pain scale used: 0-10 numeric scale Pain score: 3 Remarks Doing well wants to go home, seen with bedside Past Med/Surg/Social History Past Medical History Endocrine: REPORTS HX OF: Diabetes mellitus, Other endocrine history Genitourinary: REPORTS HX OF: Kidney failure Neurologic: REPORTS HX OF: Peripheral neuropathy Past Surgical History Endocrine: REPORTS HX OF: Other endocrine surgery (pancreatitic transplant with failure) Genitourinary: REPORTS HX OF: Other surgery (to need transplant) Social History Smoking Status: Never Smoker Objective Vital Signs Vital Signs Date Time Temp Pulse Resp B/P (MAP) Pulse Ox O2 Delivery O2 Flow Rate FiO2 04/30/17 16:00 97.2 80 17 117/76 (90) 97 04/30/17 12:00 96.7 83 16 114/71 (85) 96 04/30/17 08:00 96.4 78 18 123/72 (89) 95 04/30/17 00:37 97.5 84 20 116/63 (80) 97 04/29/17 20:28 97.5 82 20 124/68 (86) 97 Coded Allergies: No Known Allergies (Unverified , 04/16/17) Medications and IVs Administered Medications Medications (Trade) Dose Ordered Sig/Diana Route PRN Reason Start Time Stop Time Status Last Admin Dose Admin Sodium Chloride (NS Flush) 2 ml BID IV FLUSH 04/16/17 21:00 04/30/17 09:16 Acetaminophen (Tylenol) 650 mg Q4H PRN PO TEMP > 100.4 04/16/17 16:00 04/17/17 13:25 Zolpidem Tartrate (Ambien) 5 mg HS PRN PO INSOMNIA 04/16/17 16:00 04/26/17 23:24 Acetaminophen (Tylenol) 650 mg Q6H PRN PO PAIN SCALE 1 TO 2 04/16/17 16:00 04/17/17 05:16 Oxycodone/ Acetaminophen (Percocet 5-325 Mg) 1 tab Q6H PRN PO PAIN SCALE 3 TO 5 04/16/17 16:00 04/24/17 04:12 Oxycodone/ Acetaminophen (Percocet 10-325 Mg) 1 tab Q6H PRN PO PAIN SCALE 6 TO 10 04/16/17 16:00 04/22/17 19:54 Aspirin (Ecotrin Ec) 81 mg DAILY PO 04/17/17 09:00 04/30/17 09:14 Metoprolol Tartrate (Lopressor) 100 mg DAILY PO 04/17/17 09:00 04/30/17 09:14 Prednisone (Deltasone) 5 mg DAILY PO 04/17/17 09:00 04/30/17 09:14 Pravastatin Sodium (Pravachol) 80 mg HS PO 04/16/17 21:00 04/29/17 22:49 Pantoprazole Sodium (Protonix) 40 mg Q12HR PO 04/16/17 21:00 04/30/17 09:14 Mycophenolate Mofetil (Cellcept) 500 mg BID@0000,1200 PO 04/17/17 00:00 04/30/17 12:25 Tacrolimus (Prograf) 2 mg BID@0000,1200 PO 04/19/17 12:00 04/29/17 23:28 Insulin Aspart (NovoLOG SUPPLEMENTAL SCALE) 1 ACHS SLIDING SCALE SQ 04/22/17 21:00 04/30/17 12:26 Cefazolin Sodium/ Dextrose 50 ml @ 100 mls/hr Q8H IV 04/22/17 21:00 04/30/17 12:25 Ketoconazole (Nizoral 2% Cream) 1 applic Q12HR TOPICAL 04/23/17 21:00 04/30/17 09:00 Insulin Aspart (NovoLOG INJ) 2 units TIDAC SQ 04/24/17 17:30 04/30/17 12:25 Other Results Path from surgery is still pending Physical Exam Remarks Left foot- dorsal 5th ray amp incision with linear necrosis, dry scab no fluctuance, minimal swelling and minimal redness Assessment & Plan Diagnosis: (1) Osteomyelitis of ankle or foot ICD Codes: M86.9 - Osteomyelitis, unspecified (2) Cellulitis of left foot ICD Codes: L03.116 - Cellulitis of left lower limb (3) Diabetic ulcer of left foot ICD Codes: E11.621 - Type 2 diabetes mellitus with foot ulcer; L97.529 - Non- pressure chronic ulcer of other part of left foot with unspecified severity A/P SP 5th ray digit amp Amanuel 10-6. Bandage changed, added Santly, pt to FU [address] Rg, reviewed with , understands bandage change daily with 4x4 and kvng wrap, ID awaiting path. Ok to FU outpt. Pt has knee scooter. Que Saab DPM Apr 30, 2017 17:26
[2017-04-30 20:12] VITALS: BP 120/65; PULSE 85; RESP 20; TEMP 97.3; O2SAT 96
[2017-04-30] MEDS: PRAVASTATIN SOD 80 MG TAB PO SCH (20:57)
[2017-04-30] MEDS ORDERED: INSULIN DETEMIR 100 UNITS/ML VIAL SQ SCH (21:00)
[2017-05-01 00:02] VITALS: BP 124/71; PULSE 90; RESP 18; TEMP 97.9; O2SAT 98
[2017-05-01] MEDS: ceFAZolin 2 GM PREMIX 50 ML IV SCH (06:10)
[2017-05-01 08:00] VITALS: BP 109/70; PULSE 82; RESP 16; TEMP 96; O2SAT 98
[2017-05-01] MEDS: INSULIN ASPART 1,000 UNITS/10 ML VIAL SQ SCH ×2 (08:49→13:10)
[2017-05-01] MEDS: INSULIN ASPART SUPPLEMENTAL SCALE SQ SCH ×2 (08:49→13:10)
[2017-05-01] MEDS: ASPIRIN EC 81 MG TABEC PO SCH (08:52)
[2017-05-01] MEDS: PANTOPRAZOLE SOD 40 MG DELAYED RELEASE TAB PO SCH (08:52)
[2017-05-01] MEDS: predniSONE 5 MG TAB PO SCH (08:52)
[2017-05-01] MEDS: METOPROLOL TARTRATE 100 MG TAB PO SCH (08:54)
[2017-05-01] MEDS: DOCUSATE SODIUM 50 MG/SENNA 8.6 MG TAB PO SCH (08:54)
[2017-05-01] MEDS: KETOCONAZOLE 2% CREAM 15 GM TOPICAL SCH (09:00)
[2017-05-01] MEDS: SODIUM CHLORIDE 0.9% FLUSH 10 ML FLUSH IV FLUSH SCH (09:00)
[2017-05-01] MEDS ORDERED: COLLAGENASE OINT 30 GM TUBE TOPICAL SCH (09:00)
[2017-05-01] MEDS ORDERED: COLL30T TOPICAL (11:05)
[2017-05-01] MEDS ORDERED: DICL500 PO (11:20)
--- NOTE | 2017-05-01 11:20 | HHI.DS ---
Discharge Summary Admission Date Apr 16, 2017 at 15:31 Discharge Date: May 01, 2017 Admitting Diagnosis Hyperglycemia; Lymphangitis/Cellulitis L Foot (1) Kidney transplant status ICD Code: Z94.0 - Kidney transplant status (2) Diabetic foot ulcer associated with type 1 diabetes mellitus ICD Code: E10.621 - Type 1 diabetes mellitus with foot ulcer; L97.509 - Non- pressure chronic ulcer of other part of unspecified foot with unspecified severity Diagnosis: Principal (3) Diabetic ulcer of left foot ICD Code: E11.621 - Type 2 diabetes mellitus with foot ulcer; L97.529 - Non- pressure chronic ulcer of other part of left foot with unspecified severity (4) Immunosuppressed status ICD Code: D89.9 - Disorder involving the immune mechanism, unspecified Diagnosis: Principal (5) Cellulitis of left foot ICD Code: L03.116 - Cellulitis of left lower limb (6) Diabetes ICD Code: E11.9 - Type 2 diabetes mellitus without complications Procedures Bedside I and D left foot on 04/18/17 Consent signed and in the chart. Nursing staff assisting. Prep and with # 15 blade I and D at the 4th IS and plantar sub 4th metatarsal. C and D at the 4th IS. Excisional debridement with # 15 blade of necrotic and non viable tissue. Betadine dressing applied Brief History - From Admission Mr. Weaver is a 46-year-old male with a past medical history of type 1 diabetes and neuropathy presenting today with a left foot wound. He states that on Saturday , 4 days ago, he started having fever and chills, sweats, and body aches. He had a Tmax of 100.1 yesterday, but has been continuously taking Tylenol since Saturday. Today he noticed that his left foot was erythematous and had swelling. He also knows a wound on the bottom of his foot. He states that he is having some bloody discharge coming from the wound. 6 months ago he was admitted for a right foot wound. He states that "the doctor had scraped his right great toe to the bone" and gave him vancomycin. He usually checks his feet daily, but has not since Saturday due to being ill. He also states that his sugars have been running very high. He is on NovoLog sliding scale and states that his sugars have been uncontrollable. His also noticed that his breath has a fruity smell. He states that he also thinks he may be spilling ketones. Of note, he has also lost 14 pounds over the weekend. He had vomited on Saturday and Saturday, nonbilious and nonbloody. Once per day. CBC/BMP: 04/28/17 0515 Imaging Last Impressions Foot X-Ray 04/26/17 0000 Signed Impressions: Service Date/Time: Wednesday, April 26, 2017 18:04 - CONCLUSION: 1. Postoperative resection of the fifth toe and distal metatarsal. Deepak Muñoz MD Tumor Localization 04/18/17 0000 Signed Impressions: Service Date/Time: March 11:57 - CONCLUSION: 1. Cellulitis without evidence of osteomyelitis. Keny Chaney MD Foot MRI 04/18/17 0000 Signed Impressions: Service Date/Time: March 16:07 - CONCLUSION: Extensive soft tissue edema of the left foot. Cutaneous ulceration at the plantar aspect of the forefoot adjacent to the fourth MTP joint. Mild bony edema in the fourth and fifth toes indicating reactive change from adjacent soft tissue infection versus early osteomyelitis. No T1-weighted bony signal abnormality to confirm osteomyelitis. Several elongated areas of fluid signal adjacent to the fourth and fifth extensor tendons and plantar aspect of fifth toe indicating possible early abscess formation. Contrast-enhanced study would be helpful for further evaluation of these areas. Behzad Metzger MD PE at Discharge GENERAL: Not in distress, impatient. HEENT: NC, AT. CARDIOVASCULAR: Regular rate and rhythm without murmurs, gallops, or rubs. RESPIRATORY: Breath sounds equal bilaterally. No accessory muscle use. GASTROINTESTINAL: Abdomen soft, non-tender. MUSCULOSKELETAL: No cyanosis, or edema. Left foot dressings in place. NEURO: Alert awake and oriented, no focal deficits. Pt update on day of discharge The patient wanted to be discharged home. He said he understood dressing instructions as described by podiatry. Family was at the bedside. No acute concerns. Hospital Course Left foot osteomyelitis 46-year-old male with uncontrolled type 1 diabetes mellitus who presented with left lower extremity cellulitis found to be osteomyelitis. Infectious disease and podiatry were consulted. Antibiotics were initiated. MRI showed: Extensive soft tissue edema of the left foot; Cutaneous ulceration at the plantar aspect of the forefoot adjacent to the fourth MTP joint; Mild bony edema in the fourth and fifth toes indicating reactive change from adjacent soft tissue infection versus early osteomyelitis; No T1-weighted bony signal abnormality to confirm osteomyelitis; Several elongated areas of fluid signal adjacent to the fourth and fifth extensor tendons and plantar aspect of fifth toe indicating possible early abscess formation. Status post wound biopsy and subsequent resection of left fifth necrotic toe on 04/26. Seen by vascular surgery who did not recommend any further evaluation. Cultures grew staphylococcus aureus, MSSA. Dressing changes were ordered as per podiatry. He will complete a course of antibiotics per ID and will follow up with podiatry as an outpt. ESRD Status post kidney transplant. He was continued on his home medications including immunosuppression with Prograf, prednisone and CellCept. Tacrolimus levels was 12.6. Type 1 diabetes mellitus We reduced the pt's insulin as he had some episodes of hypoglycemia in the AM. He will resume his home regimen on discharge and will monitor his blood glucose closely. He wanted his Lantus switched to Levemir. He also requested NovoLog FlexPen dosing to be adjusted to up to 30 units TID as needed. His pharmacy was contacted with the medication changes as per pt request. 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 Diarrhea C. difficile negative. Resolved. Pt Condition on Discharge: Stable Discharge Disposition: Disch w/ Home Health Serv Discharge Time: > 30 minutes Discharge Instructions Follow up Referrals: Nephrology - 1 Week PCP Follow-up - 1 Week Podiatry - 1 Week with Magalys Rg DPM New Medications: Dicloxacillin (Dicloxacillin) 500 Mg Cap 500 MG PO QID for Infection for 14 Days, CAP 0 Refills Walker with Front Wheels (Walker with Front Wheels) 1 Mis Mis EA .ROUTE DIRECTED for WOUND, #1 0 Refills Collagenase (Santyl) 250 Unit/Gram Oin 1 APPLIC TOPICAL DAILY for Wound, #1 TUBE Insulin Aspart Inj (Novolog Inj) 1,000 Unit/10 Ml Vial 2 UNITS SQ TIDAC for Blood Sugar Management, #60 INJECTION Insulin Detemir Inj (Levemir Inj) 1,000 unit/ 10 ML Vial 30 UNITS SQ HS for Blood Sugar Management, #30 INJECTION Do not mix with any other Insulin. Continued Medications: Aspirin DR (Aspirin 81) 81 Mg Tabdr 81 MG PO DAILY, TAB 0 Refills Insulin Human Regular Inj (Novolin R Inj) 1,000 Unit/10 Ml Vial 0 SQ DIRECTED for Blood Sugar Management, #10 ML 0 Refills Sliding Scale As Directed. Metoprolol Tartrate (Metoprolol Tartrate) 100 Mg Tab 100 MG PO DAILY, #30 TAB 0 Refills Mycophenolate (Cellcept) 250 Mg Cap 500 MG PO BID for Immunosuppression, #180 CAP 0 Refills Prednisone (Prednisone) 5 Mg Tab 5 MG PO DAILY, TAB 0 Refills Simvastatin (Simvastatin) 40 Mg Tab 40 MG PO HS for Cholesterol Management, #30 TAB 0 Refills Tacrolimus (Prograf) 1 Mg Cap 2 MG PO BID for Prevent Transplant Reject, #60 CAP 0 Refills Discontinued Medications: Insulin Glargine Inj (Lantus Inj) 1,000 Unit/10 Ml Vial 50 UNITS SQ HS for Blood Sugar Management, VIAL 0 Refills Corby Roy DO May 01, 2017 11:20
--- NOTE | 2017-05-01 11:24 | HHI.IDPN ---
Subjective Subjective Remarks Mr. Weaver is a 46 y/o CM with PMHx significant for DM with neuropathy, nephropathy s/p renal transplant who is on immune suppressant medications such as cellcept, tacrolimus and prednisone. He reports feeling of unwellness for last 1 week. He reports no symptoms in his foot. He did not examine his feet in last 1 week. He reports that when he was wearing his socks to come to hospital is when he noticed the foot findings. He had started having fever and chills, sweats, and body aches. He had a Tmax of 100.1 yesterday, but has been continuously taking Tylenol for a week. Today he noticed that his left foot was erythematous and had swelling. He also knows a wound on the bottom of his foot. He states that he is having some bloody discharge coming from the wound. 6 months ago he was admitted for a right foot wound. He states that "the doctor had scraped his right great toe to the bone" and gave him vancomycin in hospital and discharged him on oral antibiotics. He usually checks his feet daily, but has not since Saturday due to being ill. Sepsis workup initiated on admission. ID consulted for evaluation and mment of Sepsis, Left foot cellulitis possible osteomyelitis. Overnight events reviewed s/p I&D L foot with delayed primary closure, Dr Rg 04/23/17 s/p partial L 5th ray amputation Dr Rg 04/26/17 No fevers, chills and night sweats No rash No diarrhea Antibiotics Ancef IV Lines Line sites with no e.o infection Past Medical History Diabetes mellitus type 1 History of diabetic foot wound right foot 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 Severe diabetic neuropathy Hyperlipidemia Hypertension Debridement of right foot in the past by podiatry history of kidney transplant History of pancreatic transplant 2 Allergies: Coded Allergies: No Known Allergies (Unverified , 04/16/17) Objective . Vital Signs Date Time Temp Pulse Resp B/P (MAP) Pulse Ox O2 Delivery O2 Flow Rate FiO2 05/01/17 08:00 96.0 82 16 109/70 (83) 98 05/01/17 00:02 97.9 90 18 124/71 (88) 98 04/30/17 20:12 97.3 85 20 120/65 (83) 96 04/30/17 16:00 97.2 80 17 117/76 (90) 97 04/30/17 12:00 96.7 83 16 114/71 (85) 96 05/01/17 05/01/17 05/02/17 15:00 23:00 07:00 Intake Total 50 ml Balance 50 ml IV Total 50 ml Imaging Last Impressions Foot MRI 04/18/17 0000 Signed Impressions: Service Date/Time: March 16:07 - CONCLUSION: Extensive soft tissue edema of the left foot. Cutaneous ulceration at the plantar aspect of the forefoot adjacent to the fourth MTP joint. Mild bony edema in the fourth and fifth toes indicating reactive change from adjacent soft tissue infection versus early osteomyelitis. No T1-weighted bony signal abnormality to confirm osteomyelitis. Several elongated areas of fluid signal adjacent to the fourth and fifth extensor tendons and plantar aspect of fifth toe indicating possible early abscess formation. Contrast-enhanced study would be helpful for further evaluation of these areas. Behzad Metzger MD Foot X-Ray 04/16/17 1352 Signed Impressions: Service Date/Time: Sunday, April 16, 2017 14:23 - CONCLUSION: No acute disease. Anshu Charles MD Physical Exam GENERAL: This is a well-nourished, well-developed patient, in no apparent distress. SKIN: No rashes, ecchymoses or lesions. Cool and dry. HEAD: Atraumatic. Normocephalic. No temporal or scalp tenderness. EYES: Pupils equal round and reactive. Extraocular motions intact. No scleral icterus. No injection or drainage. ENT: Nose without bleeding, purulent drainage or septal hematoma. Throat without erythema, tonsillar hypertrophy or exudate. Uvula midline. Airway patent. NECK: Trachea midline. Supple, nontender, no meningeal signs. CARDIOVASCULAR: Regular rate and rhythm without murmurs, gallops, or rubs. RESPIRATORY: Clear to auscultation. Breath sounds equal bilaterally. No wheezes , rales, or rhonchi. GASTROINTESTINAL: Abdomen soft, non-tender, nondistended. MUSCULOSKELETAL: Left foot in dressing. Pt headed to OR. NEUROLOGICAL: Awake and alert. Grossly nonfocal Psych cooperative IV line sites with no e.o infection Assessment & Plan Remarks Assessment and Plan Sepsis present on admission (tachycardia, leucocytosis and source: left foot infection, possible bacteremia) MSSA bacteremia transient Left foot cellulitis/abscess: MSSA Left foot possible osteomyelitis of toe. s/p I&D L foot with delayed primary closure, Dr Rg 04/23/17 s/p partial L 5th ray amputation Dr Rg 04/26/17 MSSA and E.faecalis from foot wound from intial preop culture. E.faecalis likely contaminant. DM with neuropathy DM nephropathy s/p transplant Immune compromised Recs DC Ancef IV (MSSA bacteremia, MSSA foot abscess) Oral Dicloxacillin for 14 days. MSSA bacteremia 2 weeks IV completed. Path specimen: recd call from bone margins clear at the end close to body. d/w pt above plan. Follow up with Podiatry. Will sign off please call back if any change in clinical condition or questions. Daiana Morales MD May 01, 2017 11:24
[2017-05-01] MEDS: TACROLIMUS 1 MG CAP PO SCH (11:55)
[2017-05-01] MEDS: MYCOPHENOLATE MOFETIL 500 MG TAB PO SCH (11:55)
[2017-05-01 12:00] VITALS: BP 112/73; PULSE 83; RESP 17; TEMP 96.1; O2SAT 99
[2017-05-01] MEDS ORDERED: DICLOXACILLIN SODIUM 250 MG CAP PO SCH (12:00)
[2017-05-01] MEDS ORDERED: NOVOLOGP2 SQ (14:20)
[2017-05-01] MEDS ORDERED: LEVEMIR SQ (14:20)
--- NOTE | 2017-05-02 14:01 | HHI.PR ---
Addendum to Inpatient Note Addendum Reason: Additional Documentation Additional Information The patient returned to the hospital on 05/02/17 stating that he needed new prescriptions for his insulin. He clarified he wanted Levemir 50 units at bedtime instead of 30 units. That change was called into the pharmacy. He also said he wanted the NovoLog flex pen to be changed from 2 units 3 times a day to up to 30 units 3 times a day. Therefore, the patient's NovoLog flex pen was changed to a sliding scale of up to 30 units 3 times a day per patient preference. He will continue to follow-up with his primary care doctor and inbound ingredient logistics specialist. Corby Roy DO May 02, 2017 14:01
--- NOTE | 2017-05-04 15:40 | MP ---
cc: MAGALYS CASTANEDA DP DATE OF SURGERY 04/26/17 INDICATIONS The patient presented with an infection with gangrene to the lateral aspect of left foot and the fifth digit, between the fourth and fifth digits. He had surgery to have incision and drainage performed of that area with Dr. Burdick and was subsequently noted to need an attempt at primary closure. He was irrigated and debrided and it was noted that the fifth digit appeared to not be viable and after watching the fifth digit it became nonviable and hard and necrotic. I discussed with the patient that there was no way to salvage the fifth digit and it may require further attempt at closure to perform a partial fifth ray amputation of the left foot. He consented to the surgery. PROCEDURE IN DETAIL He was seen in the preop holding by myself, nursing staff and Anesthesia where the correct patient, side and site were all confirmed to be correct in the left foot. He is then taken back to the surgical suite, placed in the supine position where the left foot was prepped and draped in normal sterile fashion. After timeouts were performed as per hospital protocol incision was made to encompass the left fifth digit and some of soft tissue to the dorsal and lateral aspect of the fifth metatarsophalangeal joint area where it was necrotic with mild serous drainage coming from the previous attempt at delayed primary closure. Incision line was necrotic as well and was excised. The fifth digit was amputated at the metatarsophalangeal joint and the necrotic tissue soft tissue was debrided excisionally with a #15 blade and rongeur. The fifth metatarsal was transected at the proximal and mid one-third juncture and was sent with the fifth toe as partial fifth ray to pathology. Another smaller amount of the residual fifth metatarsal was removed with the saw ___ the bone biopsy to determine if there is any presence of osteomyelitis at the area. The wound was copiously irrigated with 3 liters normal sterile saline plus gentamicin and more bleeding tissue was noted intraoperatively at this time compared to his previous attempt at primary closure. No necrotic tissue did remain after irrigation and examination of the wound bed and the area was attempted to be primarily closed with 2-0 nylon suture. Dry sterile dressing was applied and he tolerated the procedure and anesthesia well, was taken back to PACU with vital signs stable, vascular status intact to the remainder of the left lower extremity. He will be non-weightbearing to the left lower extremity and we will continue to monitor the area for viability SHORT OPERATIVE NOTE SURGEON Magalys Castaneda DPM. [employer] Staff. PREOPERATIVE DIAGNOSIS Infection left lateral foot with gangrene left fifth digit. POSTOP DIAGNOSIS Infection left lateral foot with gangrene left fifth digit. PROCEDURE Left partial fifth ray amputation. ANESTHESIA General endotracheal anesthesia. TOURNIQUET TIME No tourniquet utilized. ESTIMATED BLOOD LOSS 10 ml. COMPLICATIONS None. CONDITION Stable to PACU. SPECIMENS 1. Left partial fifth ray to pathology. 2. Left residual fifth metatarsal for bone biopsy. 3. Culture left foot. DISPOSITION Non-weightbearing left lower extremity and will continue to monitor for viability. Magalys Castaneda HM/CASI /12:03 PM /3:25 PM
--- NOTE | 2017-05-09 18:17 | PQ ---
Physician Query Response Document PATIENT: DIONE DIAZ : 1970 ADMIT DATE: 04/16/2017 3:31 PM DISCH DATE: RESPONDING PROVIDER #: [email or web address] QUERY TEXT: Debridement Type EXCISIONAL DEBRIDEMENT WELL DOCUMENTED. PLEASE SEE BELOW AND SPECIFY TISSUE DEBRIDED. Based on your medical judgment, can you further clarify the specific structures debrided such as: --Skin --Subcutaneous tissue --Fascia --Muscle --Other Specify The patient's Clinical Indicators include: Dr. Rg, you performed an Excisional Debridement on 04-23-17 Excisional Debridement is well documented but, "necrotic tissue" needs more specification to code an inpatient debridement. Please see question below and answer to the best of your ability THANK YOU Query created by: Robe Holly on 05/02/2017 10:57 AM RESPONSE TEXT: Debrided structures include necrotic skin, subcutaneous tissue, fascia, and muscle tissue Electronically signed by: Camilla Rg MD 05/09/2017 6:13 PM
== END 2017-05-01 15:47 | disposition home health service (06) | DRG 41 ==
LOC: NEPC 13:25 → NEDA 15:31 → N07A 17:17
PROVIDERS: ADMIT Hospitalist; ATTEND Hospitalist
PROC: 0HDNXZZ Extraction of Left Foot Skin, External Approach (ICD-10-PCS; 2017-04-21)
PROC: 0KBW0ZZ Excision of Left Foot Muscle, Open Approach (ICD-10-PCS; 2017-04-23)
PROC: 0QBQ0ZX Excision of Right Toe Phalanx, Open Approach, Diagnostic (ICD-10-PCS; 2017-04-26)
PROC: 0Y6Y0Z1 Detachment at Left 5th Toe, High, Open Approach (ICD-10-PCS; principal; 2017-04-26 16:26)
DX: E10.40 Type 1 diabetes mellitus with diabetic neuropathy, unspecified (principal); Z94.83 Pancreas transplant status; E10.621 Type 1 diabetes mellitus with foot ulcer; E10.21 Type 1 diabetes mellitus with diabetic nephropathy; E87.1 Hypo-osmolality and hyponatremia; M86.9 Osteomyelitis, unspecified; Z94.0 Kidney transplant status; L02.612 Cutaneous abscess of left foot; E10.22 Type 1 diabetes mellitus with diabetic chronic kidney disease; E10.69 Type 1 diabetes mellitus with other specified complication; E10.65 Type 1 diabetes mellitus with hyperglycemia; F17.210 Nicotine dependence, cigarettes, uncomplicated; L97.519 Non-pressure chronic ulcer of other part of right foot with unspecified severity; L97.529 Non-pressure chronic ulcer of other part of left foot with unspecified severity; I10 Essential (primary) hypertension; E78.5 Hyperlipidemia, unspecified; I73.9 Peripheral vascular disease, unspecified; R19.7 Diarrhea, unspecified; Z91.19 Patient's noncompliance with other medical treatment and regimen; Z79.4 Long term (current) use of insulin; B95.61 Methicillin susceptible Staphylococcus aureus infection as the cause of diseases classified elsewhere
CPT/HCPCS: 36600; 73620; 73630; 73718; 78807; 78999; 80048; 80053; 80069; 80197; 80202; 82010; 82550; 82565; 82805; 82948; 83036; 83735; 84100; 84439; 84443; 84484; 85025; 85610; 85652; 86140; 86403; 87015; 87040; 87070; 87077; 87102; 87116; 87147; 87186; 87205; 87206; 87493; 88304; 88305; 88307; 88311; 93005; 94150; 96365; A9569; J0690; J1580; J1650; J1815; J2250; J2370; J2405; J2543; J3010; J3370; J3475; J7030; J7040; J7050; J7507; J7512; J7517

== ENCOUNTER 2017-06-10 17:18 | Emergency (ER) | payer MEDICARE, BC ==
[~2017-06-10] VITALS: Ht 177.8 cm; Wt 85.0 kg
[~2017-06-10 17:18] MED LIST changes: -ASPI-110 PO; +ASPI1TAB57 PO; +COLL30T TOPICAL; -LANTUS2P SQ; +LEVEMIR SQ; +NOVOLOGP2 SQ; +WALKER WHEELS/F1 MIS
[2017-06-10 17:20] VITALS: BP 149/95; PULSE 87; RESP 16; TEMP 98.5; O2SAT 99
--- NOTE | 2017-06-10 17:59 | PD ---
HPI Chief Complaint: Skin Problem Time Seen by Provider: 17:54 Travel History International Travel<30 days: No Contact w/Intl Traveler<30days: No Traveled to known affect area: No History of Present Illness HPI 46-year-old male with PMH of DM type I, renal transplant, pancreatic transplant , chronic wound of the left foot presents to the ED for evaluation of foul smell of his chronic wound. The patient denies fever, chills, nausea, vomiting. He endorses chronic neuropathy in the area and denies increased pain. He states that he finished a course of Levaquin approximately 8 days ago. He had a treatment in the hyperbaric chamber today. He states that he is followed by Dr. Nichols, last visit approximately one week ago. He is unsure of increased drainage of the area as he has been instructed not to change the dressing himself. PFSH Past Medical History Cardiovascular Problems: No High Cholesterol: Yes Diabetes: Yes (TYPE 1) Patient Takes Glucophage: No Diminished Hearing: No Genitourinary: Yes Headaches: No Hypertension: Yes Medical other: Yes (KIDNEY TRANSPLANT, 2 PANCREAS TRANSPLANT) Musculoskeletal: No Neurologic: No Reproductive: No Respiratory: No Seizures: No Past Surgical History Abdominal Surgery: Yes (kidney transplant) Endocrine Surgery: Yes (pancreas tx x2 ) Genitourinary Surgery: No Gynecologic Surgery: No Thoracic Surgery: No Other Surgery: Yes (kidney pancreas transplant patient) Social History Alcohol Use: No Tobacco Use: No Substance Use: No Allergies-Medications (Allergen,Severity, Reaction): Coded Allergies: No Known Allergies (Verified Adverse Reaction, Unknown, 06/10/17) Reported Meds & Prescriptions Reported Meds & Active Scripts Active Novolog Inj (Insulin Aspart) 1,000 Unit/10 Ml Vial 2 Units SQ TIDAC Levemir Inj (Insulin Detemir) 1,000 unit/ 10 ML Vial 30 Units SQ HS Do not mix with any other Insulin. Walker with Front Wheels (Device) 1 Mis Mis Ea .ROUTE DIRECTED Reported Metoprolol Tartrate 100 Mg Tab 100 Mg PO DAILY Aspirin 81 (Aspirin) 81 Mg Tabdr 81 Mg PO DAILY Simvastatin 40 Mg Tab 40 Mg PO HS Prednisone 5 Mg Tab 5 Mg PO DAILY Prograf (Tacrolimus) 1 Mg Cap 2 Mg PO BID Cellcept (Mycophenolate Mofetil) 250 Mg Cap 500 Mg PO BID Review of Systems Except as stated in HPI: all other systems reviewed are Neg Physical Exam Narrative GENERAL: Well-nourished, well-developed patient. SKIN: Focused skin assessment warm/dry. HEAD: Normocephalic. EYES: No scleral icterus. No injection or drainage. NECK: Supple, trachea midline. No JVD or lymphadenopathy. CARDIOVASCULAR: Regular rate and rhythm without murmurs, gallops, or rubs. RESPIRATORY: Breath sounds equal bilaterally. No accessory muscle use. GASTROINTESTINAL: Abdomen soft, non-tender, nondistended. MUSCULOSKELETAL: No cyanosis, or edema. LEFT LOWER EXTREMITY EXAM: 2+ DP pulse. Surgical amputation of the fifth toe. Eschar on the lateral aspect of the fourth toe. There is a foul-smelling, 6 cm wound on the anterior aspect of the lateral edge of the foot with small area of granulated tissue and pus over the remaining aspect of the wound. No redness, warmth, tenderness, or edema noted. No popliteal LAD noted. Sensation is somewhat diminished distally. Cap refill less than 2 seconds. BACK: Nontender without obvious deformity. No CVA tenderness. Data Data Last Documented VS Vital Signs Date Time Temp Pulse Resp B/P (MAP) Pulse Ox O2 Delivery O2 Flow Rate FiO2 06/10/17 17:20 98.5 87 16 149/95 (113) 99 Room Air Orders Orders Basic Metabolic Panel (Bmp) (06/10/17 17:55) Complete Blood Count With Diff (06/10/17 17:55) Blood Culture (06/10/17 17:55) Wound Culture And Gram Stain (06/10/17 17:55) Iv Access Insert/Monitor (06/10/17 17:55) Sodium Chloride 0.9% Flush (Ns Flush) (06/10/17 18:00) Levofloxacin 750 Mg Premix Inj (Levaquin (06/10/17 18:15) Labs Laboratory Tests Test 06/10/17 18:00 White Blood Count 7.9 TH/MM3 Red Blood Count 4.76 MIL/MM3 Hemoglobin 13.9 GM/DL Hematocrit 41.4 % Mean Corpuscular Volume 87.1 FL Mean Corpuscular Hemoglobin 29.3 PG Mean Corpuscular Hemoglobin Concent 33.6 % Red Cell Distribution Width 13.0 % Platelet Count 291 TH/MM3 Mean Platelet Volume 7.0 FL Neutrophils (%) (Auto) 68.5 % Lymphocytes (%) (Auto) 23.4 % Monocytes (%) (Auto) 6.7 % Eosinophils (%) (Auto) 0.9 % Basophils (%) (Auto) 0.5 % Neutrophils # (Auto) 5.4 TH/MM3 Lymphocytes # (Auto) 1.9 TH/MM3 Monocytes # (Auto) 0.5 TH/MM3 Eosinophils # (Auto) 0.1 TH/MM3 Basophils # (Auto) 0.0 TH/MM3 CBC Comment DIFF FINAL Differential Comment Blood Urea Nitrogen 28 MG/DL Creatinine 0.87 MG/DL Random Glucose 127 MG/DL Calcium Level 9.7 MG/DL Sodium Level 138 MEQ/L Potassium Level 4.6 MEQ/L Chloride Level 104 MEQ/L Carbon Dioxide Level 26.0 MEQ/L Anion Gap 8 MEQ/L Estimat Glomerular Filtration Rate 94 ML/MIN MDM Medical Decision Making Medical Screen Exam Complete: Yes Emergency Medical Condition: Yes Differential Diagnosis Chronic ulcer versus cellulitis versus osteomyelitis versus other Narrative Course 46-year-old male with PMH of DM type I, renal transplant, pancreatic transplant , chronic wound of the left foot presents to the ED for evaluation of foul smell of his chronic wound x ~24 hours. The patient denies fever, chills, nausea, vomiting. He states that he finished a course of Levaquin approximately 8 days ago. Unsure of increased drainage of the area as he has been instructed not to change the dressing himself. He states that he is followed by Dr. Nichols, last visit approximately one week ago. Patient afebrile on presentation. On physical exam of the left lower extremity: 2+ DP pulse. Surgical amputation of the fifth toe. Eschar on the lateral aspect of the fourth toe. There is a foul-smelling, 6 cm wound on the anterior aspect of the lateral edge of the foot with small area of granulated tissue and pus over the remaining aspect of the wound. No redness, warmth, tenderness, or edema noted. No popliteal LAD noted. The wound and blood cultures were obtained. No leukocytosis on CBC. I spoke with Dr. Nichols by phone who recommends a dose of IV Levaquin, he will see the patient in the office tomorrow. Patient is agreeable with this plan. IV Levaquin was administered. The foot was rewrapped in a sterile dressing. He is stable and discharged for outpatient follow up Diagnosis Primary Impression: Diabetic ulcer of left foot Qualified Codes: E10.621 - Type 1 diabetes mellitus with foot ulcer; L97.525 - Non-pressure chronic ulcer of other part of left foot with muscle involvement without evidence of necrosis Referrals: Patrick Nichols DPM Patient Instructions: Chronic Wounds (ED), General Instructions Additional Instructions: Keep the dressing that was applied today on until you see Dr. Nichols tomorrow. Follow-up with Dr. Nichols tomorrow as planned. Return to the ED for worsening symptoms or any urgent or emergent medical condition. Disposition: 01 DISCHARGE HOME Condition: Stable Denisha Conley Jun 10, 2017 17:59
[2017-06-10] MEDS ORDERED: SODIUM CHLORIDE 0.9% FLUSH 10 ML FLUSH IVF PRN (18:00)
[2017-06-10] MEDS ORDERED: LEVOFLOXACIN 750 MG PREMIX INJ 150 ML IV ONE (18:15)
[2017-06-10 18:56] LABS: POTASSIUM 4.6 MEQ/L (3.5-5.1)
[2017-06-10 19:02] LABS: AUTOMATED NEUTROPHIL # 5.4 TH/MM3 (1.8-7.7); BASOPHIL % 0.5 % (0.0-2.0); EOSINOPHIL # 0.1 TH/MM3 (0-0.4); EOSINOPHIL % 0.9 % (0.0-4.0); HEMATOCRIT 41.4 % (39.0-51.0); HEMO FLAGS DIFF FINAL; LYMPH % 23.4 % (9.0-44.0); LYMPHOCYTE # 1.9 TH/MM3 (1.0-4.8); MEAN CELL VOLUME 87.1 FL (80.0-100.0); MEAN CORPUSCULAR HEMOGLOBIN 29.3 PG (27.0-34.0); MEAN CORPUSCULAR HGB CONC 33.6 % (32.0-36.0); MONO % 6.7 % (0.0-8.0); NEUT % 68.5 % (16.0-70.0); PLATELET COUNT 291 TH/MM3 (150-450); RED BLOOD COUNT 4.76 MIL/MM3 (4.50-5.90); WHITE BLOOD COUNT 7.9 TH/MM3 (4.0-11.0)
[2017-06-11] MEDS ORDERED: LEVA500T33 PO (11:30)
[2017-06-12] MEDS ORDERED: DOXY100C PO (08:40)
[2017-06-18] MEDS ORDERED: DOXY100C PO (08:58)
== END 2017-06-10 19:48 | disposition home or self-care (01) ==
LOC: NEPC 17:18
DX: E10.621 Type 1 diabetes mellitus with foot ulcer (principal); A49.01 Methicillin susceptible Staphylococcus aureus infection, unspecified site; L97.429 Non-pressure chronic ulcer of left heel and midfoot with unspecified severity; E10.40 Type 1 diabetes mellitus with diabetic neuropathy, unspecified; E78.00 Pure hypercholesterolemia, unspecified; I10 Essential (primary) hypertension; Z94.0 Kidney transplant status; Z94.83 Pancreas transplant status; Z79.4 Long term (current) use of insulin
CPT/HCPCS: 80048; 85025; 86403; 87040; 87070; 87077; 87186; 96374; 99284; J1956; 87205

== ENCOUNTER → 2017-07-11 | Outpatient (CLI) | payer MEDICARE, BC ==
[~2017-07-11] MED LIST changes: +CEPH500T PO; -COLL30T TOPICAL; -NOVORP2 SQ
--- NOTE | 2017-07-12 11:33 | RADRPT ---
EXAM DATE/TIME: 07/11/2017 13:29 [facility] COMPARISON: WBC SPECT CERETEC, April 18, 2017, 11:57. INDICATIONS : Left foot infection. Fourth metatarsal infection. DOSE: 19.9 mCi Tc99m Ceretec labeled white blood cells IV SPECT IMAGIN hrs, 20 hrs IMAGNG: SPECT/CT imaging with fusion was performed. RADIATION DOSE: 5.21 CTDIvol (mGy) MEDICAL HISTORY : Diabetes mellitus type 2. Hypertension. SURGICAL HISTORY : Kidney and pancreas transplants. ENCOUNTER: Subsequent ACUITY: 1 yr PAIN SCALE: 4/10 LOCATION: Left Foot. TECHNIQUE: Following the in vitro labeling of autologous white cells and reinjection, whole body scan was perfor med at the specified times. SPECT imaging was performed at the specified time in sagittal, axial and coronal planes. Attenuation correction was performed with the computed tomography and both the atten uation correction and non-attenuation corrected data sets were reviewed. FINDINGS: Intense radiotracer uptake fourth digit involving the fourth metatarsal including bone and soft tissu e consistent with an inflammatory process involving both bone and soft tissue. No other uptake is no manuel. CONCLUSION: Premature uptake distal fourth metatarsal and fourth digit with previous amputation d istal fifth metatarsal. Valdemar Bah MD FACR on July 12, 2017 at 11:29 Board Certified Radiologist. This report was verified electronically.
== END ==
LOC: HRAD 08:58
PROVIDERS: ATTEND Podiatrist Primary Podiatric Medicine
DX: M86.079 Acute hematogenous osteomyelitis, unspecified ankle and foot (principal)
CPT/HCPCS: 78807; 78999; A9569

== ENCOUNTER 2017-07-18 14:11 | Inpatient (IN) | payer MEDICARE, BC ==
[~2017-07-18] VITALS: Ht 177.8 cm; Wt 87.0 kg
[~2017-07-18 14:11] MED LIST changes: -CEPH500T PO
[2017-07-18 14:13] VITALS: BP 133/76; PULSE 82; RESP 16; TEMP 97.6; O2SAT 99
--- NOTE | 2017-07-18 15:21 | PD.POD.CON ---
Patient Intake Chief Complaint Osteomyelitis fourth toe and metatarsal left foot Consult Requested by Reason for Consult Admission for surgical management of osteomyelitis Primary Care Physician Unknown History of Present Illness Patient is a 47-year-old type I diabetic male who underwent an amputation of the left fifth toe and partial fifth metatarsal by another harness mender. The wound was left open and the patient was undergoing hyperbaric oxygen therapy. He was constantly growing MRSA from the wound. He [facility] white blood cell scan here at [facility] which showed osteomyelitis of the fourth toe and fourth metatarsal of the left foot. Patient being admitted through the emergency department for surgery Saturday morning. Coded Allergies: No Known Allergies (Verified Adverse Reaction, Unknown, 07/16/17) Preferred Language to Discuss: Albanian Barriers to Learning: None Teaching Method: Discussion Vital Signs Date Time Temp Pulse Resp B/P (MAP) Pulse Ox O2 Delivery O2 Flow Rate FiO2 07/18/17 14:13 97.6 82 16 133/76 (95) 99 Pain scale used: 0-10 numeric scale Pain score: 0 Past, Family & Social History Past Medical History Endocrine: REPORTS HX OF: Diabetes mellitus, Other endocrine history Genitourinary: REPORTS HX OF: Kidney failure Neurologic: REPORTS HX OF: Peripheral neuropathy Past Surgical History Endocrine: REPORTS HX OF: Other endocrine surgery (pancreatitic transplant with failure) Genitourinary: REPORTS HX OF: Other surgery (to need transplant) Family Medical History Patient reports no known family medical history. Substance Use Substance Use: Denies use Review of Systems Notes No changes in his 14 point review of systems exam since the patient was seen in the wound center on Saturday Musculoskeletal: COMPLAINS OF: Deformaties Neurological: COMPLAINS OF: Numbness/tingling, Changes in sensation Exam-Podiatry Constitutional General appearance: comfortable Nutritional status: normal Orientation: alert and oriented x3 Dermatological Exam Skin Temp - Right: Within Normal Limits Skin Texture - Right: Within Normal Limits Skin Elasticity - Right: Within Normal Limits Skin Tugor - Right: Within Normal Limits Hair Growth - Right: Within Normal Limits Pigmentation - Right: Within Normal Limits Skin Temp - Left: Within Normal Limits Skin Texture - Left: Within Normal Limits Skin Elasticity - Left: Within Normal Limits Skin Tugor - Left: Within Normal Limits Hair Growth - Left: Within Normal Limits Pigmentation - Left: Within Normal Limits Ulcers: Location/Measurements Open wound of the fifth toe and metatarsal amputation site left foot with granulating base. There is exposed necrotic tissue of the fourth toe. Vascular/Lymphatic Exam R Dorsails Pedis: Palpable L Dorsails Pedis: Palpable R Posterior Tibial: Palpable L Posterior Tibial: Palpable Neurologic Exam Present on right: Tingling, Paraesthesia Present on left: Tingling, Paraesthesia Musculoskeletal Exam Details Previous amputation of the fifth toe and partial fifth metatarsal left foot Wound Assessment Wound Information - Wound One Wound Location: right hallux dorsal Wound Two Wound Location: right hallux plantar- Distal Wound Three Wound Location: Right posterior leg over the Achilles tendon Assessment/Plan Problem List: (1) Osteomyelitis of ankle or foot Status: Chronic (2) Diabetic ulcer of left foot Status: Chronic (3) Diabetic foot ulcer associated with type 1 diabetes mellitus Status: Chronic Additional Plans & Procedures PLAN: Patient to be admitted to the emergency department to the [facility] service. Preop orders are written. Nothing by mouth after midnight. Surgery scheduled for Saturday at 10 AM. Problem Qualifiers (1) Diabetic ulcer of left foot: Qualified Codes: E10.621 - Type 1 diabetes mellitus with foot ulcer; L97.424 - Non-pressure chronic ulcer of left heel and midfoot with necrosis of bone (2) Diabetic foot ulcer associated with type 1 diabetes mellitus: Qualified Codes: E10.621 - Type 1 diabetes mellitus with foot ulcer; L97.424 - Non-pressure chronic ulcer of left heel and midfoot with necrosis of bone Patrick Nichols DPM Jul 18, 2017 15:21
--- NOTE | 2017-07-18 16:54 | PD ---
HPI Chief Complaint: Skin Problem Time Seen by Provider: 16:23 Travel History International Travel<30 days: No Contact w/Intl Traveler<30days: No Traveled to known affect area: No History of Present Illness HPI 47-year-old male arrives to the ER with infection of the left foot causing pain and foul-smelling discharge. He has been following with Dr. Saab. He recently underwent amputation of the fifth toe and reports Dr. Saab intends to amputate the fourth toe now. No fever. Timing constant. No modifying factor. PFSH Past Medical History Cardiovascular Problems: No High Cholesterol: Yes Diabetes: Yes (TYPE 1) Patient Takes Glucophage: No Diminished Hearing: No Genitourinary: Yes Headaches: No Hypertension: Yes Musculoskeletal: No Neurologic: No Reproductive: No Respiratory: No Seizures: No Tetanus Vaccination: > 5 Years Past Surgical History Abdominal Surgery: Yes (L kidney transplant ) Endocrine Surgery: Yes (pancreas tx x2 ) Genitourinary Surgery: No Gynecologic Surgery: No Thoracic Surgery: No Other Surgery: Yes (kidney pancreas transplant patient) Social History Alcohol Use: No Tobacco Use: No Substance Use: No Allergies-Medications (Allergen,Severity, Reaction): Coded Allergies: No Known Allergies (Verified Adverse Reaction, Unknown, 07/16/17) Reported Meds & Prescriptions Reported Meds & Active Scripts Active Novolog Inj (Insulin Aspart) 1,000 Unit/10 Ml Vial 2 Units SQ TIDAC Levemir Inj (Insulin Detemir) 1,000 unit/ 10 ML Vial 30 Units SQ HS Do not mix with any other Insulin. Walker with Front Wheels (Device) 1 Mis Mis Ea .ROUTE DIRECTED Reported Metoprolol Tartrate 100 Mg Tab 100 Mg PO DAILY Aspirin 81 (Aspirin) 81 Mg Tabdr 81 Mg PO DAILY Simvastatin 40 Mg Tab 40 Mg PO HS Prednisone 5 Mg Tab 5 Mg PO DAILY Prograf (Tacrolimus) 1 Mg Cap 2 Mg PO BID Cellcept (Mycophenolate Mofetil) 250 Mg Cap 500 Mg PO BID Review of Systems Except as stated in HPI: all other systems reviewed are Neg General / Constitutional: No: Fever Physical Exam Narrative GENERAL: 47-year-old male, WNWD SKIN: Focused skin assessment warm/dry. HEAD: Atraumatic. Normocephalic. EYES: Pupils equal and round. No scleral icterus. No injection or drainage. ENT: No nasal bleeding or discharge. Mucous membranes pink and moist. NECK: Trachea midline. No JVD. CARDIOVASCULAR: Regular rate and rhythm. No murmur appreciated. RESPIRATORY: No accessory muscle use. Clear to auscultation. Breath sounds equal bilaterally. GASTROINTESTINAL: Abdomen soft, non-tender, nondistended. Hepatic and splenic margins not palpable. MUSCULOSKELETAL: Left foot with open wound in purulent discharged with granulation tissue. No crepitus. Dorsalis pedis is 2+ bilaterally. NEUROLOGICAL: Awake and alert. No obvious cranial nerve deficits. Motor grossly within normal limits. Normal speech. PSYCHIATRIC: Appropriate mood and affect; insight and judgment normal. Data Data Last Documented VS Vital Signs Date Time Temp Pulse Resp B/P (MAP) Pulse Ox O2 Delivery O2 Flow Rate FiO2 07/18/17 16:29 82 18 07/18/17 14:13 97.6 133/76 (95) 99 Vital signs reviewed Orders Orders Consent (07/18/17 ) Diet Npo (07/19/17 Breakfast) Prothrombin Time / Inr (Pt) (07/18/17 14:29) Comprehensive Metabolic Panel (07/18/17 14:29) Electrocardiogram (07/18/17 ) Complete Blood Count With Diff (07/18/17 15:15) Wound Culture And Gram Stain (07/18/17 16:29) Iv Access Insert/Monitor (07/18/17 16:29) Clindamycin Inj (Cleocin Inj) (07/18/17 16:30) Sodium Chlor 0.9% 1000 Ml Inj (Ns 1000 M (07/18/17 16:30) Admit Order (Ed Use Only) (07/18/17 ) Vital Signs (Adult) Q4H (07/18/17 16:52) Activity Bed Rest (07/18/17 16:52) Labs Laboratory Tests Test 07/18/17 16:45 White Blood Count 6.6 TH/MM3 Red Blood Count 5.06 MIL/MM3 Hemoglobin 14.8 GM/DL Hematocrit 43.4 % Mean Corpuscular Volume 85.7 FL Mean Corpuscular Hemoglobin 29.2 PG Mean Corpuscular Hemoglobin Concent 34.1 % Red Cell Distribution Width 12.8 % Platelet Count 301 TH/MM3 Mean Platelet Volume 7.2 FL Neutrophils (%) (Auto) 59.8 % Lymphocytes (%) (Auto) 30.4 % Monocytes (%) (Auto) 8.2 % Eosinophils (%) (Auto) 0.9 % Basophils (%) (Auto) 0.7 % Neutrophils # (Auto) 4.0 TH/MM3 Lymphocytes # (Auto) 2.0 TH/MM3 Monocytes # (Auto) 0.5 TH/MM3 Eosinophils # (Auto) 0.1 TH/MM3 Basophils # (Auto) 0.0 TH/MM3 CBC Comment DIFF FINAL Differential Comment MDM Medical Decision Making Medical Screen Exam Complete: Yes Emergency Medical Condition: Yes Medical Record Reviewed: Yes Differential Diagnosis osteomyelitis, cellulitis, abscess, necrotizing fasciitis Narrative Course CBC & BMP Diagram 07/18/17 16:45 Foot x-ray reveals no necrotizing fasciitis The patient will be admitted for operative repair tomorrow. IV fluids started. IV antibiotic started. Discussed with Dr. Mccray. Diagnosis Primary Impression: Diabetic ulcer of right foot Qualified Codes: E13.621 - Other specified diabetes mellitus with foot ulcer; L97.519 - Non-pressure chronic ulcer of other part of right foot with unspecified severity Admitting Information Admitting Physician Requests: Observation Paul Simms MD Jul 18, 2017 16:54
[2017-07-18 17:05] LABS: BASOPHIL % 0.7 % (0.0-2.0); EOSINOPHIL # 0.1 TH/MM3 (0-0.4); EOSINOPHIL % 0.9 % (0.0-4.0); HEMATOCRIT 43.4 % (39.0-51.0); HEMOGLOBIN 14.8 GM/DL (13.0-17.0); LYMPH % 30.4 % (9.0-44.0); MEAN CELL VOLUME 85.7 FL (80.0-100.0); MEAN CORPUSCULAR HEMOGLOBIN 29.2 PG (27.0-34.0); MEAN CORPUSCULAR HGB CONC 34.1 % (32.0-36.0); MEAN PLATELET VOLUME 7.2 FL (7.0-11.0); MONO % 8.2 % (0.0-8.0); MONOCYTE # 0.5 TH/MM3 (0-0.9); NEUT % 59.8 % (16.0-70.0); PLATELET COUNT 301 TH/MM3 (150-450); RED BLOOD COUNT 5.06 MIL/MM3 (4.50-5.90); RED CELL DISTRIBUTION WIDTH 12.8 % (11.6-17.2); WHITE BLOOD COUNT 6.6 TH/MM3 (4.0-11.0)
[2017-07-18 17:21] LABS: INTERNATIONAL NORMALIZED RATIO 1.1 RATIO
[2017-07-18] MEDS ORDERED: CLINDAMYCIN 900 MG/NS PREMIX 50 ML IV ONE (17:30)
[2017-07-18] MEDS ORDERED: SODIUM CHLOR 0.9% 1000 ML INJ 1,000 ML IV ONE (17:30)
--- NOTE | 2017-07-18 17:32 | HHI.HP ---
[facility] No Primary Care Physician Admission Diagnosis L Foot Osteo Diagnoses: Chief Complaint: Admitted for surgery due to left foot osteomyelitis Travel History International Travel<30 Days: No Contact w/Intl Traveler <30 Da: No Traveled to Known Affected Are: No History of Present Illness This is a 47-year-old diabetic insulin-dependent, history of pancreatic and kidney transplant who went under an amputation of left fifth toe and partial fifth metatarsal by a different histology manager from Dr. Nichols. Per Dr. Nichols the wound was left open and he had hyperbaric oxygen therapy and felt therapy. 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 Patient then underwent MRI which showed osteomyelitis of the fourth toe and fourth metatarsal of the left foot. Patient was told by Dr. Nichols to be admitted for surgery tomorrow. All other review of system reviewed and negative. 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 Walker with Front Wheels (Device) 1 Mis Mis Ea .ROUTE DIRECTED Reported Metoprolol Tartrate 100 Mg Tab 100 Mg PO DAILY Aspirin 81 (Aspirin) 81 Mg Tabdr 81 Mg PO DAILY Simvastatin 40 Mg Tab 40 Mg PO HS Prednisone 5 Mg Tab 5 Mg PO DAILY Prograf (Tacrolimus) 1 Mg Cap 2 Mg PO BID Cellcept (Mycophenolate Mofetil) 250 Mg Cap 500 Mg PO BID Allergies: Coded Allergies: No Known Allergies (Verified Adverse Reaction, Unknown, 07/16/17) Active Ordered Medications Current Medications Clindamycin/ Sodium Chloride 50 ml @ 200 mls/hr ONCE ONCE IV ; Start at 17:30; Stop 07/18/17 at 17:44 Sodium Chloride 1,000 ml @ 999 mls/hr BOLUS ONCE IV ; Start 07/18/17 at 17:30 ; Stop 07/18/17 at 18:30 Family History Family history of hypertension and diabetes. Social History Denying tobacco use. Denies any alcohol denies any illicit drugs Physical Exam Vital Signs Vital Signs Date Time Temp Pulse Resp B/P (MAP) Pulse Ox O2 Delivery O2 Flow Rate FiO2 07/18/17 16:29 82 18 07/18/17 14:13 97.6 82 16 133/76 (95) 99 Physical Exam GENERAL: This is a well-nourished, well-developed patient, in no apparent distress. SKIN: No rashes, ecchymoses or lesions. Cool and dry. HEAD: Atraumatic. Normocephalic. No temporal or scalp tenderness. EYES: Pupils equal round and reactive. Extraocular motions intact. No scleral icterus. No injection or drainage. ENT: Nose without bleeding, purulent drainage or septal hematoma. Throat without erythema, tonsillar hypertrophy or exudate. Uvula midline. Airway patent. NECK: Trachea midline. No JVD or lymphadenopathy. Supple, nontender, no meningeal signs. CARDIOVASCULAR: Regular rate and rhythm without murmurs, gallops, or rubs. RESPIRATORY: Clear to auscultation. Breath sounds equal bilaterally. No wheezes , rales, or rhonchi. GASTROINTESTINAL: Abdomen soft, non-tender, nondistended. No hepato-splenomegaly , or palpable masses. No guarding. MUSCULOSKELETAL:Open wound of the fifth toe and metatarsal amputation site left foot with granulating base. necrotic tissue of the fourth toe. No calf tenderness. Negative Homans sign bilaterally. NEUROLOGICAL: Awake and alert. Cranial nerves II through XII intact. Motor and sensory grossly within normal limits. Five out of 5 muscle strength in all muscle groups. Normal speech. Laboratory Laboratory Tests Test 07/18/17 16:45 White Blood Count 6.6 Red Blood Count 5.06 Hemoglobin 14.8 Hematocrit 43.4 Mean Corpuscular Volume 85.7 Mean Corpuscular Hemoglobin 29.2 Mean Corpuscular Hemoglobin Concent 34.1 Red Cell Distribution Width 12.8 Platelet Count 301 Mean Platelet Volume 7.2 Neutrophils (%) (Auto) 59.8 Lymphocytes (%) (Auto) 30.4 Monocytes (%) (Auto) 8.2 Eosinophils (%) (Auto) 0.9 Basophils (%) (Auto) 0.7 Neutrophils # (Auto) 4.0 Lymphocytes # (Auto) 2.0 Monocytes # (Auto) 0.5 Eosinophils # (Auto) 0.1 Basophils # (Auto) 0.0 CBC Comment DIFF FINAL Differential Comment Prothrombin Time 11.0 Prothromb Time International Ratio 1.1 Date/Time Source Procedure Growth Status 07/18/17 16:45 Wound Toe Gram Stain Pending Received 07/18/17 16:45 Wound Toe Wound Culture Pending Received Result Diagram: 07/18/17 1645 Caprini VTE Risk Assessment Caprini VTE Risk Assessment: Mod/High Risk (score >= 2) Caprini Risk Assessment Model Point Value = 1 Point Value = 2 Point Value = 3 Point Value = 5 Age 41-60 Minor surgery BMI > 25 kg/m2 Swollen legs Varicose veins or History of unexplained or recurrent spontaneous Oral contraceptives or hormone replacement Sepsis (< 1 month) Serious lung disease, including pneumonia (< 1 month) Abnormal pulmonary function Acute myocardial infarction Congestive heart failure (< 1 month) History of inflammatory bowel disease Medical patient at bed rest Age 61-74 Arthroscopic surgery Major open surgery (> 45 min) Laparoscopic surgery (> 45 min) Malignancy Confined to bed (> 72 hours) Immobilizing plaster cast Central venous access Age >= 75 History of VTE Family history of VTE Factor V Leiden Prothrombin [id number] Lupus anticoagulant Anticardiolipin antibodies Elevated serum homocysteine Heparin-induced thrombocytopenia Other congenital or acquired thrombophilia Stroke (< 1 month) Elective arthroplasty Hip, pelvis, or leg fracture Acute spinal cord injury (< 1 month) Prophylaxis Regimen Total Risk Factor Score Risk Level Prophylaxis Regimen 0-1 Low Early ambulation 2 Moderate Order ONE of the following: *Sequential Compression Device (SCD) *Heparin 5000 units SQ BID 3-4 Higher Order ONE of the following medications: *Heparin 5000 units SQ TID *Enoxaparin/Lovenox 40 mg SQ daily (WT < 150 kg, CrCl > 30 mL/min) *Enoxaparin/Lovenox 30 mg SQ daily (WT < 150 kg, CrCl > 10-29 mL/min) *Enoxaparin/Lovenox 30 mg SQ BID (WT < 150 kg, CrCl > 30 mL/min) AND/OR *Sequential Compression Device (SCD) 5 or more Highest Order ONE of the following medications: *Heparin 5000 units SQ TID (Preferred with Epidurals) *Enoxaparin/Lovenox 40 mg SQ daily (WT < 150 kg, CrCl > 30 mL/min) *Enoxaparin/Lovenox 30 mg SQ daily (WT < 150 kg, CrCl > 10-29 mL/min) *Enoxaparin/Lovenox 30 mg SQ BID (WT < 150 kg, CrCl > 30 mL/min) AND *Sequential Compression Device (SCD) Assessment and Plan Assessment and Plan This is a 47-year-old male who was admitted for surgery due to osteomyelitis of the fourth toe and fourth metatarsal of the left foot Osteomyelitis of the fourth toe and fourth metatarsal of the left foot -Patient scheduled for surgery tomorrow. -Labs and imaging already placed by histology manager. Management per histology manager. Type 1 diabetes insulin-dependent/pancreatic and kidney transplant/neuropathy/ hypertension/hyperlipidemia -Resume home medication. -Will place patient on insulin sliding scale. DVT prophylaxis -SCDs. Will hold off on chemoprophylaxis since patient scheduled for surgery tomorrow. Discussed Condition With patient and Physician Certification 2 Midnight Certification Type: Admission for Inpatient Services Order for Inpatient Services The services are ordered in accordance with Medicare regulations or non- Medicare payer requirements, as applicable. In the case of services not specified as inpatient-only, they are appropriately provided as inpatient services in accordance with the 2-midnight benchmark. Estimated LOS (days): 2 2 days is the estimated time the patient will need to remain in the hospital, assuming treatment plan goals are met and no additional complications. Post-Hospital Plan: Home Health Megha Mccray MD Jul 18, 2017 17:32
[2017-07-18] MEDS ORDERED: SODIUM CHLOR 0.45% 1000 ML INJ 1,000 ML IV SCH (17:40)
--- NOTE | 2017-07-18 17:40 | RADRPT ---
EXAM DATE/TIME: 07/18/2017 17:18 [place] COMPARISON: No previous studies available for comparison. INDICATIONS : Evaluate for pneumonia, pneumothorax and communicable disease. Left foot surgery 07/19 MEDICAL HISTORY : Diabetes mellitus type 2. Hypertension. left foot infection SURGICAL HISTORY : Kidney and pancreas transplants ENCOUNTER: Initial ACUITY: 1 day PAIN SCORE: 0/10 LOCATION: Bilateral chest FINDINGS: PA and lateral views of the chest demonstrate the lungs to be symmetrically aerated without evidence of mass, infiltrate or effusion. The cardiomediastinal contours are unremarkable. Osseous structure s are intact. CONCLUSION: 1. No acute cardiopulmonary disease. James Mejias MD on July 18, 2017 at 17:38 Board Certified Radiologist. This report was verified electronically.
[2017-07-18 17:45] VITALS: BP 125/75; PULSE 83; RESP 18; TEMP 97.7; O2SAT 97
[2017-07-18] MEDS ORDERED: GLUCAGON 1 MG/ML VIAL OTHER PRN (17:45)
[2017-07-18] MEDS ORDERED: MAGNESIUM HYDROXIDE SUSP 30 ML CUP PO PRN (17:45)
[2017-07-18] MEDS ORDERED: ACETAMINOPHEN 325 MG TAB PO PRN (17:45)
[2017-07-18] MEDS ORDERED: SODIUM CHLORIDE 0.9% FLUSH 10 ML FLUSH IV FLUSH PRN (17:45)
[2017-07-18] MEDS ORDERED: NALOXONE HCL 0.4 MG/ML AMP IV PUSH PRN (17:45)
[2017-07-18] MEDS ORDERED: DEXTROSE 50% IN WATER 50 ML VIAL(D50) IV PUSH PRN (17:45)
[2017-07-18 17:54] LABS: ALBUMIN 3.6 GM/DL (3.4-5.0); ALT (GPT) 34 U/L (12-78); AST (GOT) 25 U/L (15-37); BICARBONATE 25.7 MEQ/L (21.0-32.0); BLOOD UREA NITROGEN 24 MG/DL (7-18); CALCIUM 9.3 MG/DL (8.5-10.1); CHLORIDE 103 MEQ/L (98-107); CREATININE 1.21 MG/DL (0.60-1.30); GLOMERULAR FILTRATION RATE 64 ML/MIN (>89); GLUCOSE,RANDOM 253 MG/DL (74-106); SODIUM (NA) 136 MEQ/L (136-145)
[2017-07-18 17:56] LABS: ALKALINE PHOSPHATASE 84 U/L (45-117); TOTAL BILIRUBIN ADULT 0.4 MG/DL (0.2-1.0); TOTAL PROTEIN 7.3 GM/DL (6.4-8.2)
[2017-07-18 20:00] VITALS: BP 125/75; PULSE 77; PULSE 83; RESP 19; TEMP 97.7; O2SAT 97
[2017-07-18] MEDS: PRAVASTATIN SOD 80 MG TAB PO SCH (20:50)
[2017-07-18] MEDS: TACROLIMUS 1 MG CAP PO SCH (20:50)
[2017-07-18] MEDS: MYCOPHENOLATE MOFETIL 250 MG CAP PO SCH (20:50)
[2017-07-18] MEDS: INSULIN DETEMIR 100 UNITS/ML VIAL SQ SCH (20:51)
[2017-07-18] MEDS: SODIUM CHLORIDE 0.9% FLUSH 10 ML FLUSH IV FLUSH SCH (20:54)
[2017-07-18] MEDS ORDERED: INSULIN ASPART SUPPLEMENTAL SCALE SQ SCH (21:00)
[2017-07-19] VITALS (8 sets, daily range): BP systolic 99–148; BP diastolic 65–84; PULSE 69–96; RESP 16–24; TEMP 97.1–98.8; O2SAT 94–98
[2017-07-19] MEDS ORDERED: LIDOCAINE HCL 1% 50 ML VIAL ONE (07:36)
[2017-07-19] MEDS ORDERED: BUPIVACAINE HCL PF 0.5% 30 ML VIAL ONE (07:36)
[2017-07-19] MEDS: INSULIN ASPART SUPPLEMENTAL SCALE SQ SCH ×4 (08:00→21:00)
[2017-07-19] MEDS: METOPROLOL TARTRATE 100 MG TAB PO SCH (08:34)
[2017-07-19] MEDS: TACROLIMUS 1 MG CAP PO SCH ×2 (08:34→21:32)
[2017-07-19] MEDS: MYCOPHENOLATE MOFETIL 250 MG CAP PO SCH ×2 (08:34→21:32)
[2017-07-19] MEDS: predniSONE 5 MG TAB PO SCH (08:34)
[2017-07-19] MEDS: SODIUM CHLORIDE 0.9% FLUSH 10 ML FLUSH IV FLUSH SCH ×2 (08:35→21:00)
[2017-07-19 08:54] LABS: HEMATOCRIT 41.1 % (39.0-51.0); HEMOGLOBIN 13.8 GM/DL (13.0-17.0); MEAN CORPUSCULAR HEMOGLOBIN 28.6 PG (27.0-34.0); MEAN CORPUSCULAR HGB CONC 33.6 % (32.0-36.0); MEAN PLATELET VOLUME 6.7 FL (7.0-11.0); PLATELET COUNT 277 TH/MM3 (150-450); RED BLOOD COUNT 4.83 MIL/MM3 (4.50-5.90)
[2017-07-19 09:33] LABS: BICARBONATE 29.3 MEQ/L (21.0-32.0); CALCIUM 9.6 MG/DL (8.5-10.1); CREATININE 1.11 MG/DL (0.60-1.30)
[2017-07-19] MEDS ORDERED: INFLUENZA VIRUS VACCINE (QUADRIVALENT) 0.5 ML SYR IM ONE (10:00)
[2017-07-19] MEDS ORDERED: INSULIN HUMAN REGULAR 1,000 UNITS/10 ML VIAL ONE (10:37)
[2017-07-19] MEDS ORDERED: Post-op Orders (for Pharmacy) XX ONE (11:30)
[2017-07-19] MEDS ORDERED: SODIUM CHLORIDE 0.9% FLUSH 10 ML FLUSH IV FLUSH PRN (11:30)
[2017-07-19] MEDS ORDERED: NALOXONE HCL 0.4 MG/ML AMP IV PUSH PRN (11:30)
[2017-07-19] MEDS ORDERED: MIDAZOLAM HCL 2 MG/2 ML VIAL ONE (11:35)
--- NOTE | 2017-07-19 11:35 | PD.OP ---
Operative Report Date of Surgery: Jul 19, 2017 Preoperative Diagnosis: (1) Osteomyelitis of ankle or foot (2) Diabetic ulcer of left foot Fourth metatarsal left foot Postoperative Diagnosis: (1) Diabetic ulcer of left foot (2) Osteomyelitis of ankle or foot Fourth metatarsal left foot Procedure: Amputation of fourth toe and fourth metatarsal left foot Anesthesia: LMA Surgeon: Patrick Nichols DPM Dynamometer Tester(s): MILANA Lopez Operation and Findings: Patient is brought to the operating room placed on the operating table in the supine position. A pneumatic ankle cuff was placed around the patient's left ankle after adequate web roll padding. The left foot was prepped and draped in the usual sterile manner. Patient was given general inhalation anesthesia. After the appropriate timeout was performed the left foot was elevated above the operating table for a period of 3 minutes at which time the pneumatic ankle cuff was inflated to 250 mmHg. Left foot was lowered to the operating table and attention was directed to the left fourth ray. Patient previously had an open amputation of the fifth toe and partial fifth metatarsal left foot. Recent [facility] labeled white blood cell scan showed osteomyelitis of the fourth toe and fourth metatarsal. At this time using a 15 blade the fourth toe was amputated at the metatarsal phalangeal joint. At this time using sharp dissection the fourth metatarsal was freed up and the distal two thirds of the metatarsal was resected. Bone was sent for culture and sensitivity. The area was flushed with copious amounts of sterile saline. Any necrotic tissue was freed up and removed from the wound. The wound was anesthetized with 10 cc of 0.5% Marcaine plain. The wound was packed with Maxorb extra AG 4 x 4's Davida and the pneumatic ankle cuff was released and vascular status returned to the remaining toes of the left foot. Estimated blood loss was less than 5 cc. Sponge and instrument count were noted to be correct. Bone was sent for culture and sensitivity. The remaining metatarsal fourth toe were sent for gross and Path. Patient tolerated the procedures and anesthesia well and left the OR to PACU in apparent satisfactory condition with all vital signs stable and vascular status intact to the remaining toes of the left foot Patrick Nichols DPM Jul 19, 2017 11:35
[2017-07-19] MEDS ORDERED: POVIDONE IODINE 5% (ANTISEPSIS KIT) 4 APPLICATIONS EACH NARE PRN (12:00)
[2017-07-19] MEDS ORDERED: CHLORHEXIDINE GLUCONATE 2 % 1 PACK (2 CLOTHS) TOPICAL PRN (12:00)
[2017-07-19] MEDS ORDERED: ONDANSETRON HCL 4 MG/2 ML VIAL IV ONE (12:00)
[2017-07-19] MEDS ORDERED: SODIUM CHLORID 0.9% 500 ML IV PRN (12:00)
[2017-07-19] MEDS ORDERED: METOPROLOL TARTRATE 25 MG TAB PO PRN (12:00)
[2017-07-19] MEDS ORDERED: DO NOT ADM ANY ANTICOAGULANT DRUGS PRN (12:00)
[2017-07-19] MEDS ORDERED: LIDOCAINE HCL 1% PF 5 ML SYRINGE OTHER ONE (12:00)
[2017-07-19] MEDS ORDERED: LACTATED RINGER'S 1000 ML IV PRN (12:00)
[2017-07-19] MEDS ORDERED: PROPOFOL 200 MG/20 ML AMP IV ONE (12:00)
[2017-07-19] MEDS ORDERED: PHENYLEPH/NS 1000 MCG/10 ML SYR IV ONE (12:00)
[2017-07-19] MEDS: CLINDAMYCIN 900 MG/NS PREMIX 50 ML IV SCH ×2 (13:04→21:35)
--- NOTE | 2017-07-19 14:56 | EKG ---
Date Performed: 07/18/2017 Time Performed: 21:10:27 PTAGE: 47 years EKG: Sinus rhythm Since previous tracing, no significant change noted NORMAL ECG PREVIOUS TRACING : 04/20/2017 16.12 DOCTOR: Sylvain Dean Interpretating Date/Time 07/19/2017 14:54:37
--- NOTE | 2017-07-19 15:14 | HHI.PR ---
Subjective Remarks Denies cp/sob Pain controlled Afebrile Blood sugars very elevated Objective Vitals Vital Signs Date Time Temp Pulse Resp B/P (MAP) Pulse Ox O2 Delivery O2 Flow Rate FiO2 07/19/17 13:01 97.1 88 24 127/75 (92) 98 07/19/17 12:30 97.6 85 20 138/75 (96) 97 Room Air 07/19/17 12:15 85 20 97 Room Air 07/19/17 12:00 87 20 137/79 (98) 96 07/19/17 11:45 88 20 143/75 (97) 96 Nasal Cannula 2 07/19/17 11:30 97.6 87 20 135/72 (93) 97 Nasal Cannula 2 07/19/17 08:24 97.9 93 20 107/65 (79) 97 07/19/17 04:00 90 07/19/17 04:00 98.8 85 19 148/84 (105) 96 07/19/17 00:00 98.2 79 21 134/79 (97) 94 07/19/17 00:00 69 07/18/17 20:00 97.7 83 19 125/75 (92) 97 07/18/17 20:00 77 07/18/17 18:09 07/18/17 17:45 97.7 83 18 125/75 (92) 97 07/18/17 16:29 82 18 I/O 07/18/17 07/18/17 07/18/17 07/19/17 07/19/17 07/19/17 07:00 15:00 23:00 07:00 15:00 23:00 Intake Total 1000 ml 240 ml 250 ml Output Total 10 ml Balance 1000 ml 240 ml 240 ml Intake Oral 240 ml IV Total 1000 ml 250 ml Output Estimated Blood Loss 10 ml # Voids 2 # Bowel Movements 1 Result Diagram: 07/19/17 0830 07/19/17 0830 Imaging Last Impressions Chest X-Ray 07/18/17 0000 Signed Impressions: Service Date/Time: June 17:18 - CONCLUSION: 1. No acute cardiopulmonary disease. James Mejias MD Objective Remarks GENERAL: This is a well-nourished, well-developed patient, in no apparent distress. SKIN: No rashes, ecchymoses or lesions. Cool and dry. HEAD: Atraumatic. Normocephalic. No temporal or scalp tenderness. EYES: Pupils equal round and reactive. Extraocular motions intact. No scleral icterus. No injection or drainage. ENT: Nose without bleeding, purulent drainage or septal hematoma. Throat without erythema, tonsillar hypertrophy or exudate. Uvula midline. Airway patent. NECK: Trachea midline. No JVD or lymphadenopathy. Supple, nontender, no meningeal signs. CARDIOVASCULAR: Regular rate and rhythm without murmurs, gallops, or rubs. RESPIRATORY: Clear to auscultation. Breath sounds equal bilaterally. No wheezes , rales, or rhonchi. GASTROINTESTINAL: Abdomen soft, non-tender, nondistended. No hepato-splenomegaly , or palpable masses. No guarding. MUSCULOSKELETAL:.Left foot is dressed, which is C/D/I. No calf tenderness. Negative Homans sign bilaterally. NEUROLOGICAL: Awake and alert. Cranial nerves II through XII intact. Motor and sensory grossly within normal limits. Five out of 5 muscle strength in all muscle groups. Normal Procedures Amputation of fourth toe and fourth metatarsal left foot Medications and IVs Current Medications Medications (Trade) Dose Ordered Sig/Diana Route Start Time Stop Time Status Last Admin Sodium Chloride 1,000 ml @ 75 mls/hr [id number] IV 07/18/17 17:40 07/18/17 17:40 (NS Flush) 2 ml UNSCH PRN IV FLUSH 07/18/17 17:45 (NS Flush) 2 ml BID IV FLUSH 07/18/17 21:00 07/19/17 08:35 (Tylenol) 650 mg Q4H PRN PO 07/18/17 17:45 (Narcan Inj) 0.4 mg UNSCH PRN IV PUSH 07/18/17 17:45 (Milk Of Magnesia Liq) 30 ml Q12H PRN PO 07/18/17 17:45 (Levemir Inj) 30 units HS SQ 07/18/17 21:00 07/18/17 20:51 (Lopressor) 100 mg DAILY PO 07/19/17 09:00 07/19/17 08:34 (Cellcept) 500 mg BID PO 07/18/17 21:00 07/19/17 08:34 (Deltasone) 5 mg DAILY PO 07/19/17 09:00 07/19/17 08:34 (Prograf) 2 mg BID PO 07/18/17 21:00 07/19/17 08:34 (Pravachol) 80 mg HS PO 07/18/17 21:00 07/18/17 20:50 (D50w (Vial) Inj) 50 ml UNSCH PRN IV PUSH 07/18/17 17:45 07/18/17 22:45 (Glucagon Inj) 1 mg UNSCH PRN OTHER 07/18/17 17:45 (NovoLOG SUPPLEMENTAL SCALE) 1 ACHS SLIDING SCALE SQ 07/19/17 08:00 07/19/17 13:05 Clindamycin/ Sodium Chloride 50 ml @ 100 mls/hr Q8H IV 07/19/17 13:00 07/20/17 05:29 07/19/17 13:04 (Roxicodone) 10 mg Q4H PRN PO 07/19/17 11:30 (Roxicodone) 5 mg Q4H PRN PO 07/19/17 11:30 Lactated Ringer's 1,000 ml @ 30 mls/hr Q24H PRN IV 07/19/17 12:00 07/22/17 11:59 Sodium Chloride 500 ml @ 30 mls/hr [id number] PRN IV 07/19/17 12:00 07/22/17 11:59 (Lopressor) 25 mg [employer] PRN PO 07/19/17 12:00 07/22/17 11:59 (Betadine 5% Antisepsis Kit) 1 applic [employer] PRN EACH NARE 07/19/17 12:00 07/22/17 11:59 (Chlorhexidine 2% Cloth) 3 pack [employer] PRN TOPICAL 07/19/17 12:00 07/22/17 11:59 Miscellaneous Information ALL NURSING DEPARTME... UNSCH PRN .XX 07/19/17 12:00 07/20/17 11:59 Urinary Catheter: No Vascular Central Line Catheter: No A/P Problem List: (1) Osteomyelitis of left foot ICD Code: M86.9 - Osteomyelitis, unspecified Plan: 47-year-old male who was admitted for surgery due to osteomyelitis of the fourth toe and fourth metatarsal of the left foot. The patient was admitted to the medical floor and is status post amputation of the fourth toe and fourth metatarsal of the left foot. Continue pain control with oral Roxicodone. Wound culture is growing MRSA - Patient is currently on Clindamycin which I will continue for now and discuss with Podiatry. (2) Type 1 diabetes mellitus ICD Code: E10.9 - Type 1 diabetes mellitus without complications Status: Chronic Plan: Blood sugar in the 200s. Continue SSI with insulin NovoLog and continue Levemir at bedtime. I will resume patient's prandial insulin. Continue to monitor Accu-Cheks. (3) History of simultaneous kidney and pancreas transplant ICD Code: Z94.0 - Kidney transplant status; Z94.83 - Pancreas transplant status Plan: Continue prednisone 5 mg by mouth daily, CellCept 500 mg by mouth twice a day and Prograf 2 mg by mouth twice a day. Kidney function is stable and creatinine is 1.1. (4) HTN (hypertension) ICD Code: I10 - Essential (primary) hypertension Plan: Blood pressure seems to be stable. Continue current antihypertensive medications. (5) HLD (hyperlipidemia) ICD Code: E78.5 - Hyperlipidemia, unspecified Plan: Continue statin. Lipid profile, he followed up as an outpatient. Assessment and Plan DVT prophylaxis -SCDs. Add heparin subcutaneously for chemoprophylaxis. Discharge Planning Continue to monitor in the medical floor. Problem Qualifiers (1) Osteomyelitis of left foot: Qualified Codes: M86.9 - Osteomyelitis, unspecified (2) Type 1 diabetes mellitus: Qualified Codes: E10.65 - Type 1 diabetes mellitus with hyperglycemia (3) HTN (hypertension): Qualified Codes: I10 - Essential (primary) hypertension (4) HLD (hyperlipidemia): Qualified Codes: E78.5 - Hyperlipidemia, unspecified Franklin Tillman MD Jul 19, 2017 15:14
--- NOTE | 2017-07-19 15:35 | RADRPT ---
EXAM DATE/TIME: 07/19/2017 13:30 [place] COMPARISON: FOOT LEFT COMPLETE ([id number]), April 26, 2017, 18:04. INDICATIONS : Post op. MEDICAL HISTORY : Diabetes mellitus type 2. Hypertension. left foot infection SURGICAL HISTORY : Left foot surgery. Kidney and pancreas transplants ENCOUNTER: Subsequent ACUITY: 1 day PAIN SCORE: 0/10 LOCATION: Left Foot. FINDINGS: AP, lateral and oblique views of the left foot were obtained and demonstrate the patient is now statu s post amputation of fourth digit through the proximal metatarsal. There is prior amputation of the f ifth digit to the level of the proximal metatarsal as well. There is diffuse moderate osteopenia is n ow noted which is increased from the prior study. There are stable degenerative changes. There is sof t tissue prominence along the lateral foot at the surgical site. CONCLUSION: 1. Status post interval amputation of the fourth digit. 2. Prior amputation of the fifth digit. 3. Diffuse osteopenia is now noted which is increased from the prior study. Corby Aguero MD on July 19, 2017 at 15:27 Board Certified Radiologist. This report was verified electronically.
[2017-07-19] MEDS: INSULIN ASPART 1,000 UNITS/10 ML VIAL SQ SCH (18:05)
[2017-07-19] MEDS ORDERED: SODIUM CHLORIDE 0.9% FLUSH 10 ML FLUSH IV FLUSH SCH (21:00)
[2017-07-19] MEDS: PRAVASTATIN SOD 80 MG TAB PO SCH (21:32)
[2017-07-19] MEDS: INSULIN DETEMIR 100 UNITS/ML VIAL SQ SCH (21:36)
[2017-07-20] VITALS: BP 147/79; PULSE 93; RESP 20; TEMP 97.7; O2SAT 96
[2017-07-20 04:00] VITALS: BP 124/74; PULSE 95; RESP 18; TEMP 98.3; O2SAT 94
[2017-07-20] MEDS: CLINDAMYCIN 900 MG/NS PREMIX 50 ML IV SCH (04:12)
[2017-07-20 08:00] VITALS: BP 120/60; PULSE 87; RESP 18; TEMP 98.1; O2SAT 95
[2017-07-20] MEDS ORDERED: CLIN300C5 PO (08:29)
--- NOTE | 2017-07-20 08:36 | PD.POD ---
Subjective Podiatric Problems 47-year-old type I diabetic with history of osteomyelitis of the fourth ray. He is one day status post amputation of fourth toe and metatarsal of the left foot. Pain scale used: 0-10 numeric scale Pain score: 0 Remarks 47-year-old patient status post amputation of fourth toe and fourth metatarsal left foot one day. No complaints or concerns. No pain. Past Med/Surg/Social History Past Medical History Endocrine: REPORTS HX OF: Diabetes mellitus, Other endocrine history Genitourinary: REPORTS HX OF: Kidney failure Neurologic: REPORTS HX OF: Peripheral neuropathy Past Surgical History Endocrine: REPORTS HX OF: Other endocrine surgery (pancreatitic transplant with failure) Genitourinary: REPORTS HX OF: Other surgery (to need transplant) Social History Smoking Status: Former Smoker Review of Systems Notes Bony changes in his 14 point review of systems exam is the surgical intervention yesterday Neurological: COMPLAINS OF: Numbness/tingling, Changes in sensation Objective Vital Signs Vital Signs Date Time Temp Pulse Resp B/P (MAP) Pulse Ox O2 Delivery O2 Flow Rate FiO2 07/20/17 04:00 98.3 95 18 124/74 (91) 94 07/20/17 00:00 97.7 93 20 147/79 (101) 96 07/19/17 20:00 97.4 96 16 99/70 (80) 97 07/19/17 16:57 98.1 85 22 123/72 (89) 96 07/19/17 15:54 85 07/19/17 13:01 97.1 88 24 127/75 (92) 98 07/19/17 12:30 97.6 85 20 138/75 (96) 97 Room Air 07/19/17 12:15 85 20 97 Room Air 07/19/17 12:00 87 20 137/79 (98) 96 07/19/17 11:45 88 20 143/75 (97) 96 Nasal Cannula 2 07/19/17 11:30 97.6 87 20 135/72 (93) 97 Nasal Cannula 2 Coded Allergies: No Known Allergies (Verified Adverse Reaction, Unknown, 07/16/17) Medications and IVs Current Medications Clindamycin/ Sodium Chloride 50 ml @ 200 mls/hr ONCE ONCE IV Last administered on 07/18/17t 18:29; Start 07/18/17 at 17:30; Stop 07/18/17 at 17 :44; Status DC Sodium Chloride 1,000 ml @ 999 mls/hr BOLUS ONCE IV Last administered on 18:30; Start 07/18/17 at 17:30; Stop 07/18/17 at 18:30; Status DC Sodium Chloride 1,000 ml @ 75 mls/hr [id number] IV Last administered on 17:40; Start 07/18/17 at 17:40 Sodium Chloride (NS Flush) 2 ml UNSCH PRN IV FLUSH FLUSH AFTER USING IV ACCESS ; Start 07/18/17 at 17:45 Sodium Chloride (NS Flush) 2 ml BID IV FLUSH Last administered on 07/19/17 08 :35; Start 07/18/17 at 21:00 Acetaminophen (Tylenol) 650 mg Q4H PRN PO TEMP > 100.4; Start 07/18/17 at 17: 45 Naloxone HCl (Narcan Inj) 0.4 mg UNSCH PRN IV PUSH SEE LABEL COMMENTS; Start 07/18/17 at 17:45 Magnesium Hydroxide (Milk Of Magnesia Liq) 30 ml Q12H PRN PO Mild constipation ; Start 07/18/17 at 17:45 Insulin Detemir (Levemir Inj) 30 units HS SQ Last administered on 07/19/17 21 :36; Start 07/18/17 at 21:00 Metoprolol Tartrate (Lopressor) 100 mg DAILY PO Last administered on 08:34; Start 07/19/17 at 09:00 Mycophenolate Mofetil (Cellcept) 500 mg BID PO Last administered on 07/19/17 21:32; Start 07/18/17 at 21:00 Prednisone (Deltasone) 5 mg DAILY PO Last administered on 07/19/17 08:34; Start 07/19/17 at 09:00 Tacrolimus (Prograf) 2 mg BID PO Last administered on 07/19/17 21:32; Start 07/18/17 at 21:00 Pravastatin Sodium (Pravachol) 80 mg HS PO Last administered on 07/19/17 21: 32; Start 07/18/17 at 21:00 Dextrose (D50w (Vial) Inj) 50 ml UNSCH PRN IV PUSH HYPOGLYCEMIA-SEE COMMENTS Last administered on 07/18/17 22:45; Start 07/18/17 at 17:45 Glucagon (Glucagon Inj) 1 mg UNSCH PRN OTHER HYPOGLYCEMIA-SEE COMMENTS; Start 07/18/17 at 17:45 Insulin Aspart (NovoLOG SUPPLEMENTAL SCALE) 1 ACHS SLIDING SCALE SQ Last administered on 07/18/17 20:53; Start 07/18/17 at 21:00; Stop 07/18/17 at 23 :09; Status DC Influenza Virus Vaccine (Flu (Quadrivalent) Vaccine Inj) 0.5 ml ONCE ONCE IM Last administered on 07/19/17 13:20; Start 07/19/17 at 10:00; Stop 07/19/17 at 10:01; Status DC Insulin Aspart (NovoLOG SUPPLEMENTAL SCALE) 1 ACHS SLIDING SCALE SQ Last administered on 07/19/17 18:03; Start 07/19/17 at 08:00 Bupivacaine HCl (Marcaine Pf 0.5% Inj) 30 ml STK-MED ONCE .ROUTE ; Start at 07:36; Stop 07/19/17 at 07:37; Status DC Lidocaine HCl (Xylocaine 1% Inj (50 ml)) 50 ml STK-MED ONCE .ROUTE ; Start at 07:36; Stop 07/19/17 at 07:37; Status DC Insulin Human Regular (NovoLIN R INJ) 10 units STK-MED ONCE .ROUTE Last administered on 07/19/17 10:37; Start 07/19/17 at 10:37; Stop 07/19/17 at 10 :38; Status DC Sodium Chloride (NS Flush) 2 ml UNSCH PRN IV FLUSH FLUSH AFTER USING IV ACCESS ; Start 07/19/17 at 11:30; Stop 07/19/17 at 11:56; Status DC Sodium Chloride (NS Flush) 2 ml BID IV FLUSH ; Start 07/19/17 at 21:00; Stop 07/19/17 at 21:00; Status DC Clindamycin/ Sodium Chloride 50 ml @ 100 mls/hr Q8H IV Last administered on 04:12; Start 07/19/17 at 13:00; Stop 07/20/17 at 05:29; Status DC Miscellaneous Information (Post-op Orders (for Pharmacy)) STAT ONCE XX Last administered on 12/29/17at 11:30; Start 07/19/17 at 11:30; Stop 07/19/17 at 11 :55; Status DC Oxycodone HCl (Roxicodone) 10 mg Q4H PRN PO PAIN SCALE 6 TO 10; Start at 11:30 Oxycodone HCl (Roxicodone) 5 mg Q4H PRN PO PAIN SCALE 3 TO 5; Start 07/19/17 at 11:30 Naloxone HCl (Narcan Inj) 0.4 mg UNSCH PRN IV PUSH SEE LABEL COMMENTS; Start 07/19/17 at 11:30; Stop 07/19/17 at 11:55; Status DC Midazolam HCl (Versed Inj) 2 mg STK-MED ONCE .ROUTE ; Start 07/19/17 at 11:35; Stop 07/19/17 at 11:36; Status DC Fentanyl Citrate (fentaNYL INJ) 100 mcg STK-MED ONCE .ROUTE ; Start 07/19/17 at 11:35; Stop 07/19/17 at 11:36; Status DC Lactated Ringer's 1,000 ml @ 30 mls/hr Q24H PRN IV SEE LABEL COMMENTS; Start 07/19/17 at 12:00; Stop 07/22/17 at 11:59 Sodium Chloride 500 ml @ 30 mls/hr [id number] PRN IV SEE LABEL COMMENTS; Start at 12:00; Stop 07/22/17 at 11:59 Metoprolol Tartrate (Lopressor) 25 mg COLLEGE INSTRUCTOR PRN PO SEE LABEL COMMENTS; Start 07/19/17 at 12:00; Stop 07/22/17 at 11:59 Povidone Iodine (Betadine 5% Antisepsis Kit) 1 applic COLLEGE INSTRUCTOR PRN EACH NARE SEE LABEL COMMENTS; Start 07/19/17 at 12:00; Stop 07/22/17 at 11:59 Chlorhexidine Gluconate (Chlorhexidine 2% Cloth) 3 pack COLLEGE INSTRUCTOR PRN TOPICAL SEE LABEL COMMENTS; Start 07/19/17 at 12:00; Stop 07/22/17 at 11:59 Miscellaneous Information ALL NURSING DEPARTME... UNSCH PRN .XX SEE LABEL COMMENTS; Start 07/19/17 at 12:00; Stop 07/20/17 at 11:59 Insulin Aspart (NovoLOG INJ) 2 units TIDAC SQ Last administered on 07/19/17t 18:05; Start 07/19/17 at 17:00 Other Results Laboratory Tests Test 07/18/17 16:45 07/19/17 08:30 White Blood Count 6.6 TH/MM3 6.0 TH/MM3 Red Blood Count 5.06 MIL/MM3 4.83 MIL/MM3 Hemoglobin 14.8 GM/DL 13.8 GM/DL Hematocrit 43.4 % 41.1 % Mean Corpuscular Volume 85.7 FL 85.0 FL Mean Corpuscular Hemoglobin 29.2 PG 28.6 PG Mean Corpuscular Hemoglobin Concent 34.1 % 33.6 % Red Cell Distribution Width 12.8 % 13.0 % Platelet Count 301 TH/MM3 277 TH/MM3 Mean Platelet Volume 7.2 FL 6.7 FL Neutrophils (%) (Auto) 59.8 % Lymphocytes (%) (Auto) 30.4 % Monocytes (%) (Auto) 8.2 % Eosinophils (%) (Auto) 0.9 % Basophils (%) (Auto) 0.7 % Neutrophils # (Auto) 4.0 TH/MM3 Lymphocytes # (Auto) 2.0 TH/MM3 Monocytes # (Auto) 0.5 TH/MM3 Eosinophils # (Auto) 0.1 TH/MM3 Basophils # (Auto) 0.0 TH/MM3 CBC Comment DIFF FINAL Differential Comment Laboratory Tests Test 07/18/17 16:45 07/19/17 08:30 Blood Urea Nitrogen 24 MG/DL 26 MG/DL Creatinine 1.21 MG/DL 1.11 MG/DL Random Glucose 253 MG/DL 210 MG/DL Total Protein 7.3 GM/DL Albumin 3.6 GM/DL Calcium Level 9.3 MG/DL 9.6 MG/DL Alkaline Phosphatase 84 U/L Aspartate Amino Transf (AST/SGOT) 25 U/L Alanine Aminotransferase (ALT/SGPT) 34 U/L Total Bilirubin 0.4 MG/DL Sodium Level 136 MEQ/L 137 MEQ/L Potassium Level 4.6 MEQ/L 4.6 MEQ/L Chloride Level 103 MEQ/L 102 MEQ/L Carbon Dioxide Level 25.7 MEQ/L 29.3 MEQ/L Anion Gap 7 MEQ/L 6 MEQ/L Estimat Glomerular Filtration Rate 64 ML/MIN 70 ML/MIN Microbiology Date/Time Source Procedure Growth Status 07/19/17 11:10 Wound Foot Fungal Smear - Final NO FUNGAL ELEMENTS SEEN. Resulted 07/19/17 11:10 Wound Foot Fungal Culture Pending Resulted 07/19/17 11:10 Wound Foot Acid Fast Stain Pending Received 07/19/17 11:10 Wound Foot Mycobacterial Culture Pending Received 07/19/17 11:10 Wound Foot Gram Stain - Final Resulted 07/19/17 11:10 Wound Foot Wound Culture Pending Resulted 07/18/17 16:45 Wound Toe Gram Stain - Final Resulted 07/18/17 16:45 Wound Culture - Preliminary S. Aureus Mrsa Resulted Postop radiographs reviewed and show good resection of the fourth metatarsal Exam-Podiatry Constitutional General appearance: comfortable Nutritional status: normal Orientation: alert and oriented x3 Dermatological Exam Skin Temp - Right: Within Normal Limits Skin Texture - Right: Within Normal Limits Skin Elasticity - Right: Within Normal Limits Skin Tugor - Right: Within Normal Limits Hair Growth - Right: Within Normal Limits Pigmentation - Right: Within Normal Limits Skin Temp - Left: Within Normal Limits Skin Texture - Left: Within Normal Limits Skin Elasticity - Left: Within Normal Limits Skin Tugor - Left: Within Normal Limits Hair Growth - Left: Within Normal Limits Pigmentation - Left: Within Normal Limits Vascular/Lymphatic Exam R Dorsails Pedis: Palpable L Dorsails Pedis: Palpable R Posterior Tibial: Palpable L Posterior Tibial: Palpable Neurologic Exam Present on right: Tingling, Paraesthesia Present on left: Tingling, Paraesthesia Musculoskeletal Exam Details Amputation of fourth and fifth toes left foot Muscle Strength Dorsiflexion (Right): Normal Plantarflexion (Right): Normal Inversion (Right): Normal Eversion (Right): Normal Digital (Right): Normal Dorsiflexion (Left): Normal Plantarflexion (Left): Normal Inversion (Left): Normal Eversion (Left): Normal Digital (Left): Normal Foot Range of Motion Dorsiflexion (Right): Normal Plantarflexion (Right): Normal Inversion (Right): Normal Eversion (Right): Normal Digital (Right): Normal Dorsiflexion (Left): Normal Plantarflexion (Left): Normal Inversion (Left): Normal Eversion (Left): Normal Digital (Left): Normal Assessment & Plan Diagnosis: (1) Osteomyelitis of left foot ICD Codes: M86.9 - Osteomyelitis, unspecified (2) Type 1 diabetes mellitus ICD Codes: E10.9 - Type 1 diabetes mellitus without complications Status: Chronic (3) Diabetic ulcer of left foot ICD Codes: E11.621 - Type 2 diabetes mellitus with foot ulcer; L97.529 - Non- pressure chronic ulcer of other part of left foot with unspecified severity Status: Chronic A/P PLAN: Patient can be discharged from podiatry standpoint once cleared with medicine. I ordered clindamycin orally for discharge. Follow-up with me in the wound center on Saturday. No dressing changes until I see him in the wound center. No baths or showers. Problem Qualifiers (1) Osteomyelitis of left foot: Qualified Codes: M86.9 - Osteomyelitis, unspecified (2) Type 1 diabetes mellitus: Qualified Codes: E10.65 - Type 1 diabetes mellitus with hyperglycemia (3) Diabetic ulcer of left foot: Qualified Codes: E10.621 - Type 1 diabetes mellitus with foot ulcer; L97.424 - Non-pressure chronic ulcer of left heel and midfoot with necrosis of bone Patrick Nichols DPM Jul 20, 2017 08:36
[2017-07-20] MEDS: predniSONE 5 MG TAB PO SCH (09:18)
[2017-07-20] MEDS: MYCOPHENOLATE MOFETIL 250 MG CAP PO SCH (09:18)
[2017-07-20] MEDS: SODIUM CHLORIDE 0.9% FLUSH 10 ML FLUSH IV FLUSH SCH (09:18)
[2017-07-20] MEDS: TACROLIMUS 1 MG CAP PO SCH (09:18)
[2017-07-20] MEDS: METOPROLOL TARTRATE 100 MG TAB PO SCH (09:18)
[2017-07-20] MEDS: INSULIN ASPART 1,000 UNITS/10 ML VIAL SQ SCH ×2 (09:19→12:22)
[2017-07-20] MEDS: INSULIN ASPART SUPPLEMENTAL SCALE SQ SCH ×2 (09:20→12:22)
--- NOTE | 2017-07-20 11:44 | HHI.DCPOC ---
Discharge Care Plan Diagnosis: (1) Osteomyelitis of left foot (2) Type 1 diabetes mellitus (3) HLD (hyperlipidemia) (4) HTN (hypertension) (5) Diabetic foot ulcer associated with type 1 diabetes mellitus (6) Living-donor kidney transplant recipient (7) Kidney transplant status (8) History of simultaneous kidney and pancreas transplant Goals to Promote Your Health * To prevent worsening of your condition and complications * To maintain your health at the optimal level Directions to Meet Your Goals Take your medications as prescribed Follow your dietary instruction Follow activity as directed Keep your appointments as scheduled Take your immunizations and boosters as scheduled If your symptoms worsen call your PCP, if no PCP go to Urgent Care Center or Emergency Room Smoking is Dangerous to Your Health. Avoid second hand smoke Call the 24-hour hour crisis hotline for domestic abuse at Franklin Tillman MD Jul 20, 2017 11:44
--- NOTE | 2017-07-20 11:52 | HHI.DS ---
Discharge Summary Admission Date Jul 18, 2017 at 16:53 Discharge Date: Jul 20, 2017 Admitting Diagnosis L Foot Osteo (1) Osteomyelitis of left foot ICD Code: M86.9 - Osteomyelitis, unspecified Diagnosis: Principal (2) Type 1 diabetes mellitus ICD Code: E10.9 - Type 1 diabetes mellitus without complications Diagnosis: Principal Status: Chronic (3) History of simultaneous kidney and pancreas transplant ICD Code: Z94.0 - Kidney transplant status; Z94.83 - Pancreas transplant status Diagnosis: Secondary (4) HTN (hypertension) ICD Code: I10 - Essential (primary) hypertension Diagnosis: Secondary Status: Chronic (5) HLD (hyperlipidemia) ICD Code: E78.5 - Hyperlipidemia, unspecified Diagnosis: Secondary Status: Chronic Procedures Amputation of fourth toe and fourth metatarsal left foot Brief History - From Admission This is a 47-year-old diabetic insulin-dependent, history of pancreatic and kidney transplant who went under an amputation of left fifth toe and partial fifth metatarsal by a different straight knife machine cutter from Dr. Nichols. Per Dr. Nichols the wound was left open and he had hyperbaric oxygen therapy and felt therapy. 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 Patient then underwent MRI which showed osteomyelitis of the fourth toe and fourth metatarsal of the left foot. Patient was told by Dr. Nichols to be admitted for surgery tomorrow. All other review of system reviewed and negative. CBC/BMP: 07/19/17 0830 07/19/17 0830 Significant Findings Laboratory Tests Test 07/18/17 16:45 07/19/17 08:30 Monocytes (%) (Auto) 8.2 % (0.0-8.0) Blood Urea Nitrogen 24 MG/DL (7-18) 26 MG/DL (7-18) Random Glucose 253 MG/DL (74-106) 210 MG/DL (74-106) Estimat Glomerular Filtration Rate 64 ML/MIN (>89) 70 ML/MIN (>89) Mean Platelet Volume 6.7 FL (7.0-11.0) Imaging Last Impressions Foot X-Ray 07/19/17 0000 Signed Impressions: Service Date/Time: Wednesday, July 19, 2017 13:30 - CONCLUSION: 1. Status post interval amputation of the fourth digit. 2. Prior amputation of the fifth digit. 3. Diffuse osteopenia is now noted which is increased from the prior study. Corby Aguero MD Chest X-Ray 07/18/17 0000 Signed Impressions: Service Date/Time: June 17:18 - CONCLUSION: 1. No acute cardiopulmonary disease. James Mejias MD PE at Discharge GENERAL: This is a well-nourished, well-developed patient, in no apparent distress. SKIN: No rashes, ecchymoses or lesions. Cool and dry. HEAD: Atraumatic. Normocephalic. No temporal or scalp tenderness. EYES: Pupils equal round and reactive. Extraocular motions intact. No scleral icterus. No injection or drainage. ENT: Nose without bleeding, purulent drainage or septal hematoma. Throat without erythema, tonsillar hypertrophy or exudate. Uvula midline. Airway patent. NECK: Trachea midline. No JVD or lymphadenopathy. Supple, nontender, no meningeal signs. CARDIOVASCULAR: Regular rate and rhythm without murmurs, gallops, or rubs. RESPIRATORY: Clear to auscultation. Breath sounds equal bilaterally. No wheezes , rales, or rhonchi. GASTROINTESTINAL: Abdomen soft, non-tender, nondistended. No hepato-splenomegaly , or palpable masses. No guarding. MUSCULOSKELETAL:.Left foot is dressed, which is C/D/I. No calf tenderness. Negative Homans sign bilaterally. NEUROLOGICAL: Awake and alert. Cranial nerves II through XII intact. Motor and sensory grossly within normal limits. Five out of 5 muscle strength in all muscle groups. Normal Pt update on day of discharge Denies cp/sob. Pain in extremity controlled. clear to be discharged by podiatry. afebrile. Pt Condition on Discharge: Stable Discharge Disposition: Discharge Home Discharge Time: <= 30 minutes Discharge Instructions DIET: Follow Instructions for: Diabetic Diet Activities you can perform: See Additionl Instruction Other Activity Instructions: No dressing changes until follow up with podiatry at the wound center. No baths or showers. Follow up Referrals: PCP Follow-up - 2 Weeks Podiatry - 2-3 Days with Magdalena,Patrick M. DPM New Medications: Clindamycin (Clindamycin) 300 Mg Cap 300 MG PO TID for Infection, #30 CAP 0 Refills Continued Medications: Aspirin DR (Aspirin 81) 81 Mg Tabdr 81 MG PO DAILY, TAB 0 Refills Insulin Aspart Inj (Novolog Inj) 1,000 Unit/10 Ml Vial 2 UNITS SQ TIDAC for Blood Sugar Management, #60 INJECTION Insulin Detemir Inj (Levemir Inj) 1,000 unit/ 10 ML Vial 30 UNITS SQ HS for Blood Sugar Management, #30 INJECTION Do not mix with any other Insulin. Metoprolol Tartrate (Metoprolol Tartrate) 100 Mg Tab 100 MG PO DAILY, #30 TAB 0 Refills Mycophenolate (Cellcept) 250 Mg Cap 500 MG PO BID for Immunosuppression, #180 CAP 0 Refills Prednisone (Prednisone) 5 Mg Tab 5 MG PO DAILY, TAB 0 Refills Simvastatin (Simvastatin) 40 Mg Tab 40 MG PO HS for Cholesterol Management, #30 TAB 0 Refills Tacrolimus (Prograf) 1 Mg Cap 2 MG PO BID for Prevent Transplant Reject, #60 CAP 0 Refills Franklin Tillman MD Jul 20, 2017 11:52
[2017-07-23] MEDS ORDERED: DOXY100C PO (13:20)
== END 2017-07-20 12:57 | disposition home or self-care (01) | DRG 617 ==
LOC: HOR 14:11 → NEDA 16:53 → N04A 17:53
PROVIDERS: ADMIT Hospitalist; ATTEND Hospitalist
PROC: 0Y6N0Z7 Detachment at Left Foot, Complete 4th Ray, Open Approach (ICD-10-PCS; principal; 2017-07-19 10:49)
DX: E10.69 Type 1 diabetes mellitus with other specified complication (principal); M86.672 Other chronic osteomyelitis, left ankle and foot; T86.891 Other transplanted tissue failure; E10.40 Type 1 diabetes mellitus with diabetic neuropathy, unspecified; E10.65 Type 1 diabetes mellitus with hyperglycemia; L97.424 Non-pressure chronic ulcer of left heel and midfoot with necrosis of bone; Z94.0 Kidney transplant status; E10.621 Type 1 diabetes mellitus with foot ulcer; I10 Essential (primary) hypertension; E78.5 Hyperlipidemia, unspecified; B95.62 Methicillin resistant Staphylococcus aureus infection as the cause of diseases classified elsewhere; Y83.0 Surgical operation with transplant of whole organ as the cause of abnormal reaction of the patient, or of later complication, without mention of misadventure at the time of the procedure; Z79.4 Long term (current) use of insulin; Z83.3 Family history of diabetes mellitus; Z87.891 Personal history of nicotine dependence; Z89.422 Acquired absence of other left toe(s); Z23 Encounter for immunization
CPT/HCPCS: 71020; 73630; 80048; 80053; 82948; 85025; 85027; 85610; 86403; 87015; 87070; 87077; 87102; 87116; 87147; 87176; 87186; 87205; 87206; 88304; 88305; 88311; 90686; 93005; 99285; J1815; J2250; J2370; J2405; J3010; J7030; J7507; J7512; J7517; L3260; Q2038